=== PATIENT | male | born 1935 | race Caucasian/White ===

== ENCOUNTER → 2016-09-23 | Outpatient (CLI) | payer BC, OTHER ==
[~2016-09-23] MED LIST: IND/25 PO; LISI20TA3 PO; MCRK20 PO; NRN/600 PO; PRED20TA PO; SERT50TA PO; SPIR25TA89 PO; TPRSR25 PO; WARF4TAB PO
--- NOTE | 2016-09-23 12:01 | DIAGNOSTIC IMAGING REPORT ---
THORACIC SPINE 3 VIEWS HISTORY: Pain CHRONIC PAIN COMPARISON: None. FINDINGS: There is no fracture. Findings of posterior fusion procedure with bilateral jaziel placements are noted. Metallic hardware appears to be stable. Moderate degenerative disc changes throughout. IMPRESSION: No acute process. Chronic degenerative disc change with pre-existing postoperative changes consistent with a stabilization procedure Electronically signed by: Eric Conroy M.D. 09/23/2016 11:59 AM Dictated Date/Time: 09/23/2016 11:58 AM
== END | disposition home or self-care (01) ==
LOC: C.RADBC 11:38
PROVIDERS: ATTEND Internal Medicine Geriatric Medicine
DX: G89.29 Other chronic pain (principal)

== ENCOUNTER → 2016-11-16 | Outpatient (CLI) | payer BC, OTHER | END | disposition home or self-care (01) | LOC: C.LABSPEC 14:16 | PROVIDERS: ATTEND Physician Assistant Medical | DX: L03.119 Cellulitis of unspecified part of limb (principal) ==

== ENCOUNTER → 2016-11-17 | Outpatient (CLI) | payer BC, OTHER ==
--- NOTE | 2016-11-17 11:18 | DIAGNOSTIC IMAGING REPORT ---
MRI OF THE RIGHT HAND WITHOUT CONTRAST CLINICAL HISTORY: Right hand cellulitis. Evaluate for osteomyelitis. COMPARISON STUDY: No previous studies for comparison. FINDINGS: Alignment of the right hand is anatomic. There is no marrow edema or marrow replacement. Note is made of a 8 mm cystic focus along the palmar aspect of the interphalangeal joint of the right thumb which suggests a small ganglion cyst. 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 Note is made of moderate subcutaneous edema of the medial dorsal aspect of the right hand. There is no evidence for osteomyelitis on this examination. IMPRESSION: 1. Subcutaneous edema of the medial dorsal aspect of the right hand consistent with cellulitis. No evidence of osteomyelitis. No abscess identified. 2. Small ganglion cyst of the right thumb. Electronically signed by: Randall Horta M.D. 11/17/2016 11:17 AM Dictated Date/Time: 11/17/2016 11:10 AM
== END | disposition home or self-care (01) ==
LOC: C.MRIBC 09:43
PROVIDERS: ATTEND Physician Assistant Medical
DX: L03.113 Cellulitis of right upper limb (principal); M67.441 Ganglion, right hand

== ENCOUNTER → 2016-12-09 | Outpatient (CLI) | payer BC, OTHER ==
[2016-12-09 12:18] LABS: BASO % 0.1 %; BASO ABS # 0.01 K/uL (0-0.2); COMPLETE YES; EOS % 0.7 %; HEMATOCRIT 47.1 % (42-52); IG% 0.3 %; LYMPH % 8.3 %; LYMPH ABS # 0.76 K/uL (1.2-3.4); MEAN CELL VOLUME 100.2 fL (80-100); MEAN CORPUSCULAR HEMOGLOBIN 34.7 pg (25-34); MEAN CORPUSCULAR HGB CONC 34.6 g/dl (32-36); MEAN PLATELET VOLUME 9.5 fL (7.4-10.4); NEUT % 82.6 %; PLATELET COUNT 159 K/uL (130-400); WHITE BLOOD COUNT 9.13 K/uL (4.8-10.8)
[2016-12-09 15:08] LABS: LYME DISEASE AB IGG NEG (NEG)
[2016-12-09 15:09] LABS: LYME DISEASE AB IGM NEG (NEG)
== END | disposition home or self-care (01) ==
LOC: C.LABBFT 09:48
DX: H91.20 Sudden idiopathic hearing loss, unspecified ear (principal)

== ENCOUNTER → 2016-12-13 | Outpatient (CLI) | payer BC, OTHER ==
[2016-12-13 14:36] LABS: BLOOD UREA NITROGEN 22 mg/dl (7-18)
== END | disposition home or self-care (01) ==
LOC: C.LABBFT 08:24
DX: H91.20 Sudden idiopathic hearing loss, unspecified ear (principal)

== ENCOUNTER → 2016-12-15 | Outpatient (CLI) | payer BC, OTHER ==
[~2016-12-15] MED LIST changes: +GADAVIST IV PRN; -IND/25 PO; -PRED20TA PO
--- NOTE | 2016-12-15 08:53 | DIAGNOSTIC IMAGING REPORT ---
BRAIN COMBO FOR IAC CLINICAL HISTORY: Sudden-onset right sensorineural hearing loss COMPARISON STUDY: MRI of the brain December 30, 2014. TECHNIQUE: Utilizing a 1.5 Viviana magnet and dedicated coil, multiplanar, multi echo imaging of the brain was performed pre and postcontrast administration with thin cut imaging through the internal auditory canals. Injection of 8.6 cc of Gadavist IV was uneventful. FINDINGS: There are no areas of restricted diffusion. No acute intracranial hemorrhage, midline shift or mass effect is present. Basilar cisterns are patent. There are no extra-axial collections. Ventricular system is stable. Scattered white matter T2 hyperintense foci are similar to prior exam of December 30, 2014 and suggest mild small vessel disease. No intracranial mass or pathologic enhancement is identified. There is no mass within the internal auditory canals. There is no cerebellopontine angle mass. There is no mastoid effusion. 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 Abnormal appearance of the left vertebral artery flow-void is similar to prior MRI of December 30, 2014 and could reflect vessel occlusion. This is chronic. Calvarial signal is maintained. IMPRESSION: 1. No acute intracranial findings. 2. No abnormalities within the internal auditory canals. 3. No intracranial mass. 4. No change in appearance of the old infarct within the left cerebellar hemisphere. Loss of the normal flow-void of the left vertebral artery which is unchanged since MRI of December 30, 2014. This is chronic and may reflect chronic vessel occlusion. Electronically signed by: Randall Horta M.D. 12/15/2016 8:52 AM Dictated Date/Time: 12/15/2016 8:43 AM
== END | disposition home or self-care (01) ==
LOC: C.MRI 07:20
DX: H91.20 Sudden idiopathic hearing loss, unspecified ear (principal)

== ENCOUNTER → 2017-02-23 | Outpatient (CLI) | payer BC, OTHER ==
[~2017-02-23] MED LIST changes: -GADAVIST IV PRN; -LISI20TA3 PO; -MCRK20 PO; -TPRSR25 PO
[2017-02-23 13:06] LABS: BLOOD UREA NITROGEN 16 mg/dl (7-18); CALCIUM 8.9 mg/dl (8.5-10.1); CARBON DIOXIDE 33 mmol/L (21-32); CHLORIDE 98 mmol/L (98-107); GLUCOSE 96 mg/dl (70-99); POTASSIUM 3.9 mmol/L (3.5-5.1); SODIUM 136 mmol/L (136-145)
== END | disposition home or self-care (01) ==
LOC: C.LABBFT 09:14
PROVIDERS: ATTEND Internal Medicine Geriatric Medicine
DX: I10 Essential (primary) hypertension (principal)

== ENCOUNTER → 2017-06-30 | Outpatient (CLI) | payer OTHER ==
[~2017-06-30] MED LIST changes: +IND/25 PO
== END | disposition home or self-care (01) ==
LOC: C.LABBC 08:59
PROVIDERS: ATTEND Internal Medicine Geriatric Medicine
DX: M10.9 Gout, unspecified (principal)

== ENCOUNTER 2017-07-21 19:10 | Emergency (ER) | payer OTHER ==
[~2017-07-21] VITALS: Ht 177.8 cm; Wt 93.0 kg
[2017-07-21 19:26] VITALS: TEMP 36.6; Ht 177.8 cm; Wt 93.0 kg
[2017-07-21] MEDS ORDERED: LIDOCAINE/EPINEPH/TETRACAINE 1 EA SYR EXT STA (19:57)
[2017-07-21] MEDS ORDERED: DIPHTHERIA/TETANUS/PERTUSSIS 0.5 ML SYR/VIAL IM. ONE (20:00)
--- NOTE | 2017-07-21 20:02 | EMERGENCY ROOM VISIT NOTE ---
ED Visit Note First contact with patient: 19:41 CHIEF COMPLAINT: Facial laceration, fall, head injury HISTORY OF PRESENT ILLNESS: This 82-year-old male patient presents emergency department, ambulatory, complaining of a laceration to the left forehead. The patient was walking, and stepped off of a curb. He did not realize how high the curb was, and fell face first onto concrete. The patient is on Coumadin. There was no loss of consciousness, vomiting, or unusual behavior afterwards. Denies neck pain. No headache, nausea, or blurred vision. There is moderate bleeding. The patient rates the pain as minimal and 0/10. The patient's tetanus shot is not up to date. The patient does report some minimal bleeding and bruising to his left hand. REVIEW OF SYSTEMS: A 6 system review of systems was completed with positives and pertinent negatives listed in the HPI. ALLERGIES: None MEDICATIONS: Coumadin, gabapentin, Zoloft, spironolactone PMH: CVA SOCIAL HISTORY: The patient lives locally with family. He denies drug, alcohol , tobacco use. PHYSICAL EXAM: Vital Signs: Reviewed Nurse's notes, vital signs stable. GENERAL : This is an 82-year-old white male, in no acute distress, well-developed, well- nourished. NEURO: The patient is alert and oriented to person place and time. No focal neurological defects. EYES: Pupils are round, equal, and react to light. EOMI. EARS: No hemotympanum. NECK: Supple. No cervical spine tenderness. FACE: No facial bone tenderness or mandibular tenderness. The mouth can open fully. The teeth are well aligned. No loose or chipped teeth. SKIN: There is a 2 cm laceration on the left superior aspect of the forehead. The edges gape apart with traction. There is minimal active bleeding and no foreign material in the wound. There are no deep structures present. Capillary refill less than two seconds. Normal sensation to light and sharp touch. There is a small, 0.5cm skin tear to the dorsal aspect of the left hand. RADIOLOGY: CT OF THE HEAD WITHOUT CONTRAST FINDINGS: No acute intracranial hemorrhage, midline shift or mass effect is present. Ventricular system is stable. Basilar cisterns are patent. There are no extra-axial collections. An old infarct within the left cerebellar hemisphere is noted. Mild white matter hypodensity suggests small vessel disease. There is mild bilateral basal ganglia calcification. There are no findings to suggest acute dural sinus thrombosis or acute territorial infarct. A left forehead contusion is noted. There is no calvarial fracture. IMPRESSION: 1. No acute intracranial findings. 2. Left forehead contusion. No calvarial fracture. EMERGENCY DEPARTMENT COURSE: I examined the patient. Verbal consent was obtained to perform the procedure. LET gel applied to the wound and allowed to sit for approximately 40 minutes. The area was sterilely draped. Using sterile technique, the wound was copiously irrigated under pressure with sterile saline. The wound was cleansed with Betadine. The wound was explored and was as described above. The laceration was repaired using 8 simple interrupted 5-0 nylon sutures with the wound edges being well approximated. The patient tolerated the procedure well. Hemostasis was achieved. The area was cleaned with sterile saline and dressed with bacitracin ointment. The patient was given Tdap immunization. The patient was discharged home in good condition. I attest that I have personally reviewed the patient's current medication list. Blood Pressure Screening: Patient was found to have a slightly elevated blood pressure due to circumstances. I do not believe that the patient requires hypertension monitoring. DIFFERENTIAL DIAGNOSIS: Laceration, contusion, ICH, skull fracture, headache, concussion, and others DIAGNOSIS: Facial laceration Problem List Medical Problems: (1) Gastroesophageal reflux disease Status: Chronic (2) Hypertension Status: Chronic Current/Historical Medications Scheduled Gabapentin (Gabapentin), 600 MG PO QID Hctz/Spironolactone (Spironolactone/Hydrochlor 25-25 mg), 1 TAB PO DAILY Sertraline HCl (Sertraline HCl), 50 MG PO DAILY Warfarin Sodium (Coumadin), 4 MG PO 4XWK Warfarin Sodium (Coumadin), 6 MG PO 3XWK Scheduled PRN Furosemide (Furosemide), 20 MG PO DAILY PRN for Peripheral Edema Hydrocodone/Acetaminophen 5MG/325MG ([place] 5MG/325MG), 1 TABLET PO BID PRN for Pain Allergies Coded Allergies: CI Pigment Blue 63 (Unverified Allergy, Mild, UNKNOWN, 12/20/16) takes 4 mg warfarin (blue dye) without problems Celecoxib (Unverified Allergy, Mild, UNKNOWN, 01/29/15) Duloxetine (Unverified Allergy, Mild, UNKNOWN, 01/29/15) Nortriptyline (Verified Adverse Reaction, Intermediate, CONFUSION, 01/29/15 ) Oxycodone (Verified Adverse Reaction, Intermediate, SEVERE WITHDRAWL, 01/29) Vital Signs Date Time Temp Pulse Resp B/P (MAP) Pulse Ox O2 Delivery O2 Flow Rate FiO2 07/21/17 21:24 89 18 158/89 94 Room Air 07/21/17 19:26 36.6 91 20 163/91 92 Room Air Medications Administered Medications (Trade) Dose Ordered Sig/Roger Route Start Time Stop Time Status Last Admin Dose Admin Tetracaine/ Epinephrine/ Lidocaine (L.e.t. Gel 4%/ 1:100/0.5%) 1 ea UD STAT EXT 07/21/17 19:57 07/21/17 19:58 DC 07/21/17 20:18 1 EA Diphtheria/ Pertussis/Tetanus Vacc (Adacel Inj) 0.5 ml ONCE ONCE IM. 07/21/17 20:00 07/21/17 20:01 DC 07/21/17 20:18 0.5 ML Departure Information Impression Primary Impression: Facial laceration Additional Impression: Fall (on)(from) sidewalk curb, initial encounter Dispostion Home / Self-Care Condition GOOD Referrals Jairo Longo M.D. (PCP) Patient Instructions ED Laceration Facial Sutr Tape, Park[place] Additional Instructions You have received 8 sutures on your forehead. These sutures are NOT dissolvable and WILL need to be removed by a health care provider in 4-6 days. You can return to the Emergency Department or contact your Primary Care Provider to have the sutures removed. CT Scan of your head/brain demonstrated no acute bleeding or other abnormalities. This does not completely rule out the risk for future damage to the brain. Proper wound care is essential for adequate wound healing and infection prevention. You can shower and clean the wound with soap and water. Do not scour over the wound, pat dry with a towel. Do not submerse the wound (i.e. bathe or dish wash) until the sutures have been removed. You can use an antibiotic ointment with a dressing over the wound for the next 3-4 days. After this time you may leave the wound dry and open to the air. If crust develops over the wound you can use a Q-tip to apply a 1:1 peroxide:water solution to clean the wound. Look for signs of infection of the wound including: increased pain, swelling, foul discharge, streaking, or increased temperature. If any of these are noticed you should return to the Emergency Department for further assessment and treatment. As with any laceration you may have received nerve damage to the surrounding tissues. This damage may or may not be permanent. You should keep the area covered with sunscreen for the first 6 months to 1 year when at risk for exposure to help minimize scarring. You can also use scar reducing creams or Vitamin E oil to help minimize scarring. For pain control, you can use Tylenol. Please do not exceed 3000mg Tylenol in 24 hours. You should relax in a quiet, dark place for the rest of the day. Avoid any possible triggers including: cigarette smoke, caffeine, nicotine, chocolate, wine, beer, loud noises or music, or bright lights. Return to the Emergency Department if your current symptoms worsen despite treatment course outlined above, or if you develop any of the following symptoms : intractable pain despite aforementioned treatment course, visual disturbances , loss of vision, unilateral weakness or facial drooping, slurring of speech, loss of coordination, or loss of consciousness. Problem Qualifiers Primary Impression: Facial laceration Encounter type: initial encounter Qualified Codes: S01.81XA - Laceration without foreign body of other part of head, initial encounter
[2017-07-21] MEDS ORDERED: ZLF/50 PO (20:27)
[2017-07-21] MEDS ORDERED: LSX20 PO (20:27)
[2017-07-21] MEDS ORDERED: HYDR-5688 PO (20:27)
[2017-07-21] MEDS ORDERED: SPIR1TAB72 PO (20:27)
[2017-07-21] MEDS ORDERED: NRN600 PO (20:27)
--- NOTE | 2017-07-21 20:32 | DIAGNOSTIC IMAGING REPORT ---
CT OF THE HEAD WITHOUT CONTRAST CLINICAL HISTORY: fall, head injury, frontal contusion, on coumadin COMPARISON STUDY: Head CT October 13, 2014 and MRI the brain December 15, 2016. CT DOSE: 899.90 mGy.cm TECHNIQUE: Helical axial images of the head were obtained without IV contrast. Automated exposure control was utilized for the study. A dose lowering technique was utilized adhering to the principles of ALARA. FINDINGS: No acute intracranial hemorrhage, midline shift or mass effect is present. Ventricular system is stable. Basilar cisterns are patent. There are no extra-axial collections. An old infarct within the left cerebellar hemisphere is noted. Mild white matter hypodensity suggests small vessel disease. There is mild bilateral basal ganglia calcification. There are no findings to suggest acute dural sinus thrombosis or acute territorial infarct. A left forehead contusion is noted. There is no calvarial fracture. IMPRESSION: 1. No acute intracranial findings. 2. Left forehead contusion. No calvarial fracture. Electronically signed by: Randall Horta M.D. 07/21/2017 8:31 PM Dictated Date/Time: 07/21/2017 8:27 PM
[2017-07-21 21:24] VITALS: BP 158/89; PULSE 89; O2SAT 94
== END 2017-07-21 21:33 | disposition home or self-care (01) ==
LOC: C.EDB 19:11 → C.EDD 21:33
DX: S01.81XA Laceration without foreign body of other part of head, initial encounter (principal); W01.0XXA Fall on same level from slipping, tripping and stumbling without subsequent striking against object, initial encounter; S61.412A Laceration without foreign body of left hand, initial encounter; K21.9 Gastro-esophageal reflux disease without esophagitis; I10 Essential (primary) hypertension; Z79.01 Long term (current) use of anticoagulants; Z86.73 Personal history of transient ischemic attack (TIA), and cerebral infarction without residual deficits; Z23 Encounter for immunization

== ENCOUNTER → 2017-10-24 | Outpatient (CLI) | payer OTHER ==
[~2017-10-24] MED LIST changes: +HYDR-5688 PO; -IND/25 PO; +LSX20 PO; -NRN/600 PO; +NRN600 PO; -SERT50TA PO; +SPIR1TAB72 PO; -SPIR25TA89 PO; +ZLF/50 PO
[2017-10-24 13:13] LABS: BASO % 0.4 %; BASO ABS # 0.02 K/uL (0-0.2); EOS % 2.1 %; EOS ABS # 0.11 K/uL (0-0.5); HEMATOCRIT 42.2 % (42-52); HEMOGLOBIN 14.7 g/dL (14.0-18.0); LYMPH % 26.6 %; LYMPH ABS # 1.41 K/uL (1.2-3.4); MEAN CELL VOLUME 97.2 fL (80-100); MEAN CORPUSCULAR HEMOGLOBIN 33.9 pg (25-34); MEAN CORPUSCULAR HGB CONC 34.8 g/dl (32-36); MEAN PLATELET VOLUME 9.2 fL (7.4-10.4); MONO % 12.5 %; MONO ABS # 0.66 K/uL (0.11-0.59); NEUT % 58.4 %; PLATELET COUNT 209 K/uL (130-400); RED CELL DISTRIBUTION WIDTH CV 13.9 % (11.5-14.5); RED CELL DISTRIBUTION WIDTH SD 49.4 fL (36.4-46.3)
[2017-10-24 13:50] LABS: BLOOD UREA NITROGEN 18 mg/dl (7-18); CALCIUM 8.6 mg/dl (8.5-10.1); CARBON DIOXIDE 33 mmol/L (21-32); CHOLESTEROL 148 mg/dl (0-200); CREATININE 1.02 mg/dl (0.60-1.40); GLUCOSE 100 mg/dl (70-99); POTASSIUM 4.2 mmol/L (3.5-5.1); SODIUM 139 mmol/L (136-145)
[2017-10-24 14:00] LABS: LDL CHOLESTEROL CALCULATED 80 mg/dl
== END | disposition home or self-care (01) ==
LOC: C.LABBC 10:52
PROVIDERS: ATTEND Internal Medicine Geriatric Medicine
DX: I10 Essential (primary) hypertension (principal); I63.9 Cerebral infarction, unspecified; F32.9 Major depressive disorder, single episode, unspecified; Z79.01 Long term (current) use of anticoagulants; I48.2 Chronic atrial fibrillation

== ENCOUNTER 2018-08-14 11:54 | Inpatient (IN) ==
[2018-08-14] MEDS ORDERED: SODIUM CHLORIDE 0.9% 1000ML 2,000 ML IV ONE (12:08)
[2018-08-14] MEDS ORDERED: ONDANSETRON INJ 2 MG/ML 2 ML VIAL IV STA (12:08)
[2018-08-14] MEDS ORDERED: PIPERACILLIN/TAZOBACTAM 4.5 GM/120 ML BAG IV ONE (12:08)
[2018-08-14] MEDS ORDERED: PIPERACILL/TAZOBAC CONSULT ACTIVE PRN ×2 (12:08→18:36)
[2018-08-14 12:20] LABS: Basophils # (auto) 0.01 K/uL (0-0.2); Basophils % (auto) 0.1 %; Hemoglobin 13.4 g/dL (14.0-18.0); Immature Granulocytes # (auto) 0.04 K/uL (0.00-0.02); Immature Granulocytes % (auto) 0.3 %; Lymphocytes % (auto) 3.8 %; Mean Corpuscular Hgb Conc 33.5 g/dL (32-36); Mean Corpuscular Volume 100.5 fL (80-100); Mean Platelet Volume 9.5 fL (7.4-10.4); Monocytes # (auto) 1.23 K/uL (0.11-0.59); Monocytes % (auto) 9.4 %; Neutrophils # (auto) 11.27 K/uL (1.4-6.5); Neutrophils % (auto) 86.4 %; Platelet Count 171 K/uL (130-400); RDW Coefficient of Variation 12.6 % (11.5-14.5); RDW Standard Deviation 46.3 fL (36.4-46.3); Red Blood Count 3.98 M/uL (4.7-6.1); White Blood Count 13.05 K/uL (4.8-10.8)
[2018-08-14] MEDS ORDERED: OPTIRAY 320 125ml IV PRN (12:25)
[2018-08-14 12:26] LABS: iSTAT Creatinine 1.8 mg/dl (0.6-1.3); iSTAT Hemoglobin 13.6 g/dl (14.0-18.0); iSTAT Ionized Calcium 1.03 mmol/l (1.12-1.32); iSTAT Potassium 4.3 mEq/L (3.3-5.0)
[2018-08-14 12:33] LABS: INR 1.5 (0.9-1.1); Partial Thromboplastin Ratio 1.1; Partial Thromboplastin Time 29.1 Seconds (21.0-31.0); Prothrombin Time 14.8 Seconds (9.0-12.0)
[2018-08-14 12:36] LABS: Albumin Level 3.4 gm/dl (3.4-5.0); BUN Creatinine Ratio 12.6 (10-20); Calcium 8.1 mg/dl (8.5-10.1); Creatinine Clr Calc Pharmacy 32.6 ml/min; Est GFR (African American) 34.7; Potassium 4.2 mmol/L (3.5-5.1)
[2018-08-14 12:40] LABS: Bilirubin,Total 4.6 mg/dl (0.2-1); Globulin 3.3 gm/dl (2.5-4.0); Total Protein 6.7 gm/dl (6.4-8.2)
--- NOTE | 2018-08-14 12:44 | CT Scan Report ---
CT abd pelvis IV con only CLINICAL HISTORY: sepsis COMPARISON STUDY: 08/13/2018 TECHNIQUE: The patient was scanned in a dynamic helical fashion during intravenous administration of 118 cc of Optiray 320. A dose lowering technique was utilized adhering to the principles of ALARA. CT DOSE: 1315.91 mGy.cm FINDINGS: Lower chest: The heart is enlarged. There are coronary artery calcifications. There are basilar opaci ties statistically atelectatic. Liver: The contrast-enhanced liver is normal in size, contour, and attenuation. There is no intrahepa tic biliary ductal dilatation. The hepatic veins and portal veins are patent. Gallbladder: There is gallbladder wall thickening and pericholecystic fluid. The findings are suspici ous for acute cholecystitis. Spleen: Normal in size and attenuation. Pancreas: Unremarkable. Adrenal glands: Unremarkable. Kidneys: There is symmetric renal cortical enhancement. The kidneys are normal in size without hydron ephrosis. Bowel: There are no transition zones indicate bowel obstruction. The appendix appears normal. There i s colonic diverticulosis. There are no acute peridiverticular inflammatory changes. There is borderli ne rectal wall thickening. Peritoneum: There is no intraperitoneal free air or abdominal ascites. Vasculature: The abdominal aorta is normal in course and caliber. Adenopathy: There are borderline enlarged aortocaval peripancreatic and periportal lymph nodes simila r to the preceding study. Pelvic viscera: There is mild prostamegaly. The bladder is nondistended. There is bladder wall thicke tracy. Skeletal structures: Postsurgical changes are present within the spine IMPRESSION: 1. Interval development of gallbladder wall thickening and infiltration of the pericholecystic fat. T he findings are viewed as suspicious for acute cholecystitis. 2. No evidence of bowel obstruction. No evidence of free air 3. Borderline rectal wall thickening 4. Borderline enlarged aortocaval, peripancreatic, periportal lymph nodes 5. Prostamegaly and bladder wall thickening Electronically signed by: Roberto Del Rosario M.D. 08/14/2018 12:42 PM
--- NOTE | 2018-08-14 12:51 | CT Scan Report ---
CT angio chest PE protocol HISTORY: 83 years-old Male with tachy hypotension . Acute tachycardia with hypotension TECHNIQUE: Multiple CTA images of the chest were obtained after the intravenous administration of 118 ml Optiray 320. Coronal and sagittal MIPS were obtained from the axial data set and were submitted for review. All measurements were obtained according to NASCET criteria. A dose lowering technique w as utilized adhering to the principles of ALARA. COMPARISON: CT abdomen and pelvis of same day, CTA chest abdomen and pelvis 10/07/2014. FINDINGS: CTA: Moderate multichamber cardiac enlargement without pericardial effusion. Coronary arterial calcificati ons are noted. The left heart structures and aortic outflow tracts are not well opacified secondary t o contrast bolus timing. No thoracic aortic aneurysm or dissection identified. Reflux of contrast int o the IVC and hepatic veins. The pulmonary arterial tree is opacified to level of the segmental branc hes. The distal segmental and subsegmental branches are not well evaluated secondary to contrast bolu s timing and respiratory motion. No focal filling defects identified to suggest pulmonary thromboembo lic disease. CT CHEST: Heterogeneous appearance of the thyroid. Nonspecific mildly enlarged subcarinal and right hilar lymph nodes measure up to 10 mm. There is no pneumothorax or pleural effusion. Mild bilateral bronchial wa ll thickening. Bibasilar groundglass and subsegmental consolidative opacities, left greater than righ t suggest atelectasis/scarring. Chronic left hemidiaphragmatic elevation. There are a few scattered c alcified granulomata noted about the lungs. No overt pulmonary edema identified. Central airways appe ar patent. No acute process of the imaged upper abdomen. There is suggested mild hepatic steatosis. Soft tissues are unremarkable. Fusion hardware of the cervical and thoracic spine noted. Degenerative changes of the shoulders and spine. IMPRESSION: 1. No acute aortic pathology or evidence of pulmonary thromboembolic disease. 2. Moderate cardiomegaly without overt pulmonary edema. 3. Chronic left hemidiaphragmatic elevation with left greater than right bibasilar opacities suggesti ng atelectasis/scarring. The above report was generated using voice recognition software. It may contain grammatical, syntax o r spelling errors. Electronically signed by: Artur Hardy M.D. 08/14/2018 12:50 PM
--- NOTE | 2018-08-14 12:51 | XRay Report ---
XR chest 1V portable CLINICAL HISTORY: Sepsis COMPARISON STUDY: 04/11/2015 FINDINGS: The cardiac images so contours remain stable. There is mild mediastinal and hilar fullness unchanged the prior study. There are postsurgical changes of spinal rodding. There is no focal pulmon daniela consolidation. There are no pleural effusions. There is no overt failure. IMPRESSION: AP portable study. No acute findings. Electronically signed by: Roberto Del Rosario M.D. 08/14/2018 12:50 PM
--- NOTE | 2018-08-14 15:43 | Surgery Consultation ---
Date of Consultation August 14, 2018 Assessment & Plan (1) Cholangitis: 83 yo male who presents with sepsis and MARCELA secondary to cholangitis and acute cholecystitis. Discussed etiology of cholangitis, including choledocholithiasis vs malignancy, with the patient and his . Discussed need for GI consultation , possible ERCP for further evaluation / duct clearance, and likely recommendation for cholecystectomy if determined etiology is cholelithiasis/ choledocholithiasis - Consult GI for possible urgent ERCP (discussed case with Dr. Domínguez, who will evaluate) - Broad spectrum antibiotics, fluid resuscitation - Add on direct bilirubin and lipase to today's labs - f/u blood cultures - Trend lactate (repeat this evening) - Repeat CBC with diff, LFTs including direct bili tomorrow - Please hold Eliquis - Check urinalysis and urine culture - Analgesia PRN - Possible cholecystectomy this admission, timing and final surgical recommendations pending results of ERCP and pt clinical course - No additional tx at this time for borderline rectal wall thickening of undetermined significance, will continue to monitor for symptoms (pt currently denies aside from constipation), mild inflammation would be covered by antibiotics pt is already receiving Present on Admission?: Yes (2) Sepsis: see above Present on Admission?: Yes (3) Cholecystitis: see above Present on Admission?: Yes (4) MARCELA (acute kidney injury): MARCELA secondary to dehydration from sepsis/cholangitis - IVF resuscitation - Repeat BMP tomorrow Present on Admission?: Yes (5) Bladder wall thickening: - Obtain urinalysis and urine culture - Will need further workup as an outpatient, recommend Urology referral Present on Admission?: Yes History of Present Illness Reason for Consultation: "Shahnaz" Requesting Physician: Arcadio Gupta MD History of Present Illness Patient is an 83 yo male who presents with RUQ abdominal pain. Over the past approximately 1 year he has experienced mild RUQ discomfort after meals, he noted it is often after ice cream, possibly after some greasy food. This Tuesday or Tuesday he began experiencing more severe RUQ pain that would not subside. Pain radiated to the right abdomen/flank. This was also associated with nausea. This morning he had an episode of dry heaves. Pt and deny jaundice. Also reports recent constipation. Denies any chest pain, dyspnea, urinary frequency or dysuria. He was seen in the ED yesterday, total bili was 1.1 but remainder of LFTs were relatively unremarkable. CT scan showed urinary bladder wall thickening, concern for neoplasm vs underdistention, but no gallbladder/biliary abnormalities. He presented again today with reportedly SBP in the 80s, HR 120s, and SpO2 of 88 % on room air. After 2L of IVF his SBP is ~ 107, HR 70s, and is ~96% on room air. WBC 13.5, Lactate 3.6, INR 1.5, Na of 135, Cr 2.00 (1.10 yesterday), total bili 4.6 (1.1), direct bili unavailable. AST and ALT of 242 and 209 respectively (yesterday 27 and 36). CT scan shows interval development of gallbladder wall thickening and borderline rectal wall thickening. Of note, he has a-fib and is on Eliquis, his last dose was 5 mg this morning. He no longer takes Warfarin. He denies any prior abdominal surgeries. Allergies Allergy/AdvReac Type Severity Reaction Status Date / Time blue dye Allergy Mild UNKNOWN Unverified 08/14/18 12:43 celecoxib Allergy Mild UNKNOWN Unverified 08/14/18 12:43 duloxetine Allergy Mild UNKNOWN Unverified 08/14/18 12:43 nortriptyline AdvReac Intermediate CONFUSION Verified 08/14/18 12:43 oxycodone AdvReac Intermediate SEVERE Verified 08/14/18 12:43 WITHDRAWL Home Medications Home Medications Medication Instructions Recorded Confirmed Type apixaban [Eliquis] 5 mg PO BID 08/14/18 08/14/18 History furosemide 20 mg PO DAILY PRN 08/14/18 08/14/18 History gabapentin 0 mg PO QID 08/14/18 08/14/18 History hydrocodone-acetaminophen 1 tab PO BID PRN 08/14/18 08/14/18 History sertraline 50 mg PO DAILY 08/14/18 08/14/18 History spironolacton-hydrochlorothiaz 1 tab PO DAILY 08/14/18 08/14/18 History Patient History Medical History Hypotension A-fib History of stroke Social History Feels Safe at Home: Yes Smoking Status: Never smoker Preferred Language: Amharic Communication Ability: Effective Visual Impairment: No Limitations Hearing Ability: Normal Review of Systems Constitutional: as per Subjective / HPI and + weakness; no fever, no chills and no sweats Respiratory: no cough, no dyspnea and no dyspnea on exertion Cardiovascular: no chest pain, no chest pain with activity, no dyspnea at rest and no palpitations Additional Comments: positive for history of a-fib Gastrointestinal: as per Subjective / HPI, + abdominal pain, + heartburn, + nausea and + constipation Genitourinary (Male): no dysuria and no urinary frequency Integumentary: no yellowing of the skin Physical Exam 2 Vital Signs (Past 24 Hours): Last Vital Signs Temp 36.4 C L 08/14/18 11:56 Pulse 78 08/14/18 13:54 Resp 18 08/14/18 13:54 BP 106/67 08/14/18 13:54 Pulse Ox 93 08/14/18 13:54 Constitutional: well developed; no acute distress Eyes: PERRL, conjunctivae normal, anicteric sclerae + anicteric sclerae ENMT: external ear and nose normal, oropharynx normal Neck: trachea midline, no thyromegaly trachea midline no adenopathy Respiratory: normal respiratory effort, lungs clear to auscultation Cardiovascular: Rate/Rhythm: regular rate and regular rhythm Heart Sounds: no murmur Gastrointestinal (Abdomen): soft, nondistended, RUQ tendnerness, no rebound or guarding Musculoskeletal: no edema Neurologic: alert and oriented Psychiatric: Orientation: alert Thought Process: goal directed thought process Results & Data Laboratory Results Laboratory Tests 08/13/18 08/14/18 08/14/18 03:10 12:04 12:09 WBC 8.56 13.05 H RBC 3.98 L Hgb 13.4 L POC Hgb 13.6 L Hct 40.0 L POC Hct 40 L MCV 100.5 H Immature Gran # (Auto) 0.04 H Neut # (Auto) 11.27 H Lymph # (Auto) 0.50 L [place] # (Auto) 1.23 H Laboratory Tests 08/14/18 12:51 Lactate 3.6 H* Laboratory Tests 08/14/18 12:04 PT 14.8 H INR 1.5 H Laboratory Tests 08/13/18 08/14/18 03:10 12:04 Sodium 138 135 L Potassium 4.1 4.2 Chloride 101 99 Carbon Dioxide 31 31 Anion Gap 6.0 6.0 BUN 22 H 25 H Creatinine 1.10 2.00 H D Glucose 130 H 153 H Calcium 8.8 8.1 L Laboratory Tests 08/13/18 08/14/18 03:10 12:04 Total Bilirubin 1.1 H 4.6 H D AST 27 242 H ALT 36 209 H Alkaline Phosphatase 98 112 Albumin 4.3 3.4 Lipase 149 Diagnostic Findings (08/14/18) CT Abdomen/Pelvis: 1. Interval development of gallbladder wall thickening and infiltration of the pericholecystic fat. The findings are viewed as suspicious for acute cholecystitis. 2. No evidence of bowel obstruction. No evidence of free air 3. Borderline rectal wall thickening 4. Borderline enlarged aortocaval, peripancreatic, periportal lymph nodes 5. Prostamegaly and bladder wall thickening (08/13/18) CT Abdomen/Pelvis: 1. Extensive bibasilar atelectasis at the lung bases suspected. 2. Nonspecific mild gaseous distention of small bowel. Ileus is not excluded. No bowel obstruction. 3. Limited diverticulosis. No evidence of diverticulitis. 4. Possible ovoid bladder wall thickening raising concern for bladder neoplasm. Urologic consultation for cystoscopy recommended. 5. Nonopacification of the hepatic veins. This is likely related to an early phase of contrast. If there is clinical concern, Doppler ultrasound could confirm hepatic vein patency. 6. Cardiomegaly. _ (1) Sepsis Sepsis type: sepsis due to unspecified organism Qualified Code(s): A41.9 - Sepsis, unspecified organism
[2018-08-14 16:26] LABS: Bilirubin Direct 2.6 mg/dl (0-0.2)
--- NOTE | 2018-08-14 17:22 | Gastrointestinal Consultation ---
Date of Consultation August 14, 2018 I have seen and examined the patient on 08/14/18. I agree with futher plan of care per [facility] Assessment & Plan (1) Cholecystitis: Mr. Carpio is an 83 yr old male with chills, leukocytosis, marked new elevation of bilirubin, transaminases and alk Phos. This is suggestive of cholangitis, however, CT yesterday and today w/o evidence of bile duct obstruction. Plan: MRCP tonight. Please get blood cultures if not already obtained. IV fluids. Will plan for ERCP tomorrow (added on to OR schedule) Hold Eliquis. Present on Admission?: Yes (2) Elevated LFTs: Present on Admission?: Yes (3) Leukocytosis: Present on Admission?: Yes Supervising Physician Co-Signing Physician Notes I saw and evaluated the patient on 08/15/18. He presented with signs and symptoms most consistent with sepsis, thought to be related to cholangitis. We are planning for an urgent ercp as he has been volume resusitated and hemodynamicaly improved with antibiotic coverage. The patient is on eloquis, last dose yesterday and is therefore at much higher than average risk of bleeding. PE: mild distress/pale appearing mild icterus RUQ tender to palpation Impression: patient presents with signs and symptoms suggestive of cholangitis. We are planning for urgent ERCP today for biliary decompression. We have discussed the risks to include bleeding, infection, pain, pancreatitis, failed biliary cannulation, and need for follow-up studies. History of Present Illness Reason for Consultation: abdominal pain, elevated LFTs Requesting Physician: Dr. Mi Attending Physician: Dr. Arellano History of Present Illness Mr. Douglas Carpio is an 83 yr old male who presented to the ED today for abdominal pain. GI is consulted for ? cholangitis. He had diffuse abdominal pain yesterday, was seen in the ED at which time CT and labs were normal and he was discharged with the thought that the pain was from constipation. He used a laxative and enema with result of a BM and relief of the pain. However, today at 11AM, he began with pain again, as well as sweating. EMS was summoned (as family thought his sweating was similar to when he experienced a stroke - so they were concerned for that). He was transported to the ED. Though LFTs and WBC were normal yesterday, on arrival in the ED today, WBC was 13 and LFT were significantly elevated: T bili 4.6, AST 242, ALT 209, Alk Phos 112. CT with IV contrast today with gallbladder wall thickening and pericholecystic fluid suggestive of gallbladder disease. He is seen and examined in the ED where he is awake, alert, oriented and currently with normal BP but was hypotensive prior to IV fluids. He is accompanied by Allergies Allergy/AdvReac Type Severity Reaction Status Date / Time blue dye Allergy Mild UNKNOWN Unverified 08/14/18 12:43 celecoxib Allergy Mild UNKNOWN Unverified 08/14/18 12:43 duloxetine Allergy Mild UNKNOWN Unverified 08/14/18 12:43 nortriptyline AdvReac Intermediate CONFUSION Verified 08/14/18 12:43 oxycodone AdvReac Intermediate SEVERE Verified 08/14/18 12:43 WITHDRAWL Home Medications Home Medications Medication Instructions Recorded Confirmed Type apixaban [Eliquis] 5 mg PO BID 08/14/18 08/14/18 History furosemide 20 mg PO DAILY PRN 08/14/18 08/14/18 History gabapentin 800 mg PO TID 08/14/18 08/14/18 History hydrocodone-acetaminophen 1 tab PO BID PRN 08/14/18 08/14/18 History sertraline 50 mg PO DAILY 08/14/18 08/14/18 History spironolacton-hydrochlorothiaz 1 tab PO DAILY 08/14/18 08/14/18 History Patient History Medical History Choledocholithiasis with acute cholecystitis (Acute) Elevated LFTs MARCELA (acute kidney injury) (Acute) Sepsis (Acute) Hypotension A-fib History of stroke Hypertension (Chronic) Atrial flutter with rapid ventricular response (Acute) History of cardioversion 2014 Surgical History H/O cervical spine surgery H/O colonoscopy H/O elbow surgery Previous back surgery Social History Current Living Situation: Spouse Other Information That Helps Us Care for You: No Feels Safe at Home: Yes Safety Concerns: Feels Safe At This Time Smoking Status: Never smoker Hx Alcohol Use: No Hx Substance Use: No Beliefs That Will Affect Care: None Preferred Language: Uzbek Communication Ability: Effective Water Trainer Required: No Review of Systems Constitutional: + chills, + sweats and + weakness icterus Respiratory: no cough, no chest congestion and no dyspnea Cardiovascular: no chest pain, no radiating jaw, neck or arm pain, no dyspnea on exertion, no palpitations, no syncope and no edema Gastrointestinal: as per Subjective / HPI and + nausea (one episode) Genitourinary (Male): no dysuria and no hematuria no dark urine Integumentary: + change in skin color (jaundice) Neurologic: no gait abnormality, no unsteadiness, no falls and no numbness Psychiatric: no depression, no irritability, no anxiety and no confusion sweats Hematologic / Lymphatic: no easy bleeding, no easy bruising and no coagulopathy on Eliquis but denies any easy bleeding/bruising Physical Exam 2 Vital Signs (Past 24 Hours): Last Vital Signs Temp 36.4 C L 08/14/18 11:56 Pulse 76 08/14/18 15:56 Resp 18 08/14/18 15:56 BP 110/67 08/14/18 15:56 Pulse Ox 96 08/14/18 15:56 Constitutional: WD/WN, vitals as above well nourished, + obese and well groomed; no acute distress (uncomfortable but no severe pain) Eyes: icterus, PEARLA ENMT: external ear and nose normal, oropharynx normal Neck: trachea midline, no thyromegaly Respiratory: normal respiratory effort, lungs clear to auscultation Cardiovascular: RRR, no murmur, no edema Vessels: no JVD Extremities: no edema Gastrointestinal (Abdomen): Inspection/Auscultation: + abdomen distended (mild ) and + hypoactive bowel sounds; no abdominal edema Percussion/Palpation: + abdomen tender (moderate RLQ and RUQ tenderness) and abdomen soft Musculoskeletal: no cyanosis or clubbing, extremities motor strength 5/5 Skin: + jaundice Neurologic: PERRL, EOMI, accommodation nl, no face palsy, no dysarthria Psychiatric: A+Ox3, euthymic affect Lymphatic: no cervical or axillary lymphadenopathy Results & Data Laboratory Results Lactate 3.6. T BIli 4.6, AST 242, ALT 209, Alk Phos 112, WBC 13. Diagnostic Findings CT abd/pelvis with IV contrast 08/14/18: 1. Interval development of gallbladder wall thickening and infiltration of the pericholecystic fat. The findings are viewed as suspicious for acute cholecystitis. 2. No evidence of bowel obstruction. No evidence of free air 3. Borderline rectal wall thickening 4. Borderline enlarged aortocaval, peripancreatic, periportal lymph nodes 5. Prostamegaly and bladder wall thickening CT 08/13/18: 1. Extensive bibasilar atelectasis at the lung bases suspected. 2. Nonspecific mild gaseous distention of small bowel. Ileus is not excluded. No bowel obstruction. 3. Limited diverticulosis. No evidence of diverticulitis. 4. Possible ovoid bladder wall thickening raising concern for bladder neoplasm. Urologic consultation for cystoscopy recommended. 5. Nonopacification of the hepatic veins. This is likely related to an early phase of contrast. If there is clinical concern, Doppler ultrasound could confirm hepatic vein patency. 6. Cardiomegaly. Medications Administered Zosyn
--- NOTE | 2018-08-14 17:25 | History & Physical Report ---
Date of Service August 14, 2018 Assessment & Plan (1) MARCELA (acute kidney injury): (2) Bladder wall thickening: (3) Cholangitis: (4) Sepsis: 83yoM with hx of Afib, HTN, embolic CVA in 2014, hx of spinal fusion and chronic back pain presented with worsening and severe RUQ abdominal pain to the ED this AM. Concern for sepsis secondary to cholangitis and acute cholecystitis. Sepsis 2/2 cholangitis and acute cholecystitis -WBC 13 -Lactate 3.6 -Elevated LFT: Tbili 4.6, Direct Bili 2.6, AST 242, ALT 209 -Abdominal CT: concerning for acute cholecystitis -Blood culture x 2 pending -Started on Zosyn -Zofran PRN -GI consulted: Dr. Domínguez - plan for ERCP tomorrow or tuesday -On clear liquid diet per GI -Trend lactate -Continue to monitor CBC and follow blood cultures MARCELA in the setting of sepsis secondary to cholangitis/acute cholecystitis -BUN/Cr 25/2 -Received 2L NS bolus -On maintenance IVFs - NS at 125mls/hr -UA/UCx pending -Continue to monitor BMP Afib -ECHO 01/2015: EF 55%, mild-moderate MVR, mild Tricuspid valve regurg -Hold eliquis in preparation for ERCP -Given CHADSVASC score of 5 placed on heparin IV bridge HTN -Hold home lasix and HCTZ-Spironolactone given MARCELA and hypotension Chronic back pain - hx of spinal fusion -Continue home gabapentin and hydrocodone-acetaminophen Bladder wall thickening on CT abdomen -Concern for possible malignancy - consider outpt urology follow up Code: Full DVT prophylaxis: Heparin drip and SCDs Dispo: To telemetry (5) Cholecystitis: (6) A-fib: (7) History of stroke: (8) Hypertension: History of Present Illness Primary Care Provider: Corky Murry MD 83yoM with hx of Afib, HTN, embolic CVA in 2014, hx of spinal fusion and chronic back pain presented with severe RUQ abdominal pain to the ED this AM. Per pt and , pt was in the ED last Tuesday, 08/13 with abdominal pain and was sent home with bowel regimen. His administered bowel regimen and enema after which he had multiple BMs including loose, brown non-bloody BM this AM with improvement in abdominal pain. However this morning around 10am, started having intense RUQ abdominal pain again a/w sweating, nausea and dry heaves. Pain is described as "soreness", intermittent, 5/10 and localized at time of admission. He had scrambled eggs and toast this AM. Denies fever, CALVO/dizziness, cp, sob, dysuria, hematuria, hematochezia, or melena. ED course: He was found to be hypotensive, tachycardic and hypoxic with elevated WBC of 13, abnormal LFTs - Tbili 4.6, Direct Bili 2.6, AST 242, ALT 209 , elevated BUN/Cr 25/2, elevated lactate of 3.6. CT abdomen was concerning for acute cholecystitis. GI was consulted and evalated pt recommending ERCP. He received 2L NS with improvement in his hypotension and tachycardia. He also received zosyn and zofran x 1 Allergies Allergy/AdvReac Type Severity Reaction Status Date / Time blue dye Allergy Mild UNKNOWN Unverified 08/14/18 12:43 celecoxib Allergy Mild UNKNOWN Unverified 08/14/18 12:43 duloxetine Allergy Mild UNKNOWN Unverified 08/14/18 12:43 nortriptyline AdvReac Intermediate CONFUSION Verified 08/14/18 12:43 oxycodone AdvReac Intermediate SEVERE Verified 08/14/18 12:43 WITHDRAWL Home Medications Home Medications Medication Instructions Recorded Confirmed Type apixaban [Eliquis] 5 mg PO BID 08/14/18 08/14/18 History furosemide 20 mg PO DAILY PRN 08/14/18 08/14/18 History gabapentin 800 mg PO TID 08/14/18 08/14/18 History hydrocodone-acetaminophen 1 tab PO BID PRN 08/14/18 08/14/18 History sertraline 50 mg PO DAILY 08/14/18 08/14/18 History spironolacton-hydrochlorothiaz 1 tab PO DAILY 08/14/18 08/14/18 History Past Med/Surg History Medical History Hypotension A-fib History of stroke Social History Current Living Situation: Spouse Other Information That Helps Us Care for You: No Feels Safe at Home: Yes Safety Concerns: Feels Safe At This Time Smoking Status: Never smoker Hx Alcohol Use: No Hx Substance Use: No Beliefs That Will Affect Care: None Preferred Language: Danish Communication Ability: Effective Recovery Collector Required: No Review of Systems As per HPI Physical Exam 2 Vital Signs (Past 24 Hours): Last Vital Signs Temp 36.4 C L 08/14/18 11:56 Pulse 76 08/14/18 15:56 Resp 18 08/14/18 15:56 BP 110/67 08/14/18 15:56 Pulse Ox 96 08/14/18 15:56 Physical Exam: General: In NAD, resting in bed, pleasant and cooperative CV: Irregular rhythm, regular rate, no m/r/g Pulm: CTAB, equal breath sounds bilaterally Abdomen: +BS, TTP in RUQ, + Medina's test, no rebound tenderness LE: no LE edema or calf tenderness Neuro: Alert and oriented x 4 Results & Data Laboratory Results Abnormal lab results 08/14/18 08/14/18 08/14/18 Range/Units 12:04 12:04 12:04 WBC 13.05 H (4.8-10.8) K/uL RBC 3.98 L (4.7-6.1) M/uL Hgb 13.4 L (14.0-18.0) g/dL POC Hgb (14.0-18.0) g/dl Hct 40.0 L (42-52) % POC Hct (42-52) % MCV 100.5 H (80-100) fL Immature Gran # (Auto) 0.04 H (0.00-0.02) K/uL Neut # (Auto) 11.27 H (1.4-6.5) K/uL Lymph # (Auto) 0.50 L (1.2-3.4) K/uL [place] # (Auto) 1.23 H (0.11-0.59) K/uL PT 14.8 H (9.0-12.0) Seconds INR 1.5 H (0.9-1.1) Sodium 135 L (136-145) mmol/L POC Chloride (101-112) mEq/L POC BUN (7-18) mg/dl BUN 25 H (7-18) mg/dl Creatinine 2.00 H D (0.6-1.4) mg/dl POC Creatinine (0.6-1.3) mg/dl Glucose 153 H (70-99) mg/dl POC Glucose (other) (70-99) mg/dl Lactate (0.4-2.0) mmol/L Calcium 8.1 L (8.5-10.1) mg/dl POC Ioniz Calcium Snow (1.12-1.32) mmol/l Total Bilirubin 4.6 H D (0.2-1) mg/dl Direct Bilirubin (0-0.2) mg/dl AST 242 H (15-37) U/L ALT 209 H (12-78) U/L Lipase (73-393) U/L 08/14/18 08/14/18 08/14/18 Range/Units 12:09 12:51 15:52 WBC (4.8-10.8) K/uL RBC (4.7-6.1) M/uL Hgb (14.0-18.0) g/dL POC Hgb 13.6 L (14.0-18.0) g/dl Hct (42-52) % POC Hct 40 L (42-52) % MCV (80-100) fL Immature Gran # (Auto) (0.00-0.02) K/uL Neut # (Auto) (1.4-6.5) K/uL Lymph # (Auto) (1.2-3.4) K/uL [place] # (Auto) (0.11-0.59) K/uL PT (9.0-12.0) Seconds INR (0.9-1.1) Sodium (136-145) mmol/L POC Chloride 96 L (101-112) mEq/L POC BUN 23 H (7-18) mg/dl BUN (7-18) mg/dl Creatinine (0.6-1.4) mg/dl POC Creatinine 1.8 H (0.6-1.3) mg/dl Glucose (70-99) mg/dl POC Glucose (other) 157 H (70-99) mg/dl Lactate 3.6 H* (0.4-2.0) mmol/L Calcium (8.5-10.1) mg/dl POC Ioniz Calcium Snow 1.03 L (1.12-1.32) mmol/l Total Bilirubin (0.2-1) mg/dl Direct Bilirubin 2.6 H (0-0.2) mg/dl AST (15-37) U/L ALT (12-78) U/L Lipase 65 L (73-393) U/L Diagnostic Findings CT abd pelvis IV con only CLINICAL HISTORY: sepsis COMPARISON STUDY: 08/13/2018 TECHNIQUE: The patient was scanned in a dynamic helical fashion during intravenous administration of 118 cc of Optiray 320. A dose lowering technique was utilized adhering to the principles of ALARA. CT DOSE: 1315.91 mGy.cm FINDINGS: Lower chest: The heart is enlarged. There are coronary artery calcifications. There are basilar opacities statistically atelectatic. Liver: The contrast-enhanced liver is normal in size, contour, and attenuation. There is no intrahepatic biliary ductal dilatation. The hepatic veins and portal veins are patent. Gallbladder: There is gallbladder wall thickening and pericholecystic fluid. The findings are suspicious for acute cholecystitis. Spleen: Normal in size and attenuation. Pancreas: Unremarkable. Adrenal glands: Unremarkable. Kidneys: There is symmetric renal cortical enhancement. The kidneys are normal in size without hydronephrosis. Bowel: There are no transition zones indicate bowel obstruction. The appendix appears normal. There is colonic diverticulosis. There are no acute peridiverticular inflammatory changes. There is borderline rectal wall thickening. Peritoneum: There is no intraperitoneal free air or abdominal ascites. Vasculature: The abdominal aorta is normal in course and caliber. Adenopathy: There are borderline enlarged aortocaval peripancreatic and periportal lymph nodes similar to the preceding study. Pelvic viscera: There is mild prostamegaly. The bladder is nondistended. There is bladder wall thickening. Skeletal structures: Postsurgical changes are present within the spine IMPRESSION: 1. Interval development of gallbladder wall thickening and infiltration of the pericholecystic fat. The findings are viewed as suspicious for acute cholecystitis. 2. No evidence of bowel obstruction. No evidence of free air 3. Borderline rectal wall thickening 4. Borderline enlarged aortocaval, peripancreatic, periportal lymph nodes 5. Prostamegaly and bladder wall thickening CT angio chest PE protocol HISTORY: 83 years-old Male with tachy hypotension . Acute tachycardia with hypotension TECHNIQUE: Multiple CTA images of the chest were obtained after the intravenous administration of 118 ml Optiray 320. Coronal and sagittal MIPS were obtained from the axial data set and were submitted for review. All measurements were obtained according to NASCET criteria. A dose lowering technique was utilized adhering to the principles of ALARA. COMPARISON: CT abdomen and pelvis of same day, CTA chest abdomen and pelvis 10/07. FINDINGS: CTA: Moderate multichamber cardiac enlargement without pericardial effusion. Coronary arterial calcifications are noted. The left heart structures and aortic outflow tracts are not well opacified secondary to contrast bolus timing. No thoracic aortic aneurysm or dissection identified. Reflux of contrast into the IVC and hepatic veins. The pulmonary arterial tree is opacified to level of the segmental branches. The distal segmental and subsegmental branches are not well evaluated secondary to contrast bolus timing and respiratory motion. No focal filling defects identified to suggest pulmonary thromboembolic disease. CT CHEST: Heterogeneous appearance of the thyroid. Nonspecific mildly enlarged subcarinal and right hilar lymph nodes measure up to 10 mm. There is no pneumothorax or pleural effusion. Mild bilateral bronchial wall thickening. Bibasilar groundglass and subsegmental consolidative opacities, left greater than right suggest atelectasis/scarring. Chronic left hemidiaphragmatic elevation. There are a few scattered calcified granulomata noted about the lungs. No overt pulmonary edema identified. Central airways appear patent. No acute process of the imaged upper abdomen. There is suggested mild hepatic steatosis. Soft tissues are unremarkable. Fusion hardware of the cervical and thoracic spine noted. Degenerative changes of the shoulders and spine. IMPRESSION: 1. No acute aortic pathology or evidence of pulmonary thromboembolic disease. 2. Moderate cardiomegaly without overt pulmonary edema. 3. Chronic left hemidiaphragmatic elevation with left greater than right bibasilar opacities suggesting atelectasis/scarring. Code Status & VTE Plan Code Status Full Code VTE Prophylaxis Plan VTE Prophylaxis will be ordered: Yes Supervising Physician Co-Signing Physician Notes Patient seen and examined, chart reviewed, case discussed with Dr. Champion and I agree wtih her assessment and plan as documented above. Briefly, patient is an 83yo male with history of AF on Eliquis, HTN, prior CVA presenting with sepsis from suspected cholecystitis vs cholangitis. On physical exam he is afebrile, hemodynamically stable, non-toxic in appearance Gen: NAD, AA&O Skin: warm, dry, intact HEENT: neck supple, MMM, no JVD Heart : +S1/S2, irregularly irregular, no m/r/g Lungs: CTA Abd: +BS, soft, RUQ tenderness Ext: no edema Labs and images reviewed. Significant for WBC=13, Macrocytic anemia, H/H = 13.4 /40, INR=1.5, BUN=25, Cr=2 (from baseline of 18 and 1.1, respectively), lactate= 2.9, Tbili=4.6, Dbili=2.6, NVC=458, PZB=479 CT Abdomen with gallbladder wall thickening and infiltration of pericholecystic fat concerning for acute cholecystitis. Assessment/Plan - 83yo male with concern for acute cholecystitis, cholangitis. Elevated bilirubin -Admit to PCU -MRCP -Plan for ERCP in AM - holding Eliquis, heparin bridge due to high risk -Zosyn -Follow cultures -Repeat lactate -Remainder of plan as above Resident Activity Tracking Resident Involvement: Resident Care Provided Care Provided: Adult [facility] Medicine _ (1) Sepsis Sepsis type: sepsis due to unspecified organism Qualified Code(s): A41.9 - Sepsis, unspecified organism
[2018-08-14] MEDS ORDERED: ALUMINUM/MAGNESIUM SUSP 30 ML UDC PO PRN (18:36)
[2018-08-14] MEDS ORDERED: NITROGLYCERIN SL 0.4 MG/TAB TAB SL PRN (18:36)
[2018-08-14] MEDS ORDERED: Heparin IV Standard *NO* Bolus IV ONE (18:36)
[2018-08-14] MEDS ORDERED: MAGNESIUM HYDROXIDE SUSP 30 ML UDC PO PRN (18:36)
[2018-08-14] MEDS ORDERED: MoRPHine SULFATE 4 MG/ML 1 ML CARP\\VIAL IV PRN (18:36)
[2018-08-14] MEDS ORDERED: POLYETHYLENE (MIRALAX) 17 GM PACK PO PRN (18:36)
[2018-08-14] MEDS ORDERED: HEPARIN STANDARD DEXTROSE 25,000 UNITS/500 ML IV SCH (19:00)
--- NOTE | 2018-08-14 19:31 | Emergency Department Note ---
Entered by Katharina Askew acting as a scribe for Arcadio Gupta DO History of Present Illness General Chief complaint: Hypotension Source: patient Mode of arrival: ambulatory Limitations: no limitations History of Present Illness Onset (ago): day(s) (this morning ) Location: head (global), upper extremity and lower extremity Pain Consistency: + constant Quality: + other (weakness) Associated symptoms: + nausea/vomiting (The patient complains of vomiting. ), + weakness and + other (The patient denies abdominal pain and urinary symptoms. ) ; no chest pain, no cough and no shortness of breath The patient is an 83 year old male with a history of atrial fibrillation and stroke who presents to the ED with complaints of constant hypotension that onset this morning. The patient states that his called EMS because he could not walk. The patient complains of vomiting yesterday and weakness. The patient denies chest pain, shortness of breath, abdominal pain, urinary symptoms , and cough. Per EMS, the patients blood pressure was 80 and his pulse ox was 86 on 5 liters of nasal cannula. The patient notes that he was in the ER yesterday for constipation. He notes that his right upper quadrant is still mildly tender. This is why he came here yesterday and had a CT which was negative. Home Medications Home Medications Medication Instructions Recorded Confirmed Type apixaban [Eliquis] 5 mg PO BID 08/14/18 08/14/18 History furosemide 20 mg PO DAILY PRN 08/14/18 08/14/18 History gabapentin 800 mg PO TID 08/14/18 08/14/18 History hydrocodone-acetaminophen 1 tab PO BID PRN 08/14/18 08/14/18 History sertraline 50 mg PO DAILY 08/14/18 08/14/18 History spironolacton-hydrochlorothiaz 1 tab PO DAILY 08/14/18 08/14/18 History Allergies Allergy/AdvReac Type Severity Reaction Status Date / Time blue dye Allergy Mild UNKNOWN Unverified 08/14/18 12:43 celecoxib Allergy Mild UNKNOWN Unverified 08/14/18 12:43 duloxetine Allergy Mild UNKNOWN Unverified 08/14/18 12:43 nortriptyline AdvReac Intermediate CONFUSION Verified 08/14/18 12:43 oxycodone AdvReac Intermediate SEVERE Verified 08/14/18 12:43 WITHDRAWL Past Med/Surg History Medical History Hypotension A-fib History of stroke Social History Current Living Situation: Spouse Other Information That Helps Us Care for You: No Feels Safe at Home: Yes Safety Concerns: Feels Safe At This Time Smoking Status: Never smoker Hx Alcohol Use: No Hx Substance Use: No Beliefs That Will Affect Care: None Preferred Language: Urdu Communication Ability: Effective Prize Coordinator Required: No Review of Systems See HPI for pertinent positives & negatives. and A total of 10 systems reviewed and were otherwise negative Physical Exam Vital Signs Vital Signs - 24 hr 08/14/18 11:54 08/14/18 11:56 08/14/18 12:04 Temperature 36.4 C L Temperature Source Oral Sepsis Recent Fever Within 48 Hours No Sepsis Action Taken by Nursing No Action Required Pulse Rate 110 H 110 H Pulse Rate [Apical] Pulse Rate [Left Finger] Pulse Rhythm [Apical] Pulse Rhythm [Left Finger] Pulse Strength [Apical] Respiratory Rate 18 Respiratory Effort / Characteristics Non-Labored Respiratory Depth Normal Respiratory Pattern Blood Pressure 97/70 L Blood Pressure [Left Arm] Blood Pressure Mean 79 Blood Pressure Mean [Left Arm] Blood Pressure Position [Left Arm] Pulse Oximetry 88 L Oxygen Delivery Method Room Air Room Air Room Air Oxygen Flow Rate 08/14/18 12:17 08/14/18 12:36 08/14/18 12:54 Temperature Temperature Source Sepsis Recent Fever Within 48 Hours Sepsis Action Taken by Nursing Pulse Rate Pulse Rate [Apical] Pulse Rate [Left Finger] 96 H 102 H 78 Pulse Rhythm [Apical] Pulse Rhythm [Left Finger] Pulse Strength [Apical] Respiratory Rate 18 22 18 Respiratory Effort / Characteristics Non-Labored Non-Labored Non-Labored Respiratory Depth Normal Normal Normal Respiratory Pattern Blood Pressure Blood Pressure [Left Arm] 94/65 L 114/65 114/72 Blood Pressure Mean Blood Pressure Mean [Left Arm] 74 81 86 Blood Pressure Position [Left Arm] Pulse Oximetry 95 95 92 Oxygen Delivery Method Nasal Cannula Nasal Cannula Nasal Cannula Oxygen Flow Rate 4 2 08/14/18 13:06 08/14/18 13:54 08/14/18 15:56 Temperature Temperature Source Sepsis Recent Fever Within 48 Hours Sepsis Action Taken by Nursing Pulse Rate Pulse Rate [Apical] Pulse Rate [Left Finger] 85 78 76 Pulse Rhythm [Apical] Pulse Rhythm [Left Finger] Irregular Pulse Strength [Apical] Respiratory Rate 18 18 18 Respiratory Effort / Characteristics Non-Labored Spontaneous Non-Labored Spontaneous Non-Labored Spontaneous Respiratory Depth Normal Normal Normal Respiratory Pattern Regular Regular Regular Blood Pressure Blood Pressure [Left Arm] 123/78 106/67 110/67 Blood Pressure Mean Blood Pressure Mean [Left Arm] 93 80 81 Blood Pressure Position [Left Arm] Lying Lying Lying Pulse Oximetry 94 93 96 Oxygen Delivery Method Room Air Room Air Room Air Oxygen Flow Rate 08/14/18 17:55 08/14/18 18:06 08/14/18 19:00 Temperature 36.8 C Temperature Source Oral Sepsis Recent Fever Within 48 Hours Sepsis Action Taken by Nursing Pulse Rate Pulse Rate [Apical] 92 H Pulse Rate [Left Finger] 103 H 84 92 H Pulse Rhythm [Apical] Regular Pulse Rhythm [Left Finger] Pulse Strength [Apical] Normal Respiratory Rate 16 18 20 Respiratory Effort / Characteristics Non-Labored Spontaneous Non-Labored Spontaneous Respiratory Depth Normal Normal Respiratory Pattern Regular Regular Blood Pressure Blood Pressure [Left Arm] 138/76 118/74 112/72 Blood Pressure Mean Blood Pressure Mean [Left Arm] 96 88 85 Blood Pressure Position [Left Arm] Lying Lying Pulse Oximetry 93 95 95 Oxygen Delivery Method Room Air Nasal Cannula Oxygen Flow Rate 5 GENERAL: Sitting up in bed, alert, ill appearing, mild distress, on 5 liters nasal cannula. EYE EXAM: normal conjunctiva. OROPHARYNX: no exudate, no erythema, lips, buccal mucosa, and tongue normal and mucous membranes are moist NECK: supple, no nuchal rigidity, no adenopathy, non-tender LUNGS: Diminished at the bases. HEART: Tachycardic, irregularly irregular rhythm. ABDOMEN: abdomen soft, non-tender, normo-active bowel, sounds, no masses, no rebound or guarding. BACK: Back is symmetrical on inspection and there is no deformity, no midline tenderness, no CVA tenderness. SKIN: no rashes and no bruising UPPER EXTREMITIES: Radial pulses equal bilaterally. LOWER EXTREMITIES: Calves are equal bilaterally. NEURO EXAM: Normal sensorium, cranial nerves II-XII grossly intact, normal speech, no gross weakness of arms, no gross weakness of legs. Course 1202: Past medical records reviewed. The patient was evaluated in room B01, and a complete history and physical examination were performed. 1230: The patient has been moved to B10. 1304: I updated the patient. Upon reevaluation, the patient is resting comfortably. 1305: I reviewed the patient's case with Dr. Celsa Eckert - [facility]. She will evaluate the patient for further management. Consultations Consultation #1: 1305: I reviewed the patient's case with Dr. Celsa Eckert - [facility]. She will evaluate the patient for further management. Time: 13:05 Administered Medications Discontinued Medications Piperacillin Sod/Tazobactam Sod (Zosyn) 4.5 gm in 120 mls @ 240 mls/hr IV NOW ONE Stop: 08/14/18 12:37 Last Infusion: 08/14/18 13:08 Dose: 0 mls/hr Admin: 08/14/18 12:40 Dose: 240 mls/hr Sodium Chloride (Nss 1000ml) 2,000 mls @ 999 mls/hr IV .Q2H1M ONE Stop: 08/14/18 14:08 Last Infusion: 08/14/18 13:59 Dose: 0 mls/hr Admin: 08/14/18 12:15 Dose: 999 mls/hr Ioversol (Optiray 320 125ml) 118 ml IV ONCE PRN PRN Reason: Interaction Checking Stop: 08/18/18 12:24 Last Admin: 08/14/18 12:25 Dose: 118 ml Medical Decision Making Differential Diagnosis Differential diagnosis: Sepsis, UTI, pneumonia, metabolic, electrolyte abnormalities, cardiac sources, intracerebral event, toxicologic, neurologic, as well as others were entertained. Medical Records Attestation: I reviewed the patient's medical records. Home Medications Current Medication List: was personally reviewed by me Laboratory Data Attestation: I reviewed the patient's lab results. Result diagrams: 08/14/18 12:04 08/14/18 12:04 Lab Results 08/14/18 08/14/18 08/14/18 Range/Units 12:04 12:04 12:04 WBC 13.05 H (4.8-10.8) K/uL RBC 3.98 L (4.7-6.1) M/uL Hgb 13.4 L (14.0-18.0) g/dL POC Hgb (14.0-18.0) g/dl Hct 40.0 L (42-52) % POC Hct (42-52) % MCV 100.5 H (80-100) fL MCH 33.7 (25-34) pg MCHC 33.5 (32-36) g/dL RDW Std Deviation 46.3 (36.4-46.3) fL RDW Coeff of Monie 12.6 (11.5-14.5) % Plt Count 171 (130-400) K/uL MPV 9.5 (7.4-10.4) fL Immature Gran % (Auto) 0.3 % Neut % (Auto) 86.4 % Lymph % (Auto) 3.8 % Pickett % (Auto) 9.4 % Eos % (Auto) 0.0 % Baso % (Auto) 0.1 % Immature Gran # (Auto) 0.04 H (0.00-0.02) K/uL Neut # (Auto) 11.27 H (1.4-6.5) K/uL Lymph # (Auto) 0.50 L (1.2-3.4) K/uL Pickett # (Auto) 1.23 H (0.11-0.59) K/uL Eos # (Auto) 0.00 (0-0.5) K/uL Baso # (Auto) 0.01 (0-0.2) K/uL PT 14.8 H (9.0-12.0) Seconds INR 1.5 H (0.9-1.1) APTT 29.1 (21.0-31.0) Seconds PTT Ratio 1.1 POC Sodium (135-144) mEq/L Sodium 135 L (136-145) mmol/L POC Potassium (3.3-5.0) mEq/L Potassium 4.2 (3.5-5.1) mmol/L POC Chloride (101-112) mEq/L Chloride 99 (98-107) mmol/L Carbon Dioxide 31 (21-32) mmol/L POC Total CO2 (24-31) mEq/l Anion Gap 6.0 (3-11) POC Anion Gap (16-25) mmol/L POC BUN (7-18) mg/dl BUN 25 H (7-18) mg/dl Creatinine 2.00 H D (0.6-1.4) mg/dl POC Creatinine (0.6-1.3) mg/dl Est Cr Clr Drug Dosing 32.6 ml/min Est GFR ( Amer) 34.7 Est GFR (Non-Af Amer) 30.0 BUN/Creatinine Ratio 12.6 (10-20) Glucose 153 H (70-99) mg/dl POC Glucose (other) (70-99) mg/dl Lactate (0.4-2.0) mmol/L Calcium 8.1 L (8.5-10.1) mg/dl POC Ioniz Calcium Snow (1.12-1.32) mmol/l Total Bilirubin 4.6 H D (0.2-1) mg/dl Direct Bilirubin (0-0.2) mg/dl AST 242 H (15-37) U/L ALT 209 H (12-78) U/L Alkaline Phosphatase 112 (45-117) U/L Total Protein 6.7 (6.4-8.2) gm/dl Albumin 3.4 (3.4-5.0) gm/dl Globulin 3.3 (2.5-4.0) gm/dl Albumin/Globulin Ratio 1.0 (0.9-2) Lipase 08/14/18 08/14/18 08/14/18 Range/Units 12:04 12:09 12:51 WBC (4.8-10.8) K/uL RBC (4.7-6.1) M/uL Hgb (14.0-18.0) g/dL POC Hgb 13.6 L (14.0-18.0) g/dl Hct (42-52) % POC Hct 40 L (42-52) % MCV (80-100) fL MCH (25-34) pg MCHC (32-36) g/dL RDW Std Deviation (36.4-46.3) fL RDW Coeff of Monie (11.5-14.5) % Plt Count (130-400) K/uL MPV (7.4-10.4) fL Immature Gran % (Auto) % Neut % (Auto) % Lymph % (Auto) % Pickett % (Auto) % Eos % (Auto) % Baso % (Auto) % Immature Gran # (Auto) (0.00-0.02) K/uL Neut # (Auto) (1.4-6.5) K/uL Lymph # (Auto) (1.2-3.4) K/uL Pickett # (Auto) (0.11-0.59) K/uL Eos # (Auto) (0-0.5) K/uL Baso # (Auto) (0-0.2) K/uL PT (9.0-12.0) Seconds INR (0.9-1.1) APTT (21.0-31.0) Seconds PTT Ratio POC Sodium 138 (135-144) mEq/L Sodium (136-145) mmol/L POC Potassium 4.3 (3.3-5.0) mEq/L Potassium (3.5-5.1) mmol/L POC Chloride 96 L (101-112) mEq/L Chloride (98-107) mmol/L Carbon Dioxide (21-32) mmol/L POC Total CO2 30 (24-31) mEq/l Anion Gap (3-11) POC Anion Gap 18.0 (16-25) mmol/L POC BUN 23 H (7-18) mg/dl BUN (7-18) mg/dl Creatinine (0.6-1.4) mg/dl POC Creatinine 1.8 H (0.6-1.3) mg/dl Est Cr Clr Drug Dosing ml/min Est GFR ( Amer) Est GFR (Non-Af Amer) BUN/Creatinine Ratio (10-20) Glucose (70-99) mg/dl POC Glucose (other) 157 H (70-99) mg/dl Lactate 3.6 H* (0.4-2.0) mmol/L Calcium (8.5-10.1) mg/dl POC Ioniz Calcium Snow 1.03 L (1.12-1.32) mmol/l Total Bilirubin (0.2-1) mg/dl Direct Bilirubin (0-0.2) mg/dl AST (15-37) U/L ALT (12-78) U/L Alkaline Phosphatase (45-117) U/L Total Protein (6.4-8.2) gm/dl Albumin (3.4-5.0) gm/dl Globulin (2.5-4.0) gm/dl Albumin/Globulin Ratio (0.9-2) Lipase Cancelled 08/14/18 Range/Units 15:52 WBC (4.8-10.8) K/uL RBC (4.7-6.1) M/uL Hgb (14.0-18.0) g/dL POC Hgb (14.0-18.0) g/dl Hct (42-52) % POC Hct (42-52) % MCV (80-100) fL MCH (25-34) pg MCHC (32-36) g/dL RDW Std Deviation (36.4-46.3) fL RDW Coeff of Monie (11.5-14.5) % Plt Count (130-400) K/uL MPV (7.4-10.4) fL Immature Gran % (Auto) % Neut % (Auto) % Lymph % (Auto) % Pickett % (Auto) % Eos % (Auto) % Baso % (Auto) % Immature Gran # (Auto) (0.00-0.02) K/uL Neut # (Auto) (1.4-6.5) K/uL Lymph # (Auto) (1.2-3.4) K/uL Pickett # (Auto) (0.11-0.59) K/uL Eos # (Auto) (0-0.5) K/uL Baso # (Auto) (0-0.2) K/uL PT (9.0-12.0) Seconds INR (0.9-1.1) APTT (21.0-31.0) Seconds PTT Ratio POC Sodium (135-144) mEq/L Sodium (136-145) mmol/L POC Potassium (3.3-5.0) mEq/L Potassium (3.5-5.1) mmol/L POC Chloride (101-112) mEq/L Chloride (98-107) mmol/L Carbon Dioxide (21-32) mmol/L POC Total CO2 (24-31) mEq/l Anion Gap (3-11) POC Anion Gap (16-25) mmol/L POC BUN (7-18) mg/dl BUN (7-18) mg/dl Creatinine (0.6-1.4) mg/dl POC Creatinine (0.6-1.3) mg/dl Est Cr Clr Drug Dosing ml/min Est GFR ( Amer) Est GFR (Non-Af Amer) BUN/Creatinine Ratio (10-20) Glucose (70-99) mg/dl POC Glucose (other) (70-99) mg/dl Lactate (0.4-2.0) mmol/L Calcium (8.5-10.1) mg/dl POC Ioniz Calcium Snow (1.12-1.32) mmol/l Total Bilirubin (0.2-1) mg/dl Direct Bilirubin 2.6 H (0-0.2) mg/dl AST (15-37) U/L ALT (12-78) U/L Alkaline Phosphatase (45-117) U/L Total Protein (6.4-8.2) gm/dl Albumin (3.4-5.0) gm/dl Globulin (2.5-4.0) gm/dl Albumin/Globulin Ratio (0.9-2) Lipase 65 L Imaging Data Radiologist's Impression: Radiology results as stated below per my review and the radiologist's interpretation: CT angio chest PE protocol HISTORY: 83 years-old Male with tachy hypotension . Acute tachycardia with hypotension TECHNIQUE: Multiple CTA images of the chest were obtained after the intravenous administration of 118 ml Optiray 320. Coronal and sagittal MIPS were obtained from the axial data set and were submitted for review. All measurements were obtained according to NASCET criteria. A dose lowering technique was utilized adhering to the principles of ALARA. COMPARISON: CT abdomen and pelvis of same day, CTA chest abdomen and pelvis 10/07. FINDINGS: CTA: Moderate multichamber cardiac enlargement without pericardial effusion. Coronary arterial calcifications are noted. The left heart structures and aortic outflow tracts are not well opacified secondary to contrast bolus timing. No thoracic aortic aneurysm or dissection identified. Reflux of contrast into the IVC and hepatic veins. The pulmonary arterial tree is opacified to level of the segmental branches. The distal segmental and subsegmental branches are not well evaluated secondary to contrast bolus timing and respiratory motion. No focal filling defects identified to suggest pulmonary thromboembolic disease. CT CHEST: Heterogeneous appearance of the thyroid. Nonspecific mildly enlarged subcarinal and right hilar lymph nodes measure up to 10 mm. There is no pneumothorax or pleural effusion. Mild bilateral bronchial wall thickening. Bibasilar groundglass and subsegmental consolidative opacities, left greater than right suggest atelectasis/scarring. Chronic left hemidiaphragmatic elevation. There are a few scattered calcified granulomata noted about the lungs. No overt pulmonary edema identified. Central airways appear patent. No acute process of the imaged upper abdomen. There is suggested mild hepatic steatosis. Soft tissues are unremarkable. Fusion hardware of the cervical and thoracic spine noted. Degenerative changes of the shoulders and spine. IMPRESSION: 1. No acute aortic pathology or evidence of pulmonary thromboembolic disease. 2. Moderate cardiomegaly without overt pulmonary edema. 3. Chronic left hemidiaphragmatic elevation with left greater than right bibasilar opacities suggesting atelectasis/scarring. The above report was generated using voice recognition software. It may contain grammatical, syntax or spelling errors. Electronically signed by: Artur Hardy M.D. 08/14/2018 12:50 PM Dictated: 08/14/18 1236 Transcribed: 08/14/18 1236 XR chest 1V portable CLINICAL HISTORY: Sepsis COMPARISON STUDY: 04/11/2015 FINDINGS: The cardiac images so contours remain stable. There is mild mediastinal and hilar fullness unchanged the prior study. There are postsurgical changes of spinal rodding. There is no focal pulmonary consolidation. There are no pleural effusions. There is no overt failure. IMPRESSION: AP portable study. No acute findings. Electronically signed by: Roberto Del Rosario M.D. 08/14/2018 12:50 PM Dictated: 08/14/18 1246 Transcribed: 08/14/[address] abd pelvis IV con only CLINICAL HISTORY: sepsis COMPARISON STUDY: 08/13/2018 TECHNIQUE: The patient was scanned in a dynamic helical fashion during intravenous administration of 118 cc of Optiray 320. A dose lowering technique was utilized adhering to the principles of ALARA. CT DOSE: 1315.91 mGy.cm FINDINGS: Lower chest: The heart is enlarged. There are coronary artery calcifications. There are basilar opacities statistically atelectatic. Liver: The contrast-enhanced liver is normal in size, contour, and attenuation. There is no intrahepatic biliary ductal dilatation. The hepatic veins and portal veins are patent. Gallbladder: There is gallbladder wall thickening and pericholecystic fluid. The findings are suspicious for acute cholecystitis. Spleen: Normal in size and attenuation. Pancreas: Unremarkable. Adrenal glands: Unremarkable. Kidneys: There is symmetric renal cortical enhancement. The kidneys are normal in size without hydronephrosis. Bowel: There are no transition zones indicate bowel obstruction. The appendix appears normal. There is colonic diverticulosis. There are no acute peridiverticular inflammatory changes. There is borderline rectal wall thickening. Peritoneum: There is no intraperitoneal free air or abdominal ascites. Vasculature: The abdominal aorta is normal in course and caliber. Adenopathy: There are borderline enlarged aortocaval peripancreatic and periportal lymph nodes similar to the preceding study. Pelvic viscera: There is mild prostamegaly. The bladder is nondistended. There is bladder wall thickening. Skeletal structures: Postsurgical changes are present within the spine IMPRESSION: 1. Interval development of gallbladder wall thickening and infiltration of the pericholecystic fat. The findings are viewed as suspicious for acute cholecystitis. 2. No evidence of bowel obstruction. No evidence of free air 3. Borderline rectal wall thickening 4. Borderline enlarged aortocaval, peripancreatic, periportal lymph nodes 5. Prostamegaly and bladder wall thickening Electronically signed by: Roberto Del Rosario M.D. 08/14/2018 12:42 PM Dictated: 08/14/18 1236 Transcribed: 08/14/18 1236 ECG Data Attestation: I personally reviewed and interpreted this ECG as follows: Indication: weakness Rate (beats per minute): 119 Rhythm: atrial fibrillation Findings: + other (normal axis) and + ST depression (in the inferior, anterior, and lateral leads) Blood Pressure Blood Pressure Findings: Normal blood pressure MDM Narrative Patient is an 83-year-old male who presents the ER via EMS for weakness. He was seen here yesterday for right upper quadrant abdominal pain. Upon arrival he is found to be hypotensive with a pulse in the 130s and systolic blood pressures in the 80s. He was also slightly hypoxic with a pulse ox of 86% on room air. Upon presentation IVs were established and was given 2 L bolus of normal saline. He was given IV antibiotics. White count was 13,000. No significant anemia. INR was 1.5. BMP was fairly unremarkable. Patient had acute kidney injury with his creatinine of 2 off of a baseline of 1. Lactate was significantly elevated at 3.6. Bilirubin LFTs show transaminitis. Lipase was low. Prior to the results of the blood work a CT of the chest and bili was performed and showed cholecystitis which I do favor secondary to choledocholithiasis with the transaminitis and elevated bilirubin. Patient was covered with broad-spectrum antibiotics. Blood pressures improved significantly to the low 100s and heart rate trended down to the 90s. Discussed the case with general surgery and the hospitalist who will notify GI as well. Impression & Plan Sepsis, Cholecystitis, MARCELA (acute kidney injury), Choledocholithiasis with acute cholecystitis Critical Care Time I have personally spent greater than 35 minutes of critical care time in the direct management of this patient. This includes bedside care, interpretation of diagnostic studies, and testing, discussion with consultants, patient, and family members, and other required patient management activities. This 35 minutes is in excess of all separately billable procedures. Critical Care Time: Yes (35) Total Critical Care Time: 35 Discharge Plan Visit Data *Final* Discharge Date/Time: 08/14/18 19:09 Chief Complaint: Hypotension ED Provider: Arcadio Gupta Discharge Problem: Sepsis, Cholecystitis, MARCELA (acute kidney injury), Choledocholithiasis with acute cholecystitis Patient Disposition: Admitted As Inpatient Discharge Instructions Interventions: ED Discharge Assessment Last Done: 08/14/18 19:09 The scribe's documentation has been prepared under my direction and personally reviewed by me in its entirety. I confirm that the note above accurately reflects all work, treatment, procedures, and medical decision making performed by me.
[2018-08-14] MEDS: SODIUM CHLORIDE 0.9% 1000ML 1,000 ML IV SCH (20:11)
[2018-08-14] MEDS: PIPERACILLIN/TAZOBACTAM 3.375 GM in DEXTROSE 5% 100 ML IV SCH (20:12)
[2018-08-14] MEDS: GABAPENTIN 800 MG TAB PO SCH (20:12)
--- NOTE | 2018-08-14 23:20 | Magnetic Resonance Report ---
MRCP CLINICAL HISTORY: Acute cholecystitis. COMPARISON STUDY: Abdominal CT dated 08/14/2018 TECHNIQUE: Abdominal MRCP is performed utilizing various T2-weighted sequences in the axial and coron al planes. IV contrast was not administered for this examination. The examination is modestly degrade d by motion artifact. FINDINGS: The gallbladder is distended and filled with numerous gallstones. The gallbladder wall is thickened a nd there is pericholecystic inflammation and fluid. The appearance is consistent with acute cholecyst itis. A 6 mm gallstone is seen within the cystic duct, best visualized on axial high-resolution image #168. The common bile duct is normal in caliber, measuring up to 4 mm in diameter. There is no evide nce of choledocholithiasis. Pancreas divisum is noted. The pancreatic duct is normal in caliber. No i ntrahepatic biliary ductal dilatation is identified. The hepatic parenchyma is normal as imaged. The spleen, adrenal glands, and pancreas are grossly norm al. The kidneys demonstrate mild cortical atrophy and are without hydronephrosis. Trace perihepatic a scites is noted and there is a trace right pleural effusion. The heart is enlarged and without perica rdial effusion. No bowel obstruction is seen. The abdominal aorta is normal in caliber. There is susc eptibility artifact from spinal orthopedic hardware. IMPRESSION: 1. Cholelithiasis with evidence of acute cholecystitis. 2. A 6 mm gallstone is identified within the cystic duct. 3. There is no intra or extrahepatic biliary ductal dilatation, and no evidence of choledocholithiasi s. 4. Pancreas divisum is noted. 5. Trace upper abdominal ascites and trace right pleural effusion. Electronically signed by: Jose Modi M.D. 08/14/2018 11:19 PM
[2018-08-15 02:54] LABS: Partial Thromboplastin Time 81.4 Seconds (21.0-31.0)
[2018-08-15 03:52] LABS: Appearance Urine Clear (Clear); Blood Urine 2+ (Negative); Color Urine Dark Yellow; Epithelial Cell Urine Auto >30 /lpf (0-5); Glucose Urine UA Negative (Negative); Ketones Urine Trace (Negative); Leukocyte Esterase Urine Negative (Negative); Nitrite Urine Positive (Negative); Protein Urine 1+ (Negative); RBC Urine Automated 0-4 /hpf (0-4); Specific Gravity Urine > 1.045 (1.000-1.030); Urobilinogen Urine Negative (Negative); pH Urine 5.5 (4.5-7.5)
[2018-08-15 03:53] LABS: Bilirubin Urine 1+ (Negative)
[2018-08-15 03:54] LABS: Ictotest Urine Positive (Negative)
[2018-08-15 04:05] LABS: Bacteria Urine Automated 2+ (Negative)
[2018-08-15] MEDS: SODIUM CHLORIDE 0.9% 1000ML 1,000 ML IV SCH ×3 (05:43→19:50)
[2018-08-15] MEDS: PIPERACILLIN/TAZOBACTAM 3.375 GM in DEXTROSE 5% 100 ML IV SCH ×3 (05:43→19:48)
[2018-08-15 05:57] LABS: Basophils # (auto) 0.01 K/uL (0-0.2); Basophils % (auto) 0.1 %; Eosinophils # (auto) 0.05 K/uL (0-0.5); Eosinophils % (auto) 0.5 %; Hematocrit (blood only) 36.8 % (42-52); Hemoglobin 12.1 g/dL (14.0-18.0); Immature Granulocytes # (auto) 0.03 K/uL (0.00-0.02); Immature Granulocytes % (auto) 0.3 %; Lymphocytes # (auto) 0.74 K/uL (1.2-3.4); Lymphocytes % (auto) 6.8 %; Mean Corpuscular Hgb Conc 32.9 g/dL (32-36); Mean Corpuscular Volume 101.4 fL (80-100); Mean Platelet Volume 9.7 fL (7.4-10.4); Monocytes # (auto) 0.93 K/uL (0.11-0.59); Monocytes % (auto) 8.6 %; Neutrophils # (auto) 9.09 K/uL (1.4-6.5); Neutrophils % (auto) 83.7 %; Platelet Count 149 K/uL (130-400); RDW Coefficient of Variation 12.8 % (11.5-14.5); RDW Standard Deviation 47.2 fL (36.4-46.3); Red Blood Count 3.63 M/uL (4.7-6.1); White Blood Count 10.85 K/uL (4.8-10.8)
[2018-08-15 06:36] LABS: Albumin Level 2.9 gm/dl (3.4-5.0); BUN Creatinine Ratio 13.8 (10-20); Bilirubin Direct 1.8 mg/dl (0-0.2); Calcium 7.4 mg/dl (8.5-10.1); Creatinine Clr Calc Pharmacy 46.7 ml/min; Est GFR (African American) 54.4; Est GFR (Non-African American) 46.9; Potassium 3.9 mmol/L (3.5-5.1)
[2018-08-15 06:43] LABS: Bilirubin,Total 3.6 mg/dl (0.2-1); Total Protein 6.1 gm/dl (6.4-8.2); Troponin I 0.087 ng/ml (0-0.045)
--- NOTE | 2018-08-15 06:59 | Anesthesiology Consultation ---
Date of Service August 15, 2018 Assessment & Plan (1) Encounter for pre-operative examination: Chart Review Chart Review: Acceptable Risk for Surgery and Patient NOT seen in Pre Admission Testing Will order repeat ECG if one not done already today to ensure patient's HR better controlled after IVF therapy and abx for acute Sepsis 2/2 cholangitis and acute cholecystitis. Troponins slightly elevated. PTT high 2/2 patient being on heparin with eliquis being held. Consults Requested none History Surgery Operation Date: 08/15/18 10:45 Proposed Procedures p Endoscopic Retrograde Cholangiopancreatogram - Suleiman Domínguez Height/Weight Height: 5 ft 10 in Weight: 94.1 kg Allergies Allergy/AdvReac Type Severity Reaction Status Date / Time blue dye Allergy Mild UNKNOWN Unverified 08/14/18 12:43 celecoxib Allergy Mild UNKNOWN Unverified 08/14/18 12:43 duloxetine Allergy Mild UNKNOWN Unverified 08/14/18 12:43 nortriptyline AdvReac Intermediate CONFUSION Verified 08/14/18 12:43 oxycodone AdvReac Intermediate SEVERE Verified 08/14/18 12:43 WITHDRAWL Medications Home Medications Medication Instructions Recorded Confirmed Last Taken apixaban [Eliquis] 5 mg PO BID 08/14/18 08/14/18 Unknown furosemide 20 mg PO DAILY PRN 08/14/18 08/14/18 Unknown gabapentin 800 mg PO TID 08/14/18 08/14/18 Unknown hydrocodone-acetaminophen 1 tab PO BID PRN 08/14/18 08/14/18 Unknown sertraline 50 mg PO DAILY 08/14/18 08/14/18 Unknown spironolacton-hydrochlorothiaz 1 tab PO DAILY 08/14/18 08/14/18 Unknown Active Medications Generic Name Dose Route Start Last Admin Trade Name Freq PRN Reason Stop Dose Admin Gabapentin 800 mg 08/14/18 21:00 08/14/18 20:12 Neurontin PO 09/13/18 20:59 800 mg TID TONY Administration Sodium Chloride 1,000 mls @ 125 mls/hr 08/14/18 18:36 08/15/18 05:43 Nss 1000ml IV 09/13/18 18:35 125 mls/hr .Q8H TONY Administration Piperacillin Sod/Tazobactam 115 mls @ 28.75 mls/hr 08/14/18 19:00 08/15/18 05 :43 Sod 3.375 gm/ Dextrose IV 08/24/18 18:59 28.8 mls/hr Q8H TONY Administration Heparin Sodium/Dextrose 25,000 units in 500 mls @ 27 mls/hr 08/14/18 19:00 07:07 Heparin Sodium/Dextrose IV 09/13/18 18:59 1,350 units/hr .[id number] TONY 27 mls/hr Titration Protocol 1,350 UNITS/HR Past Medical History Medical History Choledocholithiasis with acute cholecystitis (Acute) Elevated LFTs MARCELA (acute kidney injury) (Acute) Sepsis (Acute) Hypotension A-fib History of stroke Hypertension (Chronic) Atrial flutter with rapid ventricular response (Acute) History of cardioversion 2014 Past Surgical History Surgical History H/O cervical spine surgery H/O colonoscopy H/O elbow surgery Previous back surgery Social History Smoking Status: Never smoker Hx Alcohol Use: No Hx Substance Use: No Physical Exam Vital Signs Last Vital Signs Temp 36.6 C 08/15/18 03:08 Pulse 78 08/15/18 03:08 Resp 18 08/15/18 03:08 BP 94/55 L 08/15/18 03:08 Pulse Ox 96 08/15/18 03:08 Testing Electrocardiogram Date: 08/14/18 Findings: + AFIB @ (119) Atrial fibrillation with rapid ventricular response ST & T wave abnormality, consider anterolateral ischemia Abnormal ECG When compared with ECG of 11-APR-2015 06:30, Vent. rate has increased BY [address] now depressed in Anterolateral leads T wave inversion now evident in Anterolateral leads Confirmed by Dat Thomas ([id number]) on 08/14/2018 5:40:24 PM Chest X-Ray Date: 08/14/18 CLINICAL HISTORY: Sepsis COMPARISON STUDY: 04/11/2015 FINDINGS: The cardiac images so contours remain stable. There is mild mediastinal and hilar fullness unchanged the prior study. There are postsurgical changes of spinal rodding. There is no focal pulmonary consolidation. There are no pleural effusions. There is no overt failure. IMPRESSION: AP portable study. No acute findings. Other Testing MRCP CLINICAL HISTORY: Acute cholecystitis. COMPARISON STUDY: Abdominal CT dated 08/14/2018 TECHNIQUE: Abdominal MRCP is performed utilizing various T2-weighted sequences in the axial and coronal planes. IV contrast was not administered for this examination. The examination is modestly degraded by motion artifact. FINDINGS: The gallbladder is distended and filled with numerous gallstones. The gallbladder wall is thickened and there is pericholecystic inflammation and fluid. The appearance is consistent with acute cholecystitis. A 6 mm gallstone is seen within the cystic duct, best visualized on axial high-resolution image # 168. The common bile duct is normal in caliber, measuring up to 4 mm in diameter. There is no evidence of choledocholithiasis. Pancreas divisum is noted. The pancreatic duct is normal in caliber. No intrahepatic biliary ductal dilatation is identified. The hepatic parenchyma is normal as imaged. The spleen, adrenal glands, and pancreas are grossly normal. The kidneys demonstrate mild cortical atrophy and are without hydronephrosis. Trace perihepatic ascites is noted and there is a trace right pleural effusion. The heart is enlarged and without pericardial effusion. No bowel obstruction is seen. The abdominal aorta is normal in caliber. There is susceptibility artifact from spinal orthopedic hardware. IMPRESSION: 1. Cholelithiasis with evidence of acute cholecystitis. 2. A 6 mm gallstone is identified within the cystic duct. 3. There is no intra or extrahepatic biliary ductal dilatation, and no evidence of choledocholithiasis. 4. Pancreas divisum is noted. 5. Trace upper abdominal ascites and trace right pleural effusion. Laboratory Results 08/15/18 05:29 08/15/18 05:29 PT 14.8 Seconds (9.0-12.0) H 08/14/18 12:04 INR 1.5 (0.9-1.1) H 08/14/18 12:04 APTT 81.4 Seconds (21.0-31.0) H* 08/15/18 02:22 Urine Color Dark Yellow 08/15/18 02:35 Urine Appearance Clear (Clear) 08/15/18 02:35 Urine pH 5.5 (4.5-7.5) 08/15/18 02:35 Ur Specific [place] > 1.045 (1.000-1.030) H 08/15/18 02:35 Urine Protein 1+ (Negative) H 08/15/18 02:35 Urine Glucose (UA) Negative (Negative) 08/15/18 02:35 Urine Ketones Trace (Negative) H 08/15/18 02:35 Urine Nitrite Positive (Negative) H 08/15/18 02:35 Ur Leukocyte Esterase Negative (Negative) 08/15/18 02:35 Urine WBC (Auto) 10-30 /hpf (0-5) H 08/15/18 02:35 Urine RBC (Auto) 0-4 /hpf (0-4) 08/15/18 02:35 U Hyaline Cast (Auto) 1-5 /lpf (0-5) 08/15/18 02:35 U Epithel Cells (Auto) >30 /lpf (0-5) H 08/15/18 02:35 Urine Bacteria (Auto) 2+ (Negative) H 08/15/18 02:35 Laboratory Tests 08/14/18 08/14/18 08/14/18 12:51 19:06 22:29 APTT Lactate 3.6 H* 2.9 H* Total Bilirubin Direct Bilirubin AST ALT Alkaline Phosphatase Troponin I 0.060 H* Total Protein Albumin 08/15/18 08/15/18 02:22 05:29 APTT 81.4 H* Lactate Total Bilirubin 3.6 H Direct Bilirubin 1.8 H AST 125 H ALT 143 H Alkaline Phosphatase 94 Troponin I 0.087 H* Total Protein 6.1 L Albumin 2.9 L
--- NOTE | 2018-08-15 07:33 | Gastroenterology Progress Note ---
Date of Service August 15, 2018 Assessment & Plan (1) Cholecystitis: Mr. Carpio is an 83 yr old male with chills, leukocytosis, marked new elevation of bilirubin, transaminases and alk Phos. This is suggestive of cholangitis, however, CT and MRCP w/o evidence of bile duct obstruction. Plan: possible EUS +/- ERCP this afternoon. Please keep NPO (2) Elevated LFTs: (3) Leukocytosis: Subjective Constitutional: + chills, + sweats and + weakness Gastrointestinal: as per Subjective / HPI and + nausea (one episode) Integumentary: + change in skin color (jaundice) Physical Exam Vital Signs (Past 24 Hours): Last Vital Signs Temp 36.6 C 08/15/18 03:08 Pulse 78 08/15/18 03:08 Resp 18 08/15/18 03:08 BP 94/55 L 08/15/18 03:08 Pulse Ox 96 08/15/18 03:08 Results & Data Diagnostic Findings MRCP 1. Cholelithiasis with evidence of acute cholecystitis. 2. A 6 mm gallstone is identified within the cystic duct. 3. There is no intra or extrahepatic biliary ductal dilatation, and no evidence of choledocholithiasis. 4. Pancreas divisum is noted. 5. Trace upper abdominal ascites and trace right pleural effusion.
[2018-08-15 10:35] LABS: Partial Thromboplastin Time 81.9 Seconds (21.0-31.0)
[2018-08-15] MEDS ORDERED: INDOMETHACIN 50 MG SUPP PR ONE (13:10)
[2018-08-15] MEDS ORDERED: fentaNYL citrate 100 MCG/2 ML VIAL ONE (13:20)
--- NOTE | 2018-08-15 13:46 | History & Physical Bridge Note ---
Date of Service August 15, 2018 History & Physical Bridge Note I have examined the patient, reviewed the History & Physical and in the interval since the performance of the History & Physical I have noted the following changes of clinical significance: no changes noted. We are planning for urgent ERCP today given a high concern for cholangitis. We have discussed the risks to include bleeding, infeciton, perforation, pain, pancreatiits, and failed biliary cannulation.
[2018-08-15] MEDS ORDERED: ATROPINE SULFATE 0.1 MG/ML 10ML SYR IV PRN (14:09)
[2018-08-15] MEDS ORDERED: fentaNYL citrate 100 MCG/2 ML VIAL IV PRN (14:09)
[2018-08-15] MEDS ORDERED: ePHEDrine sulfate 50 MG/ML AMP IV PRN (14:09)
[2018-08-15] MEDS ORDERED: ONDANSETRON INJ 2 MG/ML 2 ML VIAL IV PRN (14:09)
[2018-08-15] MEDS ORDERED: SUCCINYLCHOLINE CHLORIDE 20 MG/ML 10 ML VIAL ONE (14:40)
[2018-08-15] MEDS ORDERED: PROPOFOL IV EMULSION 10 MG/ML 20 ML VIAL IV ONE (14:40)
[2018-08-15] MEDS ORDERED: ROCURONIUM BROMIDE 10 MG/ML 5 ML VIAL ONE (14:40)
--- NOTE | 2018-08-15 15:02 | GI REPORT ---
Patient Name: Douglas Carpio Procedure Date: 08/15/2018 2:08 PM Date of : 1935 Admit Type: Inpatient Age: 83 Gender: Male Attending MD: Suleiman Domínguez DO Procedure: ERCP Providers: Suleiman Domínguez DO Referring MD: Eric Mi MD, [place] Indications: Suspected ascending cholangitis Medicines: General Anesthesia Complications: No immediate complications. Estimated blood loss: Minimal. Estimated Blood Loss: Estimated blood loss was minimal. Procedure: Pre-Anesthesia Assessment: - Prior to the procedure, a History and Physical was performed, and patient medications, allergies and sensitivities were reviewed. The patient's tolerance of previous anesthesia was reviewed. - The risks and benefits of the procedure and the sedation options and risks were discussed with the patient. All questions were answered and informed consent was obtained. - Patient identification and proposed procedure were verified prior to the procedure by the physician, the nurse and the braiding machine tender. The procedure was verified in the procedure room. - Pre-procedure physical examination revealed no contraindications to sedation. - ASA Grade Assessment: III - A patient with severe systemic disease. - After reviewing the risks and benefits, the patient was deemed in satisfactory condition to undergo the procedure. - The anesthesia plan was to use general anesthesia. - Immediately prior to administration of medications, the patient was re-assessed for adequacy to receive sedatives. - The heart rate, respiratory rate, oxygen saturations, blood pressure, adequacy of pulmonary ventilation, and response to care were monitored throughout the procedure. - The physical status of the patient was re-assessed after the procedure. After obtaining informed consent, the scope was passed under direct vision. Throughout the procedure, the patient's blood pressure, pulse, and oxygen saturations were monitored continuously. The scope was introduced through the mouth, and advanced to the duodenum and used to inject contrast into the bile duct. The ERCP was accomplished without difficulty. The patient tolerated the procedure well. Findings: The livestock slaughterer film was normal. The esophagus was successfully intubated under direct vision without detailed examination of the pharynx, larynx, and associated structures, and upper GI tract. The upper GI tract was grossly normal. The major papilla was congested. The bile duct was deeply cannulated with the short-nosed traction sphincterotome and guidewire. Contrast was injected. I personally interpreted the bile duct images. Contrast extended to the entire biliary tree. The lower third of the main bile duct contained filling defect(s) thought to be a stone. Biliary sphincterotomy was made with a monofilament Fusion OMNI sphincterotome using ERBE electrocautery. There was no post-sphincterotomy bleeding. To discover objects, the biliary tree was swept with an 8.5 mm balloon and 12 mm balloon starting at the bifurcation. Two stones were removed. No stones remained. A small amount of pus was swept from the duct. One 10 Fr by 8 cm biliary stent with a single external flap and a single internal flap was placed 7.5 cm into the common bile duct. Bile flowed through the stent. The stent was in good position. The total fluoroscopy exposure time was 2 minutes and 23 seconds. Indomethacin 100 mg was given via suppository to decrease the risk of post-ERCP pancreatitis (PEP). The endoscope was withdrawn from the patient. Impression: - The major papilla appeared congested. - A filling defect consistent with a stone was seen on the cholangiogram. - Choledocholithiasis was found. Complete removal was accomplished by biliary sphincterotomy and balloon extraction. - A biliary sphincterotomy was performed. - The biliary tree was swept and pus was found. - One biliary stent was placed into the common bile duct. - Indomethacin given to decrease risk of post-ERCP pancreatitis. Recommendation: - Avoid aspirin, nonsteroidal anti-inflammatory medicines, and Eliquis for 5 days. - Please hold heparin for 48 hours - Clear liquid diet today. - Use broad spectrum antibiotics for 10 days. - Repeat ERCP in 6 weeks to remove stent. Suleiman Domínguez D.O. Suleiman Domínguez, 08/15/2018 3:02:35 PM This report has been signed electronically. Note Initiated On: 08/15/2018 2:08 PM Number of Addenda: 0 I attest to the content of the Intraoperative Record and orders documented therein, exceptions below {[id number]}
--- NOTE | 2018-08-15 15:03 | Post Operative Brief Note ---
Immediate Post Op Note v1 Date of Surgery August 15, 2018 Pre & Post Diagnosis Operation Date: 08/15/18 10:45 Pre-Op Diagnosis: Acute Cholangitis Post-Op Diagnosis: Acute Cholangitis, Gallstones Procedure Operation Date: 08/15/18 10:45 Actual Procedures p Endoscopic Retrograde Cholangiopancreatogram, Sphincterotomy, Biliary Stent Placement(Not Applicable) - Suleiman Domínguez Surgeon Suleiman Domínguez Shopping Investigator none Estimated Blood Loss 0 Findings See Below (mild cholangitis, 2 small gallstones, biliary stent placed)
--- NOTE | 2018-08-15 15:21 | Procedure Note ---
Procedure Note Date of Service August 15, 2018 Patient underwent urgent ERCP this afternoon for suspected cholangitis. Findings: 2 small CBD stones mild cholangitis Interventions: small sphincterotomy biliary stent placement extraction of 2 gallstones Recomendations: clear liquids today avoid use of antiplatelet agents / anticoagulats for 5 days if possible continue abx for 10 days cholecystectomy per general surgery repeat ercp in 6 to 8 weeks
[2018-08-15] MEDS ORDERED: METOPROLOL TARTRATE 1 MG/ML VIAL IV STA (15:30)
[2018-08-15] MEDS ORDERED: METOPROLOL TARTRATE 1 MG/ML VIAL IV ONE (15:33)
--- NOTE | 2018-08-15 15:33 | Fluoroscopy Report ---
[place] ERCP biliary ductal CLINICAL HISTORY: 83 years-old Male presenting with EXPLORE DUCTS. TECHNIQUE: Fluoroscopy was provided for endoscopic retrograde cholangiopancreatography. 7 fluoroscopi c image(s) recorded. COMPARISON: MRCP from 08/14/2018. FINDINGS: Procedure: An endoscope projects over the descending duodenum. A guidewire was advanced into the comm on duct and intrahepatic biliary tree. The bile ducts were opacified with contrast. The cystic duct o pacifies though without opacification of the gallbladder. Subsequently a plastic common duct stent wa s placed. Peritoneal spillage: No evidence of peritoneal spillage of contrast. Extrahepatic bile ducts: The common bile duct is normal in course and caliber. There are no filling d efects seen within the common bile duct to suggest a retained stone. Contrast extends into the small bowel. Intrahepatic bile ducts: There is no intrahepatic bile duct dilatation. Fluoroscopy dosage (mGy): 57.16. Fluoroscopy time: 143.7 seconds. Number or time of fluoroscopic spot images: 0. IMPRESSION: Placement of a common bile duct stent. Suspected occluded gallbladder neck. Electronically signed by: Asim Simmons M.D. 08/15/2018 3:32 PM
--- NOTE | 2018-08-15 15:53 | Anesthesiology Progress Note ---
Date of Service August 15, 2018 Anesthesia Post Procedure Vital Signs Vital Signs: Temp Pulse Pulse Pulse Resp BP BP 08/15/18 15:50 36.5 C 84 18 08/15/18 15:40 86 18 08/15/18 15:36 110 H 164/115 H 08/15/18 15:30 105 H 18 08/15/18 15:20 124 H 18 08/15/18 15:14 36.6 C 104 H 18 08/15/18 13:38 36.8 C 96 H 20 08/15/18 11:00 37 C 84 19 08/15/18 08:44 36.4 C L 82 18 08/15/18 03:08 36.6 C 78 18 08/14/18 23:17 36.9 C 84 18 08/14/18 19:00 36.8 C 92 H 92 H 20 112/72 08/14/18 18:06 84 18 118/74 08/14/18 17:55 103 H 16 138/76 08/14/18 15:56 76 18 110/67 BP Pulse Ox 08/15/18 15:50 143/90 H 94 08/15/18 15:40 145/96 H 94 08/15/18 15:36 08/15/18 15:30 131/103 H 92 08/15/18 15:20 118/87 92 08/15/18 15:14 110/77 92 08/15/18 13:38 150/104 H 91 08/15/18 11:00 125/86 95 08/15/18 08:44 142/78 H 97 08/15/18 03:08 94/55 L 96 08/14/18 23:17 110/66 92 08/14/18 19:00 95 08/14/18 18:06 95 08/14/18 17:55 93 08/14/18 15:56 96 Pain Intensity Right Abdomen: Pain Intensity: 5 Notes Mental Status: alert / awake / arousable and participated in evaluation Patient Amnestic to Procedure: Yes Nausea / Vomiting: adequately controlled Pain: adequately controlled Airway Patency, RR, SpO2: stable & adequate BP & HR: stable & adequate Hydration State: stable & adequate Anesthetic Complications: no major complications apparent and Pt Satisfied with anesthetic care
[2018-08-15] MEDS: GABAPENTIN 800 MG TAB PO SCH ×3 (15:59→19:49)
[2018-08-15] MEDS: SERTRALINE HCL 50 MG TABLET PO SCH (16:00)
--- NOTE | 2018-08-15 16:14 | Surgery Progress Note ---
Date of Service August 15, 2018 Assessment & Plan (1) Cholangitis: 83 yo male who presents with sepsis and MARCELA secondary to cholangitis and acute cholecystitis. Questionable choledocholithaisis however negative MRCP. Going for ERCP today due to persistent elevated t. bili and LFTS. Lipase within normal limits. T. bili 4.6 --> 3.6 D. bili 2.6 --> 1.8 AST 242 -->125 ALT 209 --> 143 Alk Phos 112 --> 94 Plan: -Continue Broad spectrum antibiotics, fluid resuscitation - Hold Eliquis -Possible cholecystectomy this admission, timing and final surgical recommendations pending results of ERCP and pt clinical course - No additional tx at this time for borderline rectal wall thickening of undetermined significance, will continue to monitor for symptoms (pt currently denies aside from constipation), mild inflammation would be covered by antibiotics pt is already receiving Dr. Eckert evaluated patient early this morning and agrees with above plan. Will determine timing of cholecystectomy after ERCP and results. Supervising Physician Co-Signing Physician Notes I have seen and evaluated the patient and agree with the above as written by Tram Fuentes PA-C. Pt with cholangitis and cholecystitis. Pain decreased compared to yesterday. Denies nausea. Abdomen soft, nondistended, RUQ tenderness. MRCP completed, did not identify choledocholithiasis. Labs trending downward. Discussed with GI, who performed ERCP today and cleared CBD of two stones and stents were placed. Plan for cholecystectomy on . Subjective unsure when going for ERCP today + chills, sweats, weakness Physical Exam 2 Vital Signs (Past 24 Hours): Last Vital Signs Temp 36.4 C L 08/15/18 08:44 Pulse 82 08/15/18 08:44 Resp 18 08/15/18 08:44 BP 142/78 H 08/15/18 08:44 Pulse Ox 97 08/15/18 08:44 Constitutional: WD/WN, vitals as above no acute distress Eyes: icteric sclera Respiratory: normal respiratory effort; no respiratory distress Gastrointestinal (Abdomen): Inspection/Auscultation: abdomen normal to inspection; abdomen not distended Percussion/Palpation: + abdomen tender (RUQ ) and abdomen soft; no guarding and abdomen not rigid Skin: no rashes, warm and dry Psychiatric: A+Ox3, euthymic affect Results & Data Laboratory Results 08/15/18 08/15/18 08/15/18 Range/Units 10:00 05:29 05:29 WBC 10.85 H (4.8-10.8) K/uL RBC 3.63 L (4.7-6.1) M/uL Hgb 12.1 L (14.0-18.0) g/dL Hct 36.8 L (42-52) % MCV 101.4 H (80-100) fL MCH 33.3 (25-34) pg MCHC 32.9 (32-36) g/dL RDW Std Deviation 47.2 H (36.4-46.3) fL RDW Coeff of Monie 12.8 (11.5-14.5) % Plt Count 149 (130-400) K/uL MPV 9.7 (7.4-10.4) fL Immature Gran % (Auto) 0.3 % Neut % (Auto) 83.7 % Lymph % (Auto) 6.8 % [place] % (Auto) 8.6 % Eos % (Auto) 0.5 % Baso % (Auto) 0.1 % Immature Gran # (Auto) 0.03 H (0.00-0.02) K/uL Neut # (Auto) 9.09 H (1.4-6.5) K/uL Lymph # (Auto) 0.74 L (1.2-3.4) K/uL [place] # (Auto) 0.93 H (0.11-0.59) K/uL Eos # (Auto) 0.05 (0-0.5) K/uL Baso # (Auto) 0.01 (0-0.2) K/uL APTT 81.9 H* (21.0-31.0) Seconds PTT Ratio 3.0 Sodium 138 (136-145) mmol/L Potassium 3.9 (3.5-5.1) mmol/L Chloride 103 (98-107) mmol/L Carbon Dioxide 29 (21-32) mmol/L Anion Gap 6.0 (3-11) BUN 19 H (7-18) mg/dl Creatinine 1.38 D (0.6-1.4) mg/dl Est Cr Clr Drug Dosing 46.7 ml/min Est GFR ( Amer) 54.4 Est GFR (Non-Af Amer) 46.9 BUN/Creatinine Ratio 13.8 (10-20) Glucose 115 H (70-99) mg/dl Lactate (0.4-2.0) mmol/L Calcium 7.4 L (8.5-10.1) mg/dl Total Bilirubin 3.6 H (0.2-1) mg/dl Direct Bilirubin 1.8 H (0-0.2) mg/dl AST 125 H (15-37) U/L ALT 143 H (12-78) U/L Alkaline Phosphatase 94 (45-117) U/L Troponin I 0.087 H* (0-0.045) ng/ml Total Protein 6.1 L (6.4-8.2) gm/dl Albumin 2.9 L (3.4-5.0) gm/dl Lipase Urine Color Urine Appearance (Clear) Urine pH (4.5-7.5) Ur Specific [place] (1.000-1.030) Urine Protein (Negative) Urine Glucose (UA) (Negative) Urine Ketones (Negative) Urine Blood (Negative) Urine Nitrite (Negative) Urine Bilirubin (Negative) Urine Urobilinogen (Negative) Ur Leukocyte Esterase (Negative) Urine WBC (Auto) (0-5) /hpf Urine RBC (Auto) (0-4) /hpf U Hyaline Cast (Auto) (0-5) /lpf U Epithel Cells (Auto) (0-5) /lpf Urine Bacteria (Auto) (Negative) Ur Renal Epithelial Cell 08/15/18 08/15/18 08/14/18 Range/Units 02:35 02:22 22:29 WBC (4.8-10.8) K/uL RBC (4.7-6.1) M/uL Hgb (14.0-18.0) g/dL Hct (42-52) % MCV (80-100) fL MCH (25-34) pg MCHC (32-36) g/dL RDW Std Deviation (36.4-46.3) fL RDW Coeff of Monie (11.5-14.5) % Plt Count (130-400) K/uL MPV (7.4-10.4) fL Immature Gran % (Auto) % Neut % (Auto) % Lymph % (Auto) % [place] % (Auto) % Eos % (Auto) % Baso % (Auto) % Immature Gran # (Auto) (0.00-0.02) K/uL Neut # (Auto) (1.4-6.5) K/uL Lymph # (Auto) (1.2-3.4) K/uL [place] # (Auto) (0.11-0.59) K/uL Eos # (Auto) (0-0.5) K/uL Baso # (Auto) (0-0.2) K/uL APTT 81.4 H* (21.0-31.0) Seconds PTT Ratio 3.0 Sodium (136-145) mmol/L Potassium (3.5-5.1) mmol/L Chloride (98-107) mmol/L Carbon Dioxide (21-32) mmol/L Anion Gap (3-11) BUN (7-18) mg/dl Creatinine (0.6-1.4) mg/dl Est Cr Clr Drug Dosing ml/min Est GFR ( Amer) Est GFR (Non-Af Amer) BUN/Creatinine Ratio (10-20) Glucose (70-99) mg/dl Lactate (0.4-2.0) mmol/L Calcium (8.5-10.1) mg/dl Total Bilirubin (0.2-1) mg/dl Direct Bilirubin (0-0.2) mg/dl AST (15-37) U/L ALT (12-78) U/L Alkaline Phosphatase (45-117) U/L Troponin I 0.060 H* (0-0.045) ng/ml Total Protein (6.4-8.2) gm/dl Albumin (3.4-5.0) gm/dl Lipase Urine Color Dark Yellow Urine Appearance Clear (Clear) Urine pH 5.5 (4.5-7.5) Ur Specific [place] > 1.045 H (1.000-1.030) Urine Protein 1+ H (Negative) Urine Glucose (UA) Negative (Negative) Urine Ketones Trace H (Negative) Urine Blood 2+ H (Negative) Urine Nitrite Positive H (Negative) Urine Bilirubin 1+ H (Negative) Urine Urobilinogen Negative (Negative) Ur Leukocyte Esterase Negative (Negative) Urine WBC (Auto) 10-30 H (0-5) /hpf Urine RBC (Auto) 0-4 (0-4) /hpf U Hyaline Cast (Auto) 1-5 (0-5) /lpf U Epithel Cells (Auto) >30 H (0-5) /lpf Urine Bacteria (Auto) 2+ H (Negative) Ur Renal Epithelial Cell Not Reportable 08/14/18 08/14/18 08/14/18 Range/Units 19:06 15:52 12:04 WBC (4.8-10.8) K/uL RBC (4.7-6.1) M/uL Hgb (14.0-18.0) g/dL Hct (42-52) % MCV (80-100) fL MCH (25-34) pg MCHC (32-36) g/dL RDW Std Deviation (36.4-46.3) fL RDW Coeff of Monie (11.5-14.5) % Plt Count (130-400) K/uL MPV (7.4-10.4) fL Immature Gran % (Auto) % Neut % (Auto) % Lymph % (Auto) % [place] % (Auto) % Eos % (Auto) % Baso % (Auto) % Immature Gran # (Auto) (0.00-0.02) K/uL Neut # (Auto) (1.4-6.5) K/uL Lymph # (Auto) (1.2-3.4) K/uL [place] # (Auto) (0.11-0.59) K/uL Eos # (Auto) (0-0.5) K/uL Baso # (Auto) (0-0.2) K/uL APTT (21.0-31.0) Seconds PTT Ratio Sodium (136-145) mmol/L Potassium (3.5-5.1) mmol/L Chloride (98-107) mmol/L Carbon Dioxide (21-32) mmol/L Anion Gap (3-11) BUN (7-18) mg/dl Creatinine (0.6-1.4) mg/dl Est Cr Clr Drug Dosing ml/min Est GFR ( Amer) Est GFR (Non-Af Amer) BUN/Creatinine Ratio (10-20) Glucose (70-99) mg/dl Lactate 2.9 H* (0.4-2.0) mmol/L Calcium (8.5-10.1) mg/dl Total Bilirubin (0.2-1) mg/dl Direct Bilirubin 2.6 H (0-0.2) mg/dl AST (15-37) U/L ALT (12-78) U/L Alkaline Phosphatase (45-117) U/L Troponin I (0-0.045) ng/ml Total Protein (6.4-8.2) gm/dl Albumin (3.4-5.0) gm/dl Lipase 65 L Cancelled Urine Color Urine Appearance (Clear) Urine pH (4.5-7.5) Ur Specific [place] (1.000-1.030) Urine Protein (Negative) Urine Glucose (UA) (Negative) Urine Ketones (Negative) Urine Blood (Negative) Urine Nitrite (Negative) Urine Bilirubin (Negative) Urine Urobilinogen (Negative) Ur Leukocyte Esterase (Negative) Urine WBC (Auto) (0-5) /hpf Urine RBC (Auto) (0-4) /hpf U Hyaline Cast (Auto) (0-5) /lpf U Epithel Cells (Auto) (0-5) /lpf Urine Bacteria (Auto) (Negative) Ur Renal Epithelial Cell Diagnostic Findings MRCP CLINICAL HISTORY: Acute cholecystitis. COMPARISON STUDY: Abdominal CT dated 08/14/2018 TECHNIQUE: Abdominal MRCP is performed utilizing various T2-weighted sequences in the axial and coronal planes. IV contrast was not administered for this examination. The examination is modestly degraded by motion artifact. FINDINGS: The gallbladder is distended and filled with numerous gallstones. The gallbladder wall is thickened and there is pericholecystic inflammation and fluid. The appearance is consistent with acute cholecystitis. A 6 mm gallstone is seen within the cystic duct, best visualized on axial high-resolution image # 168. The common bile duct is normal in caliber, measuring up to 4 mm in diameter. There is no evidence of choledocholithiasis. Pancreas divisum is noted. The pancreatic duct is normal in caliber. No intrahepatic biliary ductal dilatation is identified. The hepatic parenchyma is normal as imaged. The spleen, adrenal glands, and pancreas are grossly normal. The kidneys demonstrate mild cortical atrophy and are without hydronephrosis. Trace perihepatic ascites is noted and there is a trace right pleural effusion. The heart is enlarged and without pericardial effusion. No bowel obstruction is seen. The abdominal aorta is normal in caliber. There is susceptibility artifact from spinal orthopedic hardware. IMPRESSION: 1. Cholelithiasis with evidence of acute cholecystitis. 2. A 6 mm gallstone is identified within the cystic duct. 3. There is no intra or extrahepatic biliary ductal dilatation, and no evidence of choledocholithiasis. 4. Pancreas divisum is noted. 5. Trace upper abdominal ascites and trace right pleural effusion.
[2018-08-15] MEDS: ONDANSETRON INJ 2 MG/ML 2 ML VIAL IV PRN (16:18)
[2018-08-15] MEDS ORDERED: PROMETHAZINE HCL 12.5 MG in SODIUM CHLORIDE 0.9% 50 ML IV ONE (18:00)
--- NOTE | 2018-08-15 23:27 | Hospitalist Progress Note ---
Date of Service August 15, 2018 Assessment & Plan (1) Sepsis: 83yoM with hx of Afib, HTN, embolic CVA in 2014, hx of spinal fusion and chronic back pain presented with worsening and severe RUQ abdominal pain to the ED this AM. Concern for sepsis secondary to cholangitis and acute cholecystitis. Sepsis 2/2 cholangitis and acute cholecystitis -WBC 13 -Lactate 3.6 -Elevated LFT: Tbili 4.6, Direct Bili 2.6, AST 242, ALT 209 -Abdominal CT: concerning for acute cholecystitis -Blood culture, one set with gram positive cocci, contaminate? (2) Choledocholithiasis with acute cholecystitis: afebrile, WBC down to 10k from 13k continue Zosyn one set of blood cultures growing gram positive cocci, follow for final results , could be contaminate ERCP on 08/15, sphincterotomy with stone extraction, no comlications bili, AST and ALT all trending down today general surgery consulted for cholecystectomy repeat labs in the AM (3) MARCELA (acute kidney injury): resolved with IV fluids, Cr down to 1.38 from 2.0 likely due to prerenal causes, dehydration continue IV fluids since he will be NPO with cholecystitis repeat BMP in the AM electrolytes stable (4) Cholangitis: s/p ERCP and stone extraction today, tolerated well continue Zosyn see above (5) Bladder wall thickening: -Concern for possible malignancy - consider outpt urology follow up (6) A-fib: not on rate control chronically use Lopressor 5mg IV PRN, rates well controlled in general despite sepsis CHADSVASC is 5, on Eliquis outpatient, on hold currently heparin drip started pre op and held prior to procedure continue to hold this evening due to sphincterotomy and high risk of bleeding can resume drip tomorrow (7) History of stroke: need to hold antiplatelets for [address] Domínguez can resume on 3/3 resume heparin drip for stroke prevention tomorrow (8) Hypertension: holding Lasix and HCTZ/spironolactone due to MARCELA and dehydration resume once hypertensive and no longer dehydrated Subjective patient seen after ERCP, discussed case with Dr. Domínguez in the PACU tolerated well, some mild pain in RUQ sphincterotomy and stone extraction performed, antiplatelets need held 5 days hold heparin tonight, check labs in AM prior to resuming breathing stable, mild tachycardia resolved with Lopressor 5mg IV push reviewed labs, Bili, AST and ALT all trending down WBC down to 10k from 13k no chest pain, no dyspnea, + nausea but no vomiting no fever/chills or diaphoresis Review of Systems All systems reviewed & are unremarkable except as noted in HPI & below Respiratory: no cough and no dyspnea Cardiovascular: no chest pain, no palpitations and no edema Gastrointestinal: + abdominal pain, + nausea and + constipation; no vomiting, no diarrhea/loose stools and no melena Physical Exam 2 Vital Signs (Past 24 Hours): Last Vital Signs Temp 36.4 C L 08/15/18 19:00 Pulse 82 08/15/18 19:00 Resp 19 08/15/18 19:00 BP 151/93 H 08/15/18 19:00 Pulse Ox 96 08/15/18 19:45 Constitutional: WD/WN, vitals as above Eyes: PERRL, conjunctivae normal, anicteric sclerae ENMT: external ear and nose normal, oropharynx normal Neck: trachea midline, no thyromegaly Respiratory: normal respiratory effort, lungs clear to auscultation Auscultation: + diminished lung sounds (bases) Cardiovascular: Rate/Rhythm: regular rate; + abnormal rhythm (irreg irreg) Heart Sounds: normal S1 and normal S2 Vessels: normal peripheral pulses; no JVD Extremities: normal capillary refill; no pedal edema Gastrointestinal (Abdomen): Inspection/Auscultation: abdomen normal to inspection and normal bowel sounds; abdomen not distended Percussion/ Palpation: + abdomen tender (RUQ) and abdomen soft; no guarding and no ascites Musculoskeletal: no cyanosis or clubbing, extremities motor strength 5/5 Skin: no rashes, warm and dry Neurologic: patellar DTR's 2+ bilat, sensation intact and PERRL, EOMI, accommodation nl, no face palsy, no dysarthria Psychiatric: A+Ox3, euthymic affect Lymphatic: no cervical or axillary lymphadenopathy Results & Data Laboratory Results Laboratory Results - last 24 hr 08/15/18 08/15/18 08/15/18 02:22 02:35 05:29 WBC RBC Hgb Hct MCV MCH MCHC RDW Std Deviation RDW Coeff of Monie Plt Count MPV Immature Gran % (Auto) Neut % (Auto) Lymph % (Auto) [place] % (Auto) Eos % (Auto) Baso % (Auto) Immature Gran # (Auto) Neut # (Auto) Lymph # (Auto) [place] # (Auto) Eos # (Auto) Baso # (Auto) APTT 81.4 H* PTT Ratio 3.0 Sodium 138 Potassium 3.9 Chloride 103 Carbon Dioxide 29 Anion Gap 6.0 BUN 19 H Creatinine 1.38 D Est Cr Clr Drug Dosing 46.7 Est GFR ( Amer) 54.4 Est GFR (Non-Af Amer) 46.9 BUN/Creatinine Ratio 13.8 Glucose 115 H Calcium 7.4 L Total Bilirubin 3.6 H Direct Bilirubin 1.8 H AST 125 H ALT 143 H Alkaline Phosphatase 94 Troponin I 0.087 H* Total Protein 6.1 L Albumin 2.9 L Urine Color Dark Yellow Urine Appearance Clear Urine pH 5.5 Ur Specific [place] > 1.045 H Urine Protein 1+ H Urine Glucose (UA) Negative Urine Ketones Trace H Urine Blood 2+ H Urine Nitrite Positive H Urine Bilirubin 1+ H Urine Urobilinogen Negative Ur Leukocyte Esterase Negative Urine WBC (Auto) 10-30 H Urine RBC (Auto) 0-4 U Hyaline Cast (Auto) 1-5 U Epithel Cells (Auto) >30 H Urine Bacteria (Auto) 2+ H Ur Renal Epithelial Cell Not Reportable 08/15/18 08/15/18 05:29 10:00 WBC 10.85 H RBC 3.63 L Hgb 12.1 L Hct 36.8 L MCV 101.4 H MCH 33.3 MCHC 32.9 RDW Std Deviation 47.2 H RDW Coeff of Monie 12.8 Plt Count 149 MPV 9.7 Immature Gran % (Auto) 0.3 Neut % (Auto) 83.7 Lymph % (Auto) 6.8 [place] % (Auto) 8.6 Eos % (Auto) 0.5 Baso % (Auto) 0.1 Immature Gran # (Auto) 0.03 H Neut # (Auto) 9.09 H Lymph # (Auto) 0.74 L [place] # (Auto) 0.93 H Eos # (Auto) 0.05 Baso # (Auto) 0.01 APTT 81.9 H* PTT Ratio 3.0 Sodium Potassium Chloride Carbon Dioxide Anion Gap BUN Creatinine Est Cr Clr Drug Dosing Est GFR ( Amer) Est GFR (Non-Af Amer) BUN/Creatinine Ratio Glucose Calcium Total Bilirubin Direct Bilirubin AST ALT Alkaline Phosphatase Troponin I Total Protein Albumin Urine Color Urine Appearance Urine pH Ur Specific [place] Urine Protein Urine Glucose (UA) Urine Ketones Urine Blood Urine Nitrite Urine Bilirubin Urine Urobilinogen Ur Leukocyte Esterase Urine WBC (Auto) Urine RBC (Auto) U Hyaline Cast (Auto) U Epithel Cells (Auto) Urine Bacteria (Auto) Ur Renal Epithelial Cell Medications Administered Current Inpatient Medications Acetaminophen (Tylenol) 650 mg PO Q4H PRN PRN Reason: Pain or Fever Stop: 09/13/18 18:35 Last Admin: 08/16/18 00:20 Dose: 650 mg Hydrocodone Bitart/Acetaminophen ([place] 7.5/325mg) 1 tab PO BID PRN PRN Reason: Pain Stop: 08/28/18 18:35 Al Hydrox/Mg Hydrox/Simethicone (Maalox) 15 ml PO Q4H PRN PRN Reason: Dyspepsia Stop: 09/13/18 18:35 Gabapentin (Neurontin) 800 mg PO TID TONY Stop: 09/13/18 20:59 Last Admin: 08/15/18 19:49 Dose: 800 mg Sodium Chloride (Nss 1000ml) 1,000 mls @ 100 mls/hr IV .Q10H [facility] Stop: 09/13/18 18:35 Last Admin: 08/15/18 19:50 Dose: Not Given Piperacillin Sod/Tazobactam (Sod 3.375 gm/ Dextrose) 115 mls @ 28.75 mls/hr IV Q8H [facility] Stop: 08/24/18 18:59 Last Infusion: 08/15/18 23:47 Dose: Infused Azithromycin 500 mg/ Dextrose 255 mls @ 125 mls/hr IV Q24H [facility] Stop: 08/23/18 01:59 Magnesium Hydroxide (Milk Of Magnesia) 30 ml PO Q12H PRN PRN Reason: Constipation Stop: 09/13/18 18:35 Miscellaneous Information (Consult) 1 ea N/A UD PRN PRN Reason: Consult Stop: 09/13/18 18:35 Morphine Sulfate (Morphine Sulfate) 2 mg IV Q30M PRN PRN Reason: Chest Pain Stop: 08/28/18 18:35 Nitroglycerin (Nitrostat) 0.4 mg SL UD PRN PRN Reason: Chest Pain Stop: 09/13/18 18:35 Ondansetron HCl (Zofran) 4 mg IV Q6H PRN PRN Reason: Nausea Stop: 09/13/18 18:35 Last Admin: 08/15/18 16:18 Dose: 4 mg Polyethylene Glycol (Miralax Powder Packet) 17 gm PO DAILY PRN PRN Reason: Constipation Stop: 09/13/18 18:35 Sertraline HCl (Zoloft) 50 mg PO DAILY TONY Stop: 09/14/18 08:59 Last Admin: 08/15/18 16:00 Dose: Not Given _ (1) Sepsis Sepsis type: sepsis due to unspecified organism Qualified Code(s): A41.9 - Sepsis, unspecified organism
[2018-08-16] MEDS ORDERED: SODIUM CHLORIDE 0.65% NA SOLN 45 ML (OCEAN) ONE (00:18)
[2018-08-16] MEDS: ACETAMINOPHEN 325 MG TAB PO PRN (00:20)
[2018-08-16] MEDS: AZITHROMYCIN 500 MG in DEXTROSE 5% 250 ML IV SCH (01:25)
[2018-08-16] MEDS ORDERED: LEVALBUTEROL HCL 0.63 MG/3 ML NEB NEB PRN (01:49)
[2018-08-16] MEDS ORDERED: LEVALBUTEROL HCL 0.63 MG/3 ML NEB NEB ONE (01:49)
--- NOTE | 2018-08-16 01:53 | Family Medicine Progress Note ---
Date of Service August 16, 2018 Subjective S/ I was alerted by nursing that Mr. Carpio was experiencing chest pressure, and felt like he had a head cold. He was also on 4 L via nasal cannula, and was saturating at 90%. He does not normally wear oxygen at home. O/ afebrile, sitting up in bed wearing oxygen mask at 6 L/min at the time of my assessment. He was tachycardic at 105, with an irregularly irregular rhythm. On auscultation of his lungs, his right side sounded coarse, with scattered expiratory wheezing. No pedal edema noted. A&P/ -Chest x-ray ordered, showed a potentially developing right infiltrate -EKG ordered -A. fib with nonspecific ST and T wave abnormalities -Troponin ordered and trending downwards from previous (0.08 to 0.05) -Added IV azithromycin for atypical coverage and ordered Xopenex nebulizer -decreased his IVF from 125 mls/per hour to 75 mls per hour given hypertensive Physical Exam 2 Vital Signs (Past 24 Hours): Last Vital Signs Temp 37.0 C 08/15/18 23:57 Pulse 90 08/16/18 00:34 Resp 20 08/16/18 00:34 BP 157/87 H 08/16/18 00:34 Pulse Ox 94 08/16/18 00:34
[2018-08-16] MEDS: PIPERACILLIN/TAZOBACTAM 3.375 GM in DEXTROSE 5% 100 ML IV SCH ×3 (05:59→19:35)
[2018-08-16 06:08] LABS: Basophils # (auto) 0.01 K/uL (0-0.2); Basophils % (auto) 0.1 %; Eosinophils # (auto) 0.03 K/uL (0-0.5); Eosinophils % (auto) 0.3 %; Hematocrit (blood only) 36.3 % (42-52); Immature Granulocytes # (auto) 0.01 K/uL (0.00-0.02); Immature Granulocytes % (auto) 0.1 %; Lymphocytes # (auto) 0.62 K/uL (1.2-3.4); Lymphocytes % (auto) 6.4 %; Mean Corpuscular Hgb Conc 33.1 g/dL (32-36); Mean Platelet Volume 9.8 fL (7.4-10.4); Monocytes # (auto) 0.73 K/uL (0.11-0.59); Monocytes % (auto) 7.5 %; Neutrophils # (auto) 8.28 K/uL (1.4-6.5); Neutrophils % (auto) 85.6 %; Platelet Count 175 K/uL (130-400); RDW Coefficient of Variation 12.9 % (11.5-14.5); RDW Standard Deviation 48.4 fL (36.4-46.3); Red Blood Count 3.56 M/uL (4.7-6.1); White Blood Count 9.68 K/uL (4.8-10.8)
--- NOTE | 2018-08-16 06:23 | XRay Report ---
XR chest 1V portable HISTORY: 83 years-old Male chest pressure, o2 demand acute hypoxia COMPARISON: Chest radiograph 08/14/2017 TECHNIQUE: AP view of the chest FINDINGS: Cardiac silhouette is enlarged, unchanged. Pulmonary vascular congestion with mild interstitial coars ening. There is no pneumothorax. Small left pleural effusion. Subsegmental left basilar opacities. Natalia ngs are mildly hypoinflated. Degenerative changes of the shoulders and spine with thoracic fusion tobias dware redemonstrated. IMPRESSION: 1. Cardiomegaly with pulmonary edema. 2. Small left pleural effusion with left basilar opacities suggestive of atelectasis or pneumonitis. The above report was generated using voice recognition software. It may contain grammatical, syntax o r spelling errors. Electronically signed by: Artur Hardy M.D. 08/16/2018 6:21 AM
[2018-08-16 06:47] LABS: Albumin Level 2.7 gm/dl (3.4-5.0); Calcium 7.3 mg/dl (8.5-10.1); Creatinine Clr Calc Pharmacy 44.2 ml/min; Est GFR (African American) 50.8; Est GFR (Non-African American) 43.9; Potassium 3.9 mmol/L (3.5-5.1)
[2018-08-16] MEDS: SODIUM CHLORIDE 0.9% 1000ML 1,000 ML IV SCH ×2 (06:47→15:30)
[2018-08-16 06:51] LABS: Bilirubin,Total 2.1 mg/dl (0.2-1); Total Protein 5.8 gm/dl (6.4-8.2)
[2018-08-16 06:52] LABS: Partial Thromboplastin Ratio 1.1; Partial Thromboplastin Time 29.6 Seconds (21.0-31.0)
--- NOTE | 2018-08-16 07:29 | Anesthesiology Progress Note ---
Date of Service August 16, 2018 Anesthesia Post Procedure Vital Signs Vital Signs: Temp Pulse Pulse Pulse Resp BP BP 08/16/18 03:04 36.6 C 82 18 106/73 08/16/18 01:30 132 H 28 H 08/16/18 00:34 90 20 157/87 H 08/15/18 23:57 37.0 C 80 18 08/15/18 23:49 77 08/15/18 19:45 08/15/18 19:00 36.4 C L 82 19 08/15/18 16:12 76 18 08/15/18 15:50 36.5 C 84 18 08/15/18 15:40 86 18 08/15/18 15:36 110 H 164/115 H 08/15/18 15:30 105 H 18 08/15/18 15:20 124 H 18 08/15/18 15:14 36.6 C 104 H 18 08/15/18 13:38 36.8 C 96 H 20 08/15/18 11:00 37 C 84 19 08/15/18 08:44 36.4 C L 82 18 BP Pulse Ox 08/16/18 03:04 96 08/16/18 01:30 99 08/16/18 00:34 164/111 H 94 08/15/18 23:57 101/62 92 08/15/18 23:49 08/15/18 19:45 96 08/15/18 19:00 151/93 H 92 08/15/18 16:12 146/86 H 95 08/15/18 15:50 143/90 H 94 08/15/18 15:40 145/96 H 94 08/15/18 15:36 08/15/18 15:30 131/103 H 92 08/15/18 15:20 118/87 92 08/15/18 15:14 110/77 92 08/15/18 13:38 150/104 H 91 08/15/18 11:00 125/86 95 08/15/18 08:44 142/78 H 97 Pain Intensity Right Abdomen: Pain Intensity: 5 Medial Chest: Pain Intensity: 5 Notes Mental Status: alert / awake / arousable and participated in evaluation Patient Amnestic to Procedure: Yes Nausea / Vomiting: adequately controlled Pain: adequately controlled Airway Patency, RR, SpO2: stable & adequate BP & HR: stable & adequate Hydration State: stable & adequate Anesthetic Complications: no major complications apparent and Pt Satisfied with anesthetic care
[2018-08-16] MEDS: GABAPENTIN 800 MG TAB PO SCH ×3 (07:40→19:36)
[2018-08-16] MEDS: SERTRALINE HCL 50 MG TABLET PO SCH (07:40)
--- NOTE | 2018-08-16 10:41 | Surgery Progress Note ---
Date of Service August 16, 2018 Assessment & Plan (1) Choledocholithiasis with acute cholecystitis: Cholecystitis with choledocholithiasis and cholangitis WBC has returned to normal LFTs have decreased closer to normal after ERCP If felt medically a candidate considering cholecystectomy for tomorrow. Would attempt laparoscopic procedure however likelihood of needing to convert to an open procedure is increased. He is hungry today so can give him full liquids with n.p.o. after midnight Continue antibiotics. Present on Admission?: Yes Subjective Denies abdominal pain today Denies nausea and vomiting Had a "rough" night with some difficulty breathing but that has resolved Is now on O2 by facemask Had ERCP yesterday with removal of 2 stones, sphincterotomy and placement of stent Physical Exam Vital Signs (Past 24 Hours): Last Vital Signs Temp 36.4 C L 08/16/18 07:52 Pulse 107 H 08/16/18 07:52 Resp 33 H 08/16/18 07:52 BP 103/80 08/16/18 07:52 Pulse Ox 95 08/16/18 07:52 Gastrointestinal (Abdomen): Inspection/Auscultation: abdomen not distended Percussion/Palpation: + abdomen tender (Moderate to moderate palpation in the right upper quadrant) and abdomen soft; no guarding and abdomen not rigid Results & Data Laboratory Results 08/16/18 08/16/18 08/16/18 Range/Units 05:28 05:28 05:28 WBC 9.68 (4.8-10.8) K/uL RBC 3.56 L (4.7-6.1) M/uL Hgb 12.0 L (14.0-18.0) g/dL Hct 36.3 L (42-52) % MCV 102.0 H (80-100) fL MCH 33.7 (25-34) pg MCHC 33.1 (32-36) g/dL RDW Std Deviation 48.4 H (36.4-46.3) fL RDW Coeff of Monie 12.9 (11.5-14.5) % Plt Count 175 (130-400) K/uL MPV 9.8 (7.4-10.4) fL Immature Gran % (Auto) 0.1 % Neut % (Auto) 85.6 % Lymph % (Auto) 6.4 % [place] % (Auto) 7.5 % Eos % (Auto) 0.3 % Baso % (Auto) 0.1 % Immature Gran # (Auto) 0.01 (0.00-0.02) K/uL Neut # (Auto) 8.28 H (1.4-6.5) K/uL Lymph # (Auto) 0.62 L (1.2-3.4) K/uL [place] # (Auto) 0.73 H (0.11-0.59) K/uL Eos # (Auto) 0.03 (0-0.5) K/uL Baso # (Auto) 0.01 (0-0.2) K/uL APTT 29.6 (21.0-31.0) Seconds PTT Ratio 1.1 Sodium 138 (136-145) mmol/L Potassium 3.9 (3.5-5.1) mmol/L Chloride 104 (98-107) mmol/L Carbon Dioxide 29 (21-32) mmol/L Anion Gap 5.0 (3-11) BUN 28 H (7-18) mg/dl Creatinine 1.46 H (0.6-1.4) mg/dl Est Cr Clr Drug Dosing 44.2 ml/min Est GFR ( Amer) 50.8 Est GFR (Non-Af Amer) 43.9 BUN/Creatinine Ratio 19.0 (10-20) Glucose 118 H (70-99) mg/dl Calcium 7.3 L (8.5-10.1) mg/dl Total Bilirubin 2.1 H (0.2-1) mg/dl Direct Bilirubin 1.0 H (0-0.2) mg/dl AST 81 H (15-37) U/L ALT 110 H (12-78) U/L Alkaline Phosphatase 91 (45-117) U/L Troponin I (0-0.045) ng/ml Total Protein 5.8 L (6.4-8.2) gm/dl Albumin 2.7 L (3.4-5.0) gm/dl 08/16/18 08/15/18 Range/Units 00:55 10:00 WBC (4.8-10.8) K/uL RBC (4.7-6.1) M/uL Hgb (14.0-18.0) g/dL Hct (42-52) % MCV (80-100) fL MCH (25-34) pg MCHC (32-36) g/dL RDW Std Deviation (36.4-46.3) fL RDW Coeff of Monie (11.5-14.5) % Plt Count (130-400) K/uL MPV (7.4-10.4) fL Immature Gran % (Auto) % Neut % (Auto) % Lymph % (Auto) % [place] % (Auto) % Eos % (Auto) % Baso % (Auto) % Immature Gran # (Auto) (0.00-0.02) K/uL Neut # (Auto) (1.4-6.5) K/uL Lymph # (Auto) (1.2-3.4) K/uL [place] # (Auto) (0.11-0.59) K/uL Eos # (Auto) (0-0.5) K/uL Baso # (Auto) (0-0.2) K/uL APTT 81.9 H* (21.0-31.0) Seconds PTT Ratio 3.0 Sodium (136-145) mmol/L Potassium (3.5-5.1) mmol/L Chloride (98-107) mmol/L Carbon Dioxide (21-32) mmol/L Anion Gap (3-11) BUN (7-18) mg/dl Creatinine (0.6-1.4) mg/dl Est Cr Clr Drug Dosing ml/min Est GFR ( Amer) Est GFR (Non-Af Amer) BUN/Creatinine Ratio (10-20) Glucose (70-99) mg/dl Calcium (8.5-10.1) mg/dl Total Bilirubin (0.2-1) mg/dl Direct Bilirubin (0-0.2) mg/dl AST (15-37) U/L ALT (12-78) U/L Alkaline Phosphatase (45-117) U/L Troponin I 0.052 H* (0-0.045) ng/ml Total Protein (6.4-8.2) gm/dl Albumin (3.4-5.0) gm/dl
--- NOTE | 2018-08-16 12:47 | Gastroenterology Progress Note ---
Date of Service August 16, 2018 Assessment & Plan (1) Cholecystitis: Mr. Carpio is an 83 yr old male with cholangitis w/o evidence of bile duct obstruction. He is s/p ERCP on 08/15 w choledocholithasis removal, biliary stent placement. LFTs decreasing. Per Surgery tenatively plan for abigail cystectomy tomorrow. - Monitor LFTs - Ok for CL diet today, NPO after midnight - Hold Eliquis 5 days after ERCP; Continue broad spectrum antibx for 10 days after ERCP - GI will sign off; call if new question/concerns. - F/U with Surgery for cholecystectomy (2) Elevated LFTs: (3) Leukocytosis: Supervising Physician Co-Signing Physician Notes I have seen and examined the patient and discussed the management with JENARO Son. 83 yo male s/p ercp on 08/15/18 with finding of cholangitis, 2 stones removed, small sphincterotomy, plastic stent placed. Plans for cholecystectomy tomorrow tentatively. Eliquis on hold for 5 days through Tuesday morning given sphincterotomy. Abx for [address] Domínguez will plan to do a repeat ercp for stent removal in 6 weeks time. GI will sign off. Subjective Pt had issues w O2 desaturations overnight, and needed Oxymask. Doing ok now, denies any CP, SOB. Stil having some RUQ abd pain but improved. No n/v, feels hungry. LFTs coming down. Physical Exam Vital Signs (Past 24 Hours): Last Vital Signs Temp 36.8 C 08/16/18 10:47 Pulse 66 08/16/18 10:47 Resp 23 08/16/18 10:47 BP 114/70 08/16/18 10:47 Pulse Ox 93 08/16/18 10:47 Constitutional: WD/WN, vitals as above well groomed, cooperative and comfo rtable Eyes: PERRL, conjunctivae normal, anicteric sclerae ENMT: external ear and nose normal, oropharynx normal Respiratory: normal respiratory effort; no respiratory distress Auscultation: + diminished lung sounds Cardiovascular: RRR, no murmur, no edema Gastrointestinal (Abdomen): Inspection/Auscultation: normal bowel sounds Percussion/Palpation: + abdomen tender (RUQ) and abdomen soft Skin: no rashes, warm and dry no jaundice Neurologic: Motor/Sensory: no asterixis Psychiatric: A+Ox3, euthymic affect Lymphatic: no lymphedema
--- NOTE | 2018-08-16 14:42 | Hospitalist Progress Note ---
Date of Service August 16, 2018 Assessment & Plan (1) Sepsis: 83yoM with hx of Afib, HTN, embolic CVA in 2014, hx of spinal fusion and chronic back pain presented with worsening and severe RUQ abdominal pain was admitted on August 11, 2018 because of concern for sepsis secondary to cholan gitis and acute cholecystitis. Sepsis 2/2 cholangitis and acute cholecystitis Abdominal CT: concerning for acute cholecystitis Blood culture, one set with gram positive cocci, contaminate ERCP on 08/15, sphincterotomy with stone extraction, no complications continue [facility] general surgery consulted for cholecystectomy, planned tomorrow morning (2) Choledocholithiasis with acute cholecystitis: See above (3) MARCELA (acute kidney injury): Stable on IV fluid resolved with IV fluids, will follow renal function (4) Cholangitis: s/p ERCP and stone extraction see above (5) Bladder wall thickening: -Concern for possible malignancy - consider outpt urology follow up (6) A-fib: not on rate control chronically use Lopressor 5mg IV PRN, rates well controlled in general despite sepsis CHADSVASC is 5, on Eliquis outpatient, on hold currently heparin drip started pre op and held prior to procedure continue to hold because of planning tomorrow cholecystectomy (7) History of stroke: need to hold antiplatelets for [address] Domínguez can resume on 08/20 Discussed with patient and family about risk and benefit of hold antiplatelet, and hold blood thinner, they fully understand the risk of stroke and willing to take the risks (8) Hypertension: holding Lasix and HCTZ/spironolactone due to MARCELA and dehydration, blood pressure stable today resume once hypertensive and no longer dehydrated Subjective Was having desat overnight , was putting on [place] Max in the early of morning, has been only on 2 L nasal cannula oxygen, pulse of 93%, Patient doing fairly okay, was out of bed to the restroom Abdominal mild distended however patient has bowel movement Review of Systems Constitutional: Positive weakness, or fatigue Respiratory: no cough, sputum, wheezing, or dyspnea on exertion Cardiac: No chest pain, No orthopnea, No PND, No claudication, No palpitations, Abdomen: Mildly distended, no pain, No vomiting, No diarrhea, No constipation, No GI bleeding Musculoskeletal: No joint pain, No muscle pain, No swelling, No calf pain, No problem reported : No dysuria, No urinary frequency, No incontinence, No hematuria Neurologic: No paralysis, No weakness, No numbness/tingling, No vertigo, No balance problems Psychiatric: No depression symptoms, No anhedonism, No anxiety, No insomnia, No substance abuse Heme: No abnormal bleeding/bruising, No clotting problems, No swollen lymph nodes, No night sweats Skin: No rash, No itch, No new/changing skin lesions, No color change, No bleeding Physical Exam Vital Signs (Past 24 Hours): Last Vital Signs Temp 36.8 C 08/16/18 10:47 Pulse 66 08/16/18 10:47 Resp 23 08/16/18 10:47 BP 114/70 08/16/18 10:47 Pulse Ox 93 08/16/18 10:47 Physical Exam: General Appearance: Obesity, mild tired, WD/WN, no apparent distress, Eyes: normal inspection, PERRL, EOMI, sclerae normal ENT: normal ENT inspection, hearing grossly normal, pharynx normal Neck: supple, no adenopathy, thyroid normal, no JVD, no carotid bruits, trachea midline Respiratory/Chest: chest non-tender, normal breath sounds, no respiratory distress, no accessory muscle use, breath sounds, rales, wheezing Cardiovascular: regular rate, rhythm, no JVD, no murmur Abdomen: Distended, right upper quadrant mildly tender, normal bowel sounds, soft, no organomegaly, Extremities: normal range of motion, non-tender, normal inspection, no pedal edema, no calf tenderness, normal capillary refill, pelvis stable, joint has no limited range of motion, capillary refill is normal, no cyanosis clubbing Neurologic/Psychiatric: furrier designer II-XII nml as tested, no motor/sensory deficits, alert, normal mood/affect, oriented x 3 Skin: normal color, warm/dry, no rash Lymphatic: no adenopathy Results & Data Laboratory Results Laboratory Results - last 24 hr 08/16/18 08/16/18 08/16/18 00:55 05:28 05:28 WBC 9.68 RBC 3.56 L Hgb 12.0 L Hct 36.3 L MCV 102.0 H MCH 33.7 MCHC 33.1 RDW Std Deviation 48.4 H RDW Coeff of Monie 12.9 Plt Count 175 MPV 9.8 Immature Gran % (Auto) 0.1 Neut % (Auto) 85.6 Lymph % (Auto) 6.4 [place] % (Auto) 7.5 Eos % (Auto) 0.3 Baso % (Auto) 0.1 Immature Gran # (Auto) 0.01 Neut # (Auto) 8.28 H Lymph # (Auto) 0.62 L [place] # (Auto) 0.73 H Eos # (Auto) 0.03 Baso # (Auto) 0.01 APTT PTT Ratio Sodium 138 Potassium 3.9 Chloride 104 Carbon Dioxide 29 Anion Gap 5.0 BUN 28 H Creatinine 1.46 H Est Cr Clr Drug Dosing 44.2 Est GFR ( Amer) 50.8 Est GFR (Non-Af Amer) 43.9 BUN/Creatinine Ratio 19.0 Glucose 118 H Calcium 7.3 L Total Bilirubin 2.1 H Direct Bilirubin 1.0 H AST 81 H ALT 110 H Alkaline Phosphatase 91 Troponin I 0.052 H* Total Protein 5.8 L Albumin 2.7 L 08/16/18 05:28 WBC RBC Hgb Hct MCV MCH MCHC RDW Std Deviation RDW Coeff of Monie Plt Count MPV Immature Gran % (Auto) Neut % (Auto) Lymph % (Auto) [place] % (Auto) Eos % (Auto) Baso % (Auto) Immature Gran # (Auto) Neut # (Auto) Lymph # (Auto) [place] # (Auto) Eos # (Auto) Baso # (Auto) APTT 29.6 PTT Ratio 1.1 Sodium Potassium Chloride Carbon Dioxide Anion Gap BUN Creatinine Est Cr Clr Drug Dosing Est GFR ( Amer) Est GFR (Non-Af Amer) BUN/Creatinine Ratio Glucose Calcium Total Bilirubin Direct Bilirubin AST ALT Alkaline Phosphatase Troponin I Total Protein Albumin Microbiology 08/15/18 02:35 Urine,Clean Catch Urine Culture - Preliminary No growth - Less than 1,000 colonies/mL, Final report to follow. 08/14/18 12:04 Blood Blood Culture - Preliminary Alpha strep not S.pne/enteroco 08/14/18 12:37 Blood Blood Culture - Preliminary No growth to date. (1) Sepsis Sepsis type: sepsis due to unspecified organism Qualified Code(s): A41.9 - Sepsis, unspecified organism
--- NOTE | 2018-08-16 19:52 | Communication Note ---
Date of Service: August 16, 2018 Met with the patient this evening to discuss options for surgery. Discussed option for treatment with antibiotics alone vs cholecystectomy tomorrow vs in an elective setting. Discussed pros and cons of all options. After discussion decision was made to proceed with laparoscopic, possible open, cholecystectomy, possible intra-operative cholangiogram tomorrow. Discussed increased risk of needing to convert to an open procedure given severity of disease and duration of symptoms. Also discussed increased risk of blood clots given pt medical comorbidities and anticoagulation being held. Risks discussed include but are not limited to bile leak, injury to bile ducts, injury to other surrounding structures, hernia, need for additional procedures, bleeding, pain, scarring, blood clots, breathing problems, heart attack, stroke, and . All questions were answered to apparent patient satisfaction and patient freely signed consent. - NPO after midnight - Repeat labs in the morning including CBC, BMP, type and screen - Continue abx
[2018-08-16] MEDS: HYDROCODONE/ACETAMINOPHEN 7.5/325MG TAB PO PRN (22:41)
[2018-08-17] MEDS: AZITHROMYCIN 500 MG in DEXTROSE 5% 250 ML IV SCH (01:29)
[2018-08-17] MEDS: SODIUM CHLORIDE 0.9% 1000ML 1,000 ML IV SCH ×2 (03:51→18:41)
[2018-08-17] MEDS: PIPERACILLIN/TAZOBACTAM 3.375 GM in DEXTROSE 5% 100 ML IV SCH ×3 (03:51→18:41)
[2018-08-17 05:48] LABS: Basophils # (auto) 0.01 K/uL (0-0.2); Basophils % (auto) 0.1 %; Eosinophils # (auto) 0.17 K/uL (0-0.5); Eosinophils % (auto) 2.3 %; Hematocrit (blood only) 36.7 % (42-52); Hemoglobin 11.9 g/dL (14.0-18.0); Lymphocytes # (auto) 0.37 K/uL (1.2-3.4); Mean Corpuscular Hgb Conc 32.4 g/dL (32-36); Mean Corpuscular Volume 102.5 fL (80-100); Mean Platelet Volume 9.5 fL (7.4-10.4); Monocytes # (auto) 0.95 K/uL (0.11-0.59); Monocytes % (auto) 12.9 %; Neutrophils # (auto) 5.86 K/uL (1.4-6.5); Neutrophils % (auto) 79.7 %; Platelet Count 183 K/uL (130-400); RDW Coefficient of Variation 12.8 % (11.5-14.5); Red Blood Count 3.58 M/uL (4.7-6.1); White Blood Count 7.36 K/uL (4.8-10.8)
[2018-08-17 06:01] LABS: Partial Thromboplastin Time 27.9 Seconds (21.0-31.0)
[2018-08-17 06:27] LABS: Albumin Level 2.8 gm/dl (3.4-5.0); BUN Creatinine Ratio 18.9 (10-20); Calcium 7.4 mg/dl (8.5-10.1); Creatinine Clr Calc Pharmacy 63.5 ml/min; Est GFR (African American) 75.7; Est GFR (Non-African American) 65.3; Potassium 3.9 mmol/L (3.5-5.1)
[2018-08-17 06:30] LABS: Bilirubin,Total 2.1 mg/dl (0.2-1); Total Protein 6.2 gm/dl (6.4-8.2)
[2018-08-17] MEDS: GABAPENTIN 800 MG TAB PO SCH ×3 (08:08→19:50)
[2018-08-17] MEDS: SERTRALINE HCL 50 MG TABLET PO SCH (10:09)
[2018-08-17] MEDS ORDERED: fentaNYL citrate 100 MCG/2 ML VIAL IV PRN ×2 (12:19→13:11)
[2018-08-17] MEDS ORDERED: HYDROmorphone INJ 1 MG/ML SYRINGE IV PRN (12:19)
[2018-08-17] MEDS ORDERED: ePHEDrine sulfate 50 MG/ML AMP IV PRN ×2 (12:19→13:11)
[2018-08-17] MEDS ORDERED: ATROPINE SULFATE 0.1 MG/ML 10ML SYR IV PRN ×2 (12:19→13:11)
[2018-08-17] MEDS ORDERED: ONDANSETRON INJ 2 MG/ML 2 ML VIAL IV PRN ×2 (12:19→13:11)
[2018-08-17] MEDS ORDERED: NEOSTIGMINE METHYLSULFATE 5 MG/5 ML SYR ONE (12:22)
[2018-08-17] MEDS ORDERED: GLYCOPYRROLATE 0.2 MG/ML VIAL ONE (12:22)
[2018-08-17] MEDS ORDERED: fentaNYL citrate 100 MCG/2 ML VIAL ONE ×2 (12:22→14:55)
[2018-08-17] MEDS ORDERED: ONDANSETRON INJ 2 MG/ML 2 ML VIAL ONE (12:22)
[2018-08-17] MEDS ORDERED: LIDOCAINE HCL 2% 2 ML VIAL/AMP(20MG/ML) INFIL ONE (12:22)
[2018-08-17] MEDS ORDERED: PROPOFOL IV EMULSION 10 MG/ML 20 ML VIAL IV ONE (12:22)
[2018-08-17] MEDS ORDERED: DEXAMETHASONE SOD INJ 4 MG/ML VIAL ONE (12:22)
[2018-08-17] MEDS ORDERED: ROCURONIUM BROMIDE 10 MG/ML 5 ML VIAL ONE (12:28)
[2018-08-17] MEDS ORDERED: CEFAZOLIN 250 MG/ML 1 GM VIAL ONE (12:28)
[2018-08-17] MEDS ORDERED: HEPARIN (PORCINE) 1000 UNIT/ML 10 ML (CATH LAB USE ONLY) ONE (12:28)
[2018-08-17] MEDS ORDERED: BUPIVACAINE 0.5 % 5 MG/1 ML MPF 30ML VIAL ONE (12:28)
[2018-08-17] MEDS ORDERED: CONRAY 60% 50 ML VIAL ONE (12:28)
--- NOTE | 2018-08-17 12:53 | Progress Note ---
Date of Service August 17, 2018 Assessment & Plan (1) Choledocholithiasis with acute cholecystitis: Cholecystitis with choledocholithiasis and cholangitis OR today for laparoscopic, possible open, cholecystectomy, possible IOC Continue antibiotics SCDs Subjective Reports feeling bloated Denies nausea and vomiting Breathing has improved Constitutional: as per Subjective / HPI and + weakness; no fever, no chills and no sweats Gastrointestinal: as per Subjective / HPI, + abdominal pain, + heartburn, + nausea and + constipation Physical Exam Vital Signs (Past 24 Hours): Last Vital Signs Temp 36.9 C 08/17/18 11:39 Pulse 83 08/17/18 11:39 Resp 18 08/17/18 11:39 BP 138/81 08/17/18 11:39 Pulse Ox 95 08/17/18 11:39 Constitutional: WD/WN, vitals as above well developed; no acute distress Respiratory: normal respiratory effort, lungs clear to auscultation normal respiratory effort; no respiratory distress Cardiovascular: Rate/Rhythm: regular rate and regular rhythm Gastrointestinal (Abdomen): soft, distended, non-tender Results & Data Laboratory Results 08/17/18 08/17/18 08/17/18 Range/Units 05:14 05:14 05:14 WBC 7.36 (4.8-10.8) K/uL RBC 3.58 L (4.7-6.1) M/uL Hgb 11.9 L (14.0-18.0) g/dL Hct 36.7 L (42-52) % MCV 102.5 H (80-100) fL MCH 33.2 (25-34) pg MCHC 32.4 (32-36) g/dL RDW Std Deviation 48.0 H (36.4-46.3) fL RDW Coeff of Monie 12.8 (11.5-14.5) % Plt Count 183 (130-400) K/uL MPV 9.5 (7.4-10.4) fL Immature Gran % (Auto) 0.0 % Neut % (Auto) 79.7 % Lymph % (Auto) 5.0 % [place] % (Auto) 12.9 % Eos % (Auto) 2.3 % Baso % (Auto) 0.1 % Immature Gran # (Auto) 0.00 (0.00-0.02) K/uL Neut # (Auto) 5.86 (1.4-6.5) K/uL Lymph # (Auto) 0.37 L (1.2-3.4) K/uL [place] # (Auto) 0.95 H (0.11-0.59) K/uL Eos # (Auto) 0.17 (0-0.5) K/uL Baso # (Auto) 0.01 (0-0.2) K/uL APTT 27.9 (21.0-31.0) Seconds PTT Ratio 1.0 Sodium 139 (136-145) mmol/L Potassium 3.9 (3.5-5.1) mmol/L Chloride 105 (98-107) mmol/L Carbon Dioxide 29 (21-32) mmol/L Anion Gap 5.0 (3-11) BUN 20 H (7-18) mg/dl Creatinine 1.05 (0.6-1.4) mg/dl Est Cr Clr Drug Dosing 63.5 ml/min Est GFR ( Amer) 75.7 Est GFR (Non-Af Amer) 65.3 BUN/Creatinine Ratio 18.9 (10-20) Glucose 119 H (70-99) mg/dl Calcium 7.4 L (8.5-10.1) mg/dl Total Bilirubin 2.1 H (0.2-1) mg/dl Direct Bilirubin 1.0 H (0-0.2) mg/dl AST 64 H (15-37) U/L ALT 100 H (12-78) U/L Alkaline Phosphatase 122 H (45-117) U/L Total Protein 6.2 L (6.4-8.2) gm/dl Albumin 2.8 L (3.4-5.0) gm/dl
[2018-08-17] MEDS ORDERED: EPINEPHrine INJ 1 MG/ML AMP ONE (13:02)
[2018-08-17] MEDS ORDERED: BUPIVACAINE 0.25% 30 ML VIAL ONE (13:02)
--- NOTE | 2018-08-17 13:04 | Anesthesiology Consultation ---
Date of Service August 17, 2018 Assessment & Plan Chart Review Chart Review: Acceptable Risk for Surgery and Patient NOT seen in Pre Admission Testing Consults Requested none NPO Date Last Intake of Fluids: 08/17/18 Time Last Intake of Fluids: 08:00 Last Intake of Fluids Comment: sips Date Last Intake of Solids: 08/15/18 Time Last Intake of Solids: 23:59 History Surgery Operation Date: 08/15/18 10:45 Proposed Procedures p Endoscopic Retrograde Cholangiopancreatogram - Suleiman Domínguez Operation Date: 08/17/18 13:00 Proposed Procedures p Laparoscopic Cholecystectomy - Celsa Eckert MD Height/Weight Height: 5 ft 10 in Weight: 101.1 kg Allergies Allergy/AdvReac Type Severity Reaction Status Date / Time blue dye Allergy Mild UNKNOWN Unverified 08/14/18 12:43 celecoxib Allergy Mild UNKNOWN Unverified 08/14/18 12:43 duloxetine Allergy Mild UNKNOWN Unverified 08/14/18 12:43 nortriptyline AdvReac Intermediate CONFUSION Verified 08/14/18 12:43 oxycodone AdvReac Intermediate SEVERE Verified 08/14/18 12:43 WITHDRAWL Medications Home Medications Medication Instructions Recorded Confirmed Last Taken apixaban [Eliquis] 5 mg PO BID 08/14/18 08/14/18 Unknown furosemide 20 mg PO DAILY PRN 08/14/18 08/14/18 Unknown gabapentin 800 mg PO TID 08/14/18 08/14/18 Unknown hydrocodone-acetaminophen 1 tab PO BID PRN 08/14/18 08/14/18 Unknown sertraline 50 mg PO DAILY 08/14/18 08/14/18 Unknown spironolacton-hydrochlorothiaz 1 tab PO DAILY 08/14/18 08/14/18 Unknown Active Medications Generic Name Dose Route Start Last Admin Trade Name Freq PRN Reason Stop Dose Admin Acetaminophen 650 mg 08/14/18 18:36 08/16/18 00:20 Tylenol PO 09/13/18 18:35 650 mg Q4H PRN Administration Pain or Fever Hydrocodone Bitart/Acetaminophen 1 tab 08/14/18 18:36 08/16/18 22:41 [place] 7.5/325mg PO 08/28/18 18:35 1 tab BID PRN Administration Pain Gabapentin 800 mg 08/14/18 21:00 08/17/18 08:08 Neurontin PO 09/13/18 20:59 800 mg TID TONY Administration Sodium Chloride 1,000 mls @ 75 mls/hr 08/14/18 18:36 08/17/18 03:51 Nss 1000ml IV 09/13/18 18:35 75 mls/hr .[id number] TONY Administration Piperacillin Sod/Tazobactam 115 mls @ 28.75 mls/hr 08/14/18 19:00 08/17/18 10:09 Sod 3.375 gm/ Dextrose IV 08/24/18 18:59 28 mls/hr Q8H TONY Administration Azithromycin 500 mg/ Dextrose 255 mls @ 125 mls/hr 08/16/18 02:00 08/17/18 03:51 IV 08/23/18 01:59 Infused Q24H TONY Infusion Ondansetron HCl 4 mg 08/14/18 18:36 08/15/18 16:18 Zofran IV 09/13/18 18:35 4 mg Q6H PRN Administration Nausea Sertraline HCl 50 mg 08/15/18 09:00 08/17/18 10:09 Zoloft PO 09/14/18 08:59 50 mg DAILY TONY Administration Past Medical History Medical History Choledocholithiasis with acute cholecystitis (Acute) Elevated LFTs MARCELA (acute kidney injury) (Acute) Sepsis (Acute) Hypotension A-fib History of stroke Hypertension (Chronic) Atrial flutter with rapid ventricular response (Acute) History of cardioversion 2014 Past Surgical History Surgical History H/O cervical spine surgery H/O colonoscopy H/O elbow surgery Previous back surgery S/P ERCP Mac 3, grade 2 view Past Anesthesia History No Hx of Anesthesia Complications and No Family Hx of Anesthesia Complications History of PONV Yes Motion Sickness Screening History of Motion Sickness: No Social History Smoking Status: Never smoker Hx Alcohol Use: No Hx Substance Use: No Physical Exam Vital Signs Last Vital Signs Temp 36.4 C L 08/17/18 12:58 Pulse 104 H 08/17/18 12:58 Resp 18 08/17/18 12:58 BP 173/88 H 08/17/18 12:58 Pulse Ox 92 08/17/18 12:58 Testing Electrocardiogram Date: 08/14/18 Findings: + AFIB @ (119) Atrial fibrillation with rapid ventricular response ST & T wave abnormality, consider anterolateral ischemia Abnormal ECG When compared with ECG of 11-APR-2015 06:30, Vent. rate has increased BY [address] now depressed in Anterolateral leads T wave inversion now evident in Anterolateral leads Confirmed by Dat Thomas ([id number]) on 08/14/2018 5:40:24 PM Chest X-Ray Date: 08/14/18 CLINICAL HISTORY: Sepsis COMPARISON STUDY: 04/11/2015 FINDINGS: The cardiac images so contours remain stable. There is mild mediastinal and hilar fullness unchanged the prior study. There are postsurgical changes of spinal rodding. There is no focal pulmonary consolidation. There are no pleural effusions. There is no overt failure. IMPRESSION: AP portable study. No acute findings. Other Testing MRCP CLINICAL HISTORY: Acute cholecystitis. COMPARISON STUDY: Abdominal CT dated 08/14/2018 TECHNIQUE: Abdominal MRCP is performed utilizing various T2-weighted sequences in the axial and coronal planes. IV contrast was not administered for this examination. The examination is modestly degraded by motion artifact. FINDINGS: The gallbladder is distended and filled with numerous gallstones. The gallbladder wall is thickened and there is pericholecystic inflammation and fluid. The appearance is consistent with acute cholecystitis. A 6 mm gallstone is seen within the cystic duct, best visualized on axial high-resolution image #168. The common bile duct is normal in caliber, measuring up to 4 mm in diameter. There is no evidence of choledocholithiasis. Pancreas divisum is noted. The pancreatic duct is normal in caliber. No intrahepatic biliary ductal dilatation is identified. The hepatic parenchyma is normal as imaged. The spleen, adrenal glands, and pancreas are grossly normal. The kidneys demonstrate mild cortical atrophy and are without hydronephrosis. Trace perihepatic ascites is noted and there is a trace right pleural effusion. The heart is enlarged and without pericardial effusion. No bowel obstruction is seen. The abdominal aorta is normal in caliber. There is susceptibility artifact from spinal orthopedic hardware. IMPRESSION: 1. Cholelithiasis with evidence of acute cholecystitis. 2. A 6 mm gallstone is identified within the cystic duct. 3. There is no intra or extrahepatic biliary ductal dilatation, and no evidence of choledocholithiasis. 4. Pancreas divisum is noted. 5. Trace upper abdominal ascites and trace right pleural effusion. Laboratory Results 08/17/18 05:14 08/17/18 05:14 PT 14.8 Seconds (9.0-12.0) H 08/14/18 12:04 INR 1.5 (0.9-1.1) H 08/14/18 12:04 APTT 27.9 Seconds (21.0-31.0) 08/17/18 05:14 Urine Color Dark Yellow 08/15/18 02:35 Urine Appearance Clear (Clear) 08/15/18 02:35 Urine pH 5.5 (4.5-7.5) 08/15/18 02:35 Ur Specific [place] > 1.045 (1.000-1.030) H 08/15/18 02:35 Urine Protein 1+ (Negative) H 08/15/18 02:35 Urine Glucose (UA) Negative (Negative) 08/15/18 02:35 Urine Ketones Trace (Negative) H 08/15/18 02:35 Urine Nitrite Positive (Negative) H 08/15/18 02:35 Ur Leukocyte Esterase Negative (Negative) 08/15/18 02:35 Urine WBC (Auto) 10-30 /hpf (0-5) H 08/15/18 02:35 Urine RBC (Auto) 0-4 /hpf (0-4) 08/15/18 02:35 U Hyaline Cast (Auto) 1-5 /lpf (0-5) 08/15/18 02:35 U Epithel Cells (Auto) >30 /lpf (0-5) H 08/15/18 02:35 Urine Bacteria (Auto) 2+ (Negative) H 08/15/18 02:35 08/15/18 02:35 Urine Culture - Final Urine,Clean Catch No growth - less than 1,000 colonies/mL. 08/14/18 12:04 Blood Culture - Preliminary Blood Alpha strep not S.pne/enteroco 08/14/18 12:37 Blood Culture - Preliminary Blood No growth to date.
--- NOTE | 2018-08-17 13:08 | Hospitalist Progress Note ---
Date of Service August 17, 2018 Assessment & Plan (1) Sepsis: (2) Choledocholithiasis with acute cholecystitis: (3) MARCELA (acute kidney injury): (4) Cholangitis: (5) Bladder wall thickening: (6) A-fib: (7) History of stroke: (8) Hypertension: 83yoM with hx of Afib, HTN, embolic CVA in 2014, hx of spinal fusion and chronic back pain presented with worsening and severe RUQ abdominal pain was admitted on August 11, 2018 because of concern for sepsis secondary to cholangitis and acute cholecystitis. Sepsis 2/2 cholangitis and acute cholecystitis, Stable improving Abdominal CT: concerning for acute cholecystitis Blood culture, one set with gram positive cocci, contaminate ERCP on 08/15, sphincterotomy with stone extraction, no complications Has been on Zosyn general surgery consulted for cholecystectomy, planned For today MARCELA (acute kidney injury)Upon admission, resolved Cholangitis: s/p ERCP and stone extraction Bladder wall thickening: Concern for possible malignancy, outpt urology follow up A-fib: not on rate control chronically CHADSVASC is 5, was on Eliquis outpatient, on hold currently heparin drip started pre op and held prior to procedure continue to hold because of planning tomorrow cholecystectomy Discussed with patient and about risk and benefit of holding of the blood thinner,They understand and willing to take all risks History of stroke: need to hold antiplatelets for [address] Domínguez, can resume on 08/20 Hypertension: holding Lasix and HCTZ/spironolactone due to MARCELA and dehydration, blood pressure is Elevated, will resume home medication soon , will order hydralazine as needed PPI, SCD for now Subjective Still need nasal cannula oxygen 3-4 L, Otherwise doing fairly okay, was out of bed to the restroom Abdominal distention is much better, Has bowel movement, Review of Systems Constitutional: Positive weakness, or fatigue Respiratory: no cough, sputum, wheezing, or dyspnea on exertion Cardiac: No chest pain, No orthopnea, No PND, Abdomen: Mildly distended, no pain, No vomiting, No diarrhea, Musculoskeletal: No joint pain, No muscle pain, No swelling, No calf pain, No problem reported : No dysuria, No urinary frequency, No incontinence, No hematuria Neurologic: No paralysis, No weakness, No numbness/tingling, No vertigo, No balance problems Psychiatric: No depression symptoms, No anhedonism, Heme: No abnormal bleeding/bruising, No clotting problems, No swollen lymph nodes, No night sweats Skin: No rash, No itch, No new/changing skin lesions, No color change, No bleeding Physical Exam Vital Signs (Past 24 Hours): Last Vital Signs Temp 36.9 C 08/17/18 11:39 Pulse 83 08/17/18 11:39 Resp 18 08/17/18 11:39 BP 138/81 08/17/18 11:39 Pulse Ox 95 08/17/18 11:39 Physical Exam: General Appearance: Looks better, WD/WN, no apparent distress, On nasal cannula oxygen, speak full sentence Eyes: normal inspection, PERRL, EOMI, sclerae normal ENT: normal ENT inspection, hearing grossly normal, pharynx normal Neck: supple, no adenopathy, thyroid normal, no JVD, no carotid bruits, trachea midline Respiratory/Chest: chest non-tender, Mild decreased breath sounds, no respiratory distress, no accessory muscle use, breath sounds, rales, wheezing Cardiovascular: regular rate, rhythm, no JVD, no murmur Abdomen: right upper quadrant mildly tender, normal bowel sounds, soft,Lumbar distention, no organomegaly, Extremities: normal range of motion, non-tender, normal inspection, no pedal edema, no calf tenderness, normal capillary refill, pelvis stable, joint has no limited range of motion, capillary refill is normal, no cyanosis clubbing Neurologic/Psychiatric: emergency department physician II-XII nml as tested, no motor/sensory deficits, alert, normal mood/affect, oriented x 3 Skin: normal color, warm/dry, no rash Results & Data Laboratory Results Laboratory Results - last 24 hr 08/17/18 08/17/18 08/17/18 05:14 05:14 05:14 WBC 7.36 RBC 3.58 L Hgb 11.9 L Hct 36.7 L MCV 102.5 H MCH 33.2 MCHC 32.4 RDW Std Deviation 48.0 H RDW Coeff of Monie 12.8 Plt Count 183 MPV 9.5 Immature Gran % (Auto) 0.0 Neut % (Auto) 79.7 Lymph % (Auto) 5.0 Blanco % (Auto) 12.9 Eos % (Auto) 2.3 Baso % (Auto) 0.1 Immature Gran # (Auto) 0.00 Neut # (Auto) 5.86 Lymph # (Auto) 0.37 L Blanco # (Auto) 0.95 H Eos # (Auto) 0.17 Baso # (Auto) 0.01 APTT 27.9 PTT Ratio 1.0 Sodium 139 Potassium 3.9 Chloride 105 Carbon Dioxide 29 Anion Gap 5.0 BUN 20 H Creatinine 1.05 Est Cr Clr Drug Dosing 63.5 Est GFR ( Amer) 75.7 Est GFR (Non-Af Amer) 65.3 BUN/Creatinine Ratio 18.9 Glucose 119 H Calcium 7.4 L Total Bilirubin 2.1 H Direct Bilirubin 1.0 H AST 64 H ALT 100 H Alkaline Phosphatase 122 H Total Protein 6.2 L Albumin 2.8 L Microbiology 08/15/18 02:35 Urine,Clean Catch Urine Culture - Final No growth - less than 1,000 colonies/mL. 08/14/18 12:04 Blood Blood Culture - Preliminary Alpha strep not S.pne/enteroco (1) Sepsis Sepsis type: sepsis due to unspecified organism Qualified Code(s): A41.9 - Sepsis, unspecified organism
[2018-08-17] MEDS ORDERED: ALBUTEROL HFA INHALER 8.5 GM ONE (14:08)
[2018-08-17] MEDS ORDERED: METOPROLOL TARTRATE 1 MG/ML VIAL IV ONE (14:23)
[2018-08-17] MEDS ORDERED: FLOSEAL HEMOSTATIC MATRIX 10ML TOP ONE (15:48)
--- NOTE | 2018-08-17 16:52 | Post Operative Brief Note ---
Immediate Post Op Note v1 Date of Surgery August 17, 2018 Pre & Post Diagnosis Operation Date: 08/17/18 13:00 Pre-Op Diagnosis: Acute Cholangitis, Choledocholithiasis, Cholecystitis Post-Op Diagnosis: Same Procedure Operation Date: 08/17/18 13:00 Actual Procedures p Laparoscopic Cholecystectomy(Not Applicable), drain placement - Celsa Eckert MD Surgeon Celsa Eckert MD Radio Operator Eric Mi MD; Tram Fuentes PA-C Estimated Blood Loss 75 Findings Consistent with Post-Op Diagnosis Fluids 1000 ml Specimens Gallbladder to Pathology Drains Frederick Drain Anesthesia Type General Complications none Disposition Disposition: Recovery Room
--- NOTE | 2018-08-17 16:53 | Operative Report ---
Post Operative Report Pre & Post Diagnosis Operation Date: 08/17/18 13:00 Pre-Op Diagnosis: Acute Cholangitis, Choledocholithiasis, Cholecystitis Post-Op Diagnosis: Same Procedure Operation Date: 08/17/18 13:00 Actual Procedures p Laparoscopic Cholecystectomy, drain placement - Celsa Eckert MD Surgeon Celsa Eckert MD Side Door Worker Eric Mi MD; Tram Fuentes PA-C Estimated Blood Loss 75 Findings See Below The omentum was adhered to the top of the gallbladder. There was free fluid in the right paracolic gutter and surrounding the gallbladder. There was extensive edematous, inflammatory tissue surrounding the gallbladder and a thick rind covering the gallbladder. Portions of the gallbladder had pulled away from a friable liver bed. Fluids 1000 mL Specimens Gallbladder to Pathology Drains 19 Fr Frederick drain in gallbladder fossa Anesthesia Type General Complications none Disposition Accompanied Patient To Recovery: Yes Disposition: Recovery Room Indications Pt is an 83 yo male who presented with cholangitis, choledocholithiais, and cholecystitis. The patient underwent ERCP. A discussion was had with the patient and his family about risks, benefits, and alternatives to surgery. Risks included, but are not limited to, injury to the bile ducts, bile leak, abscess, hernia, retained stone, needing to convert to an open procedure, bleeding, infection, SD, stroke, , and need for prolonged intubation. After discussion, and all questions were answered to apparent satisfaction, the patient freely signed consent to proceed with laparoscopic, possible open, cholecystectomy, possible intra-operative cholangiogram. Description of Procedure The patient was taken to the operating room and placed in the supine position. Julia-operative antibiotics were administered and SCDs were on and working. General anesthesia was induced. A timeout was held confirming the correct patient, procedure, and necessary equipment. An OG tube was placed. The abdomen was prepped and draped in the usual sterile fashion. An incision was made above the umbilicus. The fascia was elevated and incised. The peritoneum was elevated and incised. Entry into the peritoneum was confirmed visually and no bowel was noted in the vicinity of the incision. The De Jesus cannula was inserted. The abdomen was insufflated with carbon dioxide. The patient tolerated insufflation well. The laparoscope was inserted and the abdomen inspected. No injuries from initial trocar placement were noted. The patient was placed in reverse Trendelenburg and tilted slightly to the left. Additional trocars were then inserted in the following locations: a 5 mm trocar in the epigastrium and two 5 mm trocars along the right costal margin. The abdomen was inspected and the omentum was adhered to the top of the gallbladder. There was free fluid in the right paracolic gutter and surrounding the gallbladder. There was extensive edematous, inflammatory tissue surrounding the gallbladder and a thick rind covering the gallbladder. Portions of the gallbladder had pulled away from a friable liver bed. The gallbladder was thick, firm, and taut, and unable to be grasped, thus an aspiration needle was used to suction bile from the ballbladder, which was clear and consistent with hydrops. The dome of the gallbladder was grasped with an atraumatic grasper through the lateral port and retracted over the dome of the liver. A significant amount of time was required to carefully dissect through adhesions and inflammatory tissue. During this process the gallbladder was entered and bile an stone spilled into the abdominal cavity. The were suctioned out and manually removed with graspers. The infundibulum was also grasped with an atraumatic grasper and retracted laterally. The peritoneum overlying the gallbladder infundibulum was incised and the cystic duct and cystic artery were identified and circumferentially dissected. The critical view of safety was visualized. The cystic duct and cystic artery were then doubly clipped on the staying side and singly on the specimen side, then divided with scissors. The gallbladder was then dissected from its peritoneal attachments by electrocautery. Hemostasis was checked. The gallbladder was placed in an endoscopic retrieval bag. The gallbladder fossa was irrigated. Hemostasis obtained. Floseal was placed in the gallbladder fossa. There was no evidence of bleeding from the gallbladder fossa or cystic duct artery or leakage of the bile from the cystic duct stump. A closed suction drain was placed in the gallbladder fossa and brought out through the lateral port site. Secondary trocars were removed under direct visualization. No bleeding was noted. The laparsocope and De Jesus cannula were withdrawn. The specimen within the endoscopic retrieval bag was removed from the peritoneal cavity and sent to Pathology. Specimens were confirmed as the gallbladder. The fascia of the midline De Jesus trocar site was closed with two [id number] vicryl sutures. The skin was closed with subcuticular sutures of 4-0 Monocryl and steristrips were applied to the incisions. All counts were reported as correct. The OG tube was removed. The patient was extubated and transferred to the recovery room in stable condition. I attest to the content of the Intraoperative Record and any orders documented therein. Any exceptions are noted below.
[2018-08-17] MEDS: HYDROmorphone INJ 1 MG/ML SYRINGE IV PRN ×6 (17:28→17:54)
--- NOTE | 2018-08-17 18:13 | Anesthesiology Progress Note ---
Date of Service August 17, 2018 Anesthesia Post Procedure Vital Signs Vital Signs: Temp Pulse Pulse Resp BP BP Pulse Ox 08/17/18 18:10 98.4 F 96 H 15 120/93 94 08/17/18 18:00 87 20 112/72 94 08/17/18 17:50 90 17 112/74 93 08/17/18 17:40 108 H 23 148/95 H 97 08/17/18 17:30 104 H 28 H 143/85 H 92 08/17/18 17:20 108 H 23 149/75 H 95 08/17/18 17:14 96.8 F L 108 H 20 142/128 H 94 08/17/18 12:58 97.5 F L 104 H 18 173/88 H 92 08/17/18 11:39 98.5 F 83 18 138/81 95 08/17/18 08:21 97.5 F L 98 H 17 139/84 92 08/17/18 02:54 97.5 F L 90 20 126/77 94 08/16/18 23:01 98.1 F 106 H 27 H 124/71 95 08/16/18 22:12 93 08/16/18 19:13 97.9 F 90 23 119/86 92 Pain Intensity Right Abdomen: Pain Intensity: 5 Medial Chest: Pain Intensity: 6 Abdomen: Pain Intensity: 3 Notes Mental Status: alert / awake / arousable and participated in evaluation Patient Amnestic to Procedure: Yes Nausea / Vomiting: adequately controlled Pain: adequately controlled Airway Patency, RR, SpO2: stable & adequate BP & HR: stable & adequate Hydration State: stable & adequate Anesthetic Complications: no major complications apparent and Pt Satisfied with anesthetic care
[2018-08-17] MEDS: HydrALAZINE HCL 20 MG/ML VIAL IV SCH (18:26)
[2018-08-17] MEDS: HYDROCODONE/ACETAMINOPHEN 7.5/325MG TAB PO PRN (20:05)
[2018-08-18] MEDS: HydrALAZINE HCL 20 MG/ML VIAL IV SCH ×5 (00:13→23:48)
[2018-08-18] MEDS: AZITHROMYCIN 500 MG in DEXTROSE 5% 250 ML IV SCH (02:02)
[2018-08-18] MEDS: PIPERACILLIN/TAZOBACTAM 3.375 GM in DEXTROSE 5% 100 ML IV SCH ×3 (03:06→18:25)
[2018-08-18 05:39] LABS: Eosinophils # (auto) 0.01 K/uL (0-0.5); Eosinophils % (auto) 0.1 %; Hematocrit (blood only) 38.2 % (42-52); Hemoglobin 12.2 g/dL (14.0-18.0); Immature Granulocytes # (auto) 0.02 K/uL (0.00-0.02); Immature Granulocytes % (auto) 0.2 %; Lymphocytes # (auto) 0.72 K/uL (1.2-3.4); Mean Corpuscular Hgb Conc 31.9 g/dL (32-36); Mean Corpuscular Volume 104.1 fL (80-100); Mean Platelet Volume 9.6 fL (7.4-10.4); Monocytes # (auto) 0.81 K/uL (0.11-0.59); Neutrophils # (auto) 7.45 K/uL (1.4-6.5); Neutrophils % (auto) 82.7 %; Platelet Count 191 K/uL (130-400); RDW Standard Deviation 49.1 fL (36.4-46.3); Red Blood Count 3.67 M/uL (4.7-6.1); White Blood Count 9.01 K/uL (4.8-10.8)
[2018-08-18 05:50] LABS: Partial Thromboplastin Time 27.6 Seconds (21.0-31.0)
[2018-08-18 06:01] LABS: BUN Creatinine Ratio 18.4 (10-20); Calcium 7.6 mg/dl (8.5-10.1); Est GFR (African American) 66.4; Est GFR (Non-African American) 57.3; Magnesium 2.4 mg/dl (1.8-2.4); Phosphorus 3.2 mg/dl (2.5-4.9); Potassium 4.8 mmol/L (3.5-5.1)
[2018-08-18] MEDS: HYDROCODONE/ACETAMINOPHEN 7.5/325MG TAB PO PRN ×2 (07:41→21:46)
[2018-08-18 08:01] LABS: Albumin Level 2.7 gm/dl (3.4-5.0); Bilirubin Direct 1.1 mg/dl (0-0.2); Bilirubin,Total 1.8 mg/dl (0.2-1); Total Protein 6.4 gm/dl (6.4-8.2)
--- NOTE | 2018-08-18 08:16 | Anesthesiology Progress Note ---
Date of Service August 18, 2018 Anesthesia Post Procedure Vital Signs Vital Signs: Temp Pulse Pulse Pulse Resp BP BP 08/18/18 06:00 37.0 C 91 H 20 08/18/18 05:00 76 10 L 144/88 H 08/18/18 04:00 36.6 C 82 22 119/83 08/18/18 03:00 81 22 141/88 H 08/18/18 02:00 86 13 120/76 08/18/18 01:00 89 20 139/90 08/18/18 00:15 76 16 129/78 08/18/18 00:00 37.0 C 88 18 115/80 08/17/18 23:45 86 20 134/77 08/17/18 23:30 88 20 121/82 08/17/18 23:15 92 H 20 120/82 08/17/18 23:00 94 H 24 126/78 08/17/18 22:50 36.3 C L 100 H 16 131/82 08/17/18 22:45 106 H 16 131/82 08/17/18 22:30 88 11 L 134/78 08/17/18 22:15 101 H 21 125/73 08/17/18 22:00 99 H 17 135/77 08/17/18 21:45 101 H 18 128/81 08/17/18 21:31 114 H 17 130/90 08/17/18 21:16 132 H 22 139/95 08/17/18 21:13 123 H 20 135/109 H 08/17/18 20:00 88 19 128/86 08/17/18 19:52 36.4 C L 89 20 08/17/18 19:48 94 H 14 129/79 08/17/18 18:41 36.3 C L 91 H 19 126/78 08/17/18 18:29 36.4 C L 99 H 21 114/84 08/17/18 18:10 36.9 C 96 H 15 120/93 08/17/18 18:00 87 20 112/72 08/17/18 17:50 90 17 112/74 08/17/18 17:40 108 H 23 08/17/18 17:30 104 H 28 H 08/17/18 17:20 108 H 23 08/17/18 17:14 36.0 C L 108 H 20 08/17/18 12:58 36.4 C L 104 H 18 173/88 H 08/17/18 11:39 36.9 C 83 18 08/17/18 08:21 36.4 C L 98 H 17 BP Pulse Ox 08/18/18 06:00 91 08/18/18 05:00 94 08/18/18 04:00 96 08/18/18 03:00 95 08/18/18 02:00 90 08/18/18 01:00 95 08/18/18 00:15 95 08/18/18 00:00 97 08/17/18 23:45 96 08/17/18 23:30 96 08/17/18 23:15 96 08/17/18 23:00 97 08/17/18 22:50 97 08/17/18 22:45 95 08/17/18 22:30 98 08/17/18 22:15 98 08/17/18 22:00 98 08/17/18 21:45 98 08/17/18 21:31 95 08/17/18 21:16 94 08/17/18 21:13 94 08/17/18 20:00 91 08/17/18 19:52 129/79 96 08/17/18 19:48 96 08/17/18 18:41 92 08/17/18 18:29 90 08/17/18 18:10 94 08/17/18 18:00 94 08/17/18 17:50 93 08/17/18 17:40 148/95 H 97 08/17/18 17:30 143/85 H 92 08/17/18 17:20 149/75 H 95 08/17/18 17:14 142/128 H 94 08/17/18 12:58 92 08/17/18 11:39 138/81 95 08/17/18 08:21 139/84 92 Pain Intensity Right Abdomen: Pain Intensity: 5 Medial Chest: Pain Intensity: 6 Abdomen: Pain Intensity: 0 Notes Mental Status: alert / awake / arousable Patient Amnestic to Procedure: Yes Nausea / Vomiting: adequately controlled Pain: adequately controlled Airway Patency, RR, SpO2: stable & adequate BP & HR: stable & adequate Hydration State: stable & adequate Anesthetic Complications: no major complications apparent and Pt Satisfied with anesthetic care
--- NOTE | 2018-08-18 08:34 | Progress Note ---
Date of Service August 18, 2018 Assessment & Plan (1) Choledocholithiasis with acute cholecystitis: 83 yo male with cholecystitis with choledocholithiasis and cholangitis. He is now s/p ERCP with choledocholithiasis removal and stent placement and lap abigail with drain - Clear liquid diet today, would advance diet slowly, pt at risk for developing ileus due to prolonged surgery with extensive inflammation - Trend drain output, if remains serosang can likely d/c prior to discharge - Continue abx x 10 days - Analgesia PRN, ensure adequate pain control to optimize respiratory status (pt splinting) - Recommend Senna and Colace BID - Encourage IS use, educated patient on use and importance - Okay for VTE prophylaxis, please hold Eliquis - Frequent ambulation - PT/OT consult - Please provide patient with extra pillow, to be used to hold against abdomen when coughing Subjective Reports some abdominal pain Has a cough, which is exacerbating pain Dyspneic, especially when talking Physical Exam Vital Signs (Past 24 Hours): Last Vital Signs Temp 37.0 C 08/18/18 06:00 Pulse 91 H 08/18/18 06:00 Resp 20 08/18/18 06:00 BP 144/88 H 08/18/18 05:00 Pulse Ox 91 08/18/18 06:00 Constitutional: appears dyspneic Respiratory: increased work of breathing Cardiovascular: Rate/Rhythm: regular rate Gastrointestinal (Abdomen): soft, distended, appropriately tender, incisions clean and intact, drain sponge saturated, serous to serosang drainagee in drain Psychiatric: alert and oriented Results & Data Laboratory Results 08/18/18 08/18/18 08/18/18 Range/Units 05:15 05:15 05:15 WBC 9.01 (4.8-10.8) K/uL RBC 3.67 L (4.7-6.1) M/uL Hgb 12.2 L (14.0-18.0) g/dL Hct 38.2 L (42-52) % MCV 104.1 H (80-100) fL MCH 33.2 (25-34) pg MCHC 31.9 L (32-36) g/dL RDW Std Deviation 49.1 H (36.4-46.3) fL RDW Coeff of Monie 13.0 (11.5-14.5) % Plt Count 191 (130-400) K/uL MPV 9.6 (7.4-10.4) fL Immature Gran % (Auto) 0.2 % Neut % (Auto) 82.7 % Lymph % (Auto) 8.0 % Towns % (Auto) 9.0 % Eos % (Auto) 0.1 % Baso % (Auto) 0.0 % Immature Gran # (Auto) 0.02 (0.00-0.02) K/uL Neut # (Auto) 7.45 H (1.4-6.5) K/uL Lymph # (Auto) 0.72 L (1.2-3.4) K/uL Towns # (Auto) 0.81 H (0.11-0.59) K/uL Eos # (Auto) 0.01 (0-0.5) K/uL Baso # (Auto) 0.00 (0-0.2) K/uL APTT 27.6 (21.0-31.0) Seconds PTT Ratio 1.0 Sodium (136-145) mmol/L Potassium (3.5-5.1) mmol/L Chloride (98-107) mmol/L Carbon Dioxide (21-32) mmol/L Anion Gap (3-11) BUN (7-18) mg/dl Creatinine (0.6-1.4) mg/dl Est Cr Clr Drug Dosing ml/min Est GFR ( Amer) Est GFR (Non-Af Amer) BUN/Creatinine Ratio (10-20) Glucose (70-99) mg/dl POC Glucose (70-99) Calcium (8.5-10.1) mg/dl Phosphorus (2.5-4.9) mg/dl Magnesium (1.8-2.4) mg/dl Total Bilirubin 1.8 H (0.2-1) mg/dl Direct Bilirubin 1.1 H (0-0.2) mg/dl AST 78 H (15-37) U/L ALT 112 H (12-78) U/L Alkaline Phosphatase 130 H (45-117) U/L Total Protein 6.4 (6.4-8.2) gm/dl Albumin 2.7 L (3.4-5.0) gm/dl Blood Type Antibody Screen 08/18/18 08/18/18 08/17/18 Range/Units 05:15 05:15 21:40 WBC (4.8-10.8) K/uL RBC (4.7-6.1) M/uL Hgb (14.0-18.0) g/dL Hct (42-52) % MCV (80-100) fL MCH (25-34) pg MCHC (32-36) g/dL RDW Std Deviation (36.4-46.3) fL RDW Coeff of Monie (11.5-14.5) % Plt Count (130-400) K/uL MPV (7.4-10.4) fL Immature Gran % (Auto) % Neut % (Auto) % Lymph % (Auto) % Towns % (Auto) % Eos % (Auto) % Baso % (Auto) % Immature Gran # (Auto) (0.00-0.02) K/uL Neut # (Auto) (1.4-6.5) K/uL Lymph # (Auto) (1.2-3.4) K/uL Towns # (Auto) (0.11-0.59) K/uL Eos # (Auto) (0-0.5) K/uL Baso # (Auto) (0-0.2) K/uL APTT (21.0-31.0) Seconds PTT Ratio Sodium 140 (136-145) mmol/L Potassium 4.8 D (3.5-5.1) mmol/L Chloride 104 (98-107) mmol/L Carbon Dioxide 32 (21-32) mmol/L Anion Gap 4.0 (3-11) BUN 22 H (7-18) mg/dl Creatinine 1.17 (0.6-1.4) mg/dl Est Cr Clr Drug Dosing 57.0 ml/min Est GFR ( Amer) 66.4 Est GFR (Non-Af Amer) 57.3 BUN/Creatinine Ratio 18.4 (10-20) Glucose 138 H (70-99) mg/dl POC Glucose 153 H (70-99) Calcium 7.6 L (8.5-10.1) mg/dl Phosphorus 3.2 (2.5-4.9) mg/dl Magnesium 2.4 (1.8-2.4) mg/dl Total Bilirubin (0.2-1) mg/dl Direct Bilirubin (0-0.2) mg/dl AST (15-37) U/L ALT (12-78) U/L Alkaline Phosphatase (45-117) U/L Total Protein (6.4-8.2) gm/dl Albumin (3.4-5.0) gm/dl Blood Type B Positive Antibody Screen NEGATIVE
[2018-08-18] MEDS: SODIUM CHLORIDE 0.9% 1000ML 1,000 ML IV SCH ×2 (08:56→18:44)
[2018-08-18] MEDS: SERTRALINE HCL 50 MG TABLET PO SCH (09:17)
[2018-08-18] MEDS: GABAPENTIN 800 MG TAB PO SCH ×3 (09:17→21:46)
[2018-08-18] MEDS: PANTOprazole 40 MG in SYRINGE 0 ML IV SCH (11:22)
[2018-08-18] MEDS: ACETAMINOPHEN 325 MG TAB PO PRN (13:47)
[2018-08-18] MEDS: DOCUSATE SODIUM 100 MG CAP PO SCH ×2 (13:48→21:47)
--- NOTE | 2018-08-18 14:05 | Hospitalist Progress Note ---
Date of Service August 18, 2018 Assessment & Plan (1) Sepsis: (2) Choledocholithiasis with acute cholecystitis: (3) MARCELA (acute kidney injury): (4) Cholangitis: (5) Bladder wall thickening: (6) A-fib: (7) History of stroke: (8) Hypertension: 83yoM with hx of Afib, HTN, embolic CVA in 2014, hx of spinal fusion and chronic back pain presented with worsening and severe RUQ abdominal pain was admitted on August 11, 2018 because of concern for sepsis secondary to cholangitis and acute cholecystitis. Sepsis 2/2 cholangitis and acute cholecystitis, Stable improving Abdominal CT: concerning for acute cholecystitis Blood culture, one set with gram positive cocci, contaminate ERCP on 08/15, sphincterotomy with stone extraction, no complications Has been on Zosyn POD 1 of cholecystectomy, Surgeon on the case,Continue follow-up MARCELA (acute kidney injury)Upon admission, resolved Cholangitis: s/p ERCP and stone extraction Bladder wall thickening: Concern for possible malignancy, outpt urology follow up A-fib: not on rate control chronically CHADSVASC is 5, was on Eliquis outpatient, on hold currently heparin drip started pre op and held prior to procedure, Will restart heparin drip as soon as possible , or resume the blood thinner for A. fib stroke prevention, will discuss with surgeon History of stroke: need to hold antiplatelets for [address] Domínguez, can resume on 08/20 Hypertension: Blood pressure is in borderline low,holding Lasix and HCTZ/spironolactone due to MARCELA and dehydration, PPI, SCD for now Subjective more abd sore, still need nasal cannula oxygen 2 L, Has one-time Smallbowel movement, no passing gas yet Review of Systems Constitutional: Positive weakness, or fatigue Respiratory: no cough, sputum, wheezing, or dyspnea on exertion Cardiac: No chest pain, No orthopnea, No PND, Abdomen: Mildly distended, no pain, No vomiting, Musculoskeletal: No joint pain, No muscle pain, No swelling, No calf pain, No problem reported : No dysuria, No urinary frequency, No incontinence, No hematuria Neurologic: No paralysis, No weakness, No numbness/tingling, No vertigo, No balance problems Psychiatric: No depression symptoms, No anhedonism, Heme: No abnormal bleeding/bruising, No clotting problems, No swollen lymph nodes, No night sweats Skin: No rash, No itch, No new/changing skin lesions, No color change, No bleeding Physical Exam Vital Signs (Past 24 Hours): Last Vital Signs Temp 36.8 C 08/18/18 12:26 Pulse 88 08/18/18 12:26 Resp 16 08/18/18 12:26 BP 111/81 08/18/18 12:26 Pulse Ox 94 08/18/18 12:26 Physical Exam: General Appearance: WD/WN, no apparent distress, On nasal cannula oxygen, Eyes: normal inspection, PERRL, EOMI, sclerae normal ENT: normal ENT inspection, hearing grossly normal, pharynx normal Neck: supple, no adenopathy, thyroid normal, no JVD, no carotid bruits, trachea midline Respiratory/Chest: chest non-tender, Mild decreased breath sounds, no respiratory distress, no accessory muscle use, rales, wheezing Cardiovascular: regular rate, rhythm, no JVD, no murmur Abdomen: right upper quadrant mildly tender, normal bowel sounds, soft,Lumbar distention, no organomegaly, Extremities: normal range of motion, non-tender, normal inspection, no pedal edema, no calf tenderness, normal capillary refill, pelvis stable, joint has no limited range of motion, capillary refill is normal, no cyanosis clubbing Neurologic/Psychiatric: 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, no motor/sensory deficits, alert, normal mood/affect, oriented x 3 Skin: normal color, warm/dry, no rash Results & Data Laboratory Results Laboratory Results - last 24 hr 08/17/18 08/18/18 08/18/18 21:40 05:15 05:15 WBC RBC Hgb Hct MCV MCH MCHC RDW Std Deviation RDW Coeff of Monie Plt Count MPV Immature Gran % (Auto) Neut % (Auto) Lymph % (Auto) [place] % (Auto) Eos % (Auto) Baso % (Auto) Immature Gran # (Auto) Neut # (Auto) Lymph # (Auto) [place] # (Auto) Eos # (Auto) Baso # (Auto) APTT PTT Ratio Sodium 140 Potassium 4.8 D Chloride 104 Carbon Dioxide 32 Anion Gap 4.0 BUN 22 H Creatinine 1.17 Est Cr Clr Drug Dosing 57.0 Est GFR ( Amer) 66.4 Est GFR (Non-Af Amer) 57.3 BUN/Creatinine Ratio 18.4 Glucose 138 H POC Glucose 153 H Calcium 7.6 L Phosphorus 3.2 Magnesium 2.4 Total Bilirubin Direct Bilirubin AST ALT Alkaline Phosphatase Total Protein Albumin Blood Type B Positive Antibody Screen NEGATIVE 08/18/18 08/18/18 08/18/18 05:15 05:15 05:15 WBC 9.01 RBC 3.67 L Hgb 12.2 L Hct 38.2 L MCV 104.1 H MCH 33.2 MCHC 31.9 L RDW Std Deviation 49.1 H RDW Coeff of Monie 13.0 Plt Count 191 MPV 9.6 Immature Gran % (Auto) 0.2 Neut % (Auto) 82.7 Lymph % (Auto) 8.0 [place] % (Auto) 9.0 Eos % (Auto) 0.1 Baso % (Auto) 0.0 Immature Gran # (Auto) 0.02 Neut # (Auto) 7.45 H Lymph # (Auto) 0.72 L [place] # (Auto) 0.81 H Eos # (Auto) 0.01 Baso # (Auto) 0.00 APTT 27.6 PTT Ratio 1.0 Sodium Potassium Chloride Carbon Dioxide Anion Gap BUN Creatinine Est Cr Clr Drug Dosing Est GFR ( Amer) Est GFR (Non-Af Amer) BUN/Creatinine Ratio Glucose POC Glucose Calcium Phosphorus Magnesium Total Bilirubin 1.8 H Direct Bilirubin 1.1 H AST 78 H ALT 112 H Alkaline Phosphatase 130 H Total Protein 6.4 Albumin 2.7 L Blood Type Antibody Screen (1) Sepsis Sepsis type: sepsis due to unspecified organism Qualified Code(s): A41.9 - Sepsis, unspecified organism
[2018-08-18] MEDS ORDERED: ENOXAPARIN INJ 40 MG/0.4 ML SYR SQ SCH (17:00)
[2018-08-19] MEDS: AZITHROMYCIN 500 MG in DEXTROSE 5% 250 ML IV SCH (01:59)
[2018-08-19] MEDS: PIPERACILLIN/TAZOBACTAM 3.375 GM in DEXTROSE 5% 100 ML IV SCH ×3 (03:00→20:01)
[2018-08-19] MEDS: SODIUM CHLORIDE 0.9% 1000ML 1,000 ML IV SCH ×2 (05:13→10:44)
[2018-08-19] MEDS: HydrALAZINE HCL 20 MG/ML VIAL IV SCH ×3 (06:06→17:08)
[2018-08-19 06:49] LABS: Albumin Level 2.4 gm/dl (3.4-5.0); BUN Creatinine Ratio 21.1 (10-20); Calcium 7.6 mg/dl (8.5-10.1); Creatinine Clr Calc Pharmacy 71.6 ml/min; Est GFR (African American) 85.5; Est GFR (Non-African American) 73.7; Magnesium 2.2 mg/dl (1.8-2.4); Potassium 4.4 mmol/L (3.5-5.1)
[2018-08-19 06:53] LABS: Albumin Globulin Ratio 0.7 (0.9-2); Bilirubin,Total 1.8 mg/dl (0.2-1); Globulin 3.2 gm/dl (2.5-4.0); Phosphorus 2.3 mg/dl (2.5-4.9); Total Protein 5.6 gm/dl (6.4-8.2)
--- NOTE | 2018-08-19 06:58 | Progress Note ---
Date of Service August 19, 2018 Assessment & Plan (1) Choledocholithiasis with acute cholecystitis: no acute chgs- decreased GI function adv diet slowly- possible full liquids later today check labs Subjective afeb, no emesis on clears + flatus per pt Physical Exam Vital Signs (Past 24 Hours): Last Vital Signs Temp 36.5 C 08/19/18 03:35 Pulse 91 H 08/19/18 03:35 Resp 18 08/19/18 03:35 BP 120/73 08/19/18 03:35 Pulse Ox 94 08/19/18 03:35 incisions intact, abd- some distention, decreased bowel sounds
[2018-08-19 07:10] LABS: Partial Thromboplastin Ratio 1.1; Partial Thromboplastin Time 28.7 Seconds (21.0-31.0)
[2018-08-19] MEDS ORDERED: SODIUM PHOSPHATE 3 MMOL/1 ML INFUSION IV STA (07:29)
[2018-08-19] MEDS ORDERED: SODIUM PHOSPHATE 15 MMOL in SODIUM CHLORIDE 0.9% 250 ML IV ONE (08:30)
[2018-08-19] MEDS: SERTRALINE HCL 50 MG TABLET PO SCH (08:40)
[2018-08-19] MEDS: GABAPENTIN 800 MG TAB PO SCH ×3 (08:40→21:08)
[2018-08-19] MEDS: DOCUSATE SODIUM 100 MG CAP PO SCH ×2 (08:41→21:07)
[2018-08-19] MEDS: PANTOprazole 40 MG in SYRINGE 0 ML IV SCH (11:21)
[2018-08-19] MEDS ORDERED: Heparin IV Standard *NO* Bolus IV ONE (14:21)
[2018-08-19] MEDS ORDERED: FUROSEMIDE 20 MG in SYRINGE 0 ML IV ONE (14:30)
[2018-08-19] MEDS: HYDROCODONE/ACETAMINOPHEN 7.5/325MG TAB PO PRN ×2 (15:51→21:07)
[2018-08-19 16:11] LABS: Hematocrit (blood only) 37.8 % (42-52); Hemoglobin 12.1 g/dL (14.0-18.0); Mean Corpuscular Volume 104.7 fL (80-100); Mean Platelet Volume 9.5 fL (7.4-10.4); Platelet Count 200 K/uL (130-400); RDW Coefficient of Variation 13.3 % (11.5-14.5); RDW Standard Deviation 50.3 fL (36.4-46.3); Red Blood Count 3.61 M/uL (4.7-6.1); White Blood Count 9.32 K/uL (4.8-10.8)
[2018-08-19 16:35] LABS: INR 1.2 (0.9-1.1); Prothrombin Time 11.9 Seconds (9.0-12.0)
[2018-08-19 16:36] LABS: Basophils # (auto) 0.02 K/uL (0-0.2); Basophils % (auto) 0.2 %; Eosinophils # (auto) 0.21 K/uL (0-0.5); Eosinophils % (auto) 2.3 %; Immature Granulocytes # (auto) 0.03 K/uL (0.00-0.02); Immature Granulocytes % (auto) 0.3 %; Lymphocytes # (auto) 1.23 K/uL (1.2-3.4); Lymphocytes % (auto) 13.2 %; Monocytes # (auto) 0.71 K/uL (0.11-0.59); Monocytes % (auto) 7.6 %; Neutrophils # (auto) 7.12 K/uL (1.4-6.5); Neutrophils % (auto) 76.4 %
[2018-08-19] MEDS: HEPARIN STANDARD DEXTROSE 25,000 UNITS/500 ML IV SCH (17:07)
--- NOTE | 2018-08-19 18:07 | Hospitalist Progress Note ---
Date of Service August 19, 2018 Assessment & Plan (1) Sepsis: (2) Choledocholithiasis with acute cholecystitis: (3) MARCELA (acute kidney injury): (4) Cholangitis: (5) Bladder wall thickening: (6) A-fib: (7) History of stroke: (8) Hypertension: 83yoM with hx of Afib, HTN, embolic CVA in 2014, hx of spinal fusion and chronic back pain presented with worsening and severe RUQ abdominal pain was admitted on August 11, 2018 because of concern for sepsis secondary to cholangitis and acute cholecystitis. Lower extremity swelling and scrotal swelling discontinue IV fluid, started 20 mg empiric IV Lasix, Sepsis 2/2 cholangitis and acute cholecystitis, Stable improving Abdominal CT: concerning for acute cholecystitis Blood culture, one set with gram positive cocci, contaminate ERCP on 08/15, sphincterotomy with stone extraction, no complications Has been on Zosyn POD 2 of cholecystectomy, Surgeon on the case, Continue follow-up MARCELA (acute kidney injury)Upon admission, resolved Cholangitis: s/p ERCP and stone extraction Bladder wall thickening: Concern for possible malignancy, outpt urology follow up A-fib: not on rate control chronically CHADSVASC is 5, was on Eliquis outpatient, on hold currently Start heparin drip after surgeon agreed, with standard dose and no bone for A. fib stroke prevention History of stroke: need to hold antiplatelets for [address] Domínguez, can resume on 08/20 Hypertension: Blood pressure is in borderline low,holding Lasix and HCT Z/spironolactone due to MARCELA and dehydration, PPI, SCD for now DVT prophylaxis covered Increase activity PTOT Subjective Report having more lower extremity swelling and scrotal swelling, still need nasal cannula oxygen 2-4 L, Is passing a lot of gas Review of Systems Constitutional: Positive weakness, or fatigue Respiratory: no cough, sputum, wheezing, or dyspnea on exertion Cardiac: No chest pain, No orthopnea, No PND, Abdomen: Mildly distended, no pain, No vomiting, Musculoskeletal: No joint pain, No muscle pain, : No dysuria, No urinary frequency, No incontinence, No hematuria Neurologic: No paralysis, No weakness, No numbness/tingling, No vertigo, No balance problems Psychiatric: No depression symptoms, No anhedonism, Heme: No abnormal bleeding/bruising, No clotting problems, No swollen lymph nodes, No night sweats Skin: No rash, No itch, No new/changing skin lesions, No color change, No bleeding Physical Exam Vital Signs (Past 24 Hours): Last Vital Signs Temp 36.8 C 08/19/18 15:15 Pulse 93 H 08/19/18 15:15 Resp 20 08/19/18 15:15 BP 139/99 08/19/18 15:15 Pulse Ox 96 08/19/18 15:15 Physical Exam: General Appearance: WD/WN, no apparent distress, On nasal cannula oxygen, Eyes: normal inspection, PERRL, EOMI, sclerae normal ENT: normal ENT inspection, hearing grossly normal, pharynx normal Neck: supple, no adenopathy, thyroid normal, no JVD, no carotid bruits, trachea midline Respiratory/Chest: chest non-tender, Mild decreased breath sounds, no respiratory distress, no accessory muscle use, rales, wheezing Cardiovascular: regular rate, rhythm, no JVD, no murmur Abdomen: right upper quadrant mildly tender, normal bowel sounds, soft,Lumbar distention, no organomegaly, Extremities: Bilateral lower extremity mild swelling and scrotal swelling, normal range of motion, non-tender, normal inspection, no calf tenderness, normal capillary refill, pelvis stable, joint has no limited range of motion, capillary refill is normal, no cyanosis clubbing Neurologic/Psychiatric: 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, no motor/sensory deficits, alert, normal mood/affect, oriented x 3 Skin: normal color, warm/dry, no rash Results & Data Laboratory Results Laboratory Results - last 24 hr 08/19/18 08/19/18 08/19/18 05:27 05:27 07:34 WBC RBC Hgb Hct MCV MCH MCHC RDW Std Deviation RDW Coeff of Monie Plt Count MPV Immature Gran % (Auto) Neut % (Auto) Lymph % (Auto) [place] % (Auto) Eos % (Auto) Baso % (Auto) Immature Gran # (Auto) Neut # (Auto) Lymph # (Auto) [place] # (Auto) Eos # (Auto) Baso # (Auto) PT INR APTT 28.7 PTT Ratio 1.1 Sodium 139 Potassium 4.4 Chloride 105 Carbon Dioxide 30 Anion Gap 4.0 BUN 20 H Creatinine 0.95 Est Cr Clr Drug Dosing 71.6 Est GFR ( Amer) 85.5 Est GFR (Non-Af Amer) 73.7 BUN/Creatinine Ratio 21.1 H Glucose 114 H POC Glucose 94 Calcium 7.6 L Phosphorus 2.3 L Magnesium 2.2 Total Bilirubin 1.8 H AST 48 H ALT 83 H Alkaline Phosphatase 134 H Total Protein 5.6 L Albumin 2.4 L Globulin 3.2 Albumin/Globulin Ratio 0.7 L 08/19/18 08/19/18 16:00 16:00 WBC 9.32 RBC 3.61 L Hgb 12.1 L Hct 37.8 L MCV 104.7 H MCH 33.5 MCHC 32.0 RDW Std Deviation 50.3 H RDW Coeff of Monie 13.3 Plt Count 200 MPV 9.5 Immature Gran % (Auto) 0.3 Neut % (Auto) 76.4 Lymph % (Auto) 13.2 [place] % (Auto) 7.6 Eos % (Auto) 2.3 Baso % (Auto) 0.2 Immature Gran # (Auto) 0.03 H Neut # (Auto) 7.12 H Lymph # (Auto) 1.23 [place] # (Auto) 0.71 H Eos # (Auto) 0.21 Baso # (Auto) 0.02 PT 11.9 INR 1.2 H APTT PTT Ratio Sodium Potassium Chloride Carbon Dioxide Anion Gap BUN Creatinine Est Cr Clr Drug Dosing Est GFR ( Amer) Est GFR (Non-Af Amer) BUN/Creatinine Ratio Glucose POC Glucose Calcium Phosphorus Magnesium Total Bilirubin AST ALT Alkaline Phosphatase Total Protein Albumin Globulin Albumin/Globulin Ratio (1) Sepsis Sepsis type: sepsis due to unspecified organism Qualified Code(s): A41.9 - Sepsis, unspecified organism
[2018-08-19 23:41] LABS: Partial Thromboplastin Ratio 1.9
[2018-08-20 00:09] LABS: Partial Thromboplastin Time 51.8 Seconds (21.0-31.0)
[2018-08-20] MEDS: HydrALAZINE HCL 20 MG/ML VIAL IV SCH ×5 (00:28→17:32)
[2018-08-20] MEDS: AZITHROMYCIN 500 MG in DEXTROSE 5% 250 ML IV SCH (02:08)
[2018-08-20] MEDS: PIPERACILLIN/TAZOBACTAM 3.375 GM in DEXTROSE 5% 100 ML IV SCH ×3 (03:00→19:01)
[2018-08-20 06:01] LABS: Basophils # (auto) 0.02 K/uL (0-0.2); Basophils % (auto) 0.2 %; Eosinophils # (auto) 0.22 K/uL (0-0.5); Eosinophils % (auto) 2.5 %; Hematocrit (blood only) 38.5 % (42-52); Hemoglobin 12.2 g/dL (14.0-18.0); Immature Granulocytes # (auto) 0.02 K/uL (0.00-0.02); Immature Granulocytes % (auto) 0.2 %; Lymphocytes # (auto) 0.98 K/uL (1.2-3.4); Mean Corpuscular Hgb Conc 31.7 g/dL (32-36); Mean Corpuscular Volume 104.9 fL (80-100); Monocytes # (auto) 1.48 K/uL (0.11-0.59); Monocytes % (auto) 16.6 %; Neutrophils # (auto) 6.18 K/uL (1.4-6.5); Neutrophils % (auto) 69.5 %; Platelet Count 234 K/uL (130-400); RDW Coefficient of Variation 13.1 % (11.5-14.5); RDW Standard Deviation 49.6 fL (36.4-46.3); Red Blood Count 3.67 M/uL (4.7-6.1)
[2018-08-20 06:41] LABS: Partial Thromboplastin Ratio 2.2
[2018-08-20 06:49] LABS: Partial Thromboplastin Time 59.5 Seconds (21.0-31.0)
--- NOTE | 2018-08-20 06:54 | Progress Note ---
Date of Service August 20, 2018 Assessment & Plan (1) Choledocholithiasis with acute cholecystitis: supportive care- adv to low fiber diet cont atbx- mobilize- drain out prior to d/c- d/c when ok with med team likely 1-2 more days Subjective sitting on edge of bed- more energy than yesterday on Full liquids- ++flatus- wants some food Physical Exam Vital Signs (Past 24 Hours): Last Vital Signs Temp 36.5 C 08/20/18 04:00 Pulse 94 H 08/20/18 04:00 Resp 18 08/20/18 04:00 BP 134/79 08/20/18 04:00 Pulse Ox 94 08/20/18 04:00 dr- serosang, mild distention
[2018-08-20 07:06] LABS: BUN Creatinine Ratio 17.4 (10-20); Calcium 8.3 mg/dl (8.5-10.1); Creatinine Clr Calc Pharmacy 75.5 ml/min; Est GFR (African American) 91.2; Est GFR (Non-African American) 78.7; Magnesium 2.1 mg/dl (1.8-2.4); Phosphorus 2.5 mg/dl (2.5-4.9); Potassium 4.1 mmol/L (3.5-5.1)
[2018-08-20] MEDS: HEPARIN STANDARD DEXTROSE 25,000 UNITS/500 ML IV SCH ×2 (07:47→23:58)
[2018-08-20] MEDS: GABAPENTIN 800 MG TAB PO SCH ×3 (09:28→21:36)
[2018-08-20] MEDS: SERTRALINE HCL 50 MG TABLET PO SCH (09:28)
[2018-08-20] MEDS: DOCUSATE SODIUM 100 MG CAP PO SCH ×2 (09:30→21:35)
[2018-08-20] MEDS: PANTOprazole 40 MG in SYRINGE 0 ML IV SCH (12:03)
[2018-08-20] MEDS ORDERED: METOPROLOL TARTRATE 1 MG/ML VIAL IV STA (12:13)
[2018-08-20] MEDS ORDERED: METOPROLOL TARTRATE 1 MG/ML VIAL IV ONE (12:15)
[2018-08-20] MEDS: METOPROLOL TARTRATE 25 MG TAB PO SCH ×2 (13:18→21:36)
--- NOTE | 2018-08-20 14:39 | Hospitalist Progress Note ---
Date of Service August 20, 2018 Assessment & Plan (1) Sepsis: (2) Choledocholithiasis with acute cholecystitis: (3) MARCELA (acute kidney injury): (4) Cholangitis: (5) Bladder wall thickening: (6) A-fib: (7) History of stroke: (8) Hypertension: 83yoM with hx of Afib, HTN, embolic CVA in 2014, hx of spinal fusion and chronic back pain presented with worsening and severe RUQ abdominal pain was admitted on August 11, 2018 because of concern for sepsis secondary to cholangitis and acute cholecystitis. Episodes of A. fib with rapid ventricular response, give 1 dose of no pressure, heart rate controlled, CHADSVASC is 5, was on Eliquis outpatient, on hold currently Has been on heparin drip since from yesterday after surgeon agreed, with standard dose and no bone Lower extremity swelling and scrotal swelling discontinue IV fluid, started 20 bid lasix Sepsis 2/ cholangitis and acute cholecystitis, Stable/ improving Abdominal CT: concerning for acute cholecystitis Blood culture, one set with gram positive cocci, contaminate ERCP on 08/15, sphincterotomy with stone extraction, no complications Has been on Zosyn, will switch to oral soon POD 3 of cholecystectomy, Surgeon on the case, Continue follow-up With GI recommend bleeding scan if needed MARCELA (acute kidney injury)Upon admission, resolved Cholangitis: s/p ERCP and stone extraction Bladder wall thickening: Concern for possible malignancy, outpt urology follow up History of stroke: need to hold antiplatelets for [address] Domínguez, can resume on 3/3 Hypertension: Blood pressure is in borderline low,holding Lasix and HCTZ/spironolactone due to MARCELA and dehydration, PPI, SCD for now DVT prophylaxis covered Increase activity PTOT Subjective Episode of A. fib with rapid ventricular response, heart rate up to 130, associated with accelerated hypertension, blood pressure was up to 180/107, this was happened after he up and to the toilet, patient is asymptomatic, Reported scrotal and penis swelling, however possible getting better, has good urine output lower extremity swelling , still need nasal cannula oxygen 2-4 L, Review of Systems Constitutional: Positive weakness, or fatigue Respiratory: no cough, sputum, wheezing, or dyspnea on exertion Cardiac: No chest pain, No orthopnea, No PND, Abdomen: Mildly distended, no pain, No vomiting, Musculoskeletal: No joint pain, No muscle pain, : No dysuria, No urinary frequency, No incontinence, No hematuria Neurologic: No paralysis, No weakness, No numbness/tingling, No vertigo, No balance problems Psychiatric: No depression symptoms, No anhedonism, Heme: No abnormal bleeding/bruising, No clotting problems, No swollen lymph nodes, No night sweats Skin: No rash, No itch, No new/changing skin lesions, No color change, No bleeding Physical Exam Vital Signs (Past 24 Hours): Last Vital Signs Temp 36.9 C 08/20/18 12:02 Pulse 113 H 08/20/18 12:13 Resp 16 08/20/18 12:02 BP 142/80 H 08/20/18 13:18 Pulse Ox 94 08/20/18 12:02 Physical Exam: General Appearance: WD/WN, no apparent distress, On nasal cannula oxygen, regular orientated conversational, Eyes: normal inspection, PERRL, EOMI, sclerae normal ENT: normal ENT inspection, hearing grossly normal, pharynx normal Neck: supple, no adenopathy, thyroid normal, no JVD, no carotid bruits, trachea midline Respiratory/Chest: chest non-tender, Mild decreased breath sounds, no respiratory distress, no accessory muscle use, rales, wheezing Cardiovascular: irregular rate, rhythm, no JVD, no murmur Abdomen: Penis and scrotal mild swelling,, normal bowel sounds, soft,Lumbar di stention, no organomegaly, Extremities: normal range of motion, non-tender, normal inspection, 1+ edema, no calf tenderness, normal capillary refill, pelvis stable, joint has no limited range of motion, capillary refill is normal, no cyanosis clubbing Neurologic/Psychiatric: 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, no motor/sensory deficits, alert, normal mood/affect, oriented x 3 Skin: normal color, warm/dry, no rash Results & Data Laboratory Results Laboratory Results - last 24 hr 08/19/18 08/19/18 08/19/18 16:00 16:00 23:10 WBC 9.32 RBC 3.61 L Hgb 12.1 L Hct 37.8 L MCV 104.7 H MCH 33.5 MCHC 32.0 RDW Std Deviation 50.3 H RDW Coeff of Monie 13.3 Plt Count 200 MPV 9.5 Immature Gran % (Auto) 0.3 Neut % (Auto) 76.4 Lymph % (Auto) 13.2 [place] % (Auto) 7.6 Eos % (Auto) 2.3 Baso % (Auto) 0.2 Immature Gran # (Auto) 0.03 H Neut # (Auto) 7.12 H Lymph # (Auto) 1.23 [place] # (Auto) 0.71 H Eos # (Auto) 0.21 Baso # (Auto) 0.02 PT 11.9 INR 1.2 H APTT 51.8 H* PTT Ratio 1.9 Sodium Potassium Chloride Carbon Dioxide Anion Gap BUN Creatinine Est Cr Clr Drug Dosing Est GFR ( Amer) Est GFR (Non-Af Amer) BUN/Creatinine Ratio Glucose Calcium Phosphorus Magnesium 08/20/18 08/20/18 08/20/18 05:20 05:20 05:20 WBC 8.90 RBC 3.67 L Hgb 12.2 L Hct 38.5 L MCV 104.9 H MCH 33.2 MCHC 31.7 L RDW Std Deviation 49.6 H RDW Coeff of Monie 13.1 Plt Count 234 MPV 10.0 Immature Gran % (Auto) 0.2 Neut % (Auto) 69.5 Lymph % (Auto) 11.0 [place] % (Auto) 16.6 Eos % (Auto) 2.5 Baso % (Auto) 0.2 Immature Gran # (Auto) 0.02 Neut # (Auto) 6.18 Lymph # (Auto) 0.98 L [place] # (Auto) 1.48 H Eos # (Auto) 0.22 Baso # (Auto) 0.02 PT INR APTT 59.5 H* PTT Ratio 2.2 Sodium 141 Potassium 4.1 Chloride 102 Carbon Dioxide 32 Anion Gap 6.0 BUN 16 Creatinine 0.90 Est Cr Clr Drug Dosing 75.5 Est GFR ( Amer) 91.2 Est GFR (Non-Af Amer) 78.7 BUN/Creatinine Ratio 17.4 Glucose 110 H Calcium 8.3 L Phosphorus 2.5 Magnesium 2.1 Microbiology 08/14/18 12:04 Blood Blood Culture - Final Alpha strep not S.pne/enteroco 08/14/18 12:37 Blood Blood Culture - Final No growth (1) Sepsis Sepsis type: sepsis due to unspecified organism Qualified Code(s): A41.9 - Sepsis, unspecified organism
[2018-08-20] MEDS: FUROSEMIDE 20 MG TAB PO SCH (17:32)
[2018-08-20] MEDS: ONDANSETRON INJ 2 MG/ML 2 ML VIAL IV PRN (19:01)
[2018-08-20] MEDS: HYDROCODONE/ACETAMINOPHEN 7.5/325MG TAB PO PRN (21:36)
[2018-08-21] MEDS: HydrALAZINE HCL 20 MG/ML VIAL IV SCH ×3 (00:04→14:30)
[2018-08-21] MEDS: PIPERACILLIN/TAZOBACTAM 3.375 GM in DEXTROSE 5% 100 ML IV SCH ×2 (02:58→14:32)
[2018-08-21 06:29] LABS: Partial Thromboplastin Ratio 2.4
[2018-08-21 06:47] LABS: Partial Thromboplastin Time 64.2 Seconds (21.0-31.0)
[2018-08-21 08:06] LABS: Albumin Level 2.6 gm/dl (3.4-5.0); Creatinine Clr Calc Pharmacy 74.8 ml/min; Est GFR (Non-African American) 77.7; Magnesium 1.9 mg/dl (1.8-2.4); Potassium 4.3 mmol/L (3.5-5.1)
[2018-08-21 08:09] LABS: Albumin Globulin Ratio 0.6 (0.9-2); Bilirubin,Total 1.7 mg/dl (0.2-1); Globulin 4.2 gm/dl (2.5-4.0); Total Protein 6.8 gm/dl (6.4-8.2)
[2018-08-21] MEDS: GABAPENTIN 800 MG TAB PO SCH ×3 (09:46→19:49)
[2018-08-21] MEDS: METOPROLOL TARTRATE 25 MG TAB PO SCH ×2 (09:47→19:53)
[2018-08-21] MEDS: FUROSEMIDE 20 MG TAB PO SCH (09:47)
[2018-08-21] MEDS: SERTRALINE HCL 50 MG TABLET PO SCH (09:47)
[2018-08-21] MEDS: DOCUSATE SODIUM 100 MG CAP PO SCH ×2 (09:47→19:54)
--- NOTE | 2018-08-21 10:20 | Surgery Progress Note ---
Date of Service August 21, 2018 Assessment & Plan (1) Choledocholithiasis with acute cholecystitis: 83 yo male with cholecystitis with choledocholithiasis and cholangitis. POD # 4 s/p laparoscopic cholecystectomy with drain placement POD # 5 s/p ERCP with biliary sphincterotomy and common bile duct stent placement - afebrile, no leukocytosis - H&H stable - Hypoxia , easily desaturating with activity - carlos with serosanguineous output - Continue low fiber diet - Continue carlos drain, can d/c prior to discharge - Continue abx x for total of 10 days (transition to oral upon discharge) - Analgesia PRN, ensure adequate pain control to optimize respiratory status - Continue Colace BID - Encourage IS use (at least 10 times per hour), educated patient on use and importance - Frequent ambulation - PT/OT - SCDs and Heparin for DVT prophlyaxis, may resume Eliquis - Continue current medical management. Consider repeat CXR given continued oxygen requirement and oxygen desaturation with activity. Subjective "feeling better than I was before" Pain controlled tolerating low fiber diet, no n/v + flatus and bowel movement no difficulty urinating "able to sit up better now without pain or really feeling short of breath" per nursing staff, still desaturating fairly easily, not moving much air Per PT note on Tuesday, desaturated to 79% walking to bathroom Has not ambulated hallway since surgery only to bathroom per Physical Exam Vital Signs (Past 24 Hours): Last Vital Signs Temp 36.5 C 08/21/18 07:17 Pulse 76 08/21/18 07:17 Resp 18 08/21/18 07:17 BP 176/112 H 08/21/18 07:17 Pulse Ox 93 08/21/18 07:17 Constitutional: WD/WN, vitals as above + obese; no acute distress and not ill appearing Neck: trachea midline Respiratory: no respiratory distress, no labored breathing, no retractions and does not use accessory muscles Auscultation: + diminished lung sounds (bilateral lower lung delgadillo); no crackles, no rales, no rhonchi and no wheezes Shallow breaths on exam Cardiovascular: Extremities: + edema (+1 edema of extremities) Gastrointestinal (Abdomen): Inspection/Auscultation: + abdomen distended Percussion/Palpation: + abdomen tender (mild tenderness at incision sites, appropriate post op) and + abdomen firm (given distention but not peritonitis rigidity); abdomen not rigid and + abdomen not soft + scrotal edema Skin: no rashes, warm and dry + incision (clean/dry/intact with steri strips present) Psychiatric: A+Ox3, euthymic affect Results & Data Laboratory Results 08/21/18 08/21/18 Range/Units 07:34 05:49 APTT 64.2 H* (21.0-31.0) Seconds PTT Ratio 2.4 Sodium 140 (136-145) mmol/L Potassium 4.3 (3.5-5.1) mmol/L Chloride 100 (98-107) mmol/L Carbon Dioxide 36 H (21-32) mmol/L Anion Gap 4.0 (3-11) BUN 15 (7-18) mg/dl Creatinine 0.91 (0.6-1.4) mg/dl Est Cr Clr Drug Dosing 74.8 ml/min Est GFR ( Amer) 90.0 Est GFR (Non-Af Amer) 77.7 BUN/Creatinine Ratio 16.0 (10-20) Glucose 108 H (70-99) mg/dl Calcium 8.0 L (8.5-10.1) mg/dl Magnesium 1.9 (1.8-2.4) mg/dl Total Bilirubin 1.7 H (0.2-1) mg/dl AST 43 H (15-37) U/L ALT 73 (12-78) U/L Alkaline Phosphatase 175 H (45-117) U/L Total Protein 6.8 (6.4-8.2) gm/dl Albumin 2.6 L (3.4-5.0) gm/dl Globulin 4.2 H (2.5-4.0) gm/dl Albumin/Globulin Ratio 0.6 L (0.9-2)
--- NOTE | 2018-08-21 11:18 | Hospitalist Progress Note ---
Date of Service August 21, 2018 Assessment & Plan (1) Sepsis: (2) Choledocholithiasis with acute cholecystitis: (3) MARCELA (acute kidney injury): (4) Cholangitis: (5) Bladder wall thickening: (6) A-fib: (7) History of stroke: (8) Hypertension: 83 yo M with hx of Afib, HTN, embolic CVA in 2014, hx of spinal fusion and chronic back pain presented with worsening and severe RUQ abdominal pain was admitted on August 11, 2018 because of concern for sepsis secondary to cholangitis and acute cholecystitis. Episodes of A. fib with rapid ventricular response, Yesterday, gave 1 dose of Lopressor , heart rate controlled, CHADSVASC is 5, was on Eliquis outpatient, Will discontinue heparin drip , and started Eliquis Lower extremity swelling and scrotal swelling Increase Lasix to 40 twice daily Sepsis 2/2 cholangitis and acute cholecystitis, Stable/ improving Abdominal CT: concerning for acute cholecystitis Blood culture, one set with gram positive cocci, contaminate ERCP on 08/15, sphincterotomy with stone extraction, no complications Has been on Zosyn Since August 16,, Has been 7 out of 10 days, Will switch to oral per recommendation of surgeon, Will be totally 10 days post op of cholecystectomy, Surgeon on the case, Continue follow-up MARCELA (acute kidney injury)Upon admission, resolved Cholangitis: s/p ERCP and stone extraction Bladder wall thickening: Concern for possible malignancy, outpt urology follow up History of stroke: Hypertension: Restart home dose medicine HCTZ/spironolactone , Possible need to add beta-felipe PPI, DVT prophylaxis covered Increase activity PTOT, and discharge plan Subjective Up to the restroom, good urination, No more A. fib, vital signs stable, Eating good, need nasal cannula oxygen 2-4 L, Review of Systems Constitutional: Positive weakness, or fatigue Respiratory: no cough, sputum, wheezing, or dyspnea on exertion Cardiac: No chest pain, No orthopnea, No PND, Abdomen: Mildly distended, no pain, No vomiting,Penis and scrotal edema Musculoskeletal: 1+ edema,No joint pain, No muscle pain, : No dysuria, No urinary frequency, No incontinence, No hematuria Neurologic: No paralysis, No weakness, No numbness/tingling, No vertigo, No balance problems Psychiatric: No depression symptoms, No anhedonism, Heme: No abnormal bleeding/bruising, No clotting problems, No swollen lymph nodes, No night sweats Skin: No rash, No itch, No new/changing skin lesions, No color change, No bleeding Physical Exam Vital Signs (Past 24 Hours): Last Vital Signs Temp 36.5 C 08/21/18 07:17 Pulse 76 08/21/18 07:17 Resp 18 08/21/18 07:17 BP 176/112 H 08/21/18 07:17 Pulse Ox 93 08/21/18 07:17 Physical Exam: General Appearance: WD/WN, no apparent distress, On nasal cannula oxygen, orientated conversational, Eyes: normal inspection, PERRL, EOMI, sclerae normal ENT: normal ENT inspection, hearing grossly normal, pharynx normal Neck: supple, no adenopathy, thyroid normal, no JVD, no carotid bruits, trachea midline Respiratory/Chest: chest non-tender, Mild decreased breath sounds, no respiratory distress, no accessory muscle use, rales, wheezing Cardiovascular: irregular rate, rhythm, no JVD, no murmur Abdomen: Penis and scrotal Still mild to moderate swelling,, normal bowel sounds, soft,Lumbar distention, no organomegaly, Extremities: normal range of motion, non-tender, normal inspection, 1+ edema, no calf tenderness, normal capillary refill, pelvis stable, joint has no limited range of motion, capillary refill is normal, no cyanosis clubbing Neurologic/Psychiatric: 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, no motor/sensory deficits, alert, normal mood/affect, oriented x 3 Skin: normal color, warm/dry, no rash Results & Data Laboratory Results Laboratory Results - last 24 hr 08/21/18 08/21/18 05:49 07:34 APTT 64.2 H* PTT Ratio 2.4 Sodium 140 Potassium 4.3 Chloride 100 Carbon Dioxide 36 H Anion Gap 4.0 BUN 15 Creatinine 0.91 Est Cr Clr Drug Dosing 74.8 Est GFR ( Amer) 90.0 Est GFR (Non-Af Amer) 77.7 BUN/Creatinine Ratio 16.0 Glucose 108 H Calcium 8.0 L Magnesium 1.9 Total Bilirubin 1.7 H AST 43 H ALT 73 Alkaline Phosphatase 175 H Total Protein 6.8 Albumin 2.6 L Globulin 4.2 H Albumin/Globulin Ratio 0.6 L Microbiology 08/14/18 12:04 Blood Blood Culture - Final Alpha strep not S.pne/enteroco 08/14/18 12:37 Blood Blood Culture - Final No growth (1) Sepsis Sepsis type: sepsis due to unspecified organism Qualified Code(s): A41.9 - Sepsis, unspecified organism
[2018-08-21] MEDS ORDERED: FUROSEMIDE 20 MG TAB PO ONE (11:45)
[2018-08-21] MEDS: PANTOprazole 40 MG TAB PO SCH (12:26)
[2018-08-21] MEDS: APIXABAN 5 MG TABLET PO SCH ×2 (12:26→19:54)
[2018-08-21] MEDS ORDERED: HydrALAZINE HCL 20 MG/ML VIAL IV PRN (14:31)
[2018-08-21] MEDS: PANTOprazole 40 MG in SYRINGE 0 ML IV SCH (14:32)
[2018-08-21] MEDS: AMOXICILLIN/CLAVULANATE 875 MG TAB PO SCH (16:01)
[2018-08-21] MEDS: FUROSEMIDE 40 MG TAB PO SCH (16:02)
[2018-08-21] MEDS ORDERED: APIXABAN 5 MG TABLET PO SCH (21:00)
[2018-08-22 06:04] LABS: Albumin Globulin Ratio 0.7 (0.9-2); Albumin Level 2.4 gm/dl (3.4-5.0); BUN Creatinine Ratio 19.7 (10-20); Calcium 7.7 mg/dl (8.5-10.1); Est GFR (African American) 94.8; Est GFR (Non-African American) 81.8; Globulin 3.5 gm/dl (2.5-4.0); Magnesium 1.6 mg/dl (1.8-2.4); Potassium 3.8 mmol/L (3.5-5.1); Total Protein 5.9 gm/dl (6.4-8.2)
[2018-08-22 06:06] LABS: Bilirubin,Total 1.4 mg/dl (0.2-1); Phosphorus 2.8 mg/dl (2.5-4.9)
[2018-08-22] MEDS: SPIRONOLACTONE/HCTZ 25-25 PO SCH (08:14)
[2018-08-22] MEDS: DOCUSATE SODIUM 100 MG CAP PO SCH ×2 (08:14→20:50)
[2018-08-22] MEDS: PANTOprazole 40 MG TAB PO SCH (08:14)
[2018-08-22] MEDS: METOPROLOL TARTRATE 25 MG TAB PO SCH ×2 (08:14→20:52)
[2018-08-22] MEDS: SERTRALINE HCL 50 MG TABLET PO SCH (08:15)
[2018-08-22] MEDS: APIXABAN 5 MG TABLET PO SCH ×2 (08:15→20:51)
[2018-08-22] MEDS: GABAPENTIN 800 MG TAB PO SCH ×3 (08:15→20:52)
[2018-08-22] MEDS: AMOXICILLIN/CLAVULANATE 875 MG TAB PO SCH ×2 (08:15→17:01)
[2018-08-22] MEDS: FUROSEMIDE 40 MG TAB PO SCH ×2 (08:59→16:58)
[2018-08-22] MEDS ORDERED: PANTOprazole 40 MG TAB PO SCH (09:00)
[2018-08-22] MEDS ORDERED: MAGNESIUM SULFATE / D5W 1 GM/100 ML BAG IV ONE (09:00)
[2018-08-22] MEDS: MAGNESIUM OXIDE 400 MG TAB PO SCH ×2 (10:03→20:53)
--- NOTE | 2018-08-22 13:16 | Surgery Progress Note ---
Date of Service August 22, 2018 Assessment & Plan (1) Choledocholithiasis with acute cholecystitis: 83 yo male with cholecystitis with choledocholithiasis and cholangitis. POD # 5 s/p laparoscopic cholecystectomy with drain placement POD # 6 s/p ERCP with biliary sphincterotomy and common bile duct stent placement - afebrile, no leukocytosis - H&H stable - Hypoxia , easily desaturating with activity still requiring )O via nasal cannula - carlos with serosanguineous output - Continue low fiber diet - Continue carlos drain, can d/c prior to discharge - Continue abx for total of 10 days - Analgesia PRN, ensure adequate pain control to optimize respiratory status - Continue Colace BID - Encourage IS use (at least 10 times per hour), educated patient on use and importance - Frequent ambulation - PT/OT - SCDs For DVT prophylaxis, Eliquis resumed - Continue current medical management. - okay from surgical standpoint for discharge once optimized from PT/OT standpoint and oxygenation improved. Consider home PT. Subjective feeling good today last night was best night yet, able to sleep no shortness of breath tolerated breakfast and lunch, no n/v passing flatus, no bm today abdominal pain minimal, improved since yesterday present in room, states he refused PT this morning but they are coming back this afternoon. Physical Exam Vital Signs (Past 24 Hours): Last Vital Signs Temp 36.4 C L 08/22/18 10:00 Pulse 82 08/22/18 10:00 Resp 20 08/22/18 10:00 BP 157/82 H 08/22/18 10:00 Pulse Ox 91 08/22/18 10:00 Constitutional: WD/WN, vitals as above + obese; no acute distress and not ill appearing Neck: trachea midline Respiratory: no respiratory distress, no labored breathing, no retractions and does not use accessory muscles Auscultation: + diminished lung sounds (bilateral posterior lung bases); no crackles, no rales, no rhonchi and no wheezes O2 sats from 81-91% during examination Gastrointestinal (Abdomen): Inspection/Auscultation: abdomen normal to inspection and + abdominal surgical drain present (serosanguineous output); abdomen not distended Percussion/Palpation: + abdomen tender (mild at incision sites, appropriate post op, improving); no guarding and abdomen not rigid Skin: no rashes, warm and dry + incision (incisions clean/dry/intact) Psychiatric: A+Ox3, euthymic affect Results & Data Laboratory Results 08/22/18 Range/Units 04:45 Sodium 141 (136-145) mmol/L Potassium 3.8 (3.5-5.1) mmol/L Chloride 98 (98-107) mmol/L Carbon Dioxide 39 H (21-32) mmol/L Anion Gap 4.0 (3-11) BUN 16 (7-18) mg/dl Creatinine 0.82 (0.6-1.4) mg/dl Est Cr Clr Drug Dosing 82.0 ml/min Est GFR ( Amer) 94.8 Est GFR (Non-Af Amer) 81.8 BUN/Creatinine Ratio 19.7 (10-20) Glucose 90 (70-99) mg/dl Calcium 7.7 L (8.5-10.1) mg/dl Phosphorus 2.8 (2.5-4.9) mg/dl Magnesium 1.6 L (1.8-2.4) mg/dl Total Bilirubin 1.4 H (0.2-1) mg/dl AST 37 (15-37) U/L ALT 59 (12-78) U/L Alkaline Phosphatase 149 H (45-117) U/L Total Protein 5.9 L (6.4-8.2) gm/dl Albumin 2.4 L (3.4-5.0) gm/dl Globulin 3.5 (2.5-4.0) gm/dl Albumin/Globulin Ratio 0.7 L (0.9-2)
--- NOTE | 2018-08-22 14:50 | Hospitalist Progress Note ---
Date of Service August 22, 2018 Assessment & Plan (1) Sepsis: (2) Choledocholithiasis with acute cholecystitis: See above (3) MARCELA (acute kidney injury): (4) Cholangitis: (5) Bladder wall thickening: (6) A-fib: (7) History of stroke: (8) Hypertension: 83 yo M with hx of Afib, HTN, embolic CVA in 2015, hx of spinal fusion and chronic back pain presented with worsening and severe RUQ abdominal pain was admitted on August 11, 2018 because of concern for sepsis secondary to cholangitis and acute cholecystitis. Possible volume overload during his hospitalization with hypoxic require oxygen and scrotal edema and bilateral lower extremity swelling Continue Lasix p.o. 40 mg twice daily, follow-up electrolytes and renal function, try to taper off oxygen after more diuretic, possible discharge home in 1 or 2 days Episodes of A. fib with rapid ventricular response 2 days ago gave 1 dose of Lopressor , heart rate controlled, CHADSVASC is 5, will continue Eliquis Sepsis 2/2 cholangitis and acute cholecystitis, Stable/ improving Abdominal CT: concerning for acute cholecystitis Blood culture, one set with gram positive cocci, contaminate ERCP on 08/15, sphincterotomy with stone extraction, no complications Has been on Zosyn Since August 16,, Oates been 7 out of 10 days, 8/10 days of antibiotic post op of cholecystectomy, Surgeon on the case, Continue follow-up MARCELA (acute kidney injury)Upon admission, resolved Cholangitis: s/p ERCP and stone extraction Bladder wall thickening: Concern for possible malignancy, outpt urology follow up History of stroke: Hypertension: Restart home dose medicine HCTZ/spironolactone , has been on beta-felipe PPI, DVT prophylaxis covered Increase activity PTOT, and off oxygen, possible discharge home in 1-2 days Subjective Has been tapering oxygen, has good urine output, penis and scrotal swelling is better up to the restroom, good urination, Denies palpitation, vital signs stable, Eating good, need nasal cannula oxygen 2LPM, reported possible mild depression, denies suicidal homicidal Review of Systems Constitutional: Positive weakness, or fatigue Respiratory: no cough, sputum, wheezing, or dyspnea on exertion Cardiac: No chest pain, No orthopnea, No PND, Abdomen: Mildly distended, no pain, No vomiting,Penis and scrotal edema which is better Musculoskeletal: 1+ edema,No joint pain, No muscle pain, : No dysuria, No urinary frequency, No incontinence, No hematuria Neurologic: No paralysis, No weakness, No numbness/tingling, No vertigo, No balance problems Psychiatric: No depression symptoms, No anhedonism, Heme: No abnormal bleeding/bruising, No clotting problems, No swollen lymph nodes, No night sweats Skin: No rash, No itch, No new/changing skin lesions, No color change, No bleeding Physical Exam Vital Signs (Past 24 Hours): Last Vital Signs Temp 36.4 C L 08/22/18 10:00 Pulse 82 08/22/18 10:00 Resp 20 08/22/18 10:00 BP 157/82 H 08/22/18 10:00 Pulse Ox 91 08/22/18 10:00 Physical Exam: General Appearance: WD/WN, no apparent distress, On nasal cannula oxygen, orientated conversational, mild flat Eyes: normal inspection, PERRL, EOMI, sclerae normal ENT: normal ENT inspection, hearing grossly normal, pharynx normal Neck: supple, no adenopathy, thyroid normal, no JVD, no carotid bruits, trachea midline Respiratory/Chest: chest non-tender, Mild decreased breath sounds, no respiratory distress, no accessory muscle use, rales, wheezing, occasional wheezing in the lung Cardiovascular: irregular rate, rhythm, no JVD, no murmur Abdomen: Penis and scrotal Still mild to mild swelling,, normal bowel sounds, soft,Lumbar distention, no organomegaly, Extremities: normal range of motion, non-tender, normal inspection, 1+ edema, no calf tenderness, normal capillary refill, pelvis stable, joint has no limited range of motion, capillary refill is normal, no cyanosis clubbing 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, no motor/sensory deficits, alert, normal mood/affect, oriented x 3 Skin: normal color, warm/dry, no rash Results & Data Laboratory Results Laboratory Results - last 24 hr 08/22/18 04:45 Sodium 141 Potassium 3.8 Chloride 98 Carbon Dioxide 39 H Anion Gap 4.0 BUN 16 Creatinine 0.82 Est Cr Clr Drug Dosing 82.0 Est GFR ( Amer) 94.8 Est GFR (Non-Af Amer) 81.8 BUN/Creatinine Ratio 19.7 Glucose 90 Calcium 7.7 L Phosphorus 2.8 Magnesium 1.6 L Total Bilirubin 1.4 H AST 37 ALT 59 Alkaline Phosphatase 149 H Total Protein 5.9 L Albumin 2.4 L Globulin 3.5 Albumin/Globulin Ratio 0.7 L (1) Sepsis Sepsis type: sepsis due to unspecified organism Qualified Code(s): A41.9 - Sepsis, unspecified organism
[2018-08-23] MEDS ORDERED: diphenhydrAMINE HCl 12.5 MG/5 ML UDC PO ONE
[2018-08-23] MEDS: AMOXICILLIN/CLAVULANATE 875 MG TAB PO SCH ×2 (07:23→17:43)
[2018-08-23] MEDS: METOPROLOL TARTRATE 25 MG TAB PO SCH ×2 (07:24→21:19)
[2018-08-23] MEDS: SERTRALINE HCL 50 MG TABLET PO SCH (07:24)
[2018-08-23] MEDS: PANTOprazole 40 MG TAB PO SCH (07:25)
[2018-08-23] MEDS: APIXABAN 5 MG TABLET PO SCH ×2 (07:25→21:20)
[2018-08-23] MEDS: FUROSEMIDE 40 MG TAB PO SCH ×2 (07:25→17:43)
[2018-08-23] MEDS: DOCUSATE SODIUM 100 MG CAP PO SCH ×2 (07:25→21:39)
[2018-08-23] MEDS: GABAPENTIN 800 MG TAB PO SCH ×3 (07:25→21:20)
[2018-08-23] MEDS: SPIRONOLACTONE/HCTZ 25-25 PO SCH (07:26)
[2018-08-23] MEDS: MAGNESIUM OXIDE 400 MG TAB PO SCH ×2 (07:27→21:20)
[2018-08-23] MEDS ORDERED: MAGNESIUM SULFATE / D5W 1 GM/100 ML BAG IV ONE (07:45)
--- NOTE | 2018-08-23 09:03 | Surgery Progress Note ---
Date of Service August 23, 2018 pt is stable, no abdominal pain, no nausea, no vomiting, RAMO 180ml Assessment & Plan (1) Choledocholithiasis with acute cholecystitis: stable, continue treatment, repeat labs in am, will F/u Subjective feeling good today last night was best night yet, able to sleep no shortness of breath tolerated breakfast and lunch, no n/v passing flatus, no bm today abdominal pain minimal, improved since yesterday present in room, states he refused PT this morning but they are coming back this afternoon. Constitutional: as per Subjective / HPI and + weakness; no fever, no chills and no sweats Gastrointestinal: as per Subjective / HPI, + abdominal pain, + heartburn, + nausea and + constipation Physical Exam Vital Signs (Past 24 Hours): Last Vital Signs Temp 36.4 C L 08/23/18 07:16 Pulse 84 08/23/18 07:16 Resp 20 08/23/18 07:16 BP 129/73 08/23/18 07:16 Pulse Ox 91 08/23/18 03:56 Constitutional: WD/WN, vitals as above Neck: trachea midline, no thyromegaly Respiratory: normal respiratory effort, lungs clear to auscultation Gastrointestinal (Abdomen): Percussion/Palpation: abdomen soft nT, ND, incisions heal well, Neurologic: awake Psychiatric: Orientation: alert and oriented x 3
--- NOTE | 2018-08-23 16:03 | Hospitalist Progress Note ---
Date of Service August 23, 2018 Assessment & Plan (1) Sepsis: (2) Choledocholithiasis with acute cholecystitis: (3) MARCELA (acute kidney injury): (4) Cholangitis: (5) Bladder wall thickening: (6) A-fib: (7) History of stroke: (8) Hypertension: 83 yo M with hx of Afib, HTN, embolic CVA in 2015, hx of spinal fusion and chronic back pain presented with worsening and severe RUQ abdominal pain was admitted on August 11, 2018 because of concern for sepsis secondary to cholangitis and acute cholecystitis. Laparoscopic cholecystectomy was done, recovering well, however possible fluid overload which caused edema and required oxygen, has been trying to diuretic him more and taper off oxygen Possible volume overload during his hospitalization with hypoxic require oxygen and scrotal edema and bilateral lower extremity swelling Has been tolerated so well with Lasix p.o. 40 mg twice daily, swelling has improved follow-up electrolytes and renal function, try to taper off oxygen after more diuretic, possible discharge home in 1 or 2 days Episodes of A. fib with rapid ventricular response during his hospitalization gave 1 dose of Lopressor, heart rate controlled, CHADSVASC is 5, Eliquis resumed and continued Sepsis 2/2 cholangitis and acute cholecystitis upon admission, Stable/ improving Abdominal CT: concerning for acute cholecystitis Blood culture, one set with gram positive cocci, contaminate ERCP on 08/15, sphincterotomy with stone extraction, no complications Cholangitis: s/p ERCP and stone extraction Has been on Zosyn Since August 16,, Oates been 7 out of 10 days, 9/10 days of antibiotic post op of cholecystectomy, Surgeon on the case, Continue follow-up MARCELA (acute kidney injury)Upon admission, resolved Bladder wall thickening: Concern for possible malignancy, outpt urology follow up History of stroke: Stable, no deficit Accelerated hypertension: Restarted home dose medicine HCTZ/spironolactone , has been on beta-felipe Continue PPI, DVT prophylaxis covered Increase activity PTOT, and taper off oxygen, possible discharge home in 1-2 days Patient and are happy about her care Subjective Still need nasal cannula oxygen, has good urine output, penis and scrotal , b ilateral hands and lower extremity swelling is better Eating good, has been up and walk with therapist need nasal cannula oxygen 2-3LPM, Review of Systems Constitutional: Positive weakness, or fatigue, which has been better Respiratory: no cough, sputum, wheezing, or dyspnea on exertion Cardiac: No chest pain, No orthopnea, No PND, Abdomen: no distended, no pain, No vomiting, Penis and scrotal edema which is better Musculoskeletal: 2+ edema,No joint pain, No muscle pain, : No dysuria, No urinary frequency, No incontinence, No hematuria Neurologic: No paralysis, No weakness, No numbness/tingling, No vertigo, No balance problems Psychiatric: No depression symptoms, No anhedonism, Heme: No abnormal bleeding/bruising, No clotting problems, No swollen lymph nodes, No night sweats Skin: No rash, No itch, No new/changing skin lesions, Physical Exam Vital Signs (Past 24 Hours): Last Vital Signs Temp 36.4 C L 08/23/18 15:00 Pulse 80 08/23/18 15:00 Resp 18 08/23/18 15:00 BP 166/95 H 08/23/18 15:00 Pulse Ox 95 08/23/18 15:00 Physical Exam: General Appearance: WD/WN, no apparent distress, On nasal cannula oxygen, orientated conversational, Pleasant conversational, Eyes: normal inspection, PERRL, EOMI, sclerae normal ENT: normal ENT inspection, hearing grossly normal, pharynx normal Neck: supple, no adenopathy, thyroid normal, no JVD, no carotid bruits, trachea midline Respiratory/Chest: chest non-tender, Mild decreased breath sounds, no respiratory distress, no accessory muscle use, rales, no wheezing, Cardiovascular: irregular rate, rhythm, no JVD, no murmur Abdomen: Penis and scrotal mod swelling,, normal bowel sounds, soft,Lumbar distention, no organomegaly, Extremities: normal range of motion, non-tender, normal inspection, 2+ edema, no calf tenderness, normal capillary refill, pelvis stable, joint has no limited range of motion, capillary refill is normal, no cyanosis clubbing 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
--- NOTE | 2018-08-23 22:47 | XRay Report ---
XR chest 2V routine HISTORY: 83 years-old Male hypoxia acute hypoxia COMPARISON: Chest radiograph 08/16/2018 TECHNIQUE: AP and lateral views of the chest FINDINGS: Cardiac silhouette is enlarged, unchanged. Pulmonary vascular congestion with bilateral interstitial coarsening. Asymmetric opacities noted of the right upper lobe. No pneumothorax. Small moderate bilat eral pleural effusions with bibasilar opacities. Degenerative changes of the shoulders and spine. Tho racic spine fusion hardware redemonstrated. IMPRESSION: 1. Cardiomegaly with pulmonary edema. 2. Small to moderate bilateral pleural effusions with bibasilar consolidation. The above report was generated using voice recognition software. It may contain grammatical, syntax o r spelling errors. Electronically signed by: Artur Hadry M.D. 08/23/2018 10:45 PM
[2018-08-24] MEDS: AMOXICILLIN/CLAVULANATE 875 MG TAB PO SCH ×2 (09:22→17:28)
[2018-08-24] MEDS: GABAPENTIN 800 MG TAB PO SCH ×2 (09:22→13:39)
[2018-08-24] MEDS: MAGNESIUM OXIDE 400 MG TAB PO SCH (09:23)
[2018-08-24] MEDS: METOPROLOL TARTRATE 25 MG TAB PO SCH ×2 (09:23→10:17)
[2018-08-24] MEDS: APIXABAN 5 MG TABLET PO SCH (09:23)
[2018-08-24] MEDS: SPIRONOLACTONE/HCTZ 25-25 PO SCH ×2 (09:24→10:19)
[2018-08-24] MEDS: SERTRALINE HCL 50 MG TABLET PO SCH (09:25)
[2018-08-24] MEDS: FUROSEMIDE 40 MG TAB PO SCH ×2 (09:25→17:08)
[2018-08-24] MEDS: PANTOprazole 40 MG TAB PO SCH (09:25)
[2018-08-24] MEDS: DOCUSATE SODIUM 100 MG CAP PO SCH (10:49)
--- NOTE | 2018-08-24 11:46 | Surgery Progress Note ---
Date of Service August 24, 2018 pt is doing better, no abdominal pain, no nausea, no vomiting, RAMO 50ml, clear Assessment & Plan (1) Choledocholithiasis with acute cholecystitis: pt is doing fine, pt 's wants pt go home today, pt can be discharged home with RAMO drainage, I told nurse to teacher pt's how to take care RAMO drainage follow up Dr. Eckert in 1 week, Subjective feeling good today last night was best night yet, able to sleep no shortness of breath tolerated breakfast and lunch, no n/v passing flatus, no bm today abdominal pain minimal, improved since yesterday present in room, states he refused PT this morning but they are coming back this afternoon. Constitutional: as per Subjective / HPI and + weakness; no fever, no chills and no sweats Gastrointestinal: as per Subjective / HPI, + abdominal pain, + heartburn, + nausea and + constipation Physical Exam Vital Signs (Past 24 Hours): Last Vital Signs Temp 36.3 C L 08/24/18 11:18 Pulse 75 08/24/18 11:18 Resp 18 08/24/18 11:18 BP 111/65 08/24/18 11:18 Pulse Ox 93 08/24/18 11:18 Constitutional: WD/WN, vitals as above Neck: trachea midline, no thyromegaly Respiratory: normal respiratory effort, lungs clear to auscultation Cardiovascular: RRR, no murmur, no edema Gastrointestinal (Abdomen): Percussion/Palpation: abdomen soft NT, ND, all incisions heal well, RAMO intact, , Neurologic: awake Psychiatric: Orientation: alert and oriented x 3
[2018-08-24 14:50] VITALS: TEMP 97.9; O2SAT 95
[2018-08-24 17:08] VITALS: BP 117/78
[2018-08-24 18:02] VITALS: PULSE 82
--- NOTE | 2018-08-24 18:33 | Discharge Summary ---
Date of Service August 24, 2018 Principal Diagnosis Cholangitis Discharge Exam General no distress. HEENT normal moist. Lungs diminished bibasilar but no rales rhonchi or wheezes good effort. Skin his wound dressed on his lower extremity, no surrounding erythema. Neuro shows cranial nerves II through XII are grossly intact gross motor and sensory intact Discharge Data Allergies Allergy/AdvReac Type Severity Reaction Status Date / Time blue dye Allergy Mild UNKNOWN Unverified 08/14/18 12:43 celecoxib Allergy Mild UNKNOWN Unverified 08/14/18 12:43 duloxetine Allergy Mild UNKNOWN Unverified 08/14/18 12:43 nortriptyline AdvReac Intermediate CONFUSION Verified 08/14/18 12:43 oxycodone AdvReac Intermediate SEVERE Verified 08/14/18 12:43 WITHDRAWL Consultations 08/14/18 13:08 Consult General Surgery Stat 08/14/18 14:48 ED Decision to Admit Stat 08/14/18 18:36 Consult Gastroenterology Routine Procedures Performed Operation Date: 08/15/18 10:45 Actual Procedures p Endoscopic Retrograde Cholangiopancreatogram, Sphincterotomy, Biliary Stent Placement(Not Applicable) - Suleiman Domínguez Operation Date: 08/17/18 13:00 Actual Procedures p Laparoscopic Cholecystectomy(Not Applicable) - Celsa Eckert MD Ordered Studies 08/14/18 12:08 CT abd pelvis IV con only Stat 08/14/18 12:09 CT angio chest PE protocol Stat 08/14/18 17:17 MR MRCP Stat 08/15/18 13:00 FL ERCP biliary ductal Routine Hospital Course (1) Sepsis: 83yoM with hx of Afib, HTN, embolic CVA in 2014, hx of spinal fusion and chronic back pain presented with worsening and severe RUQ abdominal pain was admitted on August 11, 2018 because of concern for sepsis secondary to cholangitis and acute cholecystitis. Sepsis 2/2 cholangitis and acute cholecystitis Abdominal CT: concerning for acute cholecystitis Blood culture, one set with gram positive cocci, appeared to be a contaminant ERCP on 08/15, sphincterotomy with stone extraction, no complications general surgery consulted for cholecystectomy, and this was done, per surgery is stable to go home with the drain in for now and outpatient follow-up next week -He was on Zosyn for several days, discharged home on Augmentin to finish out 2 weeks of antibiotics -Close follow-up with PCP and surgery (2) Choledocholithiasis with acute cholecystitis: See above (3) MARCELA (acute kidney injury): Stable on IV fluid resolved with IV fluids, will follow renal function (4) Cholangitis: s/p ERCP and stone extraction see above (5) Bladder wall thickening: -Concern for possible malignancy -should have outpt urology follow up (6) A-fib: Rate reasonable, Eliquis resumed (7) History of stroke: Stablecontinue home meds (8) Hypertension: Continue current meds, outpatient follow-up Pulmonary edema -Appears to have been related to volume resuscitation from the cholangitiscausing a degree of hypoxia, this is improving, but he does still need home oxygen for the short-term. He will be discharged on Lasix 40 mg twice daily for another 4 doses, and then resume his symptom triggered Lasix. We also discussed pulse ox checking at home, and close outpatient follow-up. He will also have a basic metabolic panel on Tuesday. (9) Pulmonary edema: Total Time Total Time Spent Total Time Spent (In Minutes): Greater than 30 Discharge Plan Discharge Items Patient Disposition: Home - Self-Care Reason For Visit: ACUTE CHOLANGITIS Discharge Diagnosis: cholangitis (gallbladder, bile duct infection) Discharge Goals: Diagnostic testing and Therapeutic intervention Activity: Per 'Additional Instructions' section Activity Comment: take it easy and follow below instructions per surgeons directions Non-emergency contact: Primary Care Provider and Surgeon Call non-emergency contact if: you have any medication questions Diet: Low Fat Addtl Provider Instructions: Surgeon instructions: No heavy lifting over 15 pounds for 3-4 weeks No strenuous activity until cleared by surgeon No submerging incisions underwater for 2 weeks [address] while taking narcotic pain medication or until you are pain free You may shower. Allow soap and water to run over incisions and pat dry. Remove steri strips in 7 days. They may fall off on their own that is okay. Cholangitis (bile duct / gallbladder infection) -this is improved now after surgery, but we'll need to finish out a few more days of antibiotics (augmentin - amoxicillin/clavulanate) to round out 14 days of antibiotics -manage the drain as instructed by surgery - if the drainage gets dark/thick/cloudy or changes to bloody, call to be seen that day -be seen that day / right away if you have fevers/chills/sweats (although these are unlikely to occur) pulmonary edema (fluid in the lungs) -this happened because of all the fluids necessary when you were actively sick with the gallbladder infection -your echocardiogram (ultrasound of your heart) shows that overall your heart is normal, but the muscle is a little thickened (fairly common finding) allowing for the fluid to back up in your lungs a little -- the extra lasix (furosemide) will help to pull that fluid out of your lungs faster (it probably won't do much for the swollen legs, although movement and time will) -take 40mg of lasix twice a day for four more doses, then resume your prior "swelling-triggered" dosing -have labwork (BMP) drawn on tuesday to make sure things didn't dry you out too much -if you feel short of breath or see low oxygen numbers (below 90%) please get seen right away as you would then possibly need an additional dose of IV lasix Walking and light activity recommended multiple times daily to prevent blood clots from forming in your legs. Take narcotic pain medication as prescribed. You may take Tylenol 650 mg q 6 hours as needed for pain as well. Follow-up in surgical office in 2 weeks from your surgery. Please call office at [phone] to make an appointment. Prescriptions: New furosemide 40 mg Tablet 40 mg PO BID17 Qty: 4 RF: 0 amoxicillin-pot clavulanate 875-125 mg Tablet 1 tab PO BIDM Qty: 8 RF: 0 Continued spironolacton-hydrochlorothiaz 25-25 mg tablet 1 tab PO DAILY RF: 0 gabapentin 800 mg tablet 800 mg PO TID RF: 0 furosemide 20 mg tablet 20 mg PO DAILY PRN (Reason: Edema) RF: 0 sertraline 50 mg tablet 50 mg PO DAILY RF: 0 apixaban 5 mg tablet 5 mg PO BID RF: 0 hydrocodone-acetaminophen 7.5-325 mg tablet 1 tab PO BID PRN (Reason: Pain) RF: 0 Stand-Alone Forms: [facility] Discharge Orders: Discharge Order (Routine); Ordered 08/24/18 Ordered By: Arcadio Foster Admission Data Admit Date/Time: 08/14/18 17:18 Attending Provider: Arcadio Foster Admit Provider: Julisa Gaffney Primary Care Provider: Corky Murry Other Providers: Celsa Eckert ; Julisa Gaffney ; Suleiman Domínguez ; Foreign Davis ; Luis Gaston Service: Telemetry Other Interventions: Discharge Summary Assessment (RN) Last Done: 08/24/18 17:45
== END 2018-08-24 19:21 | disposition home health service (06) | DRG 853 ==
LOC: ED 11:54 → SUATTDRO 17:18 → 2E 17:18 → 2N 08-22 09:37

== ENCOUNTER 2020-02-08 05:21 | Inpatient (IN) ==
[2020-02-08] MEDS ORDERED: SODIUM CHLORIDE 0.9% 500 ML IV ONE ×2 (06:02→07:06)
[2020-02-08 06:13] LABS: POC Urine Glucose Normal (Normal); POC Urine Leukocytes Trace (Negative); POC Urine Nitrite Positive (Negative); POC Urine Protein 2+ (Negative); POC Urine pH 6 (4.5-7.5)
[2020-02-08 06:14] LABS: POC Urine Bilirubin Negative (Negative); POC Urine Blood 250 (Negative); POC Urine Ketones Negative (Negative); POC Urine Urobilinogen Normal (Normal)
--- NOTE | 2020-02-08 06:17 | Emergency Department Note ---
Impression & Plan Sepsis, Hypoxia, Acute UTI ED Provider Note NAME: HOLLY KILGORE AGE: 84 SEX: M ARRIVES VIA: Walk-In INFORMANT: Patient, his ED PROVIDER(S): Malissa Tamayo DO CHIEF COMPLAINT: Shaking chills and nausea PLAN: Disposition: Admitted to the [facility] Hospitalist service Condition: Stable MEDICAL DECISION MAKING: This is an 84-year-old male patient who presents to the emergency department with shaking chills nausea and diaphoresis. The patient awoke from sleep like this. He underwent a cystoscopy with Dr. Sotelo just 2 days ago. He was in good health until he awoke this morning with the above symptoms. It seems the patient is suffering from urosepsis at this time. He was started on IV antibiotic therapy. He is he receiving IV crystalloid therapy. The patient was hypoxic upon my initial evaluation was placed on supplemental oxygen. Chest x- ray appears unremarkable at this time. The patient has very low COVID risk factor. Triage Nursing notes reviewed and agree them. Additional history obtained from the patient's who is at the bedside Prior medical records reviewed Vital Signs: reviewed and remarkable for tachycardia Differential diagnosis: Sepsis, COVID-19, UTI, cardiac dysrhythmia, cardiac ischemia ER treatment provided: Normal saline IV daptomycin IV Primaxin Diagnostics interpreted by me: ECG: A. fib with RVR at a rate of 131. There is significant ST segment depression in inferior and lateral leads. This may be rate dependent. Cardiac Monitoring: Atrial fibrillation at a rate of 117 as per my interpretation. Laboratory studies: See below Imaging studies: See below HPI: 84/M arrives for evaluation of shaking chills and nausea. The patient wok e from sleep with shaking chills, nausea and diaphoresis. The patient underwent cystoscopy just 2 days ago. The patient describes minimal contact with people unknown to him. The patient has a known history of bladder cancer and has undergone multiple previous cystoscopies with no prior issues. ROS: See above HPI for pertinent positives & negatives. A total of 10 systems reviewed and were otherwise negative. PAST MEDICAL HISTORY:See Below PAST SURGICAL HISTORY:See Below FAMILY HISTORY:See Below SOCIAL HISTORY:See Below HOME MEDICATIONS:See list ALLERGIES:See list VITALS:See Below PHYSICAL EXAMINATION: HEENT: Head - normocephalic and atraumatic Pupils are equal, round, and reactive to light. Extraocular eye muscles are intact, and sclera are anicteric. Nose - moist nasal mucosa without discharge. Mouth - moist buccal mucosa. Oropharynx is nonerythematous and there is no tonsillar exudate or edema noted. There was mild perioral cyanosis Neck: Supple; no JVD, nuchal rigidity, cervical lymphadenopathy, or auscultated bruits. Heart: Irregularly irregular rhythm with a rapid rate. There is a normal S1 and S2 with no murmurs, clicks, or gallops appreciated. Lungs: Clear to auscultation bilaterally with no wheezes, rales, or rhonchi. Abdomen: Soft, completely nontender, nondistended, with good bowel sounds. There are no palpable pulsatile masses or hepatosplenomegaly. There is no guarding, rigidity, or rebound noted. Extremities: No evidence of cyanosis, clubbing, or edema. There are easily palpable peripheral pulses. Skin: warm and dry with good turgor and no rashes. ED COURSE: Times/Reassessments: 0540: Patient was evaluated in room C5. A complete septic protocol was performed. An IV lock was initiated and labs were drawn as above. He was placed for continuous cardiac monitoring. He was in A. fib with RVR. Upon my initial evaluation, the patient's O2 saturation was only 86%. I placed him on a nasal cannula at 2 L of supplemental oxygen. A twelve-lead EKG was obtained as described above. A portable chest x-ray was performed. This is described above. The patient was bolused with 500 cc of normal saline solution and started on a normal saline drip. Procedures: IV daptomycin IV Primaxin IV normal saline hydration The patient remained hemodynamically stable. I discussed the case with the [facility] hospitalist and they will evaluate for further management. I have personally spent greater than 50 minutes of critical care time in the direct management of this patient. This includes bedside care, interpretation of diagnostic studies, and testing, discussion with consultants, patient, and family members, and other required patient management activities. This 50 minutes is in excess of all separately billable procedures. Malissa Tamayo DO Past Med/Surg History Medical History (Updated 02/08/20 @ 08:27 by Malissa Tamayo DO) Acute systolic CHF (congestive heart failure), NYHA class 3 Bladder tumor BPH (benign prostatic hyperplasia) Cancer BLADDER CANCER CURRENTLY Choledocholithiasis Complicated with acute cholecystitis and cholangitis. Hospitalized 08/08 with symptoms. Now s/p cholecystectomy. Depression Depression Epididymo-orchitis, acute Gout HX Gross hematuria History of sepsis 07/2018-- 07/22 CHOLANGITIS/ACUTE CHOLECYSTITIS S/P ABX/CHOLECYSTECTOMY/ERCP+STENT (STENT SUBSEQUENTLY REMOVED) On anticoagulant therapy ELIQUIS DAILY Restless leg syndrome Managed with ropinirole 0.5mg QHS. Surgical History Fusion of spine CERVICAL H/O colonoscopy H/O elbow surgery History of cardioversion 2014 History of cataract surgery R/L History of neck surgery Previous back surgery CERVICAL/THORACIC SPINAL FUSION S/P bladder tumor excision with fulguration TURBT 10/26/18 LMA #5, no issues noted on record. S/P cholecystectomy 08/17/2018= MAC 3, Grade 1 view, 7.5 ETT S/P cholecystectomy S/P ERCP Status post cervical spinal fusion Family History Mother Myocardial infarction Heart disease Brother Prostate cancer Dementia Uncle Prostate cancer Grandfather (Paternal) Diabetes Father Heart disease Denies family history of Ovarian cancer Breast cancer Colorectal cancer Social History Smoking Status: Former smoker Second Hand Exposure: No; Do You Dip or Chew Tobacco: No; Tobacco Cessation Education Requested by Patient: No Hx Alcohol Use: Yes Alcohol type: beer Alcohol Intake Frequency Comment: 2 beers daily Hx Substance Use: No Preferred Language: [place] Citizen Communication Ability: Effective Visual Impairment: No Limitations Hearing Ability: Normal Investor Relations Director Required: No Beliefs That Will Affect Care: None marital status: Current Living Situation: Spouse current occupational status: retired Other Information That Helps Us Care for You: No Feels Safe at Home: Yes Safety Concerns: Feels Safe At This Time Childhood Exposure to Second-Hand Smoke: No caffeine: Yes during the past year weight has: remained stable Dental Care, Regularly: No Physical Activity Frequency: Does not Exercise Seatbelt Use: always Sunscreen Use: Yes Allergies Allergies Allergy/AdvReac Type Severity Reaction Status Date / Time blue dye Allergy Mild UNKNOWN Verified 02/08/20 06:03 celecoxib Allergy Mild UNKNOWN Verified 02/08/20 06:03 duloxetine Allergy Mild UNKNOWN Verified 02/08/20 06:03 nortriptyline AdvReac Intermediate CONFUSION Verified 02/08/20 06:03 oxycodone AdvReac Intermediate SEVERE Verified 02/08/20 06:03 WITHDRAWL- shakes Home Meds Home Medications Medication Instructions Recorded Confirmed ondansetron HCl [Zofran] 4 mg PO Q12H PRN 02/08/20 02/08/20 ropinirole 0.5 mg PO HS PRN 02/08/20 02/08/20 triamcinolone acetonide 1 applic TOPICAL BID PRN 02/08/20 02/08/20 Previous Rx's Medication Instructions Recorded furosemide 20 mg tablet 20 mg PO DAILY PRN #90 tab 03/23/19 tramadol 50 mg tablet 25 mg PO BID PRN #30 tab 11/26/19 apixaban 5 mg tablet 5 mg PO BID #180 tab 11/28/19 spironolactone 25 1 tab PO QPM #90 tab 11/28/19 mg-hydrochlorothiazide 25 mg tablet Results & Data (ED) Vital Signs Vital Signs - 24 hr 02/08/20 05:30 02/08/20 06:24 02/08/20 06:30 Temperature 37.4 C Temperature Source Oral Pulse Rate 111 H 128 H 108 H Pulse Rate from SpO2 Sensor 87 92 H Respiratory Rate 22 24 23 Respiratory Effort / Characteristics Respiratory Depth Normal Blood Pressure 107/64 116/56 L 114/60 Blood Pressure Mean 78 66 83 Pulse Oximetry 91 96 96 Oxygen Delivery Method Room Air Nasal Cannula Nasal Cannula Oxygen Flow Rate 2 2 Sepsis Recent Fever Within 48 Hours Yes Sepsis New/Unexplained Change in Mental Status N/A Sepsis Action Taken by Nursing No Action Required 02/08/20 06:37 02/08/20 06:39 02/08/20 06:45 Temperature Temperature Source Pulse Rate 97 H 103 H Pulse Rate from SpO2 Sensor 95 H Respiratory Rate 19 22 20 Respiratory Effort / Characteristics Non-Labored Spontaneous Respiratory Depth Blood Pressure 95/69 L Blood Pressure Mean 79 Pulse Oximetry 97 97 97 Oxygen Delivery Method Nasal Cannula Nasal Cannula Oxygen Flow Rate 2 2 Sepsis Recent Fever Within 48 Hours Sepsis New/Unexplained Change in Mental Status Sepsis Action Taken by Nursing 02/08/20 07:00 02/08/20 07:15 02/08/20 07:30 Temperature Temperature Source Pulse Rate 106 H 96 H 99 H Pulse Rate from SpO2 Sensor 84 91 H Respiratory Rate 21 22 22 Respiratory Effort / Characteristics Respiratory Depth Blood Pressure 105/67 102/56 L 125/74 Blood Pressure Mean 84 77 81 Pulse Oximetry 97 97 97 Oxygen Delivery Method Oxygen Flow Rate 2 2 Sepsis Recent Fever Within 48 Hours Sepsis New/Unexplained Change in Mental Status Sepsis Action Taken by Nursing Laboratory Data Result diagrams: 02/08/20 06:10 02/08/20 06:10 Lab Results 02/08/20 02/08/20 02/08/20 Range/Units 06:10 06:10 06:10 WBC 9.22 (4.8-10.8) K/uL RBC 4.68 L (4.7-6.1) M/uL Hgb 15.7 (14.0-18.0) g/dL Hct 45.6 (42-52) % MCV 97.4 (80-100) fL MCH 33.5 (25-34) pg MCHC 34.4 (32-36) g/dL RDW Std Deviation 45.5 (36.4-46.3) fL RDW Coeff of Monie 12.8 (11.5-14.5) % Plt Count 206 (130-400) K/uL MPV 9.3 (7.4-10.4) fL Immature Gran % (Auto) 0.2 % Neut % (Auto) 96.4 % Lymph % (Auto) 1.6 % [place] % (Auto) 1.6 % Eos % (Auto) 0.2 % Baso % (Auto) 0.0 % Neut # (Auto) 8.88 H (1.4-6.5) K/uL Lymph # (Auto) 0.15 L (1.2-3.4) K/uL [place] # (Auto) 0.15 (0.11-0.59) K/uL Eos # (Auto) 0.02 (0-0.5) K/uL Baso # (Auto) 0.00 (0-0.2) K/uL Immature Gran # (Auto) 0.02 (0.00-0.02) K/uL PT 11.7 (9.0-12.0) Seconds INR 1.1 (0.9-1.1) APTT 26.8 (21.0-31.0) Seconds PTT Ratio 1.0 Sodium 138 (136-145) mmol/L Potassium 3.5 (3.5-5.1) mmol/L Chloride 99 (98-107) mmol/L Carbon Dioxide 29 (21-32) mmol/L Anion Gap 10.0 (3-11) BUN 17 (7-18) mg/dl Creatinine 1.29 (0.6-1.4) mg/dl Est Cr Clr Drug Dosing Not Reportable Est GFR ( Amer) 58.6 Est GFR (Non-Af Amer) 50.6 BUN/Creatinine Ratio 13.5 (10-20) Glucose 126 H (70-99) mg/dl Lactate (0.4-2.0) mmol/L Calcium 9.0 (8.5-10.1) mg/dl Magnesium 1.8 (1.8-2.4) mg/dl Total Bilirubin 2.2 H (0.2-1) mg/dl AST 23 (15-37) U/L ALT 22 (12-78) U/L Alkaline Phosphatase 94 (45-117) U/L Troponin I < 0.015 (0-0.045) ng/ml Total Protein 7.3 (6.4-8.2) gm/dl Albumin 3.4 (3.4-5.0) gm/dl Globulin 3.9 (2.5-4.0) gm/dl Albumin/Globulin Ratio 0.9 (0.9-2) 02/08/20 Range/Units 06:10 WBC (4.8-10.8) K/uL RBC (4.7-6.1) M/uL Hgb (14.0-18.0) g/dL Hct (42-52) % MCV (80-100) fL MCH (25-34) pg MCHC (32-36) g/dL RDW Std Deviation (36.4-46.3) fL RDW Coeff of Monie (11.5-14.5) % Plt Count (130-400) K/uL MPV (7.4-10.4) fL Immature Gran % (Auto) % Neut % (Auto) % Lymph % (Auto) % [place] % (Auto) % Eos % (Auto) % Baso % (Auto) % Neut # (Auto) (1.4-6.5) K/uL Lymph # (Auto) (1.2-3.4) K/uL [place] # (Auto) (0.11-0.59) K/uL Eos # (Auto) (0-0.5) K/uL Baso # (Auto) (0-0.2) K/uL Immature Gran # (Auto) (0.00-0.02) K/uL PT (9.0-12.0) Seconds INR (0.9-1.1) APTT (21.0-31.0) Seconds PTT Ratio Sodium (136-145) mmol/L Potassium (3.5-5.1) mmol/L Chloride (98-107) mmol/L Carbon Dioxide (21-32) mmol/L Anion Gap (3-11) BUN (7-18) mg/dl Creatinine (0.6-1.4) mg/dl Est Cr Clr Drug Dosing Est GFR ( Amer) Est GFR (Non-Af Amer) BUN/Creatinine Ratio (10-20) Glucose (70-99) mg/dl Lactate 2.9 H* (0.4-2.0) mmol/L Calcium (8.5-10.1) mg/dl Magnesium (1.8-2.4) mg/dl Total Bilirubin (0.2-1) mg/dl AST (15-37) U/L ALT (12-78) U/L Alkaline Phosphatase (45-117) U/L Troponin I (0-0.045) ng/ml Total Protein (6.4-8.2) gm/dl Albumin (3.4-5.0) gm/dl Globulin (2.5-4.0) gm/dl Albumin/Globulin Ratio (0.9-2) Administered Medications Sodium Chloride (Nss) 500 mls @ 125 mls/hr IV .Q4H TONY Stop: 03/09/20 06:59 Last Admin: 02/08/20 07:28 Dose: 125 mls/hr Documented by: [id number] Discontinued Medications Sodium Chloride (Nss) 500 mls @ 999 mls/hr IV .Q31M ONE Stop: 02/08/20 06:32 Last Infusion: 02/08/20 07:02 Dose: 0 mls/hr Documented by: [id number] Admin: 08/21/20 06:25 Dose: 999 mls/hr Documented by: [id number] Daptomycin 500 mg/ Syringe 10 mls @ 5 mls/min IV ONE ONE; Protocol Stop: 02/08/20 06:54 Last Admin: 02/08/20 07:28 Dose: 5 mls/min Documented by: [id number] Imipenem/Cilastatin Sodium 500 (mg/ Dextrose) 110 mls @ 100 mls/hr IV NOW STA Stop: 02/08/20 07:58 Last Admin: 02/08/20 07:28 Dose: 100 mls/hr Documented by: [id number] Sodium Chloride (Nss) 500 mls @ 999 mls/hr IV .Q31M ONE Stop: 02/08/20 07:36 Last Infusion: 02/08/20 07:40 Dose: 0 mls/hr Documented by: [id number] Admin: 02/08/20 07:09 Dose: 999 mls/hr Documented by: [id number] Discharge Plan Visit Data Chief Complaint: Flu Like Symptoms Stated Complaint: CHILLS,FEVER,NAUSEA ED Provider: Malissa Tamayo Discharge Problem: Sepsis, Hypoxia, Acute UTI Patient Disposition: Admitted As Inpatient Discharge Instructions Interventions: ED Discharge Assessment Last Done: 02/08/20 07:47 Discharge Problem: Sepsis Qualifiers: Sepsis type: sepsis due to unspecified organism Sepsis acute organ dysfunction status: without acute organ dysfunction Qualified Code(s): A41.9 - Sepsis, unspecified organism
[2020-02-08 06:23] LABS: Appearance Urine Cloudy (Clear); Bacteria Urine Automated 4+ (Negative); Bilirubin Urine Negative (Negative); Blood Urine 1+ (Negative); Color Urine Dark Yellow; Glucose Urine UA Negative (Negative); Ketones Urine Trace (Negative); Leukocyte Esterase Urine 1+ (Negative); Nitrite Urine Positive (Negative); Urobilinogen Urine Negative (Negative); WBC Urine Automated >30 /hpf (0-5); pH Urine 7.5 (4.5-7.5)
[2020-02-08 06:42] LABS: Eosinophils # (auto) 0.02 K/uL (0-0.5); Eosinophils % (auto) 0.2 %; Hematocrit (blood only) 45.6 % (42-52); Hemoglobin 15.7 g/dL (14.0-18.0); Immature Granulocytes # (auto) 0.02 K/uL (0.00-0.02); Immature Granulocytes % (auto) 0.2 %; Lymphocytes # (auto) 0.15 K/uL (1.2-3.4); Lymphocytes % (auto) 1.6 %; Mean Corpuscular Hemoglobin 33.5 pg (25-34); Mean Corpuscular Hgb Conc 34.4 g/dL (32-36); Mean Corpuscular Volume 97.4 fL (80-100); Mean Platelet Volume 9.3 fL (7.4-10.4); Monocytes # (auto) 0.15 K/uL (0.11-0.59); Monocytes % (auto) 1.6 %; Neutrophils # (auto) 8.88 K/uL (1.4-6.5); Neutrophils % (auto) 96.4 %; Platelet Count 206 K/uL (130-400); RDW Coefficient of Variation 12.8 % (11.5-14.5); RDW Standard Deviation 45.5 fL (36.4-46.3); Red Blood Count 4.68 M/uL (4.7-6.1); White Blood Count 9.22 K/uL (4.8-10.8)
[2020-02-08 06:46] LABS: Protein Urine 2+ (Negative); Sulfosalicylic Acid Urine Positive (Negative)
[2020-02-08 06:52] LABS: INR 1.1 (0.9-1.1); Partial Thromboplastin Time 26.8 Seconds (21.0-31.0); Prothrombin Time 11.7 Seconds (9.0-12.0)
[2020-02-08] MEDS ORDERED: DAPTOmycin 500 MG in SYRINGE 0 ML IV ONE (06:53)
[2020-02-08] MEDS ORDERED: DAPTOMYCIN CONSULT ACTIVE PRN (06:53)
[2020-02-08] MEDS ORDERED: IMIPENEM/CILASTATIN CONSULT ACTIVE PRN (06:53)
[2020-02-08] MEDS ORDERED: IMIPENEM/CILASTATIN SODIUM 500 MG in DEXTROSE 5% 100 ML IV STA (06:53)
[2020-02-08 07:00] LABS: Alanine Aminotransferase 22 U/L (12-78); Albumin Level 3.4 gm/dl (3.4-5.0); Aspartate Aminotransferase 23 U/L (15-37); BUN Creatinine Ratio 13.5 (10-20); Blood Urea Nitrogen 17 mg/dl (7-18); Carbon Dioxide 29 mmol/L (21-32); Chloride 99 mmol/L (98-107); Est GFR (African American) 58.6; Est GFR (Non-African American) 50.6; Glucose 126 mg/dl (70-99); Magnesium 1.8 mg/dl (1.8-2.4); Potassium 3.5 mmol/L (3.5-5.1); Sodium 138 mmol/L (136-145)
[2020-02-08 07:04] LABS: Albumin Globulin Ratio 0.9 (0.9-2); Alkaline Phosphatase 94 U/L (45-117); Bilirubin,Total 2.2 mg/dl (0.2-1); Globulin 3.9 gm/dl (2.5-4.0); Total Protein 7.3 gm/dl (6.4-8.2); Troponin I < 0.015 ng/ml (0-0.045)
[2020-02-08] MEDS: SODIUM CHLORIDE 0.9% 500 ML IV SCH ×2 (07:28→11:50)
--- NOTE | 2020-02-08 07:51 | XRay Report ---
XR chest 1V portable HISTORY: SEPSIS COMPARISON: Chest 11/07/2019. FINDINGS: No pneumothorax. No pleural effusions. There are low lung volumes with a few left basilar d ensities suggesting atelectasis. This is similar to the prior study. The heart remains mildly enlarge d. Thoracic spinal fusion rods remain unchanged. No evidence for pulmonary edema. No new focal lung c onsolidations to suggest pneumonia. IMPRESSION: No significant change compared to the prior study. No acute process. ACT 112: Negative or not required by law. Electronically signed by: Jose Ansari M.D. 02/08/2020 7:49 AM
[2020-02-08] MEDS ORDERED: ROPINIROLE HCL 0.25 MG TABLET PO PRN (08:06)
[2020-02-08] MEDS ORDERED: ONDANSETRON INJ 2 MG/ML 2 ML VIAL IV PRN (08:06)
--- NOTE | 2020-02-08 08:49 | History & Physical Report ---
Date of Service February 08, 2020 Assessment & Plan (1) Acute UTI: likely due to recent cystoscopy but it was 9 days ago clear evidence of UTI on UA with blood, bacteria, >30 WBC WBC normal but with >90% neutrophils will treat with Cefepime IV, continue IV fluids at 80cc/hr hold diuretics repeat lactic acid at 9am check a PSA, if really high consider treatment for prostatitis follow up blood and urine cultures done in the ED (2) Sepsis: due to UTI blood and urine cultures done in ED no signs of shock, BP is 120 systolic Lactic acid 2.9 in ED, will repeat within 9 hours Cefepime 1gm IV q12, can be adjusted by pharmacy if needed (3) Hypoxia: unclear etiology, no dyspnea, CXR clear try to wean as tolerated, encourage HOB > 45 degrees, deep breathing (4) Nausea: ongoing issue for a few months had an outpatient abdominal US with no acute findings (5) Restless leg syndrome: (6) Depression: (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 The cystoscopy was uneventful, no bladder tumors seen, mild enlargement of prostate. Patient said he had some mild dysuria for two days afterwards but he was warned that this can be normal. He was in his usual state of good health until suddenly at 3am this morning he woke up with chills, rigors. His took his temperature and it was 102 and she placed several blankets on him. He had no other symptoms, no dyspnea, no cough, no chest pain, no abdominal pain and again no dysuria. He says that he has been voiding normally, no urinary frequency that he has noted. He says he has no history of UTI, no history of prostatitis. He presented to the ED with tachycardia, low normal blood pressures, systolic in 90's. He had a normal WBC but with left shift. Cr and electrolytes normal. UA with blood, protein, WBC > 30, it was cloudy. CXR normal. He received NSS bolus and Imipenem and Daptomycin. He says he is already feeling much better. Lactic acid noted to be 2.9. He has a history of afib but well controlled. He has a history of ischemic stroke 5 years ago with mild residual issues with balance. is here at the bedside, helps with history and awswering questions. Allergies Allergy/AdvReac Type Severity Reaction Status Date / Time blue dye Allergy Mild UNKNOWN Verified 02/08/20 06:03 celecoxib Allergy Mild UNKNOWN Verified 02/08/20 06:03 duloxetine Allergy Mild UNKNOWN Verified 02/08/20 06:03 nortriptyline AdvReac Intermediate CONFUSION Verified 02/08/20 06:03 oxycodone AdvReac Intermediate SEVERE Verified 02/08/20 06:03 WITHDRAWL- shakes Home Medications Home Medications Medication Instructions Recorded Confirmed Type furosemide 20 mg tablet 20 mg PO DAILY PRN #90 tab 03/23/19 02/08/20 Rx tramadol 50 mg tablet 25 mg PO BID PRN #30 tab 11/26/19 02/08/20 Rx apixaban 5 mg tablet 5 mg PO BID #180 tab 11/28/19 02/08/20 Rx spironolactone 25 1 tab PO QPM #90 tab 11/28/19 02/08/20 Rx mg-hydrochlorothiazide 25 mg tablet ondansetron HCl [Zofran] 4 mg PO Q12H PRN 02/08/20 02/08/20 History ropinirole 0.5 mg PO HS PRN 02/08/20 02/08/20 History triamcinolone acetonide 1 applic TOPICAL BID PRN 02/08/20 02/08/20 History Past Med/Surg History Medical History Acute systolic CHF (congestive heart failure), NYHA class 3 Bladder tumor BPH (benign prostatic hyperplasia) Cancer BLADDER CANCER CURRENTLY Choledocholithiasis Complicated with acute cholecystitis and cholangitis. Hospitalized 08/08 with symptoms. Now s/p cholecystectomy. Depression Depression Epididymo-orchitis, acute Gout HX Gross hematuria History of sepsis 07/2018-- 07/22 CHOLANGITIS/ACUTE CHOLECYSTITIS S/P ABX/CHOLECYSTECTOMY/ERCP+STENT (STENT SUBSEQUENTLY REMOVED) On anticoagulant therapy ELIQUIS DAILY Restless leg syndrome Managed with ropinirole 0.5mg QHS. Surgical History Fusion of spine CERVICAL H/O colonoscopy H/O elbow surgery History of cardioversion 2014 History of cataract surgery R/L History of neck surgery Previous back surgery CERVICAL/THORACIC SPINAL FUSION S/P bladder tumor excision with fulguration TURBT 10/26/18 LMA #5, no issues noted on record. S/P cholecystectomy 08/17/2018= MAC 3, Grade 1 view, 7.5 ETT S/P cholecystectomy S/P ERCP Status post cervical spinal fusion Family History Mother Myocardial infarction Heart disease Brother Prostate cancer Dementia Uncle Prostate cancer Grandfather (Paternal) Diabetes Father Heart disease Denies family history of Ovarian cancer Breast cancer Colorectal cancer Social History Smoking Status: Former smoker Second Hand Exposure: No; Do You Dip or Chew Tobacco: No; Tobacco Cessation Education Requested by Patient: No Hx Alcohol Use: Yes Alcohol type: beer Alcohol Intake Frequency Comment: 2 beers daily Hx Substance Use: No Preferred Language: [place] Communication Ability: Effective Visual Impairment: No Limitations Hearing Ability: Normal Sexual Health Physician Required: No Beliefs That Will Affect Care: None marital status: Current Living Situation: Spouse current occupational status: retired Other Information That Helps Us Care for You: No Feels Safe at Home: Yes Safety Concerns: Feels Safe At This Time Childhood Exposure to Second-Hand Smoke: No caffeine: Yes during the past year weight has: remained stable Dental Care, Regularly: No Physical Activity Frequency: Does not Exercise Seatbelt Use: always Sunscreen Use: Yes Review of Systems Review of Systems: All systems reviewed & are unremarkable except as noted in Subjective Physical Exam Constitutional: WD/WN, vitals as above Eyes: PERRL, conjunctivae normal, anicteric sclerae ENMT: external ear and nose normal, oropharynx normal Neck: trachea midline, no thyromegaly Respiratory: normal respiratory effort, lungs clear to auscultation Cardiovascular: Rate/Rhythm: regular rate and + irregularly irregular Heart Sounds: normal S1 and normal S2; no murmur Vessels: no JVD Extremities: normal capillary refill; no edema Gastrointestinal (Abdomen): normal bowel sounds, soft, nontender, no hepatosplenomegaly Musculoskeletal: no cyanosis or clubbing, extremities motor strength 5/5 Skin: no rashes, warm and dry (venous stasis changes right lower leg) Neurologic: patellar DTR's 2+ bilat, sensation intact and PERRL, EOMI, accommodation nl, no face palsy, no dysarthria Psychiatric: A+Ox3, euthymic affect Lymphatic: no cervical or axillary lymphadenopathy Results & Data Results & Data ([facility]) Vital Signs (Past 12 Hours) Vital Signs Temp Pulse Pulse Resp BP BP Pulse Ox 02/08/20 08:07 36.5 C 93 H 18 127/74 97 02/08/20 07:45 96 H 18 96/63 L 96 02/08/20 07:30 99 H 22 125/74 97 02/08/20 07:15 96 H 22 102/56 L 97 02/08/20 07:00 106 H 21 105/67 97 02/08/20 06:45 103 H 20 95/69 L 97 02/08/20 06:39 22 97 02/08/20 06:37 97 H 19 97 02/08/20 06:30 108 H 23 114/60 96 02/08/20 06:24 128 H 24 116/56 L 96 02/08/20 05:30 37.4 C 111 H 22 107/64 91 Laboratory Results Laboratory Results - last 24 hr 02/08/20 02/08/20 02/08/20 06:10 06:10 06:10 WBC 9.22 RBC 4.68 L Hgb 15.7 Hct 45.6 MCV 97.4 MCH 33.5 MCHC 34.4 RDW Std Deviation 45.5 RDW Coeff of Monie 12.8 Plt Count 206 MPV 9.3 Immature Gran % (Auto) 0.2 Neut % (Auto) 96.4 Lymph % (Auto) 1.6 [place] % (Auto) 1.6 Eos % (Auto) 0.2 Baso % (Auto) 0.0 Neut # (Auto) 8.88 H Lymph # (Auto) 0.15 L [place] # (Auto) 0.15 Eos # (Auto) 0.02 Baso # (Auto) 0.00 Immature Gran # (Auto) 0.02 PT 11.7 INR 1.1 APTT 26.8 PTT Ratio 1.0 Sodium 138 Potassium 3.5 Chloride 99 Carbon Dioxide 29 Anion Gap 10.0 BUN 17 Creatinine 1.29 Est Cr Clr Drug Dosing Not Reportable Est GFR ( Amer) 58.6 Est GFR (Non-Af Amer) 50.6 BUN/Creatinine Ratio 13.5 Glucose 126 H Lactate Calcium 9.0 Magnesium 1.8 Total Bilirubin 2.2 H AST 23 ALT 22 Alkaline Phosphatase 94 Troponin I < 0.015 Total Protein 7.3 Albumin 3.4 Globulin 3.9 Albumin/Globulin Ratio 0.9 Urine Color Urine Appearance Urine pH POC Urine pH Ur Specific [place] Urine Protein POC Urine Protein Urine Glucose (UA) POC Ur Glucose (UA) Urine Ketones POC Urine Ketones Urine Blood POC Urine Blood Urine Nitrite POC Urine Nitrite Urine Bilirubin POC Urine Bilirubin Urine Urobilinogen POC Urine Urobilinogen Ur Leukocyte Esterase POC U Leukocyte Esteras Urine WBC (Auto) Urine RBC (Auto) U Hyaline Cast (Auto) U Epithel Cells (Auto) Urine Bacteria (Auto) 02/08/20 02/08/20 02/08/20 06:10 Unknown Unknown WBC RBC Hgb Hct MCV MCH MCHC RDW Std Deviation RDW Coeff of Monie Plt Count MPV Immature Gran % (Auto) Neut % (Auto) Lymph % (Auto) [place] % (Auto) Eos % (Auto) Baso % (Auto) Neut # (Auto) Lymph # (Auto) [place] # (Auto) Eos # (Auto) Baso # (Auto) Immature Gran # (Auto) PT INR APTT PTT Ratio Sodium Potassium Chloride Carbon Dioxide Anion Gap BUN Creatinine Est Cr Clr Drug Dosing Est GFR ( Amer) Est GFR (Non-Af Amer) BUN/Creatinine Ratio Glucose Lactate 2.9 H* Calcium Magnesium Total Bilirubin AST ALT Alkaline Phosphatase Troponin I Total Protein Albumin Globulin Albumin/Globulin Ratio Urine Color Dark Yellow Urine Appearance Cloudy A Urine pH 7.5 POC Urine pH 6 Ur Specific [place] 1.020 Urine Protein 2+ H POC Urine Protein 2+ H Urine Glucose (UA) Negative POC Ur Glucose (UA) Normal Urine Ketones Trace H POC Urine Ketones Negative Urine Blood 1+ H POC Urine Blood 250 H Urine Nitrite Positive A POC Urine Nitrite Positive A Urine Bilirubin Negative POC Urine Bilirubin Negative Urine Urobilinogen Negative POC Urine Urobilinogen Normal Ur Leukocyte Esterase 1+ H POC U Leukocyte [place] Trace H Urine WBC (Auto) >30 H Urine RBC (Auto) 5-10 H U Hyaline Cast (Auto) 1-5 U Epithel Cells (Auto) 5-10 H Urine Bacteria (Auto) 4+ H Diagnostic Findings Chest x-ray: no acute abnormalities I personally reviewed the CXR ECG Indication: tachycardia Rhythm: atrial fibrillation PG Care Time/CCT Total # of Minutes Spent Total Time Spent: 36 Total Time Spent with Patient: Total time spent is greater than 50% in coordination of care (as documented) at patient's floor/unit and/or counseling patient: Coding Level of Care Code 05880 Initial Inpt Care Lvl 3 Diagnoses Acute UTI N39.0 Sepsis A41.9 Sepsis acute organ dysfunction status: without acute organ dysfunction Sepsis type: sepsis due to unspecified organism Hypoxia R09.02 Nausea R11.0 Restless leg syndrome G25.81 Depression F32.9 Urothelial carcinoma of bladder C67.9 (1) Sepsis Sepsis acute organ dysfunction status: without acute organ dysfunction Sepsis type: sepsis due to unspecified organism Qualified Code(s): A41.9 - Sepsis, unspecified organism
[2020-02-08] MEDS: APIXABAN 5 MG TABLET PO SCH ×2 (11:01→20:39)
[2020-02-08] MEDS ORDERED: Nursing to Pharmacy Communication SCH (12:00)
[2020-02-08] MEDS ORDERED: SODIUM CHLORIDE 0.9% 1000ML 500 ML IV ONE (12:50)
[2020-02-08] MEDS: CEFEPIME 1,000 MG in SYRINGE 0 ML IV SCH (14:18)
--- NOTE | 2020-02-08 14:52 | Electrocardiogram Report ---
Test Reason : Blood Pressure : / mmHG Vent. Rate : 131 BPM Atrial Rate : 102 BPM P-R Int : 000 ms QRS Dur : 078 ms QT Int : 304 ms P-R-T Axes : 000 074 -79 degrees QTc Int : 448 ms Poor data quality, interpretation may be adversely affected Atrial fibrillation with rapid ventricular response with premature ventricular or aberrantly conducte d complexes Abnormal ECG When compared with ECG of 17-OCT-2018 09:09, Vent. rate has increased BY [address] now depressed in Anterolateral leads T wave inversion now evident in Inferior leads Confirmed by Chad Low ([id number]) on 02/08/2020 2:51:54 PM Referred By: REFERRED SELF Confirmed By:Chad Low
[2020-02-08] MEDS ORDERED: ACETAMINOPHEN 500 MG TAB PO PRN (19:49)
[2020-02-08] MEDS ORDERED: ACETAMINOPHEN 500 MG TAB ONE (19:52)
[2020-02-08] MEDS ORDERED: MELATONIN 3 MG TAB PO PRN (21:42)
[2020-02-08] MEDS: TRAMADOL HCL 50 MG TABLET PO PRN (21:48)
[2020-02-09] MEDS: APIXABAN 5 MG TABLET PO SCH ×2 (08:06→19:29)
[2020-02-09 10:46] LABS: Basophils # (auto) 0.01 K/uL (0-0.2); Basophils % (auto) 0.1 %; Eosinophils # (auto) 0.02 K/uL (0-0.5); Eosinophils % (auto) 0.2 %; Hemoglobin 13.6 g/dL (14.0-18.0); Immature Granulocytes # (auto) 0.03 K/uL (0.00-0.02); Immature Granulocytes % (auto) 0.3 %; Lymphocytes # (auto) 0.49 K/uL (1.2-3.4); Lymphocytes % (auto) 4.2 %; Mean Corpuscular Hemoglobin 33.7 pg (25-34); Mean Corpuscular Volume 99.3 fL (80-100); Mean Platelet Volume 9.3 fL (7.4-10.4); Monocytes # (auto) 1.16 K/uL (0.11-0.59); Monocytes % (auto) 9.9 %; Neutrophils # (auto) 10.01 K/uL (1.4-6.5); Neutrophils % (auto) 85.3 %; Platelet Count 171 K/uL (130-400); RDW Standard Deviation 47.1 fL (36.4-46.3); Red Blood Count 4.03 M/uL (4.7-6.1); White Blood Count 11.72 K/uL (4.8-10.8)
[2020-02-09 11:17] LABS: BUN Creatinine Ratio 15.3 (10-20); Calcium 8.8 mg/dl (8.5-10.1); Creatinine Clr Calc Pharmacy 63.9 ml/min; Est GFR (African American) 82.7; Est GFR (Non-African American) 71.4; Potassium 4.2 mmol/L (3.5-5.1)
[2020-02-09] MEDS: CEFEPIME 1,000 MG in SYRINGE 0 ML IV SCH (14:09)
--- NOTE | 2020-02-09 15:44 | Hospitalist Progress Note ---
Date of Service February 09, 2020 Assessment & Plan (1) Bacteremia: gram negative bacilli in two sets of blood cultures due to UTI will follow up final sensitivities tomorrow afebrile, vitals stable continue Cefepime (2) Acute UTI: likely due to recent cystoscopy but it was 9 days ago clear evidence of UTI on UA with blood, bacteria, >30 WBC WBC normal but with >90% neutrophils will treat with Cefepime IV hold diuretics PSA only 5 so doubt prostatitis urine and blood cultures with GN bacillit follow up final results, discharge tomorrow (3) Sepsis: due to UTI blood and urine cultures with GN bacilli no signs of shock, BP is stable continue Cefepime (4) Hypoxia: unclear etiology, no dyspnea, CXR clear try to wean as tolerated, encourage HOB > 45 degrees, deep breathing on room air today (5) Nausea: ongoing issue for a few months had an outpatient abdominal US with no acute findings does not eat very much (6) Restless leg syndrome: (7) Depression: (8) Urothelial carcinoma of bladder: gets routine cystoscopy, just had one on 01/29 that showed no tumors Admission and Anticipated Discharge Date Admission Date: February 08, 2020 Subjective patient says he feels a lot better over night he had some chills and sweats but not a true temperature he received Tylenol reviewed blood and urine cultures, both with gram negative bacilli called micro lab, won't have results for sensitivity until tomorrow morning discussed this with patient and his , he is willing to stay until then WBC up to 11k, Cr and electrolytes normal he is eating and drinking okay no chest pain, no dyspnea, no nausea Review of Systems Review of Systems: All systems reviewed & are unremarkable except as noted in Subjective Constitutional: + chills and + sweats; no fever and no weakness Physical Exam Constitutional: WD/WN, vitals as above Eyes: PERRL, conjunctivae normal, anicteric sclerae ENMT: external ear and nose normal, oropharynx normal Neck: trachea midline, no thyromegaly Respiratory: normal respiratory effort, lungs clear to auscultation Cardiovascular: Rate/Rhythm: + tachycardic (95-110) and + irregularly irregular Heart Sounds: normal S1 and normal S2; no murmur Vessels: no JVD Extremities: normal capillary refill; no edema Gastrointestinal (Abdomen): normal bowel sounds, soft, nontender, no hepatosplenomegaly Musculoskeletal: no cyanosis or clubbing, extremities motor strength 5/5 Skin: no rashes, warm and dry (venous stasis changes right lower leg) Neurologic: patellar DTR's 2+ bilat, sensation intact and PERRL, EOMI, accommodation nl, no face palsy, no dysarthria Psychiatric: A+Ox3, euthymic affect Lymphatic: no cervical or axillary lymphadenopathy Results & Data Results & Data ([facility]) Vital Signs (Past 12 Hours) Vital Signs Temp Pulse Pulse Resp BP Pulse Ox 02/09/20 15:33 36.5 C 102 H 17 138/79 94 02/09/20 15:00 106 H 02/09/20 10:54 36.7 C 86 19 120/74 92 02/09/20 08:22 37.4 C 91 H 20 117/66 91 02/09/20 07:55 82 Laboratory Results Laboratory Results - last 24 hr 02/09/20 02/09/20 10:20 10:20 WBC 11.72 H RBC 4.03 L Hgb 13.6 L Hct 40.0 L MCV 99.3 MCH 33.7 MCHC 34.0 RDW Std Deviation 47.1 H RDW Coeff of Monie 13.0 Plt Count 171 MPV 9.3 Immature Gran % (Auto) 0.3 Neut % (Auto) 85.3 Lymph % (Auto) 4.2 [place] % (Auto) 9.9 Eos % (Auto) 0.2 Baso % (Auto) 0.1 Neut # (Auto) 10.01 H Lymph # (Auto) 0.49 L [place] # (Auto) 1.16 H Eos # (Auto) 0.02 Baso # (Auto) 0.01 Immature Gran # (Auto) 0.03 H Sodium 136 Potassium 4.2 D Chloride 102 Carbon Dioxide 33 H Anion Gap 1.0 L BUN 15 Creatinine 0.97 D Est Cr Clr Drug Dosing 63.9 Est GFR ( Amer) 82.7 Est GFR (Non-Af Amer) 71.4 BUN/Creatinine Ratio 15.3 Glucose 124 H Calcium 8.8 Microbiology 02/08/20 06:10 Blood Aerobic Blood Culture - Preliminary Gram negative bacilli 02/08/20 06:10 Blood Anaerobic Blood Culture - Preliminary Gram negative bacilli 02/08/20 Unknown Urine,Clean Catch Urine Culture - Preliminary Gram negative bacilli 02/08/20 06:15 Blood Aerobic Blood Culture - Final 02/08/20 06:15 Blood Anaerobic Blood Culture - Preliminary Gram negative bacilli Medications Administered Current Inpatient Medications Acetaminophen (Acetaminophen 500 Mg Tab) 1,000 mg PO Q8H PRN PRN Reason: Pain or Fever Stop: 03/09/20 19:48 Last Admin: 02/08/20 19:53 Dose: 1,000 mg Documented by: Apixaban (Apixaban 5 Mg Tablet) 5 mg PO BID TONY Stop: 03/09/20 08:59 Last Admin: 02/09/20 08:06 Dose: 5 mg Documented by: Cefepime HCl 1,000 mg/ Syringe 11.3 mls @ 5.5 mls/min IV Q24H TONY; Protocol Stop: 02/18/20 13:59 Last Admin: 02/09/20 14:09 Dose: 5.5 mls/min Documented by: Melatonin (Melatonin 3 Mg Tab) 3 mg PO HS PRN PRN Reason: Sleep Stop: 03/09/20 21:41 Ondansetron HCl (Ondansetron Inj 2 Mg/Ml 2 Ml Vial) 4 mg IV Q6H PRN PRN Reason: Nausea Stop: 03/09/20 08:05 Ropinirole HCl (Ropinirole Hcl 0.25 Mg Tablet) 0.5 mg PO HS PRN PRN Reason: RESTLESS LEGS Stop: 03/09/20 08:05 Tramadol HCl (Tramadol Hcl 50 Mg Tablet) 25 mg PO BID PRN PRN Reason: pain Stop: 03/09/20 08:05 Last Admin: 02/08/20 21:48 Dose: 25 mg Documented by: PG Care Time/CCT Total # of Minutes Spent Total Time Spent with Patient: Total time spent is greater than 50% in coordination of care (as documented) at patient's floor/unit and/or counseling patient: Coding Level of Care Code 18698 Subseq Hosp Care Lvl 3 Diagnoses Bacteremia R78.81 Acute UTI N39.0 Sepsis A41.9 Sepsis acute organ dysfunction status: without acute organ dysfunction Sepsis type: sepsis due to unspecified organism Hypoxia R09.02 Nausea R11.0 Restless leg syndrome G25.81 Depression F32.9 Urothelial carcinoma of bladder C67.9 (1) Sepsis Sepsis acute organ dysfunction status: without acute organ dysfunction Sepsis type: sepsis due to unspecified organism Qualified Code(s): A41.9 - Sepsis, unspecified organism
[2020-02-09] MEDS: TRAMADOL HCL 50 MG TABLET PO PRN (23:18)
[2020-02-10] MEDS: APIXABAN 5 MG TABLET PO SCH (07:54)
[2020-02-10] MEDS ORDERED: POLYETHYLENE (MIRALAX) 17 GM PACK PO SCH (09:15)
--- NOTE | 2020-02-10 09:32 | Discharge Summary ---
Date of Service February 10, 2020 Admission HPI Per Admitting Provider 84 yo male with recent cystoscopy on 01/29 for surveillence for history fo bladder CA. The cystoscopy was uneventful, no bladder tumors seen, mild enlargement of prostate. Patient said he had some mild dysuria for two days afterwards but he was warned that this can be normal. He was in his usual state of good health until suddenly at 3am this morning he woke up with chills, rigors. His took his temperature and it was 102 and she placed several blankets on him. He had no other symptoms, no dyspnea, no cough, no chest pain, no abdominal pain and again no dysuria. He says that he has been voiding normally, no urinary frequency that he has noted. He says he has no history of UTI, no history of prostatitis. He presented to the ED with tachycardia, low normal blood pressures, systolic in 90's. He had a normal WBC but with left shift. Cr and electrolytes normal. UA with blood, protein, WBC > 30, it was cloudy. CXR normal. He received NSS bolus and Imipenem and Daptomycin. He says he is already feeling much better. Lactic acid noted to be 2.9. He has a history of afib but well controlled. He has a history of ischemic stroke 5 years ago with mild residual issues with balance. is here at the bedside, helps with history and awswering questions. Principal Diagnosis Sepsis due to UTI, confirmed bacteremia Discharge Exam Constitutional WD/WN, vitals as above Eyes PERRL, conjunctivae normal, anicteric sclerae ENMT external ear and nose normal, oropharynx normal Neck trachea midline, no thyromegaly Respiratory normal respiratory effort, lungs clear to auscultation Cardiovascular Rate/Rhythm: regular rate and + irregularly irregular Heart Sounds: normal S1 and normal S2; no murmur Vessels: no JVD Extremities: normal capillary refill; no edema Gastrointestinal (Abdomen) normal bowel sounds, soft, nontender, no hepatosplenomegaly Musculoskeletal no cyanosis or clubbing, extremities motor strength 5/5 Skin no rashes, warm and dry (venous stasis changes right lower leg) Neurologic patellar DTR's 2+ bilat, sensation intact and PERRL, EOMI, accommodation nl, no face palsy, no dysarthria Psychiatric A+Ox3, euthymic affect Lymphatic no cervical or axillary lymphadenopathy Discharge Data Allergies Allergy/AdvReac Type Severity Reaction Status Date / Time blue dye Allergy Mild UNKNOWN Verified 02/08/20 06:03 celecoxib Allergy Mild UNKNOWN Verified 02/08/20 06:03 duloxetine Allergy Mild UNKNOWN Verified 02/08/20 06:03 nortriptyline AdvReac Intermediate CONFUSION Verified 02/08/20 06:03 oxycodone AdvReac Intermediate SEVERE Verified 02/08/20 06:03 WITHDRAWL- shakes Consultations 02/08/20 07:14 ED Decision to Admit Stat 02/08/20 08:06 Consult Case Management - Discharge Planning Routine Hospital Course (1) Bacteremia: gram negative bacilli in two sets of blood cultures - final culture with Serratia and Proteus initially treated with Cefepime IV both are sensitive to Ciprofloxacin discharge home on 14 days of Ciprofloxacin for complete treatment of bacteremia due to UTI afebrile, vitals stable patient feels a lot better overall, encourage him to stay well hydrated at home follow up with PCP (2) Acute UTI: likely due to recent cystoscopy but it was 9 days prior to admission clear evidence of UTI on UA with blood, bacteria, >30 WBC WBC normal but with >90% neutrophils treated with Cefepime IV hold diuretics PSA only 5 so doubt prostatitis urine culture Proteus blood culture Proteus and Serratia, no resistance discharge home on Cipro, see above (3) Sepsis: due to UTI blood and urine cultures with Proteus, Serratia no signs of shock, BP is stable sepsis resolved (4) Hypoxia: unclear etiology, no dyspnea, CXR clear try to wean as tolerated, encourage HOB > 45 degrees, deep breathing on room air after 24 hours (5) Nausea: ongoing issue for a few months had an outpatient abdominal US with no acute findings does not eat very much eating better while here, encourage him to stay well hydrated (6) Restless leg syndrome: (7) Depression: (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 Mcpherson Total Time Total Time Spent Total Time Spent (In Minutes): 33 minutes Total Time Includes: Examination of the Patient, Discharge Planning and Medication Reconciliation Discharge Plan Discharge Items Patient Disposition: Home - Self-Care Reason For Visit: SEPSIS DUE TO UTI Discharge Diagnosis: Proteus UTI Sepsis with bacteremia Atrial fibrillation Condition on Discharge: Good Goals: complete 14 day course of antibiotics to completely treat bacteremia Activity: Resume your previous activity Driving/Machine Use: Resume 1 day after discharge Weightbearing: Full weightbearing Non-emergency contact: Primary Care Provider Call non-emergency contact if: you have any medication questions, your symptoms worsen and you have a fever Follow-up/Referrals: Brenden Cruz MD [Primary Care Provider] - (one week) Diet: Regular Addtl Attending Provider Instructions: Medications: - CIPROFLOXACIN: 500mg twice a day for 14 days, need to take full course to complete treatment for bacteremia (bacteria in blood stream) Bacteremia, sepsis, UTI with culture growing Proteus will discharge you home on Cipro 500mg twice a day for 14 days you need to stay well hydrated, well nourished, stay active contact your PCP if you have fevers despite antibiotics your final blood culture results are still pending and won't be back until tomorrow, will discharge you home based on urine culture results if the blood cultures change treatment plan, I will call you tomorrow to switch antibiotics Sepsis your blood pressure has remained low normal and your afib has been prone to t achycardia during your stay please hold your Lasix and spironolactone/HCTZ as you are having trouble drinking enough fluids these medications are all diuretics that would tend to make you more dehyd rated if you develop lower extremity edema I wouls resume the Lasix follow up with PCP Pending Studies at Discharge: Yes Studies:: final blood culture results with sensitivities, will be back tomorrow Stand-Alone Forms: My [facility] [employer], Smoking Cessation Medications and DC Order Prescriptions: New ciprofloxacin HCl 500 mg tablet 500 mg PO BID Qty: 28 RF: 0 Continued Eliquis 5 mg tablet 5 mg PO BID Qty: 180 RF: 3 tramadol 50 mg tablet 25 mg PO BID PRN (Reason: pain) Qty: 30 RF: 3 triamcinolone acetonide 0.1 % cream 1 applic TOPICAL BID PRN (Reason: Skin Irritation) RF: 0 ondansetron HCl [Zofran] 4 mg tablet 4 mg PO Q12H PRN (Reason: Nausea) RF: 0 ropinirole 0.5 mg tablet 0.5 mg PO HS PRN (Reason: RESTLESS LEGS) RF: 0 Discontinued spironolacton-hydrochlorothiaz 25-25 mg tablet 1 tab PO QPM Qty: 90 RF: 3 furosemide 20 mg tablet 20 mg PO DAILY PRN (Reason: weight gain of two pounds in one day) Qty: 90 RF: 3 Discharge Orders: Discharge Order (Routine); Ordered 02/10/20 Ordered By: Foreign Davis Admission Data Admit Date/Time: 02/08/20 07:32 Attending Provider: Foreign Davis Admit Provider: Foreign Davis Primary Care Provider: Brenden Cruz V. Other Providers: Foreign Davis Other Interventions: Discharge Summary Assessment (RN) Last Done: 02/10/20 09:42 Coding Level of Care Code D/C Day Management >30 mins Diagnoses Bacteremia R78.81 Acute UTI N39.0 Sepsis A41.9 Sepsis acute organ dysfunction status: without acute organ dysfunction Sepsis type: sepsis due to unspecified organism Hypoxia R09.02 Nausea R11.0 Restless leg syndrome G25.81 Depression F32.9 Urothelial carcinoma of bladder C67.9 Permanent atrial fibrillation I48.2
== END 2020-02-10 10:30 | disposition home or self-care (01) | DRG 872 ==
LOC: ED 05:21 → 2S 07:32

== ENCOUNTER 2021-02-28 18:21 | Inpatient (IN) ==
[2021-02-28 20:09] LABS: Basophils # (auto) 0.01 K/uL (0-0.2); Basophils % (auto) 0.1 %; Hematocrit (blood only) 42.2 % (42-52); Hemoglobin 14.1 g/dL (14.0-18.0); Immature Granulocytes # (auto) 0.01 K/uL (0.00-0.02); Immature Granulocytes % (auto) 0.1 %; Lymphocytes # (auto) 0.75 K/uL (1.2-3.4); Lymphocytes % (auto) 6.5 %; Mean Corpuscular Hemoglobin 33.7 pg (25-34); Mean Corpuscular Hgb Conc 33.4 g/dL (32-36); Mean Corpuscular Volume 100.7 fL (80-100); Mean Platelet Volume 9.6 fL (7.4-10.4); Monocytes # (auto) 2.05 K/uL (0.11-0.59); Monocytes % (auto) 17.9 %; Neutrophils # (auto) 8.65 K/uL (1.4-6.5); Neutrophils % (auto) 75.4 %; Platelet Count 240 K/uL (130-400); RDW Coefficient of Variation 13.1 % (11.5-14.5); RDW Standard Deviation 48.4 fL (36.4-46.3); Red Blood Count 4.19 M/uL (4.7-6.1); White Blood Count 11.47 K/uL (4.8-10.8)
[2021-02-28 20:31] LABS: Alanine Aminotransferase 27 U/L (12-78); Albumin Level 3.6 gm/dl (3.4-5.0); Aspartate Aminotransferase 27 U/L (15-37); BUN Creatinine Ratio 12.1 (10-20); Blood Urea Nitrogen 13 mg/dl (7-18); Calcium 8.7 mg/dl (8.5-10.1); Carbon Dioxide 32 mmol/L (21-32); Chloride 99 mmol/L (98-107); Est GFR (African American) 69.3 ml/min; Est GFR (Non-African American) 59.8 ml/min; Glucose 154 mg/dl (70-99); Potassium 4.3 mmol/L (3.5-5.1); Sodium 136 mmol/L (136-145)
[2021-02-28 20:33] LABS: Albumin Globulin Ratio 0.9 (0.9-2); Alkaline Phosphatase 90 U/L (45-117); Bilirubin,Total 2.8 mg/dl (0.2-1); Total Protein 7.6 gm/dl (6.4-8.2)
[2021-02-28 20:53] LABS: Uric Acid 5.7 mg/dl (2.6-7.2)
[2021-02-28 20:58] LABS: INR 1.1 (0.9-1.1); Partial Thromboplastin Ratio 1.3; Partial Thromboplastin Time 33.7 Seconds (21.0-31.0); Prothrombin Time 11.4 Seconds (9.0-12.0)
--- NOTE | 2021-02-28 21:00 | Emergency Department Note ---
Impression & Plan Cellulitis of foot, right ED Provider Note NAME: HOLLY KILGORE AGE: 86 SEX: M : 1935 ARRIVES VIA: Walk-In INFORMANT: Patient, ED PROVIDER(S): Chad Snow DO CHIEF COMPLAINT: Leg swelling HPI: The patient is an 86-year-old female who presented to the emergency department for an evaluation of leg swelling. The patient has had ongoing symptoms over the course the last 3 months. Patient was seen by the primary care physician multiple times. This was felt to be secondary to gout. The patient's been on multiple courses of gout medication including steroids. There is been no reported trauma. There is been no reported abdominal pain. The patient reports no chest pain or difficulty breathing. The patient states that that he started noticing fever symptoms over the last 48 hours this is why he presented to the emergency department. He has been compliant with all of his usual outpatient medications including blood thinners. ROS: See above HPI for pertinent positives & negatives. A total of 10 systems reviewed and were otherwise negative. PAST MEDICAL HISTORY: See Below PAST SURGICAL HISTORY: See Below FAMILY HISTORY: See Below SOCIAL HISTORY: See Below HOME MEDICATIONS: See Below ALLERGIES: See Below VITALS: See Below PHYSICAL EXAMINATION: GENERAL: Patient is awake alert in no acute distress patient is resting comfortably and showing no signs of anxiety EYES: The conjunctivae are clear. The pupils are round and reactive. EARS, NOSE, MOUTH AND THROAT: The nose is without any evidence of any deformity. Mucous membranes are moist. Tongue is midline. NECK: The neck is nontender and supple. RESPIRATORY: Normal respiratory effort is noted there is no evidence of wheezing rhonchi or rales CARDIOVASCULAR: Ectopy was noted to auscultation. There was no definite murmur. GASTROINTESTINAL: The abdomen is soft. Abdomen is nontender. MUSCULOSKELETAL/EXTREMITIES: There is no evidence of gross deformity full range of motion is noted in the hips and shoulders. SKIN: Bilateral pedal edema was noted. Skin was warm and dry. There was pain over the right first metatarsophalangeal joint. NEUROLOGIC: Patient is awake alert and oriented x3 MEDICAL DECISION MAKING: The patient is an 86-year-old male who presented to the emergency department for an evaluation of pain and swelling in his right foot. Symptoms have been elisabet oing for the last few months however they are worsening over the course the last few days. The patient was noted to have a fever as well as much more significant pain to the right foot. The patient was diagnosed with gout. The area of pain could be consistent with gout however the patient's physical exam and reported fever would make me concerned for cellulitis. The patient was started on IV antibiotics in the emergency department. He was reevaluated multiple times. I discussed the patient's condition with the on-call [facility] hospitalist. They have agreed to evaluate the patient in the emergency department for further management and disposition. Triage Nursing notes reviewed. Prior medical records reviewed Vital Signs: reviewed and remarkable for no significant abnormalities Differential diagnosis: Cellulitis, abscess, MRSA infection, DVT, necrotizing fasciitis, dermatitis, drug eruption, allergic reaction, as well as other pathologies. ER treatment provided: See below Diagnostics interpreted by me: ECG: none Laboratory studies: As stated above and show below. Imaging studies: See below Consultation(s): I discussed this case with the on-call [facility] hospitalist, Dr. Gaffney. She is agreed to evaluate the patient in the emergency department. Past Med/Surg History Medical History Acute systolic CHF (congestive heart failure), NYHA class 3 Bacteremia Bladder tumor BPH (benign prostatic hyperplasia) Cancer BLADDER CANCER CURRENTLY Choledocholithiasis Complicated with acute cholecystitis and cholangitis. Hospitalized 08/08 with symptoms. Now s/p cholecystectomy. Depression Depression Epididymo-orchitis, acute Eustachian tube dysfunction Gastrointestinal symptoms Gout HX Gout flare Gross hematuria History of sepsis 07/2018-- 07/22 CHOLANGITIS/ACUTE CHOLECYSTITIS S/P ABX /CHOLECYSTECTOMY/ERCP+STENT (STENT SUBSEQUENTLY REMOVED) Hypoxia On anticoagulant therapy ELIQUIS DAILY Restless leg syndrome Managed with ropinirole 0.5mg QHS. Sepsis Surgical History Fusion of spine CERVICAL H/O colonoscopy H/O elbow surgery History of cardioversion 2014 History of cataract surgery R/L History of neck surgery Previous back surgery CERVICAL/THORACIC SPINAL FUSION S/P bladder tumor excision with fulguration TURBT 10/26/18 LMA #5, no issues noted on record. S/P cholecystectomy 08/17/2018= MAC 3, Grade 1 view, 7.5 ETT S/P cholecystectomy S/P ERCP Status post cervical spinal fusion Family History Mother Myocardial infarction Heart disease Brother Prostate cancer Dementia Uncle Prostate cancer Grandfather (Paternal) Diabetes Father Heart disease Denies family history of Ovarian cancer Breast cancer Colorectal cancer Social History Smoking Status: Never smoker Tobacco Type: Cigarettes Second Hand Exposure: No; Hx Alcohol Use: Yes Alcohol type: beer Alcohol Intake Frequency Comment: 2 beers daily Hx Substance Use: No Preferred Language: Hungarian Communication Ability: Effective Visual Impairment: No Limitations Hearing Ability: Normal Gore Stitcher Required: No Beliefs That Will Affect Care: None marital status: Current Living Situation: Spouse current occupational status: retired How many Children do You have: 2 Feels Safe at Home: Yes Childhood Exposure to Second-Hand Smoke: No caffeine: Yes during the past year weight has: remained stable Dental Care, Regularly: No Physical Activity Frequency: Does not Exercise Seatbelt Use: always Sunscreen Use: Yes Assistive Devices: None Allergies Allergies Allergy/AdvReac Type Severity Reaction Status Date / Time blue dye Allergy Mild UNKNOWN Verified 02/28/21 21:30 celecoxib Allergy Mild UNKNOWN Verified 02/28/21 21:30 duloxetine Allergy Mild UNKNOWN Verified 02/28/21 21:30 nortriptyline AdvReac Intermediate CONFUSION Verified 02/28/21 21:30 oxycodone AdvReac Intermediate SEVERE Verified 02/28/21 21:30 WITHDRAWL- shakes Home Meds Home Medications Medication Instructions Recorded Confirmed allopurinol 100 mg tablet 50 mg PO QAM 02/28/21 02/28/21 Previous Rx's Medication Instructions Recorded gabapentin 600 mg tablet 600 mg PO BID #180 tab 10/13/20 apixaban 5 mg tablet (Eliquis) 5 mg PO BID #180 tab 10/22/20 furosemide 20 mg tablet 20 mg PO QAM PRN #90 tab 10/22/20 amoxicillin 875 mg-potassium 1 tab PO BID #20 tab 02/25/21 clavulanate 125 mg tablet (Augmentin) tramadol 50 mg tablet 25 mg PO BID PRN #30 tab 02/25/21 Results & Data (ED) Vital Signs Vital Signs - 24 hr 02/28/21 19:09 02/28/21 20:17 02/28/21 23:07 Temperature 36.3 C L Temperature Source Temporal Artery Scan Pulse Rate 101 H Pulse Rate [Radial] 100 H 88 Respiratory Rate 20 18 18 Blood Pressure 162/66 H Blood Pressure [Left Arm] 173/88 H 141/79 H Blood Pressure Mean 98 Blood Pressure Mean [Left Arm] 116 99 Pulse Oximetry 96 97 94 Oxygen Delivery Method Room Air Room Air Room Air Sepsis Recent Fever Within 48 Hours Yes Sepsis New/Unexplained Change in Mental Status N/A Sepsis Action Taken by Nursing No Action Required 02/28/21 23:57 Temperature Temperature Source Pulse Rate Pulse Rate [Radial] 91 H Respiratory Rate 18 Blood Pressure Blood Pressure [Left Arm] 137/84 Blood Pressure Mean Blood Pressure Mean [Left Arm] 101 Pulse Oximetry 94 Oxygen Delivery Method Room Air Sepsis Recent Fever Within 48 Hours Sepsis New/Unexplained Change in Mental Status Sepsis Action Taken by [facility] Medications Current Medication List: was personally reviewed by me Laboratory Data Attestation: I reviewed the patient's lab results. Result diagrams: 02/28/21 19:33 02/28/21 19:33 Lab Results 02/28/21 02/28/21 02/28/21 Range/Units 19:12 19:33 19:33 WBC 11.47 H (4.8-10.8) K/uL RBC 4.19 L (4.7-6.1) M/uL Hgb 14.1 (14.0-18.0) g/dL Hct 42.2 (42-52) % MCV 100.7 H (80-100) fL MCH 33.7 (25-34) pg MCHC 33.4 (32-36) g/dL RDW Std Deviation 48.4 H (36.4-46.3) fL RDW Coeff of Monie 13.1 (11.5-14.5) % Plt Count 240 (130-400) K/uL MPV 9.6 (7.4-10.4) fL Immature Gran % (Auto) 0.1 % Neut % (Auto) 75.4 % Lymph % (Auto) 6.5 % Dubois % (Auto) 17.9 % Eos % (Auto) 0.0 % Baso % (Auto) 0.1 % Neut # (Auto) 8.65 H (1.4-6.5) K/uL Lymph # (Auto) 0.75 L (1.2-3.4) K/uL Dubois # (Auto) 2.05 H (0.11-0.59) K/uL Eos # (Auto) 0.00 (0-0.5) K/uL Baso # (Auto) 0.01 (0-0.2) K/uL Immature Gran # (Auto) 0.01 (0.00-0.02) K/uL ESR (0-20) mm/hr PT 11.4 (9.0-12.0) Seconds INR 1.1 (0.9-1.1) APTT 33.7 H (21.0-31.0) Seconds PTT Ratio 1.3 Sodium 136 (136-145) mmol/L Potassium 4.3 (3.5-5.1) mmol/L Chloride 99 (98-107) mmol/L Carbon Dioxide 32 (21-32) mmol/L Anion Gap 5.0 (3-11) BUN 13 (7-18) mg/dl Creatinine 1.11 (0.6-1.4) mg/dl Est Cr Clr Drug Dosing Not Reportable Est GFR ( Amer) 69.3 ml/min Est GFR (Non-Af Amer) 59.8 ml/min BUN/Creatinine Ratio 12.1 (10-20) Glucose 154 H (70-99) mg/dl POC Lactic Acid Darwin (0.90-1.70) mmol/L Uric Acid 5.7 (2.6-7.2) mg/dl Calcium 8.7 (8.5-10.1) mg/dl Total Bilirubin 2.8 H (0.2-1) mg/dl AST 27 (15-37) U/L ALT 27 (12-78) U/L Alkaline Phosphatase 90 (45-117) U/L C-Reactive Protein 15.80 H (0-0.29) mg/dl Total Protein 7.6 (6.4-8.2) gm/dl Albumin 3.6 (3.4-5.0) gm/dl Globulin 4.0 (2.5-4.0) gm/dl Albumin/Globulin Ratio 0.9 (0.9-2) Procalcitonin (0-0.5) ng/ml COVID-19 Eval Order SARS-CoV-2 (PCR) (Negative) 02/28/21 02/28/21 02/28/21 Range/Units 19:33 19:54 21:23 WBC (4.8-10.8) K/uL RBC (4.7-6.1) M/uL Hgb (14.0-18.0) g/dL Hct (42-52) % MCV (80-100) fL MCH (25-34) pg MCHC (32-36) g/dL RDW Std Deviation (36.4-46.3) fL RDW Coeff of Monie (11.5-14.5) % Plt Count (130-400) K/uL MPV (7.4-10.4) fL Immature Gran % (Auto) % Neut % (Auto) % Lymph % (Auto) % Dubois % (Auto) % Eos % (Auto) % Baso % (Auto) % Neut # (Auto) (1.4-6.5) K/uL Lymph # (Auto) (1.2-3.4) K/uL Dubois # (Auto) (0.11-0.59) K/uL Eos # (Auto) (0-0.5) K/uL Baso # (Auto) (0-0.2) K/uL Immature Gran # (Auto) (0.00-0.02) K/uL ESR 59 H (0-20) mm/hr PT (9.0-12.0) Seconds INR (0.9-1.1) APTT (21.0-31.0) Seconds PTT Ratio Sodium (136-145) mmol/L Potassium (3.5-5.1) mmol/L Chloride (98-107) mmol/L Carbon Dioxide (21-32) mmol/L Anion Gap (3-11) BUN (7-18) mg/dl Creatinine (0.6-1.4) mg/dl Est Cr Clr Drug Dosing Est GFR ( Amer) ml/min Est GFR (Non-Af Amer) ml/min BUN/Creatinine Ratio (10-20) Glucose (70-99) mg/dl POC Lactic Acid Darwin 1.69 (0.90-1.70) mmol/L Uric Acid (2.6-7.2) mg/dl Calcium (8.5-10.1) mg/dl Total Bilirubin (0.2-1) mg/dl AST (15-37) U/L ALT (12-78) U/L Alkaline Phosphatase (45-117) U/L C-Reactive Protein (0-0.29) mg/dl Total Protein (6.4-8.2) gm/dl Albumin (3.4-5.0) gm/dl Globulin (2.5-4.0) gm/dl Albumin/Globulin Ratio (0.9-2) Procalcitonin 0.05 (0-0.5) ng/ml COVID-19 Eval Order SARS-CoV-2 (PCR) (Negative) 02/28/21 02/28/21 Range/Units 22:03 22:03 WBC (4.8-10.8) K/uL RBC (4.7-6.1) M/uL Hgb (14.0-18.0) g/dL Hct (42-52) % MCV (80-100) fL MCH (25-34) pg MCHC (32-36) g/dL RDW Std Deviation (36.4-46.3) fL RDW Coeff of Monie (11.5-14.5) % Plt Count (130-400) K/uL MPV (7.4-10.4) fL Immature Gran % (Auto) % Neut % (Auto) % Lymph % (Auto) % Dubois % (Auto) % Eos % (Auto) % Baso % (Auto) % Neut # (Auto) (1.4-6.5) K/uL Lymph # (Auto) (1.2-3.4) K/uL Dubois # (Auto) (0.11-0.59) K/uL Eos # (Auto) (0-0.5) K/uL Baso # (Auto) (0-0.2) K/uL Immature Gran # (Auto) (0.00-0.02) K/uL ESR (0-20) mm/hr PT (9.0-12.0) Seconds INR (0.9-1.1) APTT (21.0-31.0) Seconds PTT Ratio Sodium (136-145) mmol/L Potassium (3.5-5.1) mmol/L Chloride (98-107) mmol/L Carbon Dioxide (21-32) mmol/L Anion Gap (3-11) BUN (7-18) mg/dl Creatinine (0.6-1.4) mg/dl Est Cr Clr Drug Dosing Est GFR ( Amer) ml/min Est GFR (Non-Af Amer) ml/min BUN/Creatinine Ratio (10-20) Glucose (70-99) mg/dl POC Lactic Acid Darwin (0.90-1.70) mmol/L Uric Acid (2.6-7.2) mg/dl Calcium (8.5-10.1) mg/dl Total Bilirubin (0.2-1) mg/dl AST (15-37) U/L ALT (12-78) U/L Alkaline Phosphatase (45-117) U/L C-Reactive Protein (0-0.29) mg/dl Total Protein (6.4-8.2) gm/dl Albumin (3.4-5.0) gm/dl Globulin (2.5-4.0) gm/dl Albumin/Globulin Ratio (0.9-2) Procalcitonin (0-0.5) ng/ml COVID-19 Eval Order Covid19 at [facility] SARS-CoV-2 (PCR) NEGATIVE (Negative) Administered Medications Vancomycin HCl 2,000 mg/ (Sodium Chloride) 540 mls @ 200 mls/hr IV NOW ONE Stop: 03/01/21 00:18 Last Admin: 02/28/21 23:06 Dose: 200 mls/hr Documented by: [id number] Discontinued Medications Ceftriaxone Sodium (Rocephin) 1,000 mg in 50 mls @ 100 mls/hr IV NOW STA Stop: 02/28/21 22:06 Last Infusion: 02/28/21 22:57 Dose: 0 mls/hr Documented by: [id number] Admin: 02/28/21 22:02 Dose: 100 mls/hr Documented by: [id number] Imaging Data My Impression: 1 view chest x-ray was obtained in the emergency department. My interpretation is elevation of the left hemidiaphragm. Previous thoracic spine surgery was noted. There is no definite infiltrate. Heart size is enlarged. Poor inspiratory effort was noted. X-ray of the right foot was obtained in the emergency department. My interpretation is soft tissue swelling as well as generalized haziness at the first metatarsophalangeal joint. There was no definite free air noted. Degenerative changes were noted at the right first metatarsophalangeal joint. This could be consistent with the patient's known history of gout. Discharge Plan Visit Data Chief Complaint: Leg Injury/Pain Stated Complaint: FEVER, SWELLING IN LEGS, REDNESS ED Provider: Chad Snow Discharge Problem: Cellulitis of foot, right Patient Disposition: Being Evaluated by Hospitalist Condition: Good Forms Stand Alone Forms: [facility] Prescriptions Prescriptions: No Action amoxicillin-pot clavulanate [Augmentin] 875-125 mg tablet 1 tab PO BID Qty: 20 RF: 0 tramadol 50 mg tablet 25 mg PO BID PRN (Reason: pain) Qty: 30 RF: 1 gabapentin 600 mg tablet 600 mg PO BID Qty: 180 RF: 3 Eliquis 5 mg tablet 5 mg PO BID Qty: 180 RF: 3 furosemide 20 mg tablet 20 mg PO QAM PRN (Reason: edema) Qty: 90 RF: 3 allopurinol 100 mg tablet 50 mg PO QAM RF: 0 Referrals Referrals: Brenden Cruz MD [Primary Care Provider] -
[2021-02-28] MEDS ORDERED: cefTRIAXone SODIUM 1,000 MG/50 ML BAG IV STA (21:37)
[2021-02-28] MEDS ORDERED: VANCOMYCIN CONSULT ACTIVE PRN (21:37)
[2021-02-28] MEDS ORDERED: VANCOMYCIN HCL 2,000 MG in SODIUM CHLORIDE 0.9% 500 ML IV ONE (21:37)
--- NOTE | 2021-02-28 22:49 | History & Physical Report ---
Date of Service February 28, 2021 Assessment & Plan (1) Right foot pain: Plan: 86 yo M w/ pMHx. of OA, Gout, RLS, Reflux, A. fib (on Eliquis), HTN, prior cerebellar stroke, OCTAVIO (not on CPAP), presents with chronic progressively right toe pain and new onset fever concerning for septic arthritis vs. acute flair of gout XR foot with: right MCP erosions and worsening appearance from prior imaging on 02/06 WBC slightly elevated at 11, CRP elevated at 15.8, uric acid nl. at 5.7 - follow up XR read from radiology - ordered MRI foot w/o contrast to further evaluate septic arthritis or osteomyelitis - continue Allopurinol - continue home Lasix dose for swelling - blood cultures ordered - started on Vancomycin and Ceftriaxone for empiric coverage - consulted orthopedics for consideration of aspiration - continue to follow CBC Elevated T. bili - recheck CMP w/ AM labs if up-trending and/or clinically worsening consider cholangitis Atrial fibrillation, [id number] 3 for age and HTN - admitted to med/surg tele - continue Eliquis RLS - continue Gabapentin Code: full Diet: NPO DVT: continue home Eliquis (2) Gout: (3) Restless leg syndrome: (4) Gastroesophageal reflux disease: (5) Depression: (6) Mild obstructive sleep apnea: (7) Hypertension: History of Present Illness Chief Complaint: Toe pain Primary Care Provider: Brenden Randall MD Douglas Carpio is here for 3 months of toe pain and new onset of fever to 101.7 at home. He was initially seen in the ER in December for bilateral foot s welling that started in November and was attributed to Gout at that time. He has been treated for Gout since this time and has noted to have progressive worsening despite treatment with steroids and colchicine. He was seen and started on Augmentin on Tuesday by his PCP. He denies any tick bites or preceding trauma to the area. Since his ER visit in December he stopped drinking alcohol, previously drinking 2 beers/night. He notes that he is feeling increasingly weak and has had trouble ambulating due to the pain in his foot. He sees Dr. Mcpherson with cardiology for atrial fibrillation (on Eliquis) with his most recent ECHO on 11/14/2019 with normal function EF 55-60% and moderate biatrial dilation. would like to be updated with any changes in the plan @ # [phone] Al lergies Allergy/AdvReac Type Severity Reaction Status Date / Time blue dye Allergy Mild UNKNOWN Verified 02/28/21 21:30 celecoxib Allergy Mild UNKNOWN Verified 02/28/21 21:30 duloxetine Allergy Mild UNKNOWN Verified 02/28/21 21:30 nortriptyline AdvReac Intermediate CONFUSION Verified 02/28/21 21:30 oxycodone AdvReac Intermediate SEVERE Verified 02/28/21 21:30 WITHDRAWL- shakes Home Medications Medication Instructions Recorded Confirmed Type gabapentin 600 mg tablet 600 mg PO BID #180 tab 10/13/20 02/28/21 Rx apixaban 5 mg tablet (Eliquis) 5 mg PO BID #180 tab 10/22/20 02/28/21 Rx furosemide 20 mg tablet 20 mg PO QAM PRN #90 tab 10/22/20 02/28/21 Rx amoxicillin 875 mg-potassium 1 tab PO BID #20 tab 02/25/21 02/28/21 Rx clavulanate 125 mg tablet (Augmentin) tramadol 50 mg tablet 25 mg PO BID PRN #30 tab 02/25/21 02/28/21 Rx allopurinol 100 mg tablet 50 mg PO QAM 02/28/21 02/28/21 History Past Med/Surg History Medical History Acute systolic CHF (congestive heart failure), NYHA class 3 Bacteremia Bladder tumor BPH (benign prostatic hyperplasia) Cancer BLADDER CANCER CURRENTLY Choledocholithiasis Complicated with acute cholecystitis and cholangitis. Hospitalized 08/08 with symptoms. Now s/p cholecystectomy. Depression Depression Epididymo-orchitis, acute Eustachian tube dysfunction Gastrointestinal symptoms Gout HX Gout flare Gross hematuria History of sepsis 07/2018-- 07/22 CHOLANGITIS/ACUTE CHOLECYSTITIS S/P ABX/CHOLECYSTECTOMY/ERCP+STENT (STENT SUBSEQUENTLY REMOVED) Hypoxia On anticoagulant therapy ELIQUIS DAILY Restless leg syndrome Managed with ropinirole 0.5mg QHS. Sepsis Surgical History Fusion of spine CERVICAL H/O colonoscopy H/O elbow surgery History of cardioversion 2014 History of cataract surgery R/L History of neck surgery Previous back surgery CERVICAL/THORACIC SPINAL FUSION S/P bladder tumor excision with fulguration TURBT 10/26/18 LMA #5, no issues noted on record. S/P cholecystectomy 08/17/2018= MAC 3, Grade 1 view, 7.5 ETT S/P cholecystectomy S/P ERCP Status post cervical spinal fusion Family History Mother Myocardial infarction Heart disease Brother Prostate cancer Dementia Uncle Prostate cancer Grandfather (Paternal) Diabetes Father Heart disease Denies family history of Ovarian cancer Breast cancer Colorectal cancer Social History (Updated 03/01/21 @ 05:02 by Mike Stein MD) Smoking Status: Never smoker Tobacco Type: Cigarettes Second Hand Exposure: No; Hx Alcohol Use: No Hx Substance Use: No Preferred Language: [place]er Communication Ability: Effective Visual Impairment: No Limitations Hearing Ability: Normal Power Plant 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 Required: No Beliefs That Will Affect Care: Anabaptist Anabaptist Beliefs: anabaptist marital status: Current Living Situation: Spouse Current Living Situation Comment: at home with current occupational status: retired How many Children do You have: 2 Feels Safe at Home: Yes Safety Concerns: Feels Safe At This Time Childhood Exposure to Second-Hand Smoke: No caffeine: Yes during the past year weight has: remained stable Dental Care, Regularly: No Physical Activity Frequency: Does not Exercise Seatbelt Use: always Sunscreen Use: Yes Assistive Devices: Cane, Denture - Upper and Denture - Lower Review of Systems Review of Systems: Constitutional: denies nausea, vomiting, diaphoresis, night sweats, weight loss admits fevers, chills, fatigue, generalized weakness head: denies trauma, LOC, headache, vision changes Neuro: denies slurring of speech, focal weakness admits decreased sensation, num bness, tingling ENT: denies rhinorrhea, stuffiness, sneezing, sore throat Cardiac: denies chest pain, palpitations Pulm.: denies cough, shortness of breath, hemoptysis, sputum production GI: denies diarrhea, constipation, blood in stool, changes in bowel habits Physical Exam Constitutional: WD/WN, vitals as above Eyes: PERRL, conjunctivae normal, anicteric sclerae ENMT: external ear and nose normal, oropharynx normal Neck: normal visual inspection Respiratory: normal respiratory effort, lungs clear to auscultation Cardiovascular: Rate/Rhythm: + irregularly irregular Extremities: + edema (non pitting edema bilaterally ) Gastrointestinal (Abdomen): normal bowel sounds, soft, nontender, no hepatosplenomegaly Musculoskeletal: Right foot - right great toe with erythema, warmth, and tenderness at the MCP joint on the plantar and dorsal aspect - no fluctuance, no drainage - pulses intact to PT and DP - sensation intact Neurologic: not confused Speech / Cognition: normal speech Psychiatric: A+Ox3, euthymic affect Results & Data Results & Data ([facility]) Vital Signs (Past 12 Hours) Vital Signs Temp Pulse Pulse Resp BP BP Pulse Ox 02/28/21 20:17 100 H 18 173/88 H 97 02/28/21 19:09 36.3 C L 101 H 20 162/66 H 96 CBC Results Results Complete Blood Count Results: RBC 3.89 M/uL (4.7-6.1) L 03/01/21 WBC 10.06 K/uL (4.8-10.8) 03/01/21 Hgb 12.8 g/dL (14.0-18.0) L 03/01/21 Hct 38.5 % (42-52) L 03/01/21 Plt Count 206 K/uL (130-400) 03/01/21 Chemistry (BMP) Results BMP Results: Sodium 138 mmol/L (136-145) 03/01/21 Potassium 4.2 mmol/L (3.5-5.1) 03/01/21 Chloride 100 mmol/L (98-107) 03/01/21 BUN 10 mg/dl (7-18) 03/01/21 Creatinine 0.94 mg/dl (0.6-1.4) 03/01/21 Glucose 119 mg/dl (70-99) H 03/01/21 Supervising Physician Co-Signing Physician Notes Seen and examined, chart reviewed, case discussed with Dr. De Leon's and I agree with his assessment and plan as documented above. In brief, patient is an 86-year-old male with history of gout presenting with progressive right toe and foot pain and new onset fever. Patient reports ongoing discomfort of the foot since November. He has been treated with steroids and colchicine with no improvement. Also recently started on Augmentin for concern for infection. Patient with fever of 101.7 prior to arrival On physical exam he is nontoxic in appearance HEENTnormocephalic/atraumatic, pupils equal round and reactive to light, moist mucous membranes, neck supple Heart+ S1, S2, irregularly irregular Lungsclear to auscultation Abdomen + bowel sounds, soft, nontender, nondistended Extremitiesright foot with warmth, swelling and tenderness of the right great toe at the MCP joint as well as redness extending to the plantar and dorsal aspect of the foot with tenderness to palpation of midfoot on the plantar side. No drainage. No purulence. Assessment/[id number] male presenting with persistent redness, pain and swelling of the right lower extremity ongoing since November. New onset fever. Concern for gout flare versus septic arthritis. Patient has been treated for gout in the past with steroids and colchicine which did not improve his symptoms. He is afebrile and nontoxic in appearance. Will start vancomycin empirically, consult orthopedics for possible joint aspiration to help guide further therapies. Remainder of plan as above Resident Activity Tracking Resident Involvement: Resident Care Provided Care Provided: [facility]
[2021-03-01] MEDS ORDERED: ACETAMINOPHEN 325 MG TAB PO PRN (00:48)
[2021-03-01] MEDS ORDERED: POLYETHYLENE (MIRALAX) 17 GM PACK PO PRN (00:48)
[2021-03-01] MEDS ORDERED: FUROSEMIDE 20 MG TAB PO PRN (00:48)
[2021-03-01] MEDS: traMADol HCL 50 MG TABLET PO PRN ×2 (04:03→21:49)
[2021-03-01 06:15] LABS: Basophils # (auto) 0.01 K/uL (0-0.2); Basophils % (auto) 0.1 %; Eosinophils # (auto) 0.02 K/uL (0-0.5); Eosinophils % (auto) 0.2 %; Hematocrit (blood only) 38.5 % (42-52); Hemoglobin 12.8 g/dL (14.0-18.0); Immature Granulocytes # (auto) 0.02 K/uL (0.00-0.02); Immature Granulocytes % (auto) 0.2 %; Lymphocytes # (auto) 0.99 K/uL (1.2-3.4); Lymphocytes % (auto) 9.8 %; Mean Corpuscular Hemoglobin 32.9 pg (25-34); Mean Corpuscular Hgb Conc 33.2 g/dL (32-36); Mean Platelet Volume 9.3 fL (7.4-10.4); Monocytes % (auto) 17.9 %; Neutrophils # (auto) 7.22 K/uL (1.4-6.5); Neutrophils % (auto) 71.8 %; Platelet Count 206 K/uL (130-400); RDW Coefficient of Variation 13.1 % (11.5-14.5); RDW Standard Deviation 47.4 fL (36.4-46.3); Red Blood Count 3.89 M/uL (4.7-6.1); White Blood Count 10.06 K/uL (4.8-10.8)
[2021-03-01 06:49] LABS: Albumin Level 3.1 gm/dl (3.4-5.0); BUN Creatinine Ratio 11.2 (10-20); Calcium 8.4 mg/dl (8.5-10.1); Creatinine Clr Calc Pharmacy 64.9 ml/min; Est GFR (African American) 84.7 ml/min; Est GFR (Non-African American) 73.1 ml/min; Potassium 4.2 mmol/L (3.5-5.1)
[2021-03-01 06:52] LABS: Albumin Globulin Ratio 0.8 (0.9-2); Bilirubin,Total 3.1 mg/dl (0.2-1); Globulin 3.7 gm/dl (2.5-4.0); Total Protein 6.8 gm/dl (6.4-8.2)
[2021-03-01] MEDS: VANCOMYCIN HCL 1,000 MG in SODIUM CHLORIDE 0.9% 250 ML IV SCH ×2 (07:32→20:16)
[2021-03-01] MEDS: allopurinoL 100 MG TAB PO SCH (07:32)
[2021-03-01] MEDS: GABAPENTIN 600 MG TAB PO SCH ×2 (07:34→20:20)
[2021-03-01] MEDS ORDERED: LIDOCAINE 1% LOCAL 20 ML VIAL INFIL ONE (08:22)
--- NOTE | 2021-03-01 08:32 | Pharmacy Report ---
Pharmacy Vanc AUC Short Note - Date of Service March 01, 2021 - Assessment & Plan Assessment 86 year old M receiving IV vancomycin for treatment of possible bone/joint infection vs. gout flair. Blood cultures pending. MRI foot pending. - No leukocytosis, PCT 0.05, CRP 15.8, afebrile Day # 2 of antimicrobial therapy. Plan Vancomycin * AUC/DARCY is the preferred PK/PD target for vancomycin * AUC guided dosing is effective and associated with decreased risk of ne phrotoxicity compared to traditional trough targets * Vanc 2gm IV X 1 LD * Continue dose of 1000mg (~11mg/kg) IV every 12 hours * Trough or random level ordered for: 9/13 AM Pharmacy will continue to follow and will adjust dose/frequency as necessary. Thank you.
--- NOTE | 2021-03-01 08:57 | XRay Report ---
XR ankle LT min 3V routine, XR foot LT min 3V routine HISTORY: 86 years-old Male left ankle effusion acute pain of the left foot and ankle with reported j oint effusion COMPARISON: None TECHNIQUE: 3 views of the left foot and 3 views of the left ankle FINDINGS: ANKLE: Moderate circumferential soft tissue swelling with suggested joint effusion. No acute fracture, dislo cation or osteochondral defect identified. No osseous erosions. Moderate tibiotalar osteoarthritis. S purring of the calcaneus. Arterial calcifications. FOOT: Demineralized appearance of the bones. Multifocal osteoarthritis, mild to moderate within the first M TP joint. No acute fracture, dislocation or osseous erosion. IMPRESSION: 1. No acute fracture or dislocation of the left foot or ankle. 2. Moderate soft tissue swelling of the ankle with small joint effusion. 3. Multifocal osteoarthritis. ACT 112: Negative or not required by law. The above report was generated using voice recognition software. It may contain grammatical, syntax o r spelling errors. Electronically signed by: Sai Hardy M.D. 03/01/2021 8:55 AM
[2021-03-01] MEDS ORDERED: APIXABAN 5 MG TABLET PO SCH (09:00)
--- NOTE | 2021-03-01 09:02 | XRay Report ---
XR foot RT min 3V routine HISTORY: 86 years-old Male pain acute right foot pain with fever COMPARISON: Right foot radiographs 02/06/2021 TECHNIQUE: 3 views of the right foot FINDINGS: Progressively worsened soft tissue swelling surrounds the first MTP joint. Subcortical cystic changes of the first MTP joint with marginal erosions and overhanging edges redemonstrated. Moderate to cricket re associated joint space narrowing. Arterial calcifications. No acute fracture or dislocation. Spurr ing of the calcaneus. IMPRESSION: Progressively worsened soft tissue swelling surrounds the first MTP joint. Severe joint s pace narrowing of the first MTP joint with marginal erosions and lateral overhanging edges redemonstr ated suggestive of gout arthropathy. Correlation with clinical exam findings and patient history vincent mmended to exclude alternative causes of erosive arthropathy. ACT 112: Negative or not required by law. The above report was generated using voice recognition software. It may contain grammatical, syntax o r spelling errors. Electronically signed by: Sai Hardy M.D. 03/01/2021 9:01 AM
--- NOTE | 2021-03-01 09:46 | XRay Report ---
XR chest 1V portable HISTORY: Fever COMPARISON: Chest 01/03/2021. FINDINGS: There are low lung volumes with mild elevation of the left hemidiaphragm, unchanged. No pne umothorax. No pleural effusions. Bibasilar linear densities likely represent subsegmental atelectasis . The heart remains borderline enlarged. There are thoracic spinal fusion rods again noted. No new fo hayden lung consolidations to suggest pneumonia. No evidence for pulmonary edema. IMPRESSION: No significant change compared to the prior study. No acute process. ACT 112: Negative or not required by law. Electronically signed by: Jose Ansari M.D. 03/01/2021 9:45 AM
[2021-03-01 11:11] LABS: Appearance Synovial Fluid CLOUDY; Color Synovial Fluid YELLOW; Mononuclear WBC Synovial 7.6 %; Polynuclear WBC Synovial 92.4 %; RBC Synovial Fluid (A) 3000 /uL; WBC Synovial Fluid (A) 50249 /ul (0-200)
[2021-03-01 11:12] LABS: Source Synovial Fluid OTHER
--- NOTE | 2021-03-01 11:28 | Consultation Report ---
DATE OF CONSULTATION: 03/01/2021. CHIEF COMPLAINT: Bilateral foot pain, left worse than right. HISTORY OF PRESENT ILLNESS: The patient is an 86-year-old male with a medical history significant for gout, who has had issues with his bilateral feet since November of this year. He has followed with his primary care physician who has treated him for gout with oral steroids and colchicine. He is not sure whether he has been on allopurinol, but it is on his home medication list. He is trying to change his diet up since November. He does not feel like a gout is improved that much with the above measures. However, earlier this week on Tuesday, he started having pain in his left ankle. He has had increasing difficulty with weightbearing since that time. Denies any bug bites or skin lesions. Yesterday started getting some fevers. He presented to the emergency room where x-rays were obtained of his right foot. Inflammatory labs were elevated. He was admitted to Internal Medicine and Orthopedics was consulted for consideration of aspiration and septic arthritis. PAST MEDICAL HISTORY: Gout, history of sepsis secondary to acute cholecystitis, depression, BPH, bladder cancer, on anticoagulant therapy Eliquis, systolic congestive heart failure. PAST SURGICAL HISTORY: Cervical spine surgery, elbow surgery, history of cardioversion, cataract surgery, status post bladder tumor excision, cholecystectomy, ERCP. FAMILY HISTORY: Positive for diabetes, heart disease, prostate cancer. SOCIAL HISTORY: Denies tobacco. Lives with his . No illicits. PHYSICAL EXAMINATION: He is resting comfortably in bed in no acute distress. Mood and affect are appropriate. Bilateral foot and ankle exam reveals the patient to have an effusion in his left ankle. He is tender along the synovium including the medial gutter, anterior ankle joint line, the lateral gutter. He has pain with passive range of motion. Minimal redness, however. He has difficulty weightbearing when I tried to get him to stand at the bedside, particularly putting weight on the right foot. In his feet, he has mild tenderness over the MTP joints bilaterally with faint erythema. There is also some erythema in his 3rd and 4th toes on the left foot. He is able to wiggle his toes slightly. Only mild swelling over the MTP joints. No skin lesions. Results reviewed. X-rays done of his bilateral feet, 3 views are reviewed. These demonstrate degenerative changes at his 1st MTP joints bilaterally, right worse than left. Left ankle x-rays demonstrate vascular calcifications consistent with peripheral vascular disease as well as small anterior osteophytes of the distal tibia consistent with mild ankle arthritis. LABORATORY DATA: Show elevated white count on admission at 11.5, down to 10 this morning. His ESR was elevated at 59, yesterday on admission. CRP was elevated at 15.8. COVID test was negative. His hemoglobin is a 12.8 this morning. IMPRESSION: An 86-year-old male with multiple medical comorbidities and difficulty weightbearing, left worse than right. He has a left ankle effusion suspicious for gout versus infection. Longstanding arthritis in his bilateral metatarsophalangeal joints of his feet with a low suspicion for any infection in the metatarsophalangeal joints. PLAN: Discussed above impression with the patient. I recommend an aspiration of his left ankle joint to evaluate for gout versus infection. After verbal informed consent was obtained, the anterior aspect of the ankle was prepped with Betadine. Using sterile technique, I then placed a small wheal of approximately 1 mL of 1% lidocaine along the anteromedial aspect of the ankle. Once he was numb, an 18-gauge needle was inserted through the area of numb skin just medial to the tibialis anterior tendon and inserted into the anterior ankle joint. I aspirated 10 mL of yellow cloudy fluid. This was sent to the lab for cell count with differential, cultures and crystal analysis. Band-Aid was applied. The patient tolerated the procedure well. Plan will be to follow up with his Gram stain and cultures. I held his Eliquis in case he needs to go to the operating room for an ankle washout today. Continue IV antibiotics per Internal Medicine. Gout treatment per Internal Medicine. Please have the patient remain n.p.o. in case he needs to go to the operating room. Addendum: Gram stain showed no organisms, many polys. Crystal analysis showed positively refringent crystal consistent with gout. Therefore, his ankle effusion is not likely due to infection, but to gout. Plan will be to allow the patient to eat today. We will continue to follow his cultures. Do not believe there is enough fluid to aspirate the MTP joints at present. Could consider MRI of bilateral forefeet to rule out osteomyelitis. Gout treatment per internal medicine. Orthopedics will continue to follow. Please continue to hold Eliquis until synovial fluid cultures final negative. Job ID: [id number] [facility]
--- NOTE | 2021-03-01 13:09 | Hospitalist Progress Note ---
Date of Service March 01, 2021 Assessment & Plan (1) Right foot pain: Plan: 86 yo M w/ pMHx. of OA, Gout, RLS, Reflux, A. fib (on Eliquis), HTN, prior cerebellar stroke, OCTAVIO (not on CPAP), presents with chronic progressively right toe pain and new onset fever concerning for septic arthritis vs. acute flair of gout XR foot with: right MCP erosions and worsening appearance from prior imaging on 02/06 WBC slightly elevated at 11, CRP elevated at 15.8, uric acid nl. at 5.7 Bilateral Foot Pain/Swelling - XR RIGHT foot: soft tissue swelling surrounds the first MTP joint. Severe joint space narrowing of the first MTP joint with marginal erosions and lateral overhanging edges redemonstrated suggestive of gout arthropathy. - XR LEFT foot/ankle: No acute fracture or dislocation of the left foot or ankle. Moderate soft tissue swelling of the ankle with small joint effusion. Multifocal osteoarthritis. - MRI R Foot: Nonspecific joint space narrowing and small erosive changes, which could be related to an inflammatory arthropathy. A superimposed osteomyelitis or septic arthritis cannot be excluded on imaging alone. Nonspecific diffuse soft tissue edema, which could be related to a cellulitis or lymphedema. - MRI L Foot: Soft tissue edema, which could be due to lymphedema or cellulitis. Cartilage space narrowing with subchondral cystic change at the first MTP joint suggestive of moderate to severe osteoarthritis. A few small erosive changes which may represent a superimposed inflammatory arthropathy. No areas of suspicious marrow signal abnormality to suggest an osteomyelitis. - continue Allopurinol - continue home prn Lasix dose for swelling - blood cultures ordered and pending - Continue Vancomycin and Ceftriaxone for empiric coverage - Ortho consulted - performed left ankle aspiration today yielding cloudy yellow fluid - synovial fluid culture sent -- so far no organisms on gram stain, aero/brent culture pending - synovial fluid with 50K WBC, many needle-shaped birefringent crystals (con sistent with gout) - await bilateral foot MRI results to fully r/o osteo & septic arthritis - For now hold Eliquis pending above in case of need for surgical intervention - continue to follow CBC Elevated T. Bili - Has had history of this in the past - No other LFT abnormalities - Possible he may have Gilbert Syndrome Atrial fibrillation, [id number] 3 - admitted to med/surg tele - Eliquis on hold in case of need for surgical intervention as above RLS - continue Gabapentin Code: full Diet: Heart healthy, NPO at midnight DVT: home Eliquis held pending work-up for possibility of surgical intervention Dispo: Med/surg telemetry (2) Gout: (3) Restless leg syndrome: (4) Gastroesophageal reflux disease: (5) Depression: (6) Mild obstructive sleep apnea: (7) Hypertension: Admission and Anticipated Discharge Date Admission Date: February 28, 2021 Supervising Physician Co-Signing Physician Notes Patient seen and examined with PGY-2 Dr. Villa. Agree with history, exam findings, assessment and plan of care as outlined. In brief, Mr. Carpio is an 86 year old male with hx of gout and afib (AC with Eliquis) admitted with worsening right great toe pain. Had been on allopurinol and a follow up uric acid was <6. Previously had done a trial of colchicine without improvement in his pain. On admission, he had a slight leukocytosis (11), elevated CRP (15.8) and elevated ESR (59). Pro-calcitonin was negative. He is having pain in the great toe as well as the ankle. No fevers, chills. Cased discussed with ortho, Dr. Noland. Vital signs and nursing notes reviewed. Well appearing. Non-toxic appearing. Labs and imaging reviewed. 1. Bilateral great toe pain and ankle pain. ?OA vs gout vs osteomyelitis. Left ankle arthrocentesis done by ortho today. Gram stain is negative. Pending cultures. Crystal studiesneedle shaped birefringement cystals consistent with gout. Left foot MRI with subchondral cysts at the first MTP consistent with moderate to severe OA; few, small erosive changes consistent with superimposed inflammatory arthropathy; no signs of osteomyelitis. Right foot MRI with joint space narrowing and small erosive changes at the MTP; no joint effusion; per radiologycannot exclude superimposed osteomyelitis or septic arthritis based on imaging. Can continue to follow clinically. Discussed with ortho prior to MRI completion regarding usefulness of attempting an ultrasound-guided arthrocentesis of the MTP; however since there is not much of a joint effusion, will likely be pretty difficult to get any significant amount of helpful fluid. Continue with vancomycin. 2. Afib. Rate controlled. AC with Eliquisbeing held in the even that he needs to go to the OR. 3. Elevated T. Bili. Unclear etiology. Monitor for nowif worsening, can consider RUQ imaging. Dispo: pending clinical improvement/culture growth. Subjective Patient seen at bedside this AM. Reports significant pain in both great toes and does have swelling and pain around left ankle as well. He says he has tried colchicine in the past for gout, which hasn't helped. Was started on allopurinol in December, which he feels hasn't been helping much to avoid his pain either. He denies fever, chills, nausea, vomiting. Review of Systems Review of Systems: All systems reviewed & are unremarkable except as noted in Subjective Physical Exam Physical Exam: GENERAL: A&Ox3. NAD. HEENT: EOMI. Moist mucous membranes. CHEST/LUNGS: CTAB A/P. No crackles, wheezes, rales, rhonchi. HEART: RRR. No m/g/r. No carotid bruits. EXTREMITIES: Bilateral great toes with erythema and edema. Both very TTP. Left ankle very TTP with swelling and redness as well. SKIN: Warm and dry. No rashes or lesions. PSYCHIATRIC: Euthymic affect, no SI, no pressured speech, no hallucinations NEUROLOGIC: CN II-XII grossly intact. Results & Data Results & Data ([facility]) Vital Signs (Past 12 Hours) Vital Signs Temp Pulse Pulse Resp BP Pulse Ox 03/01/21 12:15 37.2 C 80 16 150/81 H 91 03/01/21 08:02 37.2 C 93 H 18 134/79 91 03/01/21 07:10 97 H 03/01/21 04:01 37.0 C 86 18 144/86 H 92 03/01/21 01:50 85 Resident Activity Tracking Resident Involvement: Resident Care Provided Care Provided: Adult Hospital Medicine
--- NOTE | 2021-03-01 15:01 | Magnetic Resonance Report ---
MR foot RT w/o con HISTORY: Right foot pain. concern for septic arthritis TECHNIQUE: Multiplanar multisequence MRI of the right forefoot was performed without contrast accordi ng to standard departmental protocol. COMPARISON STUDY: Right foot radiograph 03/01/2021. FINDINGS: No fracture or dislocation within the right forefoot. There is diffuse soft tissue edema se en throughout the right foot. This is most pronounced surrounding the first MTP joint. There is marro w edema centered at the first MTP joint with severe cartilage space narrowing and small erosive adame es at the base of the first proximal phalanx and head of the first metatarsal. T1 signal at the head of the first metatarsal is slightly diminished. No loculated fluid collections to suggest an abscess. No joint effusions identified. Small patchy areas of marrow edema within the base of the IMPRESSION: 1. Normal marrow signal at the first MTP joint with joint space narrowing and small erosive changes. No associated joint effusion or periarticular fluid collections. These findings are nonspecific and c ould be related to an inflammatory arthropathy. A superimposed osteomyelitis or septic arthritis felipe ot be excluded on the basis of imaging alone. 2. No fracture or dislocation within the right forefoot. 3. Diffuse soft tissue edema seen throughout the foot. This is nonspecific and could be related to a cellulitis or lymphedema. ACT 112: Negative or not required by law. Electronically signed by: Jose Ansari M.D. 03/01/2021 3:00 PM
--- NOTE | 2021-03-01 15:07 | Magnetic Resonance Report ---
MR foot LT w/o con HISTORY: Left toe swelling. Concerns for toe infection vs gout TECHNIQUE: Multiplanar multisequence MRI of the left forefoot was performed without contrast accordin g to standard departmental protocol. COMPARISON STUDY: Left foot radiograph 03/01/2021. FINDINGS: No fracture or dislocation within the left forefoot. Mild subchondral marrow edema, subchon dral cystic change, and severe cartilage space. The first MTP joint. There are associated marginal os teophytes and a few small marginal erosive changes. This favors osteoarthritis. A superimposed inflam matory arthropathy cannot be excluded. No areas of suspicious marrow signal abnormality to suggest an osteomyelitis. There is diffuse soft tissue edema seen throughout the foot. The flexor and extensor tendons are intact. No loculated fluid collections identified to suggest an abscess. No joint effusio ns. IMPRESSION: 1. Diffuse soft tissue edema seen throughout the foot. This could be due to a lymphedema or celluliti s. 2. No fracture or dislocation within the left forefoot. 3. Cartilage space narrowing with subchondral cystic change at the first MTP joint suggestive of mode rate to severe osteoarthritis. A few small erosive changes which may represent a superimposed inflamm atory arthropathy. No areas of suspicious marrow signal abnormality to suggest an osteomyelitis. ACT 112: Negative or not required by law. Electronically signed by: Jose Ansari M.D. 03/01/2021 3:05 PM
--- NOTE | 2021-03-02 05:41 | Hospitalist Progress Note ---
Date of Service March 02, 2021 Assessment & Plan (1) Right foot pain: Plan: 86 yo M w/ pMHx. of OA, Gout, RLS, Reflux, A. fib (on Eliquis), HTN, prior cerebellar stroke, OCTAVIO (not on CPAP), presents with chronic progressively right toe pain and new onset fever, likely secondary to a gout flare (initial concern for septic arthritis, now with reassuring). Gout Flare -- bilateral 1st MTP and L ankle, likely R knee - Presenting with [id number] R toe pain and fever; previously did receive colchicine and prednisone as outpatient - Work-up significant for the following: - XR RIGHT foot: Joint space narrowing of 1st MTP with erosions, surrounding soft tissue edema - XR LEFT foot/ankle: Multifocal OA. Soft tissue swelling around ankle. - MRI R Foot: OA, erosive changes. Soft tissue edema. Low suspicion for osteomyelitis. - MRI L Foot: OA, erosive changes. Soft tissue edema. OA at 1st MTP (severe) with erosions. No osteomyelitis. - Moderate R knee effusion atop severe OA - UA normal at 5.7 - CRP at 15.8 - Aspirate of ankle demonstrating 50K WBCs, positively birefringent crystals, NGTD - Ortho consulted - No indication for surgical intervention - XR-R Knee today, likely gout - MRIs reviewed, not demonstrating evidence of osteomyelitis - Pain likely secondary to gout - Await culture from ankle aspiration - At this point, highly suspect this is quality assurance representative of an acute gout flare. MRIs, aspirate, and labs are reassuring for no underlying infection - Colchicine 1.2mg x 1 now, then 0.6mg in 1 hour - Prednisone 40mg x 4 days - Discontinue CFTX, Vancomycin - Dietary counselling prior to d/c - For now hold Eliquis pending above in case of need for surgical intervention - continue to follow CBC Elevated T. Bili - Has had history of this in the past - No other LFT abnormalities - Possible he may have Gilbert Syndrome Atrial fibrillation, [id number] - With known history of AF - on Eliquis, no rate control medication - Intermittent RVR appreciated through AM of 03/02 - resolved with 1-dose of Lopressor - Lopressor 5mg x 1 this AM given persistent rates between 120 - 140s, spikes to 160+ RLS - continue Gabapentin Code: full Diet: Heart healthy, NPO at midnight DVT: Home Eliquis being held, see above Dispo: Med/surg telemetry (2) Gout: (3) Restless leg syndrome: (4) Gastroesophageal reflux disease: (5) Depression: (6) Mild obstructive sleep apnea: (7) Hypertension: Admission and Anticipated Discharge Date Admission Date: February 28, 2021 Supervising Physician Co-Signing Physician Notes I personally examined the patient and verified all elam points of history and exam, discussed case, and agree with decision making with Dr Diez. Ankle and knee feeling better. Is able to walk some, does have pain and stiffness, but notes that it is better than it was. Otherwise improving. Vitals noted, in general he is awake and alert pleasant no distress. HEENT normocephalic atraumatic mucous membranes moist. Breathing unlabored no accessory muscle use good effort. Skin shows no rashes no pallor or icterus. Neuro without focal deficits. Left ankle with dense diffuse edema, somewhat tender although it sounds like better than before talking to the patient. Right knee with moderate effusion, not very tender. Bilateral MP joints on his feet mildly tender no palpable effusion. Skin without any tracking erythema. Diffuse arthritis flaresappears to be a combination of gout and OA. Low suspicion for infection. Stop antibiotics and follow into tomorrow. Steroids, colchicine. Increase ambulation. Hopefully home soon. Otherwise as above. Subjective No acute events overnight. At the bedside this morning, patient reports that pain is getting better and that he can move his toes with more ease. Left ankle pain is still the most noticeable out of all the spots. Denies any chills or night sweats. Does say that the commotion on the other side of the room did result in a difficult night for him, and he endorses feeling anxious this morning. Denies any chest pain, palpitations, shortness of breath. Outside of the pain in his feet, denies pain elsewhere. Appetite is good. No nausea or vomiting. Review of Systems Review of Systems: as per HPI Physical Exam Physical Exam: General: Tired but well-appearing 86-year-old gentleman who is lying back in his hospital bed relaxed upon my arrival. No acute distress. Does not appear toxic. HEENT: NCAT. Eyes - Sclera are white, anicteric, and without injection. Cardiac: Tachycardic with irregular rhythm; S1 and S2 present with no murmurs, rubs, or gallops. Pulmonary: Good respiratory effort with symmetric expansion of the chest. No use of accessory muscles. 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 Abdominal: Normoactive bowel sounds. Abdomen was soft, nondistended, and non- tender to palpation. N Extremities: Upper and lower extremities are warm and well perfused. Examination of the feet does reveal very mild erythema on the first digit extending into the first MTP. Temperature at this location is consistent with normal surrounding skin temperature. There is mild tenderness to palpation. Strength at the great toe is full. The left foot demonstrates similar, but more tenderness to palpation at the first MTP. There is also mild erythema surrounding the lateral malleolus on the left side, also tender to palpation. Left great toe strength full. Resisted dorsiflexion and plantarflexion does reveal limitations on the left side, 4/5. Results & Data Results & Data ([facility]) Vital Signs (Past 12 Hours) Vital Signs Temp Pulse Pulse Pulse Resp BP Pulse Ox 03/02/21 03:09 37.6 C H 86 18 137/79 90 03/01/21 23:11 37.8 C H 101 H 20 154/82 H 90 03/01/21 22:19 98 H 03/01/21 19:53 37.2 C 93 H 20 125/77 92 Resident Activity Tracking Resident Involvement: Resident Care Provided Care Provided: Adult [place] [facility]
--- NOTE | 2021-03-02 05:57 | Billing Data ---
Date of Service February 28, 2021 Coding Level of Care Code 94164 Initial Inpt Care Lvl 2
[2021-03-02] MEDS ORDERED: VANCOMYCIN TROUGH ONE (07:30)
[2021-03-02 07:59] LABS: Basophils # (auto) 0.01 K/uL (0-0.2); Basophils % (auto) 0.1 %; Eosinophils # (auto) 0.02 K/uL (0-0.5); Eosinophils % (auto) 0.2 %; Hematocrit (blood only) 37.4 % (42-52); Hemoglobin 12.4 g/dL (14.0-18.0); Immature Granulocytes # (auto) 0.02 K/uL (0.00-0.02); Immature Granulocytes % (auto) 0.2 %; Lymphocytes # (auto) 1.02 K/uL (1.2-3.4); Lymphocytes % (auto) 9.8 %; Mean Corpuscular Hemoglobin 33.2 pg (25-34); Mean Corpuscular Hgb Conc 33.2 g/dL (32-36); Mean Corpuscular Volume 100.3 fL (80-100); Mean Platelet Volume 9.6 fL (7.4-10.4); Monocytes # (auto) 1.59 K/uL (0.11-0.59); Monocytes % (auto) 15.2 %; Neutrophils # (auto) 7.79 K/uL (1.4-6.5); Neutrophils % (auto) 74.5 %; Platelet Count 231 K/uL (130-400); RDW Coefficient of Variation 13.3 % (11.5-14.5); RDW Standard Deviation 48.2 fL (36.4-46.3); Red Blood Count 3.73 M/uL (4.7-6.1); White Blood Count 10.45 K/uL (4.8-10.8)
[2021-03-02] MEDS: allopurinoL 100 MG TAB PO SCH (08:17)
[2021-03-02] MEDS: VANCOMYCIN HCL 1,000 MG in SODIUM CHLORIDE 0.9% 250 ML IV SCH (08:17)
[2021-03-02] MEDS: GABAPENTIN 600 MG TAB PO SCH ×2 (08:18→21:56)
[2021-03-02] MEDS: traMADol HCL 50 MG TABLET PO PRN (08:21)
[2021-03-02 08:36] LABS: BUN Creatinine Ratio 13.8 (10-20); Calcium 8.7 mg/dl (8.5-10.1); Creatinine Clr Calc Pharmacy 61.7 ml/min; Est GFR (African American) 79.6 ml/min; Est GFR (Non-African American) 68.7 ml/min
[2021-03-02] MEDS ORDERED: METOPROLOL TARTRATE 1 MG/ML VIAL IV STA (08:42)
--- NOTE | 2021-03-02 10:14 | Orthopedic Progress Note ---
Date of Service March 02, 2021 Assessment & Plan (1) Gout: Plan: MRIs of both feet were reviewed by myself as well as Dr. Noland. Shows no evidence of osteomyelitis. May have some cellulitis. Does have arthritis, severe in both first MTP joints. No evidence of abscess. Subcutaneous edema is present. Gram stain of his ankle fluid is negative. Does show mono urate sodium crystals suggestive of gout. No plans for surgical intervention today for I&D. Would plan on continuing medical treatment for gout. He may have his diet today. We will continue to follow cultures. (2) Knee effusion, right: Plan: New right knee effusion. We will plan to get x-rays of his right knee today. Discussed with Dr. Noland and we will hold on aspirating the knee today unless it inhibits his range of motion, worsens or starts developing a fever. Would continue to recommend medical treatment for his gout. Clinical suspicion for gout in the knee is high. We can reassess frequently and aspirate if necessary. Patient understands and agrees with the plan. We will continue to follow while he is here. I did speak with his . They are slightly frustrated as his previous treatment for gout has not helped. Admission and Anticipated Discharge Date Admission Date: February 28, 2021 Subjective Patient resting in bed. States that his feet and ankle feel better today but he is having increased pain and swelling in his right knee. He is not sure if maybe he "bumped it" while at the MRI machine yesterday. Denies any other known injury. Denies any previous right knee pain. States it is very achy and sore. Physical Exam Musculoskeletal: Exam of bilateral lower extremities: Bilateral feet are mildly swollen and tenderness with palpation right and left first MTP joints. Tolerates passive and active motion of his ankles. Strength is 5/5. Distal pulses are 1+. Distal sensation is normal. No significant warmth or erythema to either first MTP joint. Mild edema around the left ankle. Nontender to palpation. No warmth. He has a moderate effusion of his right knee. He is able to flex his knee actively to about 100 degrees. Tolerates passive range of motion. He is able independently straight leg raise. Strength is 5/5. Mild warmth of the knee but no erythema. No active drainage or skin breakdown. Stable ligamentous exam to his right knee. Some mild ecchymosis up into the buttock area and proximal thigh. Tolerates full hip range of motion without discomfort. Results & Data ([facility]) Vital Signs (Past 12 Hours) Vital Signs Temp Pulse Pulse Resp BP BP Pulse Ox 03/02/21 08:58 110 H 155/85 H 03/02/21 07:48 36.8 C 102 H 16 174/92 H 91 03/02/21 07:38 87 03/02/21 03:09 37.6 C H 86 18 137/79 90 03/01/21 23:11 37.8 C H 101 H 20 154/82 H 90 03/01/21 22:19 98 H Laboratory Results 03/02/21 03/02/21 03/02/21 Range/Units 07:10 07:10 07:10 WBC 10.45 (4.8-10.8) K/uL RBC 3.73 L (4.7-6.1) M/uL Hgb 12.4 L (14.0-18.0) g/dL Hct 37.4 L (42-52) % MCV 100.3 H (80-100) fL MCH 33.2 (25-34) pg MCHC 33.2 (32-36) g/dL RDW Std Deviation 48.2 H (36.4-46.3) fL RDW Coeff of Monie 13.3 (11.5-14.5) % Plt Count 231 (130-400) K/uL MPV 9.6 (7.4-10.4) fL Immature Gran % (Auto) 0.2 % Neut % (Auto) 74.5 % Lymph % (Auto) 9.8 % [place] % (Auto) 15.2 % Eos % (Auto) 0.2 % Baso % (Auto) 0.1 % Neut # (Auto) 7.79 H (1.4-6.5) K/uL Lymph # (Auto) 1.02 L (1.2-3.4) K/uL [place] # (Auto) 1.59 H (0.11-0.59) K/uL Eos # (Auto) 0.02 (0-0.5) K/uL Baso # (Auto) 0.01 (0-0.2) K/uL Immature Gran # (Auto) 0.02 (0.00-0.02) K/uL Sodium 139 (136-145) mmol/L Potassium 4.0 (3.5-5.1) mmol/L Chloride 103 (98-107) mmol/L Carbon Dioxide 31 (21-32) mmol/L Anion Gap 5.0 (3-11) BUN 14 (7-18) mg/dl Creatinine 0.99 (0.6-1.4) mg/dl Est Cr Clr Drug Dosing 61.7 ml/min Est GFR ( Amer) 79.6 ml/min Est GFR (Non-Af Amer) 68.7 ml/min BUN/Creatinine Ratio 13.8 (10-20) Glucose 109 H (70-99) mg/dl Calcium 8.7 (8.5-10.1) mg/dl Fluid Comment Synovial Source Synovial Color Synovial Appearance Synovial WBC (0-200) /ul Synovial RBC /uL Synovial Polynuclear % % Synovial Mononuclear % % Synovial Crystals Vancomycin Trough 8.9 (See Comment) mcg/ml 03/01/21 03/01/21 Range/Units 10:10 10:10 WBC (4.8-10.8) K/uL RBC (4.7-6.1) M/uL Hgb (14.0-18.0) g/dL Hct (42-52) % MCV (80-100) fL MCH (25-34) pg MCHC (32-36) g/dL RDW Std Deviation (36.4-46.3) fL RDW Coeff of Monie (11.5-14.5) % Plt Count (130-400) K/uL MPV (7.4-10.4) fL Immature Gran % (Auto) % Neut % (Auto) % Lymph % (Auto) % [place] % (Auto) % Eos % (Auto) % Baso % (Auto) % Neut # (Auto) (1.4-6.5) K/uL Lymph # (Auto) (1.2-3.4) K/uL [place] # (Auto) (0.11-0.59) K/uL Eos # (Auto) (0-0.5) K/uL Baso # (Auto) (0-0.2) K/uL Immature Gran # (Auto) (0.00-0.02) K/uL Sodium (136-145) mmol/L Potassium (3.5-5.1) mmol/L Chloride (98-107) mmol/L Carbon Dioxide (21-32) mmol/L Anion Gap (3-11) BUN (7-18) mg/dl Creatinine (0.6-1.4) mg/dl Est Cr Clr Drug Dosing ml/min Est GFR ( Amer) ml/min Est GFR (Non-Af Amer) ml/min BUN/Creatinine Ratio (10-20) Glucose (70-99) mg/dl Calcium (8.5-10.1) mg/dl Fluid Comment Synovial Source OTHER Synovial Color YELLOW Synovial Appearance CLOUDY Synovial WBC 55657 H (0-200) /ul Synovial RBC 3000 /uL Synovial Polynuclear % 92.4 % Synovial Mononuclear % 7.6 % Synovial Crystals Vancomycin Trough (See Comment) mcg/ml Microbiology 03/01/21 06:05 Aerobic Blood Culture - Preliminary Blood No growth in Aerobic bottle after 24 hours. Anaerobic Blood Culture - Preliminary No growth in Anaerobic bottle after 24 hours. 03/01/21 06:00 Aerobic Blood Culture - Preliminary Blood No growth in Aerobic bottle after 24 hours. Anaerobic Blood Culture - Preliminary No growth in Anaerobic bottle after 24 hours. 02/28/21 19:35 Aerobic Blood Culture - Preliminary Blood No growth in Aerobic bottle after 24 hours. Anaerobic Blood Culture - Preliminary No growth in Anaerobic bottle after 24 hours. 03/01/21 10:10 Gram Stain - Final Ankle,Left Diagnostic Findings X-rays of right knee are pending
--- NOTE | 2021-03-02 10:26 | XRay Report ---
XR knee RT 3V CLINICAL HISTORY: right knee pain/effusion COMPARISON: Knee radiographs November 24, 2020. FINDINGS: No acute fracture is noted. No osseous lesion. There is moderate to severe lateral compart ment joint space narrowing. A moderate size joint effusion is present. Moderate patellofemoral compar tment osteoarthritis is present. IMPRESSION: 1. No acute fracture. 2. Moderate size right knee joint effusion. 3. Moderate to severe right knee osteoarthritis. ACT 112: Negative or not required by law. Electronically signed by: Randall Horta M.D. 03/02/2021 10:25 AM
[2021-03-02] MEDS ORDERED: COLCHICINE 0.6 MG TAB PO ONE (14:01)
[2021-03-02] MEDS ORDERED: COLCHICINE 0.6 MG TAB PO SCH (15:30)
[2021-03-02] MEDS: predniSONE 20 MG TAB PO SCH (16:56)
--- NOTE | 2021-03-02 17:53 | Billing Data ---
Date of Service March 02, 2021 Coding Level of Care Code 76760 Subseq Hosp Care Lvl 3
[2021-03-03] MEDS ORDERED: MELATONIN 3 MG TAB PO PRN (01:25)
--- NOTE | 2021-03-03 05:56 | Discharge Summary ---
Date of Service March 03, 2021 Admission HPI Per Admitting Provider Douglas Carpio is here for 3 months of toe pain and new onset of fever to 101.7 at home. He was initially seen in the ER in December for bilateral foot swelling that started in November and was attributed to Gout at that time. He has been treated for Gout since this time and has noted to have progressive worsening despite treatment with steroids and colchicine. He was seen and started on Augmentin on Tuesday by his PCP. He denies any tick bites or preceding trauma to the area. Since his ER visit in December he stopped drinking alcohol, previously drinking 2 beers/night. He notes that he is feeling increasingly weak and has had trouble ambulating due to the pain in his foot. He sees Dr. Mcpherson with cardiology for atrial fibrillation (on Eliquis) with his most recent ECHO on 11/14/2019 with normal function EF 55-60% and moderate biatrial dilation. would like to be updated with any changes in the plan @ # [phone] Admission Exam Per Admitting Provider Constitutional: WD/WN, vitals as above Eyes: PERRL, conjunctivae normal, anicteric sclerae ENMT: external ear and nose normal, oropharynx normal Neck: normal visual inspection Respiratory: normal respiratory effort, lungs clear to auscultation Cardiovascular: Rate/Rhythm: + irregularly irregular Extremities: + edema (non pitting edema bilaterally ) Gastrointestinal (Abdomen): normal bowel sounds, soft, nontender, no hepatosplenomegaly Musculoskeletal: Right foot - right great toe with erythema, warmth, and tenderness at the MCP joint on the plantar and dorsal aspect - no fluctuance, no drainage - pulses intact to PT and DP - sensation intact Neurologic: not confused Speech / Cognition: normal speech Psychiatric: A+Ox3, euthymic affect Principal Diagnosis Gout Flare Discharge Exam General: Tired but well-appearing 86-year-old gentleman who is lying back in his hospital bed relaxed upon my arrival. No acute distress. Does not appear toxic. HEENT: NCAT. Eyes - Sclera are white, anicteric, and without injection. Cardiac: Tachycardic with irregular rhythm; S1 and S2 present with no murmurs, rubs, or gallops. Pulmonary: Good respiratory effort with symmetric expansion of the chest. No use of accessory muscles. Lungs were clear to auscultation bilaterally with no crackles or wheezes. Abdominal: Normoactive bowel sounds. Abdomen was soft, nondistended, and non- tender to palpation. N Extremities: Upper and lower extremities are warm and well perfused. Examination of the feet does reveal very mild erythema on the first digit extending into the first MTP. Temperature at this location is consistent with normal surrounding skin temperature. There is mild tenderness to palpation. Strength at the great toe is full. The left foot demonstrates similar, but more tenderness to palpation at the first MTP. There is also mild erythema allie rounding the lateral malleolus on the left side, also tender to palpation. Left great toe strength full. Resisted dorsiflexion and plantarflexion does reveal limitations on the left side, 4/5. Discharge Data Allergies Allergy/AdvReac Type Severity Reaction Status Date / Time blue dye Allergy Mild UNKNOWN Verified 02/28/21 21:30 celecoxib Allergy Mild UNKNOWN Verified 02/28/21 21:30 duloxetine Allergy Mild UNKNOWN Verified 02/28/21 21:30 nortriptyline AdvReac Intermediate CONFUSION Verified 02/28/21 21:30 oxycodone AdvReac Intermediate SEVERE Verified 02/28/21 21:30 WITHDRAWL- shakes Consultations 03/01/21 00:48 Consult Orthopedic Surgery Routine Ordered Studies 03/01/21 09:18 MR foot RT w/o con Routine 03/01/21 12:09 MR foot LT w/o con Routine Hospital Course (1) Right foot pain: 86 yo M w/ pMHx. of OA, Gout, RLS, Reflux, A. fib (on Eliquis), HTN, prior cerebellar stroke, OCTAVIO (not on CPAP), presents with chronic progressively right toe pain and new onset fever, likely secondary to a gout flare (initial concern for septic arthritis, now with reassuring). Gout Flare -- bilateral 1st MTP and L ankle, likely R knee - Presenting with [id number] R toe pain and fever; previously did receive colchicine and prednisone as outpatient - Work-up to r/o infectious etiology significant for the following significant for the following: - MRI R Foot: OA, erosive changes. Soft tissue edema. Low suspicion for osteomyelitis. - MRI L Foot: OA, erosive changes. Soft tissue edema. OA at 1st MTP (severe) with erosions. No osteomyelitis. - Moderate R knee effusion atop severe OA - UA normal at 5.7 - Aspirate of ankle demonstrating 50K WBCs, positively birefringent crystals, NGTD - Ortho consulted - No indication for surgical intervention throughout course - MRIs reviewed, not demonstrating evidence of osteomyelitis / septic joint - XR-R Knee today, likely sec to OA - Pain likely secondary to gout - Aspiration culture did not demonstrate growth prior to D/C - At this point, highly suspect symptoms are billing representative of an acute gout flare. MRIs, aspirate, and labs are reassuring for no underlying infection - Colchicine started in hospital, continue 0.6mg / day for up to 3 days following d/c - Prednisone 40mg x 4 days (started 03/02) - Dietary counselling prior to d/c - Recommend 1-week f/u in the office for physical exam Isolated Elevated T. 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 - Repeat CMP within 2 weeks of d/c Atrial fibrillation, [id number] - With known history of AF - on Eliquis, no rate control medication - Intermittent RVR appreciated through AM of 03/02 - resolved with 1-dose of Lopressor - Resume Eliquis at d/c RLS - continue Gabapentin Code: Identifies as FULL CODE (2) Gout: (3) Restless leg syndrome: (4) Gastroesophageal reflux disease: (5) Depression: (6) Mild obstructive sleep apnea: (7) Hypertension: Total Time Total Time Spent Total Time Spent (In Minutes): <30 Discharge Plan Discharge Items Patient Disposition: Home - Self-Care Reason For Visit: TOE PAIN Discharge Diagnosis: Acute Gout Condition on Discharge: Good Activity: Per Instructions section Non-emergency contact: Primary Care Provider Call non-emergency contact if: you have any medication questions, your pain is not controlled and your temperature is above 101 Follow-up/Referrals: Brenden Cruz MD [Primary Care Provider] - 03/10/21 11:20 am Diet: Regular Diet Comment: Low-purine diet to prevent gout (see attached) Addtl Attending Provider Instructions: You were seen in [facility] for evaluation of joint pains in your feet and ankles. On your arrival here, you underwent several tests to determine the cause of the symptoms. Extra focus was given to rule out an infectious cause. You were followed by orthopedics, who assisted in your care while here. MRIs and x-rays of your feet thankfully did not show any evidence of infection. Consistent with your history, the cause of your swollen and painful joints is due to gout. While you were initially on antibiotics to cover for possible infection, these were discontinued throughout your course. You were started on a medication to resolve the gout flare (colchicine) and to reduce inflammation (prednisone). Upon discharge, please take colchicine 0.6 mg daily until resolution of your flare or when side effects (notably, diarrhea) are becoming cumbersome. You will be given a total of 3 additional doses to use, only if needed. Also, please continue taking prednisone, once daily, until 03/05. Please follow-up with your PCP within the next 1 to 2 weeks to review this visit. In the interim, if you experience any worsening fevers, chills, body aches, joint pains, chest pain, palpitations, shortness of breath, please seek medical attention; if your symptoms are severe, please report to the emergency room for immediate evaluation. Please refer to the attached handouts that explain gout as well as diets that can help reduce the frequency of gout flares. Pending Studies at Discharge: No Stand-Alone Forms: My [facility], Smoking Cessation Medications and DC Order Prescriptions: New prednisone 20 mg Tablet 40 mg PO DAILY 2 Days Qty: 4 RF: 0 colchicine [Colcrys] 0.6 mg Tablet 0.6 mg PO QAM 3 Days Qty: 3 RF: 0 Continued tramadol 50 mg tablet 25 mg PO BID PRN (Reason: pain) Qty: 30 RF: 1 gabapentin 600 mg tablet 600 mg PO BID Qty: 180 RF: 3 Eliquis 5 mg tablet 5 mg PO BID Qty: 180 RF: 3 furosemide 20 mg tablet 20 mg PO QAM PRN (Reason: edema) Qty: 90 RF: 3 allopurinol 100 mg tablet 50 mg PO QAM RF: 0 Discontinued amoxicillin-pot clavulanate [Augmentin] 875-125 mg tablet 1 tab PO BID Qty: 20 RF: 0 Discharge Orders: Discharge Order (Routine); Ordered 03/03/21 Ordered By: Arcadio Zaman/Other Patient Handouts: What Is Gout?, Treating Gout Attacks, Eating to Prevent Gout, ED Gout Diet Admission Data Admit Date/Time: 02/28/21 23:21 Attending Provider: Arcadio Foster Admit Provider: Mike Stein Primary Care Provider: Brenden Cruz V. Other Providers: Asim Noland ; Jean Addison Other Interventions: Discharge Summary Assessment (RN) Last Done: 03/03/21 12:07 Supervising Physician Co-Signing Physician Notes I personally examined the patient and verified all elam points of history and exam, discussed case, and agree with decision making with Dr Diez. Feeling good enough to go home. Still limping a good bit, but does have a walker at home. Vitals noted, in general he is awake and alert pleasant no distress. HEENT normocephalic atraumatic mucous membranes moist. Breathing unlabored no accessory muscle use good effort. Gait is slow, stooped forward, but once he gets his walker he appears very steady. Otherwise very similar to yesterday. Diffuse arthritis flaresappears to be a combination of gout and OA. Low suspicion for infection. No worsening off of antibiotics. Steroids, colchicine, safe for homeemphasized safety in discharge instructions verbally given to the patientin regards to using his walker until he steady enough to not needed anymore, and prioritizing safety while he is at home to minimize risk of fall. Otherwise as above. Resident Activity Tracking Resident Involvement: Resident Care Provided Care Provided: Adult Hospital Medicine
[2021-03-03 06:28] LABS: Basophils # (auto) 0.01 K/uL (0-0.2); Basophils % (auto) 0.1 %; Hematocrit (blood only) 35.7 % (42-52); Hemoglobin 11.9 g/dL (14.0-18.0); Immature Granulocytes # (auto) 0.01 K/uL (0.00-0.02); Immature Granulocytes % (auto) 0.1 %; Lymphocytes # (auto) 0.58 K/uL (1.2-3.4); Lymphocytes % (auto) 5.3 %; Mean Corpuscular Hemoglobin 32.9 pg (25-34); Mean Corpuscular Hgb Conc 33.3 g/dL (32-36); Mean Corpuscular Volume 98.6 fL (80-100); Mean Platelet Volume 9.2 fL (7.4-10.4); Monocytes # (auto) 1.11 K/uL (0.11-0.59); Monocytes % (auto) 10.1 %; Neutrophils # (auto) 9.33 K/uL (1.4-6.5); Neutrophils % (auto) 84.4 %; Platelet Count 216 K/uL (130-400); RDW Coefficient of Variation 13.1 % (11.5-14.5); RDW Standard Deviation 47.1 fL (36.4-46.3); Red Blood Count 3.62 M/uL (4.7-6.1); White Blood Count 11.04 K/uL (4.8-10.8)
[2021-03-03 06:56] LABS: BUN Creatinine Ratio 23.1 (10-20); Calcium 8.7 mg/dl (8.5-10.1); Creatinine Clr Calc Pharmacy 62.5 ml/min; Est GFR (African American) 80.6 ml/min; Est GFR (Non-African American) 69.5 ml/min; Potassium 4.3 mmol/L (3.5-5.1)
[2021-03-03] MEDS: predniSONE 20 MG TAB PO SCH (07:46)
[2021-03-03] MEDS: GABAPENTIN 600 MG TAB PO SCH (07:46)
[2021-03-03] MEDS: allopurinoL 100 MG TAB PO SCH (07:46)
[2021-03-03] MEDS ORDERED: COLCHICINE 0.6 MG TAB PO SCH (09:00)
--- NOTE | 2021-03-03 10:13 | Orthopedic Progress Note ---
Date of Service March 03, 2021 Assessment & Plan (1) Knee effusion, right: Plan: Patient will continue on gout therapy oral medication provided by the medicine service. Pain control with p.o. medication Patient will need a follow-up appointment at our clinic in 7 to 10 days for reevaluation of his right knee effusion. He may need possible aspiration and corticosteroid injection, however at this time orthopedically he is stable for discharge. (2) Gout: Admission and Anticipated Discharge Date Admission Date: February 28, 2021 Subjective This 86-year-old male seen today for follow-up of bilateral great toe gout, as well as right knee swelling and pain with effusion. Patient states he is doing very well today. He states that he spoke with the medicine service this morning and they are planning on discharge sometime later this afternoon. He states that his right knee feels much better today and he feels that his range of m otion is improved. He also states that the pain in his great toes is much less than it had been. He denies fever, chills, sweats, lethargy, numbness or tingling in either lower extremity. He denies chest pain, shortness of breath, nausea vomiting or diarrhea as well. Review of Systems Review of Systems: All systems reviewed & are unremarkable except as noted in Subjective Physical Exam Physical Exam: Bilateral great toes: Patient does have edema and erythema to theGreat toes on both feet with tenderness to palpation at the IP joint. There is no palpable warmth. There is no ecchymosis. Patient is able to move all digits in both feet. He is neurovascularly intact. Peripheral pulses are 2+. Capillary fill is difficult to appreciate due to his toenail fungus. Right knee: 2+ effusion. Range of motion is from 0 to 96 degrees actively. Patient is able to form a straight leg raise test. He is able to fire his quadricep muscle. He does have some mild tenderness to palpation of the anterior surface of the knee but states it is much better than it was yesterday. There is no erythema, warmth, ecchymosis, open skin areas or drainage. Patient is neurovascular intact in right lower extremity. Results & Data ([facility]) Vital Signs (Past 12 Hours) Vital Signs Temp Pulse Pulse Resp BP BP Pulse Ox 03/03/21 08:15 36.5 C 89 16 134/82 91 03/03/21 07:26 72 03/03/21 04:02 36.4 C L 88 18 136/79 90 03/02/21 23:54 36.6 C 90 20 115/78 90 Diagnostic Findings Laboratory Results WBC 11.04 K/uL (4.8-10.8) H 03/03/21 06:09 RBC 3.62 M/uL (4.7-6.1) L 03/03/21 06:09 Hgb 11.9 g/dL (14.0-18.0) L 03/03/21 06:09 Hct 35.7 % (42-52) L 03/03/21 06:09 MCV 98.6 fL (80-100) 03/03/21 06:09 MCH 32.9 pg (25-34) 03/03/21 06:09 MCHC 33.3 g/dL (32-36) 03/03/21 06:09 RDW Std Deviation 47.1 fL (36.4-46.3) H 03/03/21 06:09 RDW Coeff of Monie 13.1 % (11.5-14.5) 03/03/21 06:09 Plt Count 216 K/uL (130-400) 03/03/21 06:09 MPV 9.2 fL (7.4-10.4) 03/03/21 06:09 Immature Gran % (Auto) 0.1 % 03/03/21 06:09 Neut % (Auto) 84.4 % 03/03/21 06:09 Lymph % (Auto) 5.3 % 03/03/21 06:09 Todd % (Auto) 10.1 % 03/03/21 06:09 Eos % (Auto) 0.0 % 03/03/21 06:09 Baso % (Auto) 0.1 % 03/03/21 06:09 Neut # (Auto) 9.33 K/uL (1.4-6.5) H 03/03/21 06:09 Lymph # (Auto) 0.58 K/uL (1.2-3.4) L 03/03/21 06:09 Todd # (Auto) 1.11 K/uL (0.11-0.59) H 03/03/21 06:09 Eos # (Auto) 0.00 K/uL (0-0.5) 03/03/21 06:09 Baso # (Auto) 0.01 K/uL (0-0.2) 03/03/21 06:09 Immature Gran # (Auto) 0.01 K/uL (0.00-0.02) 03/03/21 06:09 ESR 59 mm/hr (0-20) H 02/28/21 19:33 PT 11.4 Seconds (9.0-12.0) 02/28/21 19:12 INR 1.1 (0.9-1.1) 02/28/21 19:12 APTT 33.7 Seconds (21.0-31.0) H 02/28/21 19:12 PTT Ratio 1.3 02/28/21 19:12 Sodium 138 mmol/L (136-145) 03/03/21 06:09 Potassium 4.3 mmol/L (3.5-5.1) 03/03/21 06:09 Chloride 104 mmol/L (98-107) 03/03/21 06:09 Carbon Dioxide 30 mmol/L (21-32) 03/03/21 06:09 Anion Gap 4.0 (3-11) 03/03/21 06:09 BUN 23 mg/dl (7-18) H D 03/03/21 06:09 Creatinine 0.98 mg/dl (0.6-1.4) 03/03/21 06:09 Est Cr Clr Drug Dosing 62.5 ml/min 03/03/21 06:09 Est GFR ( Amer) 80.6 ml/min 03/03/21 06:09 Est GFR (Non-Af Amer) 69.5 ml/min 03/03/21 06:09 BUN/Creatinine Ratio 23.1 (10-20) H 03/03/21 06:09 Glucose 159 mg/dl (70-99) H 03/03/21 06:09 POC Lactic Acid Darwin 1.69 mmol/L (0.90-1.70) 02/28/21 19:54 Uric Acid 5.7 mg/dl (2.6-7.2) 02/28/21 19:33 Calcium 8.7 mg/dl (8.5-10.1) 03/03/21 06:09 Total Bilirubin 3.1 mg/dl (0.2-1) H 03/01/21 05:49 AST 21 U/L (15-37) 03/01/21 05:49 ALT 22 U/L (12-78) 03/01/21 05:49 Alkaline Phosphatase 78 U/L (45-117) 03/01/21 05:49 C-Reactive Protein 15.80 mg/dl (0-0.29) H 02/28/21 19:33 Total Protein 6.8 gm/dl (6.4-8.2) 03/01/21 05:49 Albumin 3.1 gm/dl (3.4-5.0) L 03/01/21 05:49 Globulin 3.7 gm/dl (2.5-4.0) 03/01/21 05:49 Albumin/Globulin Ratio 0.8 (0.9-2) L 03/01/21 05:49 Procalcitonin 0.05 ng/ml (0-0.5) 02/28/21 21:23 Fluid Comment 03/01/21 10:10 Synovial Source OTHER 03/01/21 10:10 Synovial Color YELLOW 03/01/21 10:10 Synovial Appearance CLOUDY 03/01/21 10:10 Synovial WBC 28244 /ul (0-200) H 03/01/21 10:10 Synovial RBC 3000 /uL 03/01/21 10:10 Synovial Polynuclear % 92.4 % 03/01/21 10:10 Synovial Mononuclear % 7.6 % 03/01/21 10:10 Synovial Crystals 03/01/21 10:10 Vancomycin Trough 8.9 mcg/ml (See Comment) 03/02/21 07:10 COVID-19 Eval Order Covid19 at [facility] 02/28/21 22:03 SARS-CoV-2 (PCR) NEGATIVE (Negative) 02/28/21 22:03 Impressions Chest X-Ray 02/28/21 19:30 XR chest 1V portable HISTORY: Fever COMPARISON: Chest 01/03/2021. FINDINGS: There are low lung volumes with mild elevation of the left hemidiaphragm, unchanged. No pneumothorax. No pleural effusions. Bibasilar linear densities likely represent subsegmental atelectasis. The heart remains borderline enlarged. There are thoracic spinal fusion rods again noted. No new focal lung consolidations to suggest pneumonia. No evidence for pulmonary edema. IMPRESSION: No significant change compared to the prior study. No acute process. ACT 112: Negative or not required by law. Electronically signed by: Jose Ansari M.D. 03/01/2021 9:45 AM Ankle X-Ray 03/01/21 08:23 XR ankle LT min 3V routine, XR foot LT min 3V routine HISTORY: 86 years-old Male left ankle effusion acute pain of the left foot and ankle with reported joint effusion COMPARISON: None TECHNIQUE: 3 views of the left foot and 3 views of the left ankle FINDINGS: ANKLE: Moderate circumferential soft tissue swelling with suggested joint effusion. No acute fracture, dislocation or osteochondral defect identified. No osseous erosions. Moderate tibiotalar osteoarthritis. Spurring of the calcaneus. Arterial calcifications. FOOT: Demineralized appearance of the bones. Multifocal osteoarthritis, mild to moderate within the first MTP joint. No acute fracture, dislocation or osseous erosion. IMPRESSION: 1. No acute fracture or dislocation of the left foot or ankle. 2. Moderate soft tissue swelling of the ankle with small joint effusion. 3. Multifocal osteoarthritis. ACT 112: Negative or not required by law. The above report was generated using voice recognition software. It may contain grammatical, syntax or spelling errors. Electronically signed by: Sai Hardy M.D. 03/01/2021 8:55 AM Foot X-Ray 03/01/21 08:25 XR ankle LT min 3V routine, XR foot LT min 3V routine HISTORY: 86 years-old Male left ankle effusion acute pain of the left foot and ankle with reported joint effusion COMPARISON: None TECHNIQUE: 3 views of the left foot and 3 views of the left ankle FINDINGS: ANKLE: Moderate circumferential soft tissue swelling with suggested joint effusion. No acute fracture, dislocation or osteochondral defect identified. No osseous erosions. Moderate tibiotalar osteoarthritis. Spurring of the calcaneus. Arterial calcifications. FOOT: Demineralized appearance of the bones. Multifocal osteoarthritis, mild to moderate within the first MTP joint. No acute fracture, dislocation or osseous erosion. IMPRESSION: 1. No acute fracture or dislocation of the left foot or ankle. 2. Moderate soft tissue swelling of the ankle with small joint effusion. 3. Multifocal osteoarthritis. ACT 112: Negative or not required by law. The above report was generated using voice recognition software. It may contain grammatical, syntax or spelling errors. Electronically signed by: Sai Hardy M.D. 03/01/2021 8:55 AM Foot MRI 03/01/21 12:09 MR foot LT w/o con HISTORY: Left toe swelling. Concerns for toe infection vs gout TECHNIQUE: Multiplanar multisequence MRI of the left forefoot was performed without contrast according to standard departmental protocol. COMPARISON STUDY: Left foot radiograph 03/01/2021. FINDINGS: No fracture or dislocation within the left forefoot. Mild subchondral marrow edema, subchondral cystic change, and severe cartilage space. The first MTP joint. There are associated marginal osteophytes and a few small marginal er osive changes. This favors osteoarthritis. A superimposed inflammatory arthropathy cannot be excluded. No areas of suspicious marrow signal abnormality to suggest an osteomyelitis. There is diffuse soft tissue edema seen throughout the foot. The flexor and extensor tendons are intact. No loculated fluid collections identified to suggest an abscess. No joint effusions. IMPRESSION: 1. Diffuse soft tissue edema seen throughout the foot. This could be due to a lymphedema or cellulitis. 2. No fracture or dislocation within the left forefoot. 3. Cartilage space narrowing with subchondral cystic change at the first MTP joint suggestive of moderate to severe osteoarthritis. A few small erosive changes which may represent a superimposed inflammatory arthropathy. No areas of suspicious marrow signal abnormality to suggest an osteomyelitis. ACT 112: Negative or not required by law. Electronically signed by: Jose Ansari M.D. 03/01/2021 3:05 PM Knee X-Ray 03/02/21 09:57 XR knee RT 3V CLINICAL HISTORY: right knee pain/effusion COMPARISON: Knee radiographs November 24, 2020. FINDINGS: No acute fracture is noted. No osseous lesion. There is moderate to severe lateral compartment joint space narrowing. A moderate size joint effusion is present. Moderate patellofemoral compartment osteoarthritis is present. IMPRESSION: 1. No acute fracture. 2. Moderate size right knee joint effusion. 3. Moderate to severe right knee osteoarthritis. ACT 112: Negative or not required by law. Electronically signed by: Randall Horta M.D. 03/02/2021 10:25 AM (1) Gout Chronicity: acute Gout etiology: unspecified cause Gout site: foot Laterality: right Qualified Code(s): M10.9 - Gout, unspecified
--- NOTE | 2021-03-03 17:20 | Billing Data ---
Date of Service March 03, 2021 Coding Level of Care Code D/C DAY MANAGEMENT <30 MINS
== END 2021-03-03 13:45 | disposition home or self-care (01) | DRG 554 ==
LOC: ED 18:21 → 2N 23:21 → SUATTDRO 23:21 → 2N 03-01 00:31